=== PATIENT | female | born 1945 | race Caucasian/White ===

== ENCOUNTER → 2019-03-20 11:06 | Outpatient (BNVA) | payer MEDICAID, SELFPAY | PROVIDERS: Family Provider Nurse Practitioner Family; PCP Nurse Practitioner Family; Visit Provider Nurse Practitioner Family | DX: E03.9 Hypothyroidism, unspecified (principal); Z23 Encounter for immunization | CPT/HCPCS: 84443 ==

== ENCOUNTER 2023-09-02 12:26 | Inpatient (IN) | payer MEDICAID, SELFPAY ==
[2023-09-02] VITALS (25 sets, daily range): BP systolic 123–219; BP diastolic 61–117; PULSE 55–106; RESP 13–28; TEMP 36.3–37.2; O2SAT 93–100; BMI 25.0; BMI 24.3
--- NOTE | 2023-09-02 13:08 | CTR_ITS ---
PROCEDURE INFORMATION: Exam: CT Abdomen And Pelvis With Contrast Exam date and time: 09/02/2023 2:58 PM Age: 78 years old Clinical indication: Abdominal pain; Generalized; Additional info: Abd pain TECHNIQUE: Imaging protocol: Computed tomography of the abdomen and pelvis with contrast. Radiation optimization: All CT scans at this facility use at least one of these dose optimization techniques: automated exposure control; mA and/or kV adjustment per patient size (includes targeted exams where dose is matched to clinical indication); or iterative reconstruction. Contrast material: OMNI 350; Contrast volume: 100 ml; Contrast route: INTRAVENOUS (IV); COMPARISON: No relevant prior studies available. RADIATION DOSE METRICS: Total DLP (mGy-cm): 596.47 FINDINGS: Lungs: Lung bases are clear as visualized. Liver: Normal. No mass. Gallbladder and bile ducts: Cholelithiasis was described previously. There is a 1.7 cm noncalcified finding in the gallbladder neck which is probably a gallstone. The gallbladder wall is not obviously thickened. There is mild, diffuse bile duct dilatation to near the level of the ampulla. This was not described previously. The wall of the extrahepatic bile duct appears mildly thickened, so cholangitis is possible. Otherwise, unremarkable. Pancreas: Normal. No ductal dilation. Spleen: Normal. No splenomegaly. Adrenal glands: The left adrenal gland is diffusely prominent. A similar finding was described previously, so this is likely adrenal hyperplasia. Unremarkable right adrenal gland. Kidneys and ureters: Several simple appearing cysts are in each kidney, and need no follow-up. Otherwise, unremarkable. Stomach and bowel: There are several thick walled ileal loops in the right lower quadrant and central and right pelvis. There is a small amount of stranding in the adjacent fat. A similar finding was described in the report for the CT of the abdomen and pelvis from March 10, 2009, but images from that CT are no longer available. This was described as localized enteritis or inflammatory bowel disease which is likely the case today. It is possible this could be ischemic bowel, but this is considered much less likely. Some of these loops are mildly dilated as are other non thick walled small bowel loops, and there is a [id number] amount of gas in the colon. There are air-fluid levels. This is likely adynamic ileus. Otherwise, unremarkable. Appendix: No evidence of appendicitis. Intraperitoneal space: No significant free fluid or free air. Vasculature: Large amount of arterial calcification. Otherwise, unremarkable. Lymph nodes: Unremarkable. No enlarged lymph nodes. Urinary bladder: Unremarkable as visualized. Reproductive: Unremarkable as visualized. Bones/joints: Mild scoliosis. Mild and moderate multilevel spondylosis. Moderate bilateral hip arthritis. Otherwise, unremarkable. Soft tissues: Otherwise, unremarkable visualized body wall. Otherwise, unremarkable soft tissues. CT/CT abdomen pelvis w con* [id number] IMPRESSION: 1. Probable infectious enteritis or inflammatory bowel disease involving several distal ileal loops. Much less likely this is ischemic bowel. 2. Probable adynamic ileus. 3. Mild bile duct dilatation diffusely to near the level of the ampulla with possible cholangitis. Consider MRCP and/or ERCP for this. 4. Additional details as above.
--- NOTE | 2023-09-02 13:12 | ED_ITS ---
Documented by User: Kurt Hernandez DO 09/09/23 06:27 HPI - Abdominal Pain 2 General: Chief Complaint: Abdominal Pain Stated Complaint: abd pain Time Seen by Provider: 09/02/23 12:49 Source: patient Mode of arrival: EMS History of Present Illness: 78-year-old female who presents to the e mergency room with complaint of what she describes allover abdominal pain focus more to suprapubic discomfort. She denies dysuria but has frequency and urgency. No fever. She has had some nausea and vomiting. Is also had some loose stools. She had an episode of urinary incontinence shortly after arriving here. MD elicited complaint: abdominal pain Onset (ago): day(s) Severity: severe Quality: cramping Exacerbating factors: eating Associated Symptoms: Reports bloating, dysuria, nausea and poor appetite; Denies anorexia, belching, change in bowel habits, change in stool character, chills, coffee ground emesis, constipation, GI cramping, diarrhea, dyspepsia, excessive flatus, fever(s), heartburn, hematochezia, hematuria, hematemesis, fecal incontinence, loose stools, melena, syncope and vomiting Review of Systems 2 Const: Denies: fever(s) or chills Card: Denies: syncope Resp: Denies: dyspnea GI: Reports: nausea and bloating; Denies: vomiting, hematemesis, coffee ground emesis, heartburn, diarrhea, constipation, GI cramping, belching, excessive flatus, fecal incontinence, change in bowel habits, change in stool character, hematochezia or melena : Reports: dysuria; Denies: hematuria Musc: Denies: neck pain or back pain Skin/Breast: Denies: rash [facility] ED 2 PFSH: Medical History (Updated 09/09/23 @ 06:27 by Kurt Hernandez DO) Hypertension Gallstone Physical Exam 2 Const: GENERAL APPEARANCE: cooperative and comfortable O RIENTATION/CONSCIOUSNESS: Yes awake, Yes oriented to person, Yes oriented to place and Yes oriented to time HENMT: COMMON NORMALS: normocephalic, atraumatic and hearing grossly normal bilaterally HEAD & SCALP: normocephalic and atraumatic Resp: COMMON NORMALS: normal respiratory effort, No retractions, No use of accessory muscles and clear to auscultation bilaterally AUSCULTATION: clear to auscultation bilaterally Cardio: COMMON NORMALS: regular rate, regular rhythm and No murmurs present (Cardio) RATE: regular rate RHYTHM: regular rhythm GI: COMMON NORMALS: Soft to palpation and No hepatosplenomegaly present A USCULTATION: Yes normoactive bowel sounds PALPATION: Yes Soft to palpation, No Tenderness to palpation present (GI), No Guarding due to palpation present (GI) and Yes No hepatosplenomegaly present Extremity: COMMON NORMALS: normal to inspection, capillary refill normal, no clubbing, cyanosis or edema, no calf tenderness and no pedal edema Neuro: SENSORIUM/ORIENTATION: Yes oriented to person, Yes oriented to place and Yes oriented to time Skin: COMMON NORMALS: no rashes or lesions noted GENERAL SKIN EXAM: no rashes or lesions noted Course 2 Vital Signs: Vital signs: Vital Signs Temperature 97.4 F L 09/06/23 13:10 Pulse Rate 78 09/06/23 13:10 Respiratory Rate 19 H 09/06/23 13:10 Blood Pressure 163/69 09/06/23 13:10 Pulse Oximetry 97 09/06/23 13:10 Oxygen Delivery Me thod Room Air 09/06/23 11:55 MDM - Abdominal Pain Medical Decision Making Patient continues with moderate abdominal discomfort. Her white count is normal liver enzymes T. bili and lipase are all normal. There is enteritis on the CT there is a questionable finding on the gallbladder with possible mild ductal dilatation. Ultrasound was done to reevaluate. Report from mineral surveying technician is there is no ductal dilatation there is some mild gallbladder wall thickening. She may have an early cholecystitis history of this may be part of an enteritis which is seen in the small bowel. Her lactic acid initially was 2.6 and decreases to 1.2 on follow-up. Similar findings on the ileal loops were noted in February 2009 but did radiologist reported that these films were not available for comparison. Consult hospitalist will start prophylactically on Zosyn. It is possible patient is a very early cholecystitis. Labs can be reevaluated and you can consider repeat imaging of the gallbladder in the morning pending on patient's clinical condition and lab results. Care signed out to Dr. Wheeler at change of shift. See final notes for diagnosis and disposition. Patient care was transitioned to md at shift change. Awaiting consultation from the hospitalist service. Initially they recommended either an MRCP prior to admission or transfer for MRCP. I spoke with patient about this and she refused transfer to [facility]. I suggested [facility] which at the time she said okay. I got her accepted to [facility] and when I went back to tell her she said that she would not go there either because she has only [place] Medicaid. At that point Dr. Evansan to talk to Dr. Ireland and Dr. Ireland has agreed to admit patient and the hospitalist will consult. Medical decision making: Differential diagnosis including but not limited to and based on the above HPI, review of systems and physical exam: Orders placed to evaluate differential diagnosis based on the above differential, HPI and physical exam Lab Review: Laboratory results were reviewed and interpreted by myself the emergency room physician. I reviewed the patient's medical record. Reexamination: I examined the patient. Dry oral mucosa. Tachypneic. Very diffuse abdominal tenderness. Assessment and plan: Abdominal pain Ileus Colitis Possible cholecystitis Accelerated hypertension -Patient has received Zosyn here in the emergency room. ? I have ordered a liter saline she appears bit dehydrated on my exam. -I had ordered morphine and Zofran because her blood pressure was elevated and she was complaining of severe pain. ? Pain meds did not affect her blood pressure so I have ordered a dose of labetalol. If this does not help the hospitalist will need to be consulted for management of this. Heart rate was in the 90s and she is been having very frequent PVCs. -Patient was discussed with Dr. Ireland and with Dr. Lancaster. Being admitted to Dr. Ireland - Discussed findings and plan with patient. Answered any questions. - All laboratory values were reviewed and interpreted personally by myself, the ER physician - All imaging was reviewed and interpreted personally by myself, the ER physician. - Evaluation and treatment of this problem were appropriate in the emergency setting Medical Records I reviewed the patient's medical records. Lab Data I reviewed the patient's lab results. 09/06/23 09:49 09/05/23 05:51 Labs/Radiology: Radiology Impressions Abdomen/Pelvis CT 09/02/23 13:08 IMPRESSION: 1. Probable infectious enteritis or inflammatory bowel disease involving several distal ileal loops. Much less likely this is ischemic bowel. 2. Probable adynamic ileus. 3. Mild bile duct dilatation diffusely to near the level of the ampulla with possible cholangitis. Consider MRCP and/or ERCP for this. 4. Additional details as above. Gallbladder Ultrasound 09/02/23 17:22 IMPRESSION: 1. Study significantly limited by overlying bowel gas. On CT of the colon is noted to overlie the upper abdomen. 2. Suggested large gallstone with questionable gallbladder wall thickening. Consider HIDA scan cholecystitis is suspected. 3. Other nonemergent findings above. Cholangiopancreatography MRI 09/03/23 18:56 Impression: Some images limited due to respiratory motion 1. 2.5 x 2.1 cm gallstone in the gallbladder neck. 2. No evidence of gallbladder wall thickening or pericholecystic fluid. No definite evidence of acute cholecystitis. Recommend correlation with biliary function studies. 3. Normal caliber common bile duct. No evidence of choledocholithiasis. 4. Minimal intrahepatic biliary ductal dilatation. No definite MRI evidence of cholangitis. 5. Multiple bilateral renal cysts. 6. 1.5 cm LEFT adrenal adenoma. 7. No other acute findings. Laboratory Results WBC 5.85 10^3/uL (3.29-11.43) 09/02/23 13:07 RBC 4.45 10^6/uL (3.85-5.65) 09/02/23 13:07 Hgb 15.90 g/dL (11.27-16.99) 09/02/23 13:07 Hct 45.3 % (36-47) 09/02/23 13:07 MCV 101.8 fl (85-98) H 09/02/23 13:07 MCH 35.7 pg (27-33) H 09/02/23 13:07 MCHC 35.1 g/dL (30-55) 09/02/23 13:07 RDW 12.8 % (12.1-15.1) 09/02/23 13:07 Plt Count 263 10^3/cmm (157-399) 09/02/23 13:07 MPV 10.5 fL (7.4-10.4) H 09/02/23 13:07 Neut % (Auto) 84.7 % 09/02/23 13:07 Lymph % (Auto) 9.2 % 09/02/23 13:07 [place] % (Auto) 5.3 % 09/02/23 13:07 Eos % (Auto) 0.2 % 09/02/23 13:07 Baso % (Auto) 0.3 % 09/02/23 13:07 Neut # (Auto) 4.95 10^3/uL (1.8-7.7) 09/02/23 13:07 Lymph # (Auto) 0.5 10^3/uL (0.8-4.8) L 09/02/23 13:07 [place] # (Auto) 0.3 10^3/uL (0.2-0.9) 09/02/23 13:07 Eos # (Auto) 0.0 10^3/uL (0.0-0.8) 09/02/23 13:07 Baso # (Auto) 0.0 10^3/uL (0.0-0.1) 09/02/23 13:07 Nucleated RBC % (auto) 0 % 09/02/23 13:07 Nucleated RBCs # 0.0 /100WBC 09/02/23 13:07 Sodium 141 mmol/L (136-145) 09/02/23 13:07 Potassium 4.2 mmol/L (3.5-5.1) 09/02/23 13:07 Chloride 100 mmol/L (98-107) 09/02/23 13:07 Carbon Dioxide 24 mmol/L (22-29) 09/02/23 13:07 Anion Gap 21.2 (5-19) H 09/02/23 13:07 BUN 9 mg/dL (8-23) 09/02/23 13:07 Creatinine 0.9 mg/dL (0.5-0.9) 09/02/23 13:07 GFR Calculation Not Reportable 09/02/23 13:07 Glucose 121 mg/dL (65-115) H 09/02/23 13:07 Calculated Osmolality 292 mOsm/kg (285-295) 09/02/23 13:07 Lactic Acid 2.6 mmol/L (0.5-2.2) H 09/02/23 13:07 Lactic Acid (Sepsis) 1.6 mmol/L (0.5-2.2) 09/02/23 16:07 Calcium 10.4 mg/dL (8.5-10.5) 09/02/23 13:07 Total Bilirubin 0.6 mg/dL (0.15-1.2) 09/02/23 13:07 AST 21 U/L (0-32) 09/02/23 13:07 ALT < 5 U/L (0-33) 09/02/23 13:07 Alkaline Phosphatase 98 U/L (35-105) 09/02/23 13:07 Total Protein 8.4 g/dL (6.6-8.7) 09/02/23 13:07 Albumin 4.6 g/dL (3.5-5.2) 09/02/23 13:07 Globulin 3.8 g/dL (1.3-4.6) 09/02/23 13:07 Lipase 14 U/L (13-60) 09/02/23 13:07 Urine Color Yellow (Yellow) 09/02/23 13:50 Urine Appearance Clear (CLEAR) 09/02/23 13:50 Urine pH 9 (5-7) H 09/02/23 13:50 Ur Specific [place] 1.010 (1.005-1.030) 09/02/23 13:50 Urine Protein Neg (Negative) 09/02/23 13:50 Urine Glucose (UA) Norm (Normal) 09/02/23 13:50 Urine Ketones 1+ (Negative) H 09/02/23 13:50 Urine Blood Neg (Negative) 09/02/23 13:50 Urine Nitrate Negative (Negative) 09/02/23 13:50 Urine Bilirubin Neg (Negative) 09/02/23 13:50 Prot Sulfosalicylic Acd Negative (Negative) 09/02/23 13:50 Urine Urobilinogen Norm mg/dL (Negative) 09/02/23 13:50 Ur Leukocyte Esterase Negative (Negative) 09/02/23 13:50 Discharge Plan Discharge Patient Disposition: Admitted As Inpatient Admit Provider: Amadou Ireland Clinical Impression: Gastroenteritis, Elevated LFTs, Cholelithiasis Condition: Stable Discharge Diet: Advance as tolerated Discharge Activity: Resume usual activity Coding Level of Care Code ED Trimming Department Blocker for Sebastiang Fwd Documented by User: Paty Wheeler MD 09/02/23 20:26 HPI - Abdominal Pain 2 General: Chief Complaint: Abdominal Pain Stated Complaint: abd pain Time Seen by Provider: 09/02/23 12:49 PFS ED 2 PFSH: Medical History (Updated 09/09/23 @ 06:27 by Kurt Hernandez DO) Hypertension Gallstone Course 2 Vital Signs: Vital signs: Vital Signs Temperature 97.4 F L 09/06/23 13:10 Pulse Rate 78 09/06/23 13:10 Respiratory Rate 19 H 09/06/23 13:10 Blood Pressure 163/69 09/06/23 13:10 Pulse Oximetry 97 09/06/23 13:10 Oxygen Delivery Me thod Room Air 09/06/23 11:55 MDM - Abdominal Pain Medical Decision Making Patient continues with moderate abdominal discomfort. Her white count is normal liver enzymes T. bili and lipase are all normal. There is enteritis on the CT there is a questionable finding on the gallbladder with possible mild ductal dilatation. Ultrasound was done to reevaluate. Report from mineral surveying technician is there is no ductal dilatation there is some mild gallbladder wall thickening. She may have an early cholecystitis history of this may be part of an enteritis which is seen in the small bowel. Her lactic acid initially was 2.6 and decreases to 1.2 on follow-up. Similar findings on the ileal loops were noted in February 2009 but did radiologist reported that these films were not available for comparison. Consult hospitalist will start prophylactically on Zosyn. It is possible patient is a very early cholecystitis. Labs can be reevaluated and you can consider repeat imaging of the gallbladder in the morning pending on patient's clinical condition and lab results. Patient care was transitioned to md at shift change. Awaiting consultation from the hospitalist service. Initially they recommended either an MRCP prior to admission or transfer for MRCP. I spoke with patient about this and she refused transfer to [facility]. I suggested [facility] which at the time she said okay. I got her accepted to [facility] and when I went back to tell her she said that she would not go there either because she has only [place] Medicaid. At that point Dr. Hernandez to talk to Dr. Ireland and Dr. Ireland has agreed to admit patient and the hospitalist will consult. Medical decision making: Differential diagnosis including but not limited to and based on the above HPI, review of systems and physical exam: Orders placed to evaluate differential diagnosis based on the above differential, HPI and physical exam Lab Review: Laboratory results were reviewed and interpreted by myself the emergency room physician. I reviewed the patient's medical record. Reexamination: I examined the patient. Dry oral mucosa. Tachypneic. Very diffuse abdominal tenderness. Assessment and plan: Abdominal pain Ileus Colitis Possible cholecystitis Accelerated hypertension -Patient has received Zosyn here in the emergency room. ? I have ordered a liter saline she appears bit dehydrated on my exam. -I had ordered morphine and Zofran because her blood pressure was elevated and she was complaining of severe pain. ? Pain meds did not affect her blood pressure so I have ordered a dose of labetalol. If this does not help the hospitalist will need to be consulted for management of this. Heart rate was in the 90s and she is been having very frequent PVCs. -Patient was discussed with Dr. Ireland and with Dr. Lancaster. Being admitted to Dr. Ireland - Discussed findings and plan with patient. Answered any questions. - All laboratory values were reviewed and interpreted personally by myself, the ER physician - All imaging was reviewed and interpreted personally by myself, the ER physician. - Evaluation and treatment of this problem were appropriate in the emergency setting Lab Data 09/06/23 09:49 09/05/23 05:51 Labs/Radiology: Radiology Impressions Abdomen/Pelvis CT 09/02/23 13:08 IMPRESSION: 1. Probable infectious enteritis or inflammatory bowel disease involving several distal ileal loops. Much less likely this is ischemic bowel. 2. Probable adynamic ileus. 3. Mild bile duct dilatation diffusely to near the level of the ampulla with possible cholangitis. Consider MRCP and/or ERCP for this. 4. Additional details as above. Gallbladder Ultrasound 09/02/23 17:22 IMPRESSION: 1. Study significantly limited by overlying bowel gas. On CT of the colon is noted to overlie the upper abdomen. 2. Suggested large gallstone with questionable gallbladder wall thickening. Consider HIDA scan cholecystitis is suspected. 3. Other nonemergent findings above. Cholangiopancreatography MRI 09/03/23 18:56 Impression: Some images limited due to respiratory motion 1. 2.5 x 2.1 cm gallstone in the gallbladder neck. 2. No evidence of gallbladder wall thickening or pericholecystic fluid. No definite evidence of acute cholecystitis. Recommend correlation with biliary function studies. 3. Normal caliber common bile duct. No evidence of choledocholithiasis. 4. Minimal intrahepatic biliary ductal dilatation. No definite MRI evidence of cholangitis. 5. Multiple bilateral renal cysts. 6. 1.5 cm LEFT adrenal adenoma. 7. No other acute findings. Laboratory Results WBC 5.85 10^3/uL (3.29-11.43) 09/02/23 13:07 RBC 4.45 10^6/uL (3.85-5.65) 09/02/23 13:07 Hgb 15.90 g/dL (11.27-16.99) 09/02/23 13:07 Hct 45.3 % (36-47) 09/02/23 13:07 MCV 101.8 fl (85-98) H 09/02/23 13:07 MCH 35.7 pg (27-33) H 09/02/23 13:07 MCHC 35.1 g/dL (30-55) 09/02/23 13:07 RDW 12.8 % (12.1-15.1) 09/02/23 13:07 Plt Count 263 10^3/cmm (157-399) 09/02/23 13:07 MPV 10.5 fL (7.4-10.4) H 09/02/23 13:07 Neut % (Auto) 84.7 % 09/02/23 13:07 Lymph % (Auto) 9.2 % 09/02/23 13:07 [place] % (Auto) 5.3 % 09/02/23 13:07 Eos % (Auto) 0.2 % 09/02/23 13:07 Baso % (Auto) 0.3 % 09/02/23 13:07 Neut # (Auto) 4.95 10^3/uL (1.8-7.7) 09/02/23 13:07 Lymph # (Auto) 0.5 10^3/uL (0.8-4.8) L 09/02/23 13:07 [place] # (Auto) 0.3 10^3/uL (0.2-0.9) 09/02/23 13:07 Eos # (Auto) 0.0 10^3/uL (0.0-0.8) 09/02/23 13:07 Baso # (Auto) 0.0 10^3/uL (0.0-0.1) 09/02/23 13:07 Nucleated RBC % (auto) 0 % 09/02/23 13:07 Nucleated RBCs # 0.0 /100WBC 09/02/23 13:07 Sodium 141 mmol/L (136-145) 09/02/23 13:07 Potassium 4.2 mmol/L (3.5-5.1) 09/02/23 13:07 Chloride 100 mmol/L (98-107) 09/02/23 13:07 Carbon Dioxide 24 mmol/L (22-29) 09/02/23 13:07 Anion Gap 21.2 (5-19) H 09/02/23 13:07 BUN 9 mg/dL (8-23) 09/02/23 13:07 Creatinine 0.9 mg/dL (0.5-0.9) 09/02/23 13:07 GFR Calculation Not Reportable 09/02/23 13:07 Glucose 121 mg/dL (65-115) H 09/02/23 13:07 Calculated Osmolality 292 mOsm/kg (285-295) 09/02/23 13:07 Lactic Acid 2.6 mmol/L (0.5-2.2) H 09/02/23 13:07 Lactic Acid (Sepsis) 1.6 mmol/L (0.5-2.2) 09/02/23 16:07 Calcium 10.4 mg/dL (8.5-10.5) 09/02/23 13:07 Total Bilirubin 0.6 mg/dL (0.15-1.2) 09/02/23 13:07 AST 21 U/L (0-32) 09/02/23 13:07 ALT < 5 U/L (0-33) 09/02/23 13:07 Alkaline Phosphatase 98 U/L (35-105) 09/02/23 13:07 Total Protein 8.4 g/dL (6.6-8.7) 09/02/23 13:07 Albumin 4.6 g/dL (3.5-5.2) 09/02/23 13:07 Globulin 3.8 g/dL (1.3-4.6) 09/02/23 13:07 Lipase 14 U/L (13-60) 09/02/23 13:07 Urine Color Yellow (Yellow) 09/02/23 13:50 Urine Appearance Clear (CLEAR) 09/02/23 13:50 Urine pH 9 (5-7) H 09/02/23 13:50 Ur Specific [place] 1.010 (1.005-1.030) 09/02/23 13:50 Urine Protein Neg (Negative) 09/02/23 13:50 Urine Glucose (UA) Norm (Normal) 09/02/23 13:50 Urine Ketones 1+ (Negative) H 09/02/23 13:50 Urine Blood Neg (Negative) 09/02/23 13:50 Urine Nitrate Negative (Negative) 09/02/23 13:50 Urine Bilirubin Neg (Negative) 09/02/23 13:50 Prot Sulfosalicylic Acd Negative (Negative) 09/02/23 13:50 Urine Urobilinogen Norm mg/dL (Negative) 09/02/23 13:50 Ur Leukocyte Esterase Negative (Negative) 09/02/23 13:50 All radiology interpretation(s) finalized by discharge Discharge Plan Discharge Patient Disposition: Admitted As Inpatient Admit Provider: Amadou Ireland Clinical Impression: Gastroenteritis, Elevated LFTs, Cholelithiasis Condition: Stable Discharge Diet: Advance as tolerated Discharge Activity: Resume usual activity Coding Level of Care Code ED Trimming Department Blocker for Queenie Turner
[2023-09-02 13:52] LABS: Basophils % 0.3 %; Eosinophils % 0.2 %; Hematocrit 45.3 % (36-47); Lymphocytes # 0.5 10^3/uL (0.8-4.8); Lymphocytes % 9.2 %; Mean Corpuscular HGB Conc 35.1 g/dL (30-55); Mean Corpuscular Hemoglobin 35.7 pg (27-33); Mean Corpuscular Volume 101.8 fl (85-98); Mean Platelet Volume 10.5 fL (7.4-10.4); Monocytes # 0.3 10^3/uL (0.2-0.9); Monocytes % 5.3 %; Neutrophils # 4.95 10^3/uL (1.8-7.7); Neutrophils % 84.7 %; Nucleated Red Blood Cells % 0 %; Platelet Count 263 10^3/cmm (157-399); Red Blood Count 4.45 10^6/uL (3.85-5.65); Red Cell Distribution Width 12.8 % (12.1-15.1); White Blood Count 5.85 10^3/uL (3.29-11.43)
[2023-09-02 14:00] LABS: Add Urine Microscopic? NO; Charge for UA Resulting for Rev
[2023-09-02 14:10] LABS: Alanine Aminotransferase < 5 U/L (0-33); Albumin Level 4.6 g/dL (3.5-5.2); Alkaline Phosphatase 98 U/L (35-105); Aspartate Amino Transferase 21 U/L (0-32); Blood Urea Nitrogen 9 mg/dL (8-23); Calcium 10.4 mg/dL (8.5-10.5); Carbon Dioxide 24 mmol/L (22-29); Chloride 100 mmol/L (98-107); Creatinine Clr Calc Pharmacy 54.5334; Globulin 3.8 g/dL (1.3-4.6); Glucose 121 mg/dL (65-115); Lipase 14 U/L (13-60); Osmolality Calculated 292 mOsm/kg (285-295); Sodium 141 mmol/L (136-145); Total Bilirubin 0.6 mg/dL (0.15-1.2); Total Protein 8.4 g/dL (6.6-8.7)
[2023-09-02 14:11] LABS: Lactic Sepsis W/Reflex 2.6 mmol/L (0.5-2.2)
[2023-09-02 14:13] LABS: Anion Gap 21.2 (5-19); Potassium 4.2 mmol/L (3.5-5.1)
[2023-09-02 14:24] LABS: Bilirubin Urine Neg (Negative); Blood Urine Neg (Negative); Glucose Urine UA Norm (Normal); Ketones Urine 1+ (Negative); Leukocyte Esterase Urine Negative (Negative); Nitrate Urine Negative (Negative); Protein Urine Neg (Negative); Sulfosalicylic Acid Urine Negative (Negative); Urine Appearance Clear (CLEAR); Urine Color Yellow (Yellow); Urobilinogen Urine Norm (Negative); pH Urine 9 (5-7)
--- NOTE | 2023-09-02 15:01 | PC.NURSE ---
Pt was brought over to CT. We flushed pt IV with power injector @ 2.5ml/s and IV was blown. 20ML saline went under the skin. We removed pt blown IV and started a 20g in Left arm that flushed, haroldo blood, and was used for CT with contrast. IV was documented. Pt arm was wrapped in a warm compress after blown IV was removed.@ 1500 BH
[2023-09-02] MEDS: iohexol 350 mg/mL 500 mL Btl (per mL) IV (15:11)
[2023-09-02 15:35] LABS: Reflex Lactate Order REFLEX LACTIC ORDERD
[2023-09-02 16:44] LABS: Lactic Acid level (Lactate) 1.6 mmol/L (0.5-2.2)
--- NOTE | 2023-09-02 17:22 | USR_ITS ---
PROCEDURE INFORMATION: Exam: US Abdomen, Limited; Right Upper Quadrant Exam date and time: 09/02/2023 5:34 PM Age: 78 years old Clinical indication: Abdominal pain; Additional info: Abd pain. Tds due to bowel gas TECHNIQUE: Imaging protocol: Real time ultrasound of the abdomen with image documentation. Limited exam focused on the right upper quadrant. COMPARISON: CT abdomen pelvis w con* [id number] 09/02/2023 2:58 PM FINDINGS: Limitations: Markedly limited study due to overlying bowel gas. On CT, the colon projects over the liver anteriorly. Liver: The visualized portions of the liver within normal limits. Gallbladder: Suggested large gallstone in the neck of the gallbladder. Questionable gallbladder wall thickening measuring up to 4 mm. The patient was unable to roll for more accurate evaluation of the gallbladder. Biliary ducts: There is no evidence of intra or extrahepatic ductal dilatation. The common bile duct measures 4 mm. Pancreas: Pancreas obscured by bowel gas. Right kidney: Two simple appearing cyst visualized in the right kidney, the larger measuring up to 2.7 cm. Aorta: Aorta and inferior vena cava are not visualized due to overlying bowel gas. US/US gall bladder [id number] IMPRESSION: 1. Study significantly limited by overlying bowel gas. On CT of the colon is noted to overlie the upper abdomen. 2. Suggested large gallstone with questionable gallbladder wall thickening. Consider HIDA scan cholecystitis is suspected. 3. Other nonemergent findings above.
--- NOTE | 2023-09-02 17:40 | PC.NURSE ---
US in room
[2023-09-02] MEDS: sodium chloride 0.9% 1,000 ML 999 ML IV (17:44)
[2023-09-02] MEDS: piperacillin-tazobactam 3.375 GM in sodium chloride 0.9% (plus) 50 ML IV (18:49)
[2023-09-02] MEDS: morphine 4 mg/mL SDV 1 mL IVP (19:07)
--- NOTE | 2023-09-02 19:07 | P.CONIM_ITS ---
Providers/Reason For Consult 2 Consulting Physician/Specialty*: Makenna Lancaster MD, Internal Medicine, Reason for Consult*: Abdominal pain Primary Care Provider: Cayla Rivas APN History of Present Illness History of Present Illness Gabriella Thompson is a 78 year old female with no significant past medical history presented to the hospital today with complaint of abdominal pain that is worse around her umbilical region going on for the last 3 to 4 days. Pain is 8 out of 10 in intensity. She says its mainly around the umbilicus but also has mild right upper quadrant pain. She has had 1 episode of vomiting today and an episode of loose stools however has been nauseous for the last few days and has had a lot of retching. She has no known issues with her gallbladder in the past. She does states she has a history of back surgeries and tubal ligation long time ago. She is not on any medications at home except thyroid medication. She is somewhat of a poor historian. She says she takes trazodone for insomnia. Right now she lives alone but says her grandchild will be living with her going forward. She says she does not want to be intubated or placed on a ventilator however is okay with CPR. Does not have any issues with blood pressure as far as she knows. ER course: Blood pressure 124/79, respiratory 18, pulse 89, temperature 97.4 saturating 98% on room air. CT abdomen pelvis was done which shows probable infectious enteritis or inflammatory bowel disease involving several distal ileum loops. Much less likely ischemic bowel. Probable adynamic ileus. Mild bile duct dilatation diffusely to near the level of ampulla with possible cholangitis. Consider MRCP and/or ERCP for this. Gallbladder ultrasound was performed which showed 1. Study significantly limited by overlying bowel gas. On CT of the colon is noted to overlie the upper abdomen. 2. Suggested large gallstone with questionable gallbladder wall thickening. Consider HIDA scan cholecystitis is suspected. 3. Other nonemergent findings above. Medications/Allergies Home Medications Medication Instructions Recorded Confirmed Last Taken Type ergocalciferol (vitamin D2) 1,250 1,250 mcg PO .WEEKLY #4 caps 06/01/19 Unknown Rx mcg (50,000 unit) capsule (Vitamin D2) Allergies Allergy/AdvReac Type Severity Reaction Status Date / Time No Known Allergies Allergy Unverified 03/20/19 11:34 Vitals/I&O/Wt Last Vital Signs Temp 98.1 F 09/02/23 18:00 Pulse 89 09/02/23 19:00 Resp 16 09/02/23 19:00 BP 193/85 09/02/23 19:00 Pulse Ox 94 09/02/23 19:00 O2 Del Method Room Air 09/02/23 19:00 Weight last 48 hrs Weight 72.575 kg Physical Exam 2 Narrative: General: Alert oriented x3, patient seen laying in bed seems to be in mild to moderate distress secondary to abdominal pain. HEENT: Normocephalic, atraumatic, EOMI, breathing room air Cardio: Regular rate rhythm, normal S1-S2, Respiratory: Clear to auscultation bilaterally no wheezes no rhonchi GI: Abdomen soft, moderately tender to palpation around umbilical region, no rebound tenderness however does have mild guarding. Right upper quadrant also tender Extremities: No edema bilateral lower extremities, no apparent skin rashes noted. Data 09/02/23 13:07 09/02/23 13:07 Micro: Microbiology 09/02/23 18:00 Blood Culture - Preliminary Blood SPECIMEN COLLECTED 09/02/23 18:00 Blood Culture - Preliminary Blood SPECIMEN COLLECTED A&P Assessment and plan (1) Abdominal pain: (2) Cholecystitis: (3) Gallstone: (4) Ileus: (5) Hypertension: Plan #Abdominal pain #Probable cholecystitis, early cholangitis? #Cholelithiasis? #Possible adynamic ileus? #Thyroid disease, -unspecified -Patient is presented to the hospital with 3 to 4 days of abdominal pain which is worse around her umbilical region intensity of 10 associated with nausea vomiting and retching. She is hypertensive secondary to pain. Is requiring morphine IV. Does have moderate amount of abdominal pain upon light and deep palpation. Does have mild guarding present. Lactic acid 2.6 on arrival and subsequently 1.6. CT abdomen pelvis does raise a question of possible cholangitis, 1.7 cm noncalcified material around the neck of gallbladder which could possibly be a gallstone. Subsequently performed gallbladder ultrasound does suggest a large gallstone with questionable gallbladder wall thickening. Common bile duct does measure 4 mm. However gallbladder could not be fully visualized. Exam limited secondary to overlying bowel gas. -LFTs are not abnormal, alkaline phosphatase, lipase are normal at this time however that does not completely rule out gallbladder or early biliary disease. -Radiologist has recommended MRCP or ERCP for further evaluation. ? I have been told MRCP will NOT be possible to do this evening due to logistical issues. I have discussed the case at length with general surgery and discussed all imaging findings. Both general surgeon and the senior grant writer recommend patient be transferred to higher level of care tertiary care center where MRCP ERCP capabilities are available and obtain a gastroenterology consult. -In the meantime we can order morphine 4 mg IV every 4 hours as needed for pain ? Hydralazine 5 mg IV every 4 hours for elevated blood pressure greater than 180 as there is a pain component. ? Confirm home medications from patient's pharmacy. ? Keep patient strictly n.p.o. at this time ? Zofran 4 mg every 6 hours as needed for nausea -Placed on normal saline 125 cc/h -Check GGT, subsequent labs in a.m. -Place patient on Zosyn every 8 hours, pharmacy to dose -Recommend transfer patient to higher level of care. Limited resuscitation, does not want intubation however okay with CPR. DVT prophylaxis: Heparin SQ twice daily Consult Attestations 2 Medical Necessity Statement: Consulting for patient in ER with abdominal pain. Diagnoses Abdominal pain R10.9 Cholecystitis K81.9 Gallstone K80.20 Ileus K56.7 Hypertension I10
[2023-09-02] MEDS: ondansetron 2 mg/ML SDV 2 mL 4 MG IVP (19:08)
--- NOTE | 2023-09-02 20:22 | ECG_ITS ---
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 Measurements Intervals [place] Rate: 100 P: 45 WA: 134 QRS: -74 QRSD: 135 T: 23 QT: 370 QTc: 478 Interpretive Statements SINUS TACHYCARDIA WITH FREQUENT VENTRICULAR PREMATURE COMPLEXES IN A BIGEMINAL PATTERN LEFT ATRIAL ENLARGEMENT [-0.15mV P-WAVE IN V1/V2] RIGHT BUNDLE BRANCH BLOCK [120+ ms QRS DURATION, UPRIGHT V1, 40+ ms S IN I/aVL/V4/V5/V6] LEFT ANTERIOR FASCICULAR BLOCK [QRS AXIS <= -45, QR IN I, RS IN II] No previous ECG available for comparison Electronically Signed On 09-03-2023 13:40:16 CDT by Kit Rodriguez M.D. [id number]
[2023-09-02] MEDS: sodium chloride 0.9% 1,000 ML 125 ML IV (21:10)
[2023-09-02 21:15] LABS: Troponin(5th) Baseline 40 ng/L (0-10)
[2023-09-02] MEDS: labetalol 5 mg/mL SDV 20mL 20 MG IVP (21:36)
[2023-09-02] MEDS: heparin 5,000 unit/mL INJ 1 mL 5000 UNIT SUBCUT (21:36)
[2023-09-02 21:48] LABS: Basophils % 0.4 %; Eosinophils % 0.1 %; Hematocrit 41.3 % (36-47); Lymphocytes # 1.3 10^3/uL (0.8-4.8); Lymphocytes % 14.8 %; Mean Corpuscular HGB Conc 34.6 g/dL (30-55); Mean Corpuscular Hemoglobin 35.4 pg (27-33); Mean Corpuscular Volume 102.2 fl (85-98); Mean Platelet Volume 9.2 fL (7.4-10.4); Monocytes # 0.7 10^3/uL (0.2-0.9); Monocytes % 8.6 %; Neutrophils # 6.39 10^3/uL (1.8-7.7); Neutrophils % 75.7 %; Nucleated Red Blood Cells % 0 %; Platelet Count 271 10^3/cmm (157-399); Red Blood Count 4.04 10^6/uL (3.85-5.65); Red Cell Distribution Width 13.1 % (12.1-15.1); White Blood Count 8.44 10^3/uL (3.29-11.43)
[2023-09-02 22:03] LABS: Lactic Sepsis W/Reflex 2.2 mmol/L (0.5-2.2)
[2023-09-02 22:22] LABS: Troponin 5 2HR 43.09 ng/L (0-10); Troponin 5 2HR Delta 3.09 ABS# (0-10)
[2023-09-02 22:32] LABS: Procalcitonin 0.05 ng/mL (0-0.5)
[2023-09-02 22:44] LABS: Alanine Aminotransferase < 5 U/L (0-33); Albumin Level 4.1 g/dL (3.5-5.2); Alkaline Phosphatase 91 U/L (35-105); Aspartate Amino Transferase 18 U/L (0-32); Blood Urea Nitrogen 8 mg/dL (8-23); Calcium 9.5 mg/dL (8.5-10.5); Carbon Dioxide 22 mmol/L (22-29); Chloride 102 mmol/L (98-107); Creatinine Clr Calc Pharmacy 48.4132; Globulin 2.7 g/dL (1.3-4.6); Glucose 121 mg/dL (65-115); Osmolality Calculated 294 mOsm/kg (285-295); Sodium 142 mmol/L (136-145); Total Bilirubin 0.6 mg/dL (0.15-1.2); Total Protein 6.8 g/dL (6.6-8.7)
--- NOTE | 2023-09-02 22:58 | ECG_ITS ---
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 Measurements Intervals [place] Rate: 57 P: 53 MO: 149 QRS: -76 QRSD: 143 T: -24 QT: 476 QTc: 466 Interpretive Statements SINUS BRADYCARDIA LEFT ATRIAL ENLARGEMENT [-0.15mV P-WAVE IN V1/V2] RIGHT BUNDLE BRANCH BLOCK [120+ ms QRS DURATION, UPRIGHT V1, 40+ ms S IN I/aVL/V4/V5/V6] LEFT ANTERIOR FASCICULAR BLOCK [QRS AXIS <= -45, QR IN I, RS IN II] MODERATE T-WAVE ABNORMALITY, CONSIDER LATERAL ISCHEMIA [-0.1+ mV T-WAVE IN I/aVL/V5/V6] Compared to ECG 09/02/2023 20:22:19 T-wave abnormality now present Possible ischemia now present Sinus tachycardia no longer present Ventricular premature complex(es) no longer present Electronically Signed On 09-03-2023 14:00:50 CDT by Kit Rodriguez M.D. [id number]
[2023-09-02 23:01] LABS: Anion Gap 21.8 (5-19); Potassium 3.8 mmol/L (3.5-5.1)
[2023-09-02] MEDS: hyDRALAzine 20 mg/mL INJ 1 mL 10 MG IVP (23:20)
[2023-09-02 23:33] LABS: Reflex Lactate Order REFLEX LACTIC ORDERD
[2023-09-03] VITALS (43 sets, daily range): BP systolic 128–197; BP diastolic 48–88; PULSE 52–110; RESP 12–231; TEMP 36.7; O2SAT 91–98; BMI 24.3
[2023-09-03] MEDS: piperacillin-tazobactam 3.375 GM in sodium chloride 0.9% (plus) 50 ML IV ×3 (01:11→17:17)
[2023-09-03 01:56] LABS: Lactic Acid level (Lactate) 1.2 mmol/L (0.5-2.2)
[2023-09-03 02:37] LABS: Gamma Glutamyl Transferase 11 U/L (5-36)
[2023-09-03] MEDS: hyDRALAzine 20 mg/mL INJ 1 mL 10 MG IVP ×2 (02:50→13:35)
[2023-09-03 02:54] LABS: Basophils % 0.5 %; Eosinophils # 0.1 10^3/uL (0.0-0.8); Eosinophils % 0.8 %; Hematocrit 39.5 % (36-47); Lymphocytes # 1.1 10^3/uL (0.8-4.8); Lymphocytes % 16.5 %; Mean Corpuscular HGB Conc 33.7 g/dL (30-55); Mean Corpuscular Volume 103.9 fl (85-98); Mean Platelet Volume 9.6 fL (7.4-10.4); Monocytes # 0.6 10^3/uL (0.2-0.9); Neutrophils # 4.73 10^3/uL (1.8-7.7); Neutrophils % 72.9 %; Nucleated Red Blood Cells % 0 %; Platelet Count 257 10^3/cmm (157-399); Red Cell Distribution Width 13.3 % (12.1-15.1); White Blood Count 6.48 10^3/uL (3.29-11.43)
--- NOTE | 2023-09-03 02:56 | ECG_ITS ---
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 Measurements Intervals [place] Rate: 67 P: 130 ND: 154 QRS: -40 QRSD: 140 T: -25 QT: 442 QTc: 468 Interpretive Statements ECTOPIC ATRIAL RHYTHM LEFT ATRIAL ENLARGEMENT [-0.15mV P-WAVE IN V1/V2] LEFT AXIS DEVIATION [QRS AXIS < -30] RIGHT BUNDLE BRANCH BLOCK [120+ ms QRS DURATION, UPRIGHT V1, 40+ ms S IN I/aVL/V4/V5/V6] POSSIBLE LEFT VENTRICULAR HYPERTROPHY [VOLTAGE CRITERIA PLUS LAE OR QRS WIDENING] MODERATE T-WAVE ABNORMALITY, CONSIDER LATERAL ISCHEMIA [-0.1+ mV T-WAVE IN I/aVL/V5/V6] Compared to ECG 09/02/2023 22:58:38 Ectopic atrial rhythm now present Left-axis deviation now present Sinus bradycardia no longer present T-wave abnormality still present Possible ischemia still present Electronically Signed On 09-03-2023 14:01:45 CDT by Kit Rodriguez M.D. [id number]
[2023-09-03 03:16] LABS: Alanine Aminotransferase < 5 U/L (0-33); Albumin Level 3.8 g/dL (3.5-5.2); Alkaline Phosphatase 83 U/L (35-105); Anion Gap 17.6 (5-19); Aspartate Amino Transferase 17 U/L (0-32); Blood Urea Nitrogen 8 mg/dL (8-23); Calcium 9.1 mg/dL (8.5-10.5); Carbon Dioxide 24 mmol/L (22-29); Chloride 105 mmol/L (98-107); Creatinine Clr Calc Pharmacy 48.4132; Globulin 2.4 g/dL (1.3-4.6); Glucose 119 mg/dL (65-115); Magnesium 1.5 mg/dL (1.7-2.3); Osmolality Calculated 295 mOsm/kg (285-295); Potassium 3.6 mmol/L (3.5-5.1); Sodium 143 mmol/L (136-145); Total Bilirubin 0.5 mg/dL (0.15-1.2); Total Protein 6.2 g/dL (6.6-8.7)
[2023-09-03 03:17] LABS: Troponin 5 6HR 46.42 ng/L (0-10); Troponin 5 6HR Delta 6.42 ng/L (0-12)
[2023-09-03] MEDS: sodium chloride 0.9% 1,000 ML 125 ML IV ×2 (05:59→16:29)
[2023-09-03] MEDS: morphine 4 mg/mL SDV 1 mL IVP ×2 (06:35→16:34)
--- NOTE | 2023-09-03 08:07 | PC.NURSE ---
off unit 0750 for MRI
[2023-09-03] MEDS: heparin 5,000 unit/mL INJ 1 mL 5000 UNIT SUBCUT ×2 (09:03→21:13)
--- NOTE | 2023-09-03 10:17 | ECG_ITS ---
[facility] Test Date: 2023-09-03 Pat Name: Gabriella Thompson Department: Room: [facility]07 Gender: Female Medicine Aide: : 1945 Requested By: Makenna Lancaster Order Number: [id number] Lamont MD: Kit Rodriguez M.D. Measurements Intervals [place] Rate: 80 P: 31 W[place]: 116 QRS: -83 QRSD: 134 T: 14 QT: 402 QTc: 466 Interpretive Statements SINUS RHYTHM WITH SHORT [place] INTERVAL POSSIBLE LEFT ATRIAL ENLARGEMENT [-0.1mV P-WAVE IN V1/V2] RIGHT BUNDLE BRANCH BLOCK [120+ ms QRS DURATION, UPRIGHT V1, 40+ ms S IN I/aVL/V4/V5/V6] LEFT ANTERIOR FASCICULAR BLOCK [QRS AXIS <= -45, QR IN I, RS IN II] Compared to ECG 09/03/2023 02:56:59 Short [place] interval now present Left anterior fascicular block now present Ectopic atrial rhythm no longer present Left-axis deviation no longer present T-wave abnormality no longer present Possible ischemia no longer present Electronically Signed On 09-03-2023 14:01:58 CDT by Kit Rodriguez M.D. [id number]
[2023-09-03] MEDS: metoprolol tartrate 25 mg Tablet 12.5 MG PO ×2 (11:13→21:13)
--- NOTE | 2023-09-03 12:00 | PM.PN ---
Subjective Subjective: SEEN THIS AM BP BETTER however pt had a heated conversation with someone over thephone and systolic again upto 180 abdominal pain slightly better mrcp done, result is pending Vitals/I&O/Wt Last Vital Signs Temp 98.9 F 09/02/23 21:04 Pulse 102 H 09/03/23 10:00 Resp 12 09/03/23 10:00 BP 182/63 09/03/23 09:30 Pulse Ox 95 09/03/23 10:00 O2 Del Method Nasal Cannula 09/03/23 06:00 09/02/23 09/03/23 09/03/23 22:59 06:59 14:59 Intake Total 1050 / 1050 Output Total 150 / 150 200 / 350 Balance -150 / -150 850 / 700 Weight last 48 hrs Weight 64.41 kg Weight 64.41 kg Weight 64.41 kg Weight 72.575 kg Physical Exam Narrative: General: Alert oriented x3,no acute distress but does appear upset over something, was recently on phone. HEENT: Normocephalic, atraumatic, EOMI, breathing room air Cardio: Regular rate rhythm, normal S1-S2, Respiratory: Clear to auscultation bilaterally no wheezes no rhonchi GI: Abdomen soft, very mildly tender to palpation all 4 quadrants with mostly around umbilicus Extremities: No edema bilateral lower extremities, no apparent skin rashes noted. Data 09/03/23 02:46 09/03/23 02:46 Micro: Microbiology 09/02/23 21:31 Blood Culture - Preliminary Blood SPECIMEN COLLECTED 09/02/23 21:29 Blood Culture - Preliminary Blood SPECIMEN COLLECTED 09/02/23 18:00 Blood Culture - Preliminary Blood SPECIMEN COLLECTED 09/02/23 18:00 Blood Culture - Preliminary Blood SPECIMEN COLLECTED A&P Assessment and plan (1) Abdominal pain: (2) Cholecystitis: (3) Gallstone: (4) Ileus: (5) Hypertension: Plan #Abdominal pain #Probable cholecystitis, early cholangitis? #Cholelithiasis? #Possible adynamic ileus? #Thyroid disease, -unspecified -Patient is presented to the hospital with 3 to 4 days of abdominal pain which is worse around her umbilical region intensity of 10 associated with nausea vomiting and retching. She is hypertensive secondary to pain. Is requiring morphine IV. Does have moderate amount of abdominal pain upon light and deep palpation. Does have mild guarding present. Lactic acid 2.6 on arrival and subsequently 1.6. CT abdomen pelvis does raise a question of possible cholangitis, 1.7 cm noncalcified material around the neck of gallbladder which could possibly be a gallstone. Subsequently performed gallbladder ultrasound does suggest a large gallstone with questionable gallbladder wall thickening. Common bile duct does measure 4 mm. However gallbladder could not be fully visualized. Exam limited secondary to overlying bowel gas. -LFTs are not abnormal, alkaline phosphatase, lipase are normal at this time however that does not completely rule out gallbladder or early biliary disease. -Radiologist has recommended MRCP or ERCP for further evaluation. ? I have been told MRCP will NOT be possible to do this evening due to logistical issues. I have discussed the case at length with general surgery and discussed all imaging findings. Both general surgeon and the justowriter operator recommend patient be transferred to higher level of care tertiary care center where MRCP ERCP capabilities are available and obtain a gastroenterology consult. -In the meantime we can order morphine 4 mg IV every 4 hours as needed for pain ? Hydralazine 5 mg IV every 4 hours for elevated blood pressure greater than 180 as there is a pain component. ? Confirm home medications from patient's pharmacy. ? Keep patient strictly n.p.o. at this time ? Zofran 4 mg every 6 hours as needed for nausea -Placed on normal saline 125 cc/h -Check GGT, subsequent labs in a.m. -Place patient on Zosyn every 8 hours, pharmacy to dose -Recommend transfer patient to higher level of care. Limited resuscitation, does not want intubation however okay with CPR. DVT prophylaxis: Heparin SQ twice daily INITIAL CONSULT NOTE ABOVE. Patient admitted here as she declined transfer to another hospital. Todays plan 09/02 - mrcp done, result pending - less likely cholangitis - less likely ischemic bowel - does have gallstone at neck of GB - further mgmt dictated after mrcp reviewed - bp elevated, continue hydralazine 10 q4h prn sbp > 180 - lopressor 12.5 bid orally - diet order as per primary team - will discuss with dr. machado - continue morphine for pain Attestations Medical Necessity Statement*: Defer to primary team Diagnoses Abdominal pain R10.9 Cholecystitis K81.9 Gallstone K80.20 Ileus K56.7 Hypertension I10
--- NOTE | 2023-09-03 13:06 | P.HP_ITS ---
Providers/Chief Complaint 2 Admitting Physician: Amadou Ireland DO Primary Care Provider: Cayla Rivas APN Chief Complaint: abd pain History of Present Illness Gabriella Thompson is a 78 year old female who presents to the hospital with intermittent periumbilical abdominal pain since May. Nothing seems to make the pain better or worse. She does get occasional nausea and vomiting but denies any hematemesis. Her pain does not radiate. She denies any diarrhea, constipation, hematochezia and/or melena. CT of the abdomen pelvis on admission shows ileitis and possible bile duct dilatation and thickening. She just had an MRCP which showed mild bile duct dilatation and a stone in the neck of the gallbladder without bile duct obstruction, cholecystitis or other findings. Review of Systems 2 General: Reports: 10 or more systems reviewed and unremarkable except in HPI and below Medications/Allergies Home Medications Medication Instructions Recorded Confirmed Last Taken Type alprazolam 0.5 mg tablet 0.5 mg PO DAILY PRN Anxiety 09/03/23 09/03/23 09/01/23 History amlodipine 5 mg tablet 5 mg PO DAILY 09/03/23 09/03/23 09/01/23 History fluticasone propionate 50 2 spray intranasal DAILY 09/03/23 09/03/23 09/01/23 History mcg/actuation nasal spray,suspension gabapentin 300 mg capsule 300 mg PO TID 09/03/23 09/03/23 09/01/23 History levothyroxine 112 mcg tablet 112 mcg PO QAM 09/03/23 09/03/23 09/01/23 History lisinopril 20 mg tablet 20 mg PO DAILY 09/03/23 09/03/23 09/01/23 History mirtazapine 15 mg tablet 15 mg PO BEDTIME 09/03/23 09/03/23 09/01/23 History montelukast 10 mg tablet 10 mg PO DAILY 09/03/23 09/03/23 09/01/23 History pantoprazole 40 mg tablet,delayed 40 mg PO DAILY 09/03/23 09/03/23 09/01/23 History release polyethylene glycol 3350 17 See Rx Instructions .Route .COMPLEX 09/03/23 09/03/23 09/01/23 History gram/dose oral powder rosuvastatin 10 mg tablet 10 mg PO DAILY 09/03/23 09/03/23 09/01/23 History tramadol 50 mg tablet 50 mg PO Q4H PRN Pain 09/03/23 09/03/23 08/31/23 History trazodone 150 mg tablet 300 mg PO BEDTIME 09/03/23 09/03/23 09/01/23 History Allergies Allergy/AdvReac Type Severity Reaction Status Date / Time No Known Allergies Allergy Unverified 03/20/19 11:34 Vitals/I&O/Wt Last Vital Signs Temp 98.9 F 09/02/23 21:04 Pulse 110 H 09/03/23 11:30 Resp 19 H 09/03/23 12:00 BP 197/69 09/03/23 12:00 Pulse Ox 95 09/03/23 12:00 O2 Del Method Nasal Cannula 09/03/23 06:00 09/02/23 09/03/23 09/03/23 22:59 06:59 14:59 Intake Total 1050 / 1050 Output Total 150 / 150 200 / 350 Balance -150 / -150 850 / 700 Weight last 48 hrs Weight 142 lb Weight 142 lb Weight 142 lb Weight 160 lb Physical Exam 2 Narrative: General : Patient is well developed , no acute distress, oriented x3 Head : Normal cephalic, a-traumatic. Ears : Pinnae and external canal are normal. Hearing is normal. Eyes : PERRLA, Sclera and injection are normal. No conjunctival discharge. Nose : Mucous membranes are without erythema. Throat : buccal mucosa is normal, gums are without significant recession or hypertrophy. Lungs : Equal chest rise bilaterally, no use of accessory muscles, trachea is midline. Cor : Rate and rhythm are normal. Abdomen : Soft, ND, NT, no g/r/m Extremities : No edema, no cyanosis or clubbing, dorsalis pedis pulses are present bilaterally, non-tender to palpation of calves. Upper extremities are normal bilaterally. Back : non-tender to palpation, no CVA tenderness. Neuro : CN II - XII intact, Upper and lower extremities have equal and full strength Data 09/03/23 02:46 09/03/23 02:46 Micro: Microbiology 09/02/23 21:31 Blood Culture - Preliminary Blood SPECIMEN COLLECTED 09/02/23 21:29 Blood Culture - Preliminary Blood SPECIMEN COLLECTED 09/02/23 18:00 Blood Culture - Preliminary Blood SPECIMEN COLLECTED 09/02/23 18:00 Blood Culture - Preliminary Blood SPECIMEN COLLECTED A&P Assessment and plan (1) Gastroenteritis: (2) Ileus: (3) Gallstone: Plan Stool studies Regular diet Hospitalist is consulted and following. Appreciate recommendations Likely discharge home tomorrow if improving Attestations 2 Medical Necessity Statement*: Patient requires at least 1 more night in the hospital for collection of stool studies and return of bowel function from ileus Coding Level of Care Code 63572 Diagnoses Gastroenteritis K52.9 Ileus K56.7 Gallstone K80.20
[2023-09-03] MEDS: lisinopril 20 mg Tablet PO (14:17)
[2023-09-03] MEDS: amlodipine 10 mg Tablet PO (14:17)
[2023-09-03 15:53] LABS: SARS Covid-2 Antigen negative (Negative)
--- NOTE | 2023-09-03 18:56 | MR_ITS ---
WS: [id number] MRI/MRCP OF THE ABDOMEN WITHOUT GADOLINIUM ENHANCEMENT TECHNIQUE: Coronal T2 Fase BH, Axial T2 Fase BH, Axial T2 FS BH, Zxial 3D Blancas BH, Axial DWI BH, 2D MRCP Radial BH, 3D MRCP (Resp), and Axial 3D Dyn BH Post sequences. CLINICAL INFORMATION: Possible cholangitis COMPARISON: None. FINDINGS: Low signal gallstone at the gallbladder neck measuring approximately 2.5 x 2.1 cm. No gallbladder wal l thickening or pericholecystic fluid. No definite evidence of acute cholecystitis. Minimal intrahepa tic bile duct dilatation. Common bile duct is normal caliber at the pancreatic head measuring approxi mately 4 mm. No evidence of choledocholithiasis. Normal pancreatic duct. Cystic duct appears patent. Common hepatic duct is patent. Numerous bilateral renal cysts. No hydronephrosis in either kidney. Normal caliber abdominal aorta wi th aortic calcification. Small esophageal hernia. Normal RIGHT adrenal gland. Fatty atrophy of the pa ncreas. LEFT adrenal adenoma with signal dropout on the out of phase imaging measuring 1.5 cm. LEFT adrenal t hickening. Few tiny cyst in the liver. No other acute findings. MR/MR MRCP 19522 Impression: Some images limited due to respiratory motion 1. 2.5 x 2.1 cm gallstone in the gallbladder neck. 2. No evidence of gallbladder wall thickening or pericholecystic fluid. No def inite evidence of acute cholecystitis. Recommend correlation with biliary funct ion studies. 3. Normal caliber common bile duct. No evidence of choledocholithiasis. 4. Minimal intrahepatic biliary ductal dilatation. No definite MRI evidence of cholangitis. 5. Multiple bilateral renal cysts. 6. 1.5 cm LEFT adrenal adenoma. 7. No other acute findings.
[2023-09-03] MEDS: gabapentin 300 mg Capsule PO (20:04)
[2023-09-03] MEDS: LORazepam 0.5 mg Tablet PO (20:05)
[2023-09-03] MEDS: mirtazapine 15 mg Tablet PO (21:13)
[2023-09-03] MEDS: trazodone 150 mg Tablet 300 MG PO (21:13)
[2023-09-04 00:10] VITALS: BP 111/50; PULSE 77; RESP 16; TEMP 36.4; O2SAT 92
[2023-09-04] MEDS: piperacillin-tazobactam 3.375 GM in sodium chloride 0.9% (plus) 50 ML IV ×3 (00:52→19:42)
--- NOTE | 2023-09-04 02:30 | PC.NURSE ---
Grandcherise Gómez contacted us in regards to his grandmother. Spoke with [facility] for approximately 30 minutes and addressed diagnosis and plan of care. Grandson verbalized understanding, but then would repeat questions. Answered all questions and no other concerns were voiced.
[2023-09-04] MEDS: sodium chloride 0.9% 1,000 ML 125 ML IV ×3 (03:23→23:41)
--- NOTE | 2023-09-04 03:41 | PC.NURSE ---
Pt. slava Gómez called back at this time requesting to speak to a physician. This nurse informed slava that Dr. Ireland is not in house at this time and this nurse would be happy to address any concerns or pass along a message to physician to contact family. Rico stated that he did not want to talk to Dr. Ireland, I want to talk to an actual doctor there. Provided Rico with the information that Dr. Lancaster (hospitalist) is consulted on patient's chart but the current hospitalist is Dr. Qureshi. Rico stated I know you have a doctor there, I'm not stupid. This nurse apologized to Rico explaining that it was not the intent of this nurse to cause insult but to provide the information that Dr. Lancaster is not here at this time though Dr. Qureshi is. This nurse offered to take a message and Rico's phone number to give Dr. Qureshi. Rico also notified that Dr. Qureshi had not seen the patient and might refer questioning to Dr. Lancaster in the AM, but that this nurse would inform Dr. Qureshi of Rico's request for contact. Rico refused to provide phone number and message for Dr. Qureshi stating No, nevermind, I'll just call Dr. Ireland in the morning and then hung up the phone. Primary care nurse ROBINA Leung notified of this conversation.
[2023-09-04 04:00] VITALS: BP 126/62; PULSE 66; RESP 16; TEMP 36.4; O2SAT 94
[2023-09-04 04:33] VITALS: BMI 25.2
[2023-09-04] MEDS: levothyroxine 112 mcg Tablet PO (05:46)
[2023-09-04 06:00] VITALS: BMI 25.2
[2023-09-04 06:39] LABS: Basophils % 0.4 %; Eosinophils # 0.2 10^3/uL (0.0-0.8); Eosinophils % 3.2 %; Hematocrit 35.9 % (36-47); Lymphocytes % 21.5 %; Mean Corpuscular HGB Conc 33.1 g/dL (30-55); Mean Corpuscular Hemoglobin 35.4 pg (27-33); Mean Corpuscular Volume 106.8 fl (85-98); Mean Platelet Volume 9.2 fL (7.4-10.4); Monocytes # 0.5 10^3/uL (0.2-0.9); Neutrophils # 3.04 10^3/uL (1.8-7.7); Neutrophils % 64.7 %; Nucleated Red Blood Cells % 0 %; Platelet Count 212 10^3/cmm (157-399); Red Blood Count 3.36 10^6/uL (3.85-5.65); Red Cell Distribution Width 13.6 % (12.1-15.1)
[2023-09-04 06:56] LABS: Alanine Aminotransferase < 5 U/L (0-33); Albumin Level 3.2 g/dL (3.5-5.2); Alkaline Phosphatase 66 U/L (35-105); Anion Gap 14.1 (5-19); Aspartate Amino Transferase 18 U/L (0-32); Blood Urea Nitrogen 13 mg/dL (8-23); Calcium 8.4 mg/dL (8.5-10.5); Carbon Dioxide 24 mmol/L (22-29); Chloride 104 mmol/L (98-107); Creatinine Clr Calc Pharmacy 31.6047; Globulin 2.5 g/dL (1.3-4.6); Glucose 94 mg/dL (65-115); Magnesium 1.4 mg/dL (1.7-2.3); Osmolality Calculated 288 mOsm/kg (285-295); Potassium 3.1 mmol/L (3.5-5.1); Sodium 139 mmol/L (136-145); Total Bilirubin 0.4 mg/dL (0.15-1.2); Total Protein 5.7 g/dL (6.6-8.7)
[2023-09-04 08:00] VITALS: BP 152/67; PULSE 106; RESP 17; TEMP 36.4; O2SAT 98
[2023-09-04] MEDS: pantoprazole DR 40 mg Tablet PO (09:33)
[2023-09-04] MEDS: amlodipine 10 mg Tablet PO (09:33)
[2023-09-04] MEDS: atorvastatin 40 mg Tablet PO (09:33)
[2023-09-04] MEDS: gabapentin 300 mg Capsule PO ×3 (09:33→20:52)
[2023-09-04] MEDS: heparin 5,000 unit/mL INJ 1 mL 5000 UNIT SUBCUT ×2 (09:34→20:53)
[2023-09-04] MEDS: metoprolol tartrate 25 mg Tablet 12.5 MG PO ×2 (09:34→20:53)
[2023-09-04] MEDS: montelukast sodium 10 mg Tablet PO (09:34)
[2023-09-04] MEDS: potassium chloride ER 20 mEq Tablet 40 MEQ PO ×2 (11:14→17:47)
[2023-09-04 12:00] VITALS: BP 148/58; PULSE 103; RESP 18; TEMP 36.6; O2SAT 97
--- NOTE | 2023-09-04 14:40 | PM.PN ---
Subjective Subjective: Seen today. Patient is feeling better. Magnesium 1.4, potassium 3.1 Creatinine 1.4 Vitals/I&O/Wt Last Vital Signs Temp 97.6 F 09/04/23 08:00 Pulse 106 H 09/04/23 08:00 Resp 17 09/04/23 08:00 BP 152/67 09/04/23 08:00 Pulse Ox 98 09/04/23 08:00 O2 Del Method Room Air 09/04/23 04:00 09/03/23 09/04/23 09/04/23 22:59 06:59 14:59 Intake Total 540 / 1590 1170 / 2760 1008.75 / 1008.75 Balance 540 / 1590 1170 / 2760 1008.75 / 1008.75 Weight last 48 hrs Weight 66.678 kg Weight 66.678 kg Weight 64.41 kg Weight 64.41 kg Weight 64.41 kg Physical Exam Narrative: General: Alert oriented x3,no acute distress HEENT: Normocephalic, atraumatic, EOMI, breathing room air Cardio: Regular rate rhythm, normal S1-S2, Respiratory: Clear to auscultation bilaterally no wheezes no rhonchi GI: Abdomen soft, nontender Extremities: No edema bilateral lower extremities, no apparent skin rashes noted. Data 09/04/23 06:15 09/04/23 06:15 Micro: Microbiology 09/02/23 21:29 Blood Culture - Preliminary Blood NEGATIVE TO DATE 09/02/23 21:31 Blood Culture - Preliminary Blood NEGATIVE TO DATE 09/02/23 18:00 Blood Culture - Preliminary Blood NEGATIVE TO DATE 09/02/23 18:00 Blood Culture - Preliminary Blood NEGATIVE TO DATE A&P Assessment and plan (1) Abdominal pain: (2) Cholecystitis: (3) Gallstone: (4) Ileus: (5) Hypertension: Plan #Abdominal pain #Probable cholecystitis, early cholangitis? #Cholelithiasis? #Possible adynamic ileus? #Thyroid disease, -unspecified -Patient is presented to the hospital with 3 to 4 days of abdominal pain which is worse around her umbilical region intensity of 10 associated with nausea vomiting and retching. She is hypertensive secondary to pain. Is requiring morphine IV. Does have moderate amount of abdominal pain upon light and deep palpation. Does have mild guarding present. Lactic acid 2.6 on arrival and subsequently 1.6. CT abdomen pelvis does raise a question of possible cholangitis, 1.7 cm noncalcified material around the neck of gallbladder which could possibly be a gallstone. Subsequently performed gallbladder ultrasound does suggest a large gallstone with questionable gallbladder wall thickening. Common bile duct does measure 4 mm. However gallbladder could not be fully visualized. Exam limited secondary to overlying bowel gas. -LFTs are not abnormal, alkaline phosphatase, lipase are normal at this time however that does not completely rule out gallbladder or early biliary disease. -Radiologist has recommended MRCP or ERCP for further evaluation. ? I have been told MRCP will NOT be possible to do this evening due to logistical issues. I have discussed the case at length with general surgery and discussed all imaging findings. Both general surgeon and the telegraphic typewriter repairer recommend patient be transferred to higher level of care tertiary care center where MRCP ERCP capabilities are available and obtain a gastroenterology consult. -In the meantime we can order morphine 4 mg IV every 4 hours as needed for pain ? Hydralazine 5 mg IV every 4 hours for elevated blood pressure greater than 180 as there is a pain component. ? Confirm home medications from patient's pharmacy. ? Keep patient strictly n.p.o. at this time ? Zofran 4 mg every 6 hours as needed for nausea -Placed on normal saline 125 cc/h -Check GGT, subsequent labs in a.m. -Place patient on Zosyn every 8 hours, pharmacy to dose -Recommend transfer patient to higher level of care. Limited resuscitation, does not want intubation however okay with CPR. DVT prophylaxis: Heparin SQ twice daily INITIAL CONSULT NOTE ABOVE. Patient admitted here as she declined transfer to another hospital. Todays plan 09/03 - mrcp done, result pending - less likely cholangitis - less likely ischemic bowel - does have gallstone at neck of GB -MRCP: 1. 2.5 x 2.1 cm gallstone in the gallbladder neck. 2. No evidence of gallbladder wall thickening or pericholecystic fluid. No definite evidence of acute cholecystitis. Recommend correlation with biliary function studies. 3. Normal caliber common bile duct. No evidence of choledocholithiasis. 4. Minimal intrahepatic biliary ductal dilatation. No definite MRI evidence of cholangitis. 5. Multiple bilateral renal cysts. 6. 1.5 cm LEFT adrenal adenoma. 7. No other acute findings. - lopressor 12.5 bid orally - diet order as per primary team - will discuss with dr. machado - continue morphine for pain -RICARDO: Creatinine 1.4 today. Continue normal saline 125 cc/h. Attestations Medical Necessity Statement*: Defer to primary team Diagnoses Abdominal pain R10.9 Cholecystitis K81.9 Gallstone K80.20 Ileus K56.7 Hypertension I10
[2023-09-04 16:00] VITALS: BP 108/54; PULSE 67; RESP 17; TEMP 36.8; O2SAT 96
--- NOTE | 2023-09-04 17:51 | P.PN_ITS ---
Subjective 2 Subjective: Patient seen and examined. She reports that her abdominal pain is much improved. Still no bowel movement Vitals/I&O/Wt Last Vital Signs Temp 98.3 F 09/04/23 16:00 Pulse 67 09/04/23 16:00 Resp 17 09/04/23 16:00 BP 108/54 09/04/23 16:00 Pulse Ox 96 09/04/23 16:00 O2 Del Method Room Air 09/04/23 04:00 09/04/23 09/04/23 09/04/23 06:59 14:59 22:59 Intake Total 1170 / 2760 1128.75 / 1128.75 Balance 1170 / 2760 1128.75 / 1128.75 Weight last 48 hrs Weight 147 lb Weight 147 lb Weight 142 lb Weight 142 lb Weight 142 lb Physical Exam 2 Narrative: General: No acute distress, awake alert and oriented x 3 Abdomen: Soft, mildly distended, nontender Data 09/04/23 06:15 09/04/23 06:15 Micro: Microbiology 09/02/23 21:29 Blood Culture - Preliminary Blood NEGATIVE TO DATE 09/02/23 21:31 Blood Culture - Preliminary Blood NEGATIVE TO DATE 09/02/23 18:00 Blood Culture - Preliminary Blood NEGATIVE TO DATE 09/02/23 18:00 Blood Culture - Preliminary Blood NEGATIVE TO DATE A&P Assessment and plan (1) Gastroenteritis: (2) Ileus: (3) Gallstone: Plan Stool studies Regular diet She still has not had a bowel movement to obtain stool studies. Laxatives morning and night given Hospitalist is consulted and following. Appreciate recommendations Likely discharge home tomorrow if improving Attestations 2 Medical Necessity Statement*: Patient requires 1 more night in the hospital for resolution of ileus and to have a bowel movement in order to obtain stool studies Coding Level of Care Code 64263 Diagnoses Gastroenteritis K52.9 Ileus K56.7 Gallstone K80.20
[2023-09-04] MEDS: magnesium sulfate premix 2 GM/50 ML PIGGYBACK IV (18:37)
[2023-09-04 20:00] VITALS: BP 120/58; PULSE 70; RESP 19; TEMP 37.2; O2SAT 92
[2023-09-04] MEDS: mirtazapine 15 mg Tablet PO (20:53)
[2023-09-04] MEDS: trazodone 150 mg Tablet 300 MG PO (20:53)
[2023-09-04] MEDS: magnesium hydroxide 30 mL UDC PO (20:53)
[2023-09-05] VITALS: BP 116/61; PULSE 64; RESP 16; TEMP 36.7; O2SAT 99
[2023-09-05 04:00] VITALS: BP 147/67; PULSE 61; RESP 17; TEMP 37; O2SAT 90
[2023-09-05] MEDS: piperacillin-tazobactam 3.375 GM in sodium chloride 0.9% (plus) 50 ML IV ×3 (04:44→20:25)
[2023-09-05 06:23] LABS: Anion Gap 12.9 (5-19); Blood Urea Nitrogen 14 mg/dL (8-23); Calcium 8.1 mg/dL (8.5-10.5); Carbon Dioxide 23 mmol/L (22-29); Chloride 114 mmol/L (98-107); Creatinine Clr Calc Pharmacy 40.2242; Glucose 121 mg/dL (65-115); Magnesium 1.9 mg/dL (1.7-2.3); Osmolality Calculated 304 mOsm/kg (285-295); Potassium 3.9 mmol/L (3.5-5.1); Sodium 146 mmol/L (136-145)
[2023-09-05] MEDS: levothyroxine 112 mcg Tablet PO (06:32)
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
[2023-09-05 08:14] VITALS: BP 155/64; PULSE 55; RESP 17; TEMP 36.2; O2SAT 90
[2023-09-05] MEDS: pantoprazole DR 40 mg Tablet PO (09:30)
[2023-09-05] MEDS: amlodipine 10 mg Tablet PO (09:30)
[2023-09-05] MEDS: montelukast sodium 10 mg Tablet PO (09:30)
[2023-09-05] MEDS: polyethylene glycol 3350 Pkt 17 gm PO (09:30)
[2023-09-05] MEDS: atorvastatin 40 mg Tablet PO (09:30)
[2023-09-05] MEDS: heparin 5,000 unit/mL INJ 1 mL 5000 UNIT SUBCUT ×2 (09:30→20:26)
[2023-09-05] MEDS: gabapentin 300 mg Capsule PO ×3 (09:30→20:26)
[2023-09-05] MEDS: dextrose 5% 1,000 ML 75 ML IV (09:32)
--- NOTE | 2023-09-05 09:50 | P.DS_ITS ---
Discharge Providers Date of Admission: 09/02/23 20:22 Date of Discharge: September 05, 2023 Attending Provider at Admission: Amadou Ireland DO Attending Provider at Discharge: Amadou Ireland DO Consults: Hospitalist Primary Care Provider: Cayla Rivas APN Diagnoses at Discharge Discharge Diagnosis (1) Gastroenteritis: Status: Acute (2) Ileus: Status: Acute (3) Gallstone: Status: Acute Reason for Visit Reason for Visit: abd pain Hospital Course Hospital Course This very pleasant 78-year-old female who came in with abdominal pain. She was diagnosed with gastroenteritis and an ileus. With conservative management her bowel function returned and she was tolerating regular diet upon discharge. Physical Exam Narrative: General : Patient is well developed , no acute distress, oriented x3 Head : Normal cephalic, a-traumatic. Ears : Pinnae and external canal are normal. Hearing is normal. Eyes : PERRLA, Sclera and injection are normal. No conjunctival discharge. Nose : Mucous membranes are without erythema. Throat : buccal mucosa is normal, gums are without significant recession or hypertrophy. Lungs : Equal chest rise bilaterally, no use of accessory muscles, trachea is midline. Cor : Rate and rhythm are normal. Abdomen : Soft, ND, NT, no g/r/m Extremities : No edema, no cyanosis or clubbing, dorsalis pedis pulses are present bilaterally, non-tender to palpation of calves. Upper extremities are normal bilaterally. Back : non-tender to palpation, no CVA tenderness. Neuro : CN II - XII intact, Upper and lower extremities have equal and full strength Discharge Data Studies Completed and Pending Completed Studies During Hospitalization Category Date Time Status CT abdomen pelvis w con* [id number] Stat Cat Scan 09/02/23 13:08 Completed MR MRCP [id number] Stat MRI 09/03/23 18:56 Completed US gall bladder [id number] Stat Ultrasound 09/02/23 17:22 Completed Pending at discharge Category Date Time Status Blood Culture Stat Lab 09/02/23 18:00 Results Blood Culture Stat Lab 09/02/23 21:31 Results Stool Culture - Enteric [Salmonella / Shigella / Campy] Lab 09/02/23 21:05 Ordered Routine Urinalysis Routine Lab 09/02/23 21:05 Ordered Radiology Impressions Abdomen/Pelvis CT 09/02/23 13:08 IMPRESSION: 1. Probable infectious enteritis or inflammatory bowel disease involving several distal ileal loops. Much less likely this is ischemic bowel. 2. Probable adynamic ileus. 3. Mild bile duct dilatation diffusely to near the level of the ampulla with possible cholangitis. Consider MRCP and/or ERCP for this. 4. Additional details as above. Gallbladder Ultrasound 09/02/23 17:22 IMPRESSION: 1. Study significantly limited by overlying bowel gas. On CT of the colon is noted to overlie the upper abdomen. 2. Suggested large gallstone with questionable gallbladder wall thickening. Consider HIDA scan cholecystitis is suspected. 3. Other nonemergent findings above. Cholangiopancreatography MRI 09/03/23 18:56 Impression: Some images limited due to respiratory motion 1. 2.5 x 2.1 cm gallstone in the gallbladder neck. 2. No evidence of gallbladder wall thickening or pericholecystic fluid. No definite evidence of acute cholecystitis. Recommend correlation with biliary function studies. 3. Normal caliber common bile duct. No evidence of choledocholithiasis. 4. Minimal intrahepatic biliary ductal dilatation. No definite MRI evidence of cholangitis. 5. Multiple bilateral renal cysts. 6. 1.5 cm LEFT adrenal adenoma. 7. No other acute findings. Laboratory Results WBC 4.70 10^3/uL (3.29-11.43) 09/04/23 06:15 RBC 3.36 10^6/uL (3.85-5.65) L 09/04/23 06:15 Hgb 11.90 g/dL (11.27-16.99) 09/04/23 06:15 Hct 35.9 % (36-47) L 09/04/23 06:15 MCV 106.8 fl (85-98) H 09/04/23 06:15 MCH 35.4 pg (27-33) H 09/04/23 06:15 MCHC 33.1 g/dL (30-55) 09/04/23 06:15 RDW 13.6 % (12.1-15.1) 09/04/23 06:15 Plt Count 212 10^3/cmm (157-399) 09/04/23 06:15 MPV 9.2 fL (7.4-10.4) 09/04/23 06:15 Neut % (Auto) 64.7 % 09/04/23 06:15 Lymph % (Auto) 21.5 % 09/04/23 06:15 Bracken % (Auto) 10.0 % 09/04/23 06:15 Eos % (Auto) 3.2 % 09/04/23 06:15 Baso % (Auto) 0.4 % 09/04/23 06:15 Neut # (Auto) 3.04 10^3/uL (1.8-7.7) 09/04/23 06:15 Lymph # (Auto) 1.0 10^3/uL (0.8-4.8) 09/04/23 06:15 Bracken # (Auto) 0.5 10^3/uL (0.2-0.9) 09/04/23 06:15 Eos # (Auto) 0.2 10^3/uL (0.0-0.8) 09/04/23 06:15 Baso # (Auto) 0.0 10^3/uL (0.0-0.1) 09/04/23 06:15 Nucleated RBC % (auto) 0 % 09/04/23 06:15 Nucleated RBCs # 0.0 /100WBC 09/04/23 06:15 Sodium 146 mmol/L (136-145) H 09/05/23 05:51 Potassium 3.9 mmol/L (3.5-5.1) 09/05/23 05:51 Chloride 114 mmol/L (98-107) H 09/05/23 05:51 Carbon Dioxide 23 mmol/L (22-29) 09/05/23 05:51 Anion Gap 12.9 (5-19) 09/05/23 05:51 BUN 14 mg/dL (8-23) 09/05/23 05:51 Creatinine 1.1 mg/dL (0.5-0.9) H 09/05/23 05:51 GFR Calculation Not Reportable 09/05/23 05:51 Glucose 121 mg/dL (65-115) H 09/05/23 05:51 Calculated Osmolality 304 mOsm/kg (285-295) H 09/05/23 05:51 Lactic Acid 2.2 mmol/L (0.5-2.2) 09/02/23 21:29 Lactic Acid (Sepsis) 1.2 mmol/L (0.5-2.2) 09/03/23 01:18 Calcium 8.1 mg/dL (8.5-10.5) L 09/05/23 05:51 Magnesium 1.9 mg/dL (1.7-2.3) 09/05/23 05:51 Total Bilirubin 0.4 mg/dL (0.15-1.2) 09/04/23 06:15 GGT 11 U/L (5-36) 09/02/23 21:29 AST 18 U/L (0-32) 09/04/23 06:15 ALT < 5 U/L (0-33) 09/04/23 06:15 Alkaline Phosphatase 66 U/L (35-105) 09/04/23 06:15 Troponin T Baseline 40 ng/L (0-10) H 09/02/23 20:44 Troponin T 120 Minute 43.09 ng/L (0-10) H 09/02/23 21:29 Delta Troponin T 3.09 ABS# (0-10) 09/02/23 21:29 Troponin T Hi Sens 6Hr 46.42 ng/L (0-10) H 09/03/23 02:46 Troponin T Hi Sens 6Hr Delta 6.42 ng/L (0-12) 09/03/23 02:46 Total Protein 5.7 g/dL (6.6-8.7) L 09/04/23 06:15 Albumin 3.2 g/dL (3.5-5.2) L 09/04/23 06:15 Globulin 2.5 g/dL (1.3-4.6) 09/04/23 06:15 Lipase 14 U/L (13-60) 09/02/23 13:07 Procalcitonin 0.05 ng/mL (0-0.5) 09/02/23 21:29 TSH 0.50 uIU/mL (0.27-4.20) 09/02/23 21:29 Urine Color Yellow (Yellow) 09/02/23 13:50 Urine Appearance Clear (CLEAR) 09/02/23 13:50 Urine pH 9 (5-7) H 09/02/23 13:50 Ur Specific [place] 1.010 (1.005-1.030) 09/02/23 13:50 Urine Protein Neg (Negative) 09/02/23 13:50 Urine Glucose (UA) Norm (Normal) 09/02/23 13:50 Urine Ketones 1+ (Negative) H 09/02/23 13:50 Urine Blood Neg (Negative) 09/02/23 13:50 Urine Nitrate Negative (Negative) 09/02/23 13:50 Urine Bilirubin Neg (Negative) 09/02/23 13:50 Prot Sulfosalicylic Acd Negative (Negative) 09/02/23 13:50 Urine Urobilinogen Norm mg/dL (Negative) 09/02/23 13:50 Ur Leukocyte Esterase Negative (Negative) 09/02/23 13:50 SARS-CoV-2 Ag (Rapid) negative (Negative) 09/03/23 13:50 Procedures Performed None Vitals Last Vital Signs Temp 97.2 F L 09/05/23 08:14 Pulse 55 L 09/05/23 08:14 Resp 17 09/05/23 08:14 BP 155/64 09/05/23 08:14 Pulse Ox 90 09/05/23 08:14 O2 Del Method Room Air 09/05/23 08:14 Discharge Plan Discharge Patient Disposition: Home Condition: Stable Prescriptions: Continued lisinopril 20 mg tablet 20 mg PO DAILY amlodipine 5 mg tablet 5 mg PO DAILY tramadol 50 mg tablet 50 mg PO Q4H PRN (Reason: Pain) alprazolam 0.5 mg tablet 0.5 mg PO DAILY PRN (Reason: Anxiety) pantoprazole 40 mg tablet,delayed release (DR/EC) 40 mg PO DAILY trazodone 150 mg tablet 300 mg PO BEDTIME gabapentin 300 mg capsule 300 mg PO TID montelukast 10 mg tablet 10 mg PO DAILY mirtazapine 15 mg tablet 15 mg PO BEDTIME polyethylene glycol 3350 17 gram/dose powder See Rx Instructions .ROUTE .COMPLEX Rx Instructions: FILL CAP TO LINE (17 GRAMS), MIX IN 8 OUNCES OF LIQUID AND DRINK BY MOUTH ONCE DAILY. fluticasone propionate 50 mcg/actuation spray,suspension 2 spray INTRANASAL DAILY levothyroxine 112 mcg tablet 112 mcg PO QAM rosuvastatin 10 mg tablet 10 mg PO DAILY Discharge Orders: Discharge Order (Routine); Ordered 09/05/23 Ordered By: Amadou Ireland Referrals: Cayla Rivas APN [Primary Care Provider] - 4-7 days Amadou Ireland DO [Physician] - 2 weeks Discharge Diet: Advance as tolerated Discharge Activity: Resume usual activity Patient Instructions: Opioid Safety Discharge Attestations Time Spent in Discharge Care*: less than 30 min Quality Metrics Clinical Quality Measures [ No reported AMI, CVA or VTE this stay] Coding Level of Care Code Acute Code for Chg Fwd Diagnoses Gastroenteritis K52.9 Ileus K56.7 Gallstone K80.20
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
--- NOTE | 2023-09-05 12:18 | P.PN_ITS ---
Subjective 2 Subjective: pt had BM this morning feels better looking forward to going home Vitals/I&O/Wt Last Vital Signs Temp 97.2 F L 09/05/23 08:14 Pulse 55 L 09/05/23 08:14 Resp 17 09/05/23 08:14 BP 155/64 09/05/23 08:14 Pulse Ox 90 09/05/23 08:14 O2 Del Method Room Air 09/05/23 08:14 09/04/23 09/05/23 09/05/23 22:59 06:59 14:59 Intake Total 1840 / 2968.75 50 / 3018.75 1050 / 1050 Balance 1840 / 2968.75 50 / 3018.75 1050 / 1050 Weight last 48 hrs Weight 66.678 kg Weight 66.678 kg Weight 66.678 kg Weight 66.678 kg Physical Exam 2 Narrative: General: Alert oriented x3,no acute distress HEENT: Normocephalic, atraumatic, EOMI, breathing room air Cardio: Regular rate rhythm, normal S1-S2, Respiratory: Clear to auscultation bilaterally no wheezes no rhonchi GI: Abdomen soft, nontender Extremities: No edema bilateral lower extremities, no apparent skin rashes noted. Data 09/04/23 06:15 09/05/23 05:51 A&P Assessment and plan (1) Abdominal pain: (2) Cholecystitis: (3) Gallstone: (4) Ileus: (5) Hypertension: Plan #Abdominal pain 2/2 to ileus, gastroeneteritis #CHoletlithiasis Todays plan 09/04 - mrcp done, result pending - less likely cholangitis - less likely ischemic bowel - does have gallstone at neck of GB -MRCP: 1. 2.5 x 2.1 cm gallstone in the gallbladder neck. 2. No evidence of gallbladder wall thickening or pericholecystic fluid. No definite evidence of acute cholecystitis. Recommend correlation with biliary function studies. 3. Normal caliber common bile duct. No evidence of choledocholithiasis. 4. Minimal intrahepatic biliary ductal dilatation. No definite MRI evidence of cholangitis. 5. Multiple bilateral renal cysts. 6. 1.5 cm LEFT adrenal adenoma. 7. No other acute findings. - lopressor 12.5 bid orally - diet order as per primary team -RICARDO: Improved. ok to dc from medical standpoint follow up with gen surgery as outpatient. Attestations 2 Medical Necessity Statement*: defer to primary team Diagnoses Abdominal pain R10.9 Cholecystitis K81.9 Gallstone K80.20 Ileus K56.7 Hypertension I10
[2023-09-05 12:27] VITALS: BP 162/60; PULSE 67; RESP 20; TEMP 36.5; O2SAT 95
[2023-09-05 16:59] VITALS: BP 172/65; PULSE 71; RESP 18; TEMP 36.2; O2SAT 95
[2023-09-05 19:40] VITALS: BP 144/62; PULSE 67; RESP 18; TEMP 37.1; O2SAT 91
[2023-09-05] MEDS: magnesium hydroxide 30 mL UDC PO (20:26)
[2023-09-05] MEDS: trazodone 150 mg Tablet 300 MG PO (20:26)
[2023-09-05] MEDS: mirtazapine 15 mg Tablet PO (20:26)
[2023-09-05] MEDS: metoprolol tartrate 25 mg Tablet 12.5 MG PO (20:27)
[2023-09-05 21:33] LABS: Add Urine Microscopic? NO; Charge for UA Resulting for Rev
[2023-09-05 21:35] LABS: Bilirubin Urine Neg (Negative); Blood Urine Neg (Negative); Glucose Urine UA Norm (Normal); Ketones Urine Negative (Negative); Leukocyte Esterase Urine Negative (Negative); Nitrate Urine Negative (Negative); Protein Urine Neg (Negative); Specific Gravity, Urine 1.005 (1.005-1.030); Urine Appearance Clear (CLEAR); Urine Color Yellow (Yellow); Urobilinogen Urine Neg (Negative); pH Urine 6 (5-7)
[2023-09-06] VITALS: BP 140/60; PULSE 66; RESP 16; TEMP 37.1; O2SAT 92
[2023-09-06] MEDS: piperacillin-tazobactam 3.375 GM in sodium chloride 0.9% (plus) 50 ML IV (04:15)
[2023-09-06 05:11] VITALS: BP 142/62; PULSE 62; RESP 16; TEMP 37; O2SAT 93
[2023-09-06] MEDS: levothyroxine 112 mcg Tablet PO (06:16)
[2023-09-06 08:00] VITALS: BP 189/68; PULSE 73; RESP 20; TEMP 36.1; O2SAT 93
[2023-09-06] MEDS: dextrose 5% 1,000 ML 75 ML IV (09:48)
[2023-09-06] MEDS: amlodipine 10 mg Tablet PO (09:49)
[2023-09-06] MEDS: atorvastatin 40 mg Tablet PO (09:49)
[2023-09-06] MEDS: heparin 5,000 unit/mL INJ 1 mL 5000 UNIT SUBCUT (09:50)
[2023-09-06] MEDS: polyethylene glycol 3350 Pkt 17 gm PO (09:50)
[2023-09-06] MEDS: montelukast sodium 10 mg Tablet PO (09:50)
[2023-09-06] MEDS: gabapentin 300 mg Capsule PO (09:50)
[2023-09-06] MEDS: pantoprazole DR 40 mg Tablet PO (09:50)
[2023-09-06] MEDS: metoprolol tartrate 25 mg Tablet 12.5 MG PO (09:55)
[2023-09-06 10:17] LABS: Basophils % 0.4 %; Eosinophils # 0.2 10^3/uL (0.0-0.8); Eosinophils % 3.3 %; Hematocrit 39.4 % (36-47); Lymphocytes # 0.9 10^3/uL (0.8-4.8); Mean Corpuscular HGB Conc 33.5 g/dL (30-55); Mean Corpuscular Hemoglobin 35.4 pg (27-33); Mean Corpuscular Volume 105.6 fl (85-98); Mean Platelet Volume 9.7 fL (7.4-10.4); Monocytes # 0.5 10^3/uL (0.2-0.9); Monocytes % 6.6 %; Neutrophils # 5.58 10^3/uL (1.8-7.7); Neutrophils % 77.3 %; Nucleated Red Blood Cells % 0 %; Platelet Count 233 10^3/cmm (157-399); Red Blood Count 3.73 10^6/uL (3.85-5.65); Red Cell Distribution Width 13.5 % (12.1-15.1); White Blood Count 7.23 10^3/uL (3.29-11.43)
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
[2023-09-06 11:08] LABS: Iron 52 ug/dL (37-145); Total Iron Binding Capacity 200 mcg/dl; Unsaturated Iron Binding 148 ug/dL (112-347); Vitamin B12 172 pg/mL (232-1245)
[2023-09-06 11:19] LABS: Estmated Average Glucose 94; Hemoglobin A1C 4.9 % (4.0-6.0)
[2023-09-06 11:49] VITALS: BP 178/87
[2023-09-06 11:55] VITALS: BP 163/69; PULSE 78; RESP 19; TEMP 36.3; O2SAT 97
[2023-09-06 13:10] VITALS: BP 163/69; PULSE 78; RESP 19; TEMP 36.3; O2SAT 97
== END 2023-09-06 13:12 | disposition home or self-care (01) | DRG 392 ==
LOC: ER 19:01 → ICU 20:23 → MEDSURG 09-03 18:41
PROVIDERS: Family Medicine; Internal Medicine; Student in an Organized Health Care Education/Training Program; Admitting Provider Surgery; Emergency Provider Emergency Medicine; Family Provider Nurse Practitioner Family; PCP Nurse Practitioner Family; Visit Provider Surgery
DX: K52.9 Noninfective gastroenteritis and colitis, unspecified (principal); K56.7 Ileus, unspecified; N17.9 Acute kidney failure, unspecified; K80.20 Calculus of gallbladder without cholecystitis without obstruction; I10 Essential (primary) hypertension; E03.9 Hypothyroidism, unspecified; G47.00 Insomnia, unspecified
CPT/HCPCS: 36415; 74177; 74181; 76705; 80048; 80053; 81003; 82607; 82977; 83036; 83540; 83550; 83605; 83690; 83735; 84145; 84443; 84484; 85025; 87040; 87205; 87426; 93005; 96365; 96366; 96372; 96375; 99285; J0360; J1644; J2270; J2405; J2543; J3475; J3490; J7030; J7070; Q9967

== ENCOUNTER 2023-09-23 09:27 | Inpatient (IN) | payer MEDICAID, SELFPAY ==
[2023-09-23] VITALS (63 sets, daily range): BP systolic 116–164; BP diastolic 52–86; PULSE 59–85; RESP 12–29; TEMP 36.9–37.2; O2SAT 83–100
[2023-09-23 09:41] LABS: ABG PCO2 46.6 mmHg (35-45); ABG PH Result 7.35 (7.35-7.45); Base Excess ABG -0.5 mmol/L (-2.0-2.0); Blood Gas Allen Test Pos; Blood Gas Operator Identificat CAK; Blood Gas Sample Site Brachial, left; Blood Gas Sample Type Arterial; Carboxyhemoglobin 1.3 %THgb (0.4-20.1); HCO3 ABG 25.5 mmol/L (22-26); HGB O2 Sat 98.1 % (95-100); Ionized Calcium Level - ABG 1.1 mmol/L (1.1-1.4); Methemoglobin 0.3 % (0.4-1.5); Oxygen Device NC; Oxygen Saturation ABG 99.6; Potassium Level - ABG 4.4 mmol/L (3.5-5.0); Total Hemoglobin 11.7 g/dL (12-16)
--- NOTE | 2023-09-23 09:43 | CTR_ITS ---
PROCEDURE INFORMATION: Exam: CT Head Without Contrast Exam date and time: 09/23/2023 10:07 AM Age: 78 years old Clinical indication: Altered mental status/memory loss; Additional info: AMS TECHNIQUE: Imaging protocol: Computed tomography of the head without contrast. Radiation optimization: All CT scans at this facility use at least one of these dose optimization techniques: automated exposure control; mA and/or kV adjustment per patient size (includes targeted exams where dose is matched to clinical indication); or iterative reconstruction. COMPARISON: No relevant prior studies available. RADIATION DOSE METRICS: Total DLP (mGy-cm): 1109.45 FINDINGS: Brain: Normal. No hemorrhage. Unremarkable white matter. No mass effect. Cerebral ventricles: No ventriculomegaly. Ventricular prominence proportionate to the degree of atrophy observed. Paranasal sinuses: Visualized sinuses are unremarkable. No fluid levels. Mastoid air cells: Visualized mastoid air cells are well aerated. Bones: Unremarkable. No acute fracture. Soft tissues: Unremarkable. CT/CT head wo con* [id number] IMPRESSION: No acute intracranial abnormality.
--- NOTE | 2023-09-23 09:43 | ECG_ITS ---
[facility] Test Date: 2023-09-23 Pat Name: Gabriella Thompson Department: Room: Gender: Female Vp Outcomes: : 1945 Requested By: Kurt Lam Order Number: [id number] Lamont MD: Mason Turner M.D. Measurements Intervals [place] Rate: 76 P: 66 MI: 142 QRS: -71 QRSD: 145 T: 26 QT: 399 QTc: 450 Interpretive Statements SINUS RHYTHM RIGHT BUNDLE BRANCH BLOCK [120+ ms QRS DURATION, UPRIGHT V1, 40+ ms S IN I/aVL/V4/V5/V6] LEFT ANTERIOR FASCICULAR BLOCK [QRS AXIS <= -45, QR IN I, RS IN II] MODERATE T-WAVE ABNORMALITY, CONSIDER LATERAL ISCHEMIA [-0.1+ mV T-WAVE IN I/aVL/V5/V6] Compared to ECG 09/03/2023 10:17:37 T-wave abnormality now present Possible ischemia now present Short MI interval no longer present Electronically Signed On 09-23-2023 23:22:29 CDT by Mason Turner M.D. [id number]
--- NOTE | 2023-09-23 09:43 | XRR_ITS ---
PROCEDURE INFORMATION: Exam: XR Chest Exam date and time: 09/23/2023 9:47 AM Age: 78 years old Clinical indication: Cough and dyspnea; Patient HX: AMS; Additional info: Dyspnea/cough TECHNIQUE: Imaging protocol: Radiologic exam of the chest. Views: 1 view. COMPARISON: MR MRCP [id number] 09/03/2023 8:05 AM FINDINGS: Lungs: Mild atelectasis or infiltrate in the left lower lobe. Pleural spaces: Unremarkable. No pleural effusion. No pneumothorax. Heart/Mediastinum: See Vasculature finding. Vasculature: Mild cardiomegaly and uncoiling of the thoracic aorta accentuated by the AP positioning. Bones/joints: Unremarkable. XR/XR chest 1V portable [id number] IMPRESSION: Minimal opacity on the left.
--- NOTE | 2023-09-23 09:43 | W.ED.AMS ---
HPI - Altered Mental Status General: Chief Complaint: Altered Mental Status Stated Complaint: lethargic, unresponsive Time Seen by Provider: 09/23/23 09:37 Source: patient and EMS Mode of arrival: EMS History of Present Illness: 78-year-old female presents to the emergency room via EMS with a report of altered mental status. EMS evidently had been called out earlier and when they arrived she became responsive and she declined transport. They were then called back they found her poorly responsive. Family reports that she been lethargic since yesterday. She was given Narcan and route with slight improvement. She is on alprazolam tramadol and trazodone she cannot really tell me if she took any extra doses of medications she does not think she took a dose of her trazodone last night. She denies any pain or injury anywhere and denies feeling poorly denies shortness of breath chest pain abdominal pain denies dysuria urgency or frequency vomiting or diarrhea. MD complaint: altered mental status and confusion Review of Systems Const: Denies: fever(s) or chills Card: Denies: chest pain Resp: Denies: dyspnea GI: Denies: abdominal pain : Denies: dysuria, urinary frequency or urinary urgency Musc: Denies: neck pain or back pain Skin/Breast: Denies: rash [facility] ED PFSH: Medical History (Updated 09/23/23 @ 16:18 by Kurt Hernandez DO) B12 deficiency Hypothyroidism Hypertension [place] Physical Exam Const: COMMON NORMALS: no acute distress GENERAL APPEARANCE: cooperative and comfortable ORIENTATION/CONSCIOUSNESS: Yes awake HENMT: COMMON NORMALS: normocephalic, atraumatic and hearing grossly normal bilaterally HEAD & SCALP: normocephalic and atraumatic Resp: COMMON NORMALS: normal respiratory effort, No retractions, No use of accessory muscles and clear to auscultation bilaterally AUSCULTATION: clear to auscultation bilaterally Cardio: COMMON NORMALS: regular rate, regular rhythm and No murmurs present (Cardio) RATE: regular rate RHYTHM: regular rhythm GI: COMMON NORMALS: Soft to palpation and No hepatosplenomegaly present AUSCULTATION: Yes normoactive bowel sounds PALPATION: Yes Soft to palpation, No Tenderness to palpation present (GI), No Guarding due to palpation present (GI) and Yes No hepatosplenomegaly present Extremity: COMMON NORMALS: normal to inspection, capillary refill normal, no clubbing, cyanosis or edema, no calf tenderness and no pedal edema Skin: COMMON NORMALS: no rashes or lesions noted GENERAL SKIN EXAM: no rashes or lesions noted Course Vital Signs: Vital signs: Vital Signs Temperature 98.9 F 09/23/23 15:40 Pulse Rate 74 09/23/23 15:40 Respiratory Rate 19 H 09/23/23 15:40 Blood Pressure 155/86 09/23/23 15:40 Pulse Oximetry 99 09/23/23 15:40 Oxygen Delivery Me thod Nasal Cannula 09/23/23 14:45 Oxygen Flow Rate 3 09/23/23 14:45 MDM - Altered Mental Status Medical Decision Making Patient's mentation did improve but she continued to require 3 L by nasal cannula. Her troponin is elevated as well. First troponin is 166. No signs of urine infection. Will admit to hospitalist. Orders written. We did heparinize based on the initial elevated troponin CTA of the chest was negative. Medical Records I reviewed the patient's medical records. Lab Data I reviewed the patient's lab results. 09/23/23 10:01 09/23/23 10:40 Radiology Impressions Chest X-Ray 09/23/23 09:43 IMPRESSION: Minimal opacity on the left. Head CT 09/23/23 09:43 IMPRESSION: No acute intracranial abnormality. Chest CTA 09/23/23 11:59 IMPRESSION: 1. No acute findings. 2. Possible pulmonary arterial hypertension. COMMENTS: 1. Consistent with the [employer]'s Incidental Findings Committee white paper (J Am Jagdish Radiol 2018): Any incidental renal lesion less than 1 cm or classified as too small to characterize, or any incidental cystic renal lesion characterized as simple-appearing, is likely benign. No follow-up imaging is recommended for these lesions per consensus recommendations based on imaging criteria. 2. The presence of pulmonary emphysema on CT is an independent risk factor for lung cancer. In the absence of a history or active diagnosis of lung cancer, it is recommended that this patient with emphysema be evaluated for enrollment in a low dose CT lung cancer screening program. Abdomen/Pelvis CT 09/23/23 13:03 IMPRESSION: 1. Cholelithiasis. 2. Possible early decubitus ulcer near the tip of the coccyx. COMMENTS: Consistent with the [employer]'s Incidental Findings Committee white paper (J Am Jagdish Radiol 2018): Any incidental renal lesion less than 1 cm or classified as too small to characterize, or any incidental cystic renal lesion characterized as simple-appearing, is likely benign. No follow-up imaging is recommended for these lesions per consensus recommendations based on imaging criteria. Laboratory Results WBC 7.67 10^3/uL (3.29-11.43) 09/23/23 10:01 RBC 3.60 10^6/uL (3.85-5.65) L 09/23/23 10:01 Hgb 12.30 g/dL (11.27-16.99) 09/23/23 10:01 Hct 38.3 % (36-47) 09/23/23 10:01 MCV 106.4 fl (85-98) H 09/23/23 10:01 MCH 34.2 pg (27-33) H 09/23/23 10:01 MCHC 32.1 g/dL (30-55) 09/23/23 10:01 RDW 13.0 % (12.1-15.1) 09/23/23 10:01 Plt Count 192 10^3/cmm (157-399) 09/23/23 10:01 MPV 11.1 fL (7.4-10.4) H 09/23/23 10:01 Neut % (Auto) 90.0 % 09/23/23 10:01 Lymph % (Auto) 3.9 % 09/23/23 10:01 [place] % (Auto) 5.6 % 09/23/23 10:01 Eos % (Auto) 0.0 % 09/23/23 10:01 Baso % (Auto) 0.1 % 09/23/23 10:01 Neut # (Auto) 6.90 10^3/uL (1.8-7.7) 09/23/23 10:01 Lymph # (Auto) 0.3 10^3/uL (0.8-4.8) L 09/23/23 10:01 [place] # (Auto) 0.4 10^3/uL (0.2-0.9) 09/23/23 10:01 Eos # (Auto) 0.0 10^3/uL (0.0-0.8) 09/23/23 10:01 Baso # (Auto) 0.0 10^3/uL (0.0-0.1) 09/23/23 10:01 Nucleated RBC % (auto) 0 % 09/23/23 10:01 Nucleated RBCs # 0.0 /100WBC 09/23/23 10:01 Specimen Type Arterial 09/23/23 09:30 Sample Site Brachial, left 09/23/23 09:30 ABG pH 7.35 (7.35-7.45) 09/23/23 09:30 ABG pCO2 46.6 mmHg (35-45) H 09/23/23 09:30 ABG pO2 136.0 mmHg (80.0-100.0) H 09/23/23 09:30 ABG HCO3 25.5 mmol/L (22-26) 09/23/23 09:30 ABG O2 Saturation 99.6 09/23/23 09:30 ABG Base Excess -0.5 mmol/L (-2.0-2.0) 09/23/23 09:30 [place] Test Pos 09/23/23 09:30 A-a O2 Gradient Not Reportable 09/23/23 09:30 Hematocrit 36.0 % (37-47) L 09/23/23 09:30 Hgb O2 Saturation 98.1 % (95-100) 09/23/23 09:30 Carboxyhemoglobin 1.3 %THgb (0.4-20.1) 09/23/23 09:30 Methemoglobin 0.3 % (0.4-1.5) L 09/23/23 09:30 Total Hemoglobin 11.7 g/dL (12-16) L 09/23/23 09:30 Sodium 139.0 mmol/L (131-143) 09/23/23 09:30 Potassium 4.4 mmol/L (3.5-5.0) 09/23/23 09:30 Glucose 139.0 mg/dL (70-115) H 09/23/23 09:30 Ionized Calcium 1.1 mmol/L (1.1-1.4) 09/23/23 09:30 O2 Delivery Device Nc 09/23/23 09:30 O2 Liters/Min 6.0 % 09/23/23 09:30 Electromechanical Equipment Assembler ID Cak 09/23/23 09:30 Sodium 137 mmol/L (136-145) 09/23/23 10:40 Potassium 4.7 mmol/L (3.5-5.1) 09/23/23 10:40 Chloride 101 mmol/L (98-107) 09/23/23 10:40 Carbon Dioxide 22 mmol/L (22-29) 09/23/23 10:40 Anion Gap 18.7 (5-19) 09/23/23 10:40 BUN 24 mg/dL (8-23) H 09/23/23 10:40 Creatinine 1.4 mg/dL (0.5-0.9) H 09/23/23 10:40 GFR Calculation Not Reportable 09/23/23 10:40 Glucose 122 mg/dL (65-115) H 09/23/23 10:40 Calculated Osmolality 289 mOsm/kg (285-295) 09/23/23 10:40 Lactic Acid 1.7 mmol/L (0.5-2.2) 09/23/23 10:40 Calcium 8.2 mg/dL (8.5-10.5) L 09/23/23 10:40 Total Bilirubin 0.3 mg/dL (0.15-1.2) 09/23/23 10:40 AST 50 U/L (0-32) H 09/23/23 10:40 ALT 12 U/L (0-33) 09/23/23 10:40 Alkaline Phosphatase 84 U/L (35-105) 09/23/23 10:40 Troponin T Baseline 166 ng/L (0-10) H* 09/23/23 10:40 Troponin T 120 Minute 150.8 ng/L (0-10) H 09/23/23 12:49 Delta Troponin T -15.2 ABS# (0-10) L 09/23/23 12:49 NT-Pro-B Natriuret Pep 3788 pg/mL (0-450) H 09/23/23 10:40 NT-Pro-B Natriuret Pep Cancelled 09/23/23 10:40 Total Protein 6.7 g/dL (6.6-8.7) 09/23/23 10:40 Albumin 3.3 g/dL (3.5-5.2) L 09/23/23 10:40 Globulin 3.4 g/dL (1.3-4.6) 09/23/23 10:40 Procalcitonin 0.29 ng/mL (0-0.5) 09/23/23 12:49 Urine Color Yellow (Yellow) 09/23/23 10:59 Urine Appearance Clear (CLEAR) 09/23/23 10:59 Urine pH 5 (5-7) 09/23/23 10:59 Ur Specific [place] 1.020 (1.005-1.030) 09/23/23 10:59 Urine Protein Trace (Negative) 09/23/23 10:59 Urine Glucose (UA) Norm (Normal) 09/23/23 10:59 Urine Ketones 1+ (Negative) H 09/23/23 10:59 Urine Blood 3+ (Negative) H 09/23/23 10:59 Urine Nitrate Negative (Negative) 09/23/23 10:59 Urine Bilirubin Neg (Negative) 09/23/23 10:59 Urine Urobilinogen Norm mg/dL (Negative) 09/23/23 10:59 Ur Leukocyte Esterase Negative (Negative) 09/23/23 10:59 Urine RBC 0-4 /hpf (0-2) H 09/23/23 10:59 Urine WBC 0-4 /hpf (0-5) H 09/23/23 10:59 Ur Squamous Epith Cells 0-4 /hpf (0-5) H 09/23/23 10:59 Ur Transition Epith Cell 0-4 /hpf 09/23/23 10:59 Amorphous Sediment Not Reportable 09/23/23 10:59 Urine Bacteria Trace /hpf (NONE) 09/23/23 10:59 Urine Mucus Trace /hpf 09/23/23 10:59 Salicylates < 0.3 mg/dL (3-10) L 09/23/23 10:40 Urine Opiates Screen Negative ng/mL (Negative) 09/23/23 10:59 Acetaminophen < 5.0 ug/mL (10-30) L 09/23/23 10:40 Ur Barbiturates Screen Negative ng/mL (Negative) 09/23/23 10:59 Ur Phencyclidine Scrn Negative ng/mL (Negative) 09/23/23 10:59 Ur Amphetamines Screen Negative ng/mL (Negative) 09/23/23 10:59 U Benzodiazepines Scrn Positive ng/mL (Negative) H 09/23/23 10:59 Urine Cocaine Screen Negative ng/mL (Negative) 09/23/23 10:59 U Marijuana (THC) Screen Negative ng/mL (Negative) 09/23/23 10:59 Ethyl Alcohol < 10 mg/dL (0-10) 09/23/23 10:40 All radiology interpretation(s) finalized by discharge Discharge Plan Discharge Patient Disposition: Admitted As Inpatient Admit Provider: Ben Hale Clinical Impression: Encephalopathy, Elevated troponin, Hypoxia Condition: Stable Coding Level of Care Code ED Noc Analyst for Queenie Turner
[2023-09-23 10:18] LABS: Basophils % 0.1 %; Hematocrit 38.3 % (36-47); Lymphocytes # 0.3 10^3/uL (0.8-4.8); Lymphocytes % 3.9 %; Mean Corpuscular HGB Conc 32.1 g/dL (30-55); Mean Corpuscular Hemoglobin 34.2 pg (27-33); Mean Corpuscular Volume 106.4 fl (85-98); Mean Platelet Volume 11.1 fL (7.4-10.4); Monocytes # 0.4 10^3/uL (0.2-0.9); Monocytes % 5.6 %; Nucleated Red Blood Cells % 0 %; Platelet Count 192 10^3/cmm (157-399); White Blood Count 7.67 10^3/uL (3.29-11.43)
[2023-09-23 10:39] LABS: Slide Review Slide Review Perform
[2023-09-23 11:08] LABS: Lactic Sepsis W/Reflex 1.7 mmol/L (0.5-2.2)
[2023-09-23 11:12] LABS: Amphetamines Screen Urine Negative (Negative); Barbiturates Screen Urine Negative (Negative); Benzodiazepines Screen Urine Positive (Negative); Cocaine Screen Urine Negative (Negative); Opiate Screen Urine Negative (Negative); PCP Screen Urine Negative (Negative); THC Screen Urine Negative (Negative)
[2023-09-23 11:12] LABS: Troponin(5th) Baseline 166 ng/L (0-10)
--- NOTE | 2023-09-23 11:20 | PC.NURSE ---
PATIENT BEDDING CHANGED AND GOWN PROVIDED. PATIENT GIVEN WARM BLANKETS.
[2023-09-23 11:23] LABS: Alanine Aminotransferase 12 U/L (0-33); Albumin Level 3.3 g/dL (3.5-5.2); Alkaline Phosphatase 84 U/L (35-105); Blood Urea Nitrogen 24 mg/dL (8-23); Calcium 8.2 mg/dL (8.5-10.5); Carbon Dioxide 22 mmol/L (22-29); Chloride 101 mmol/L (98-107); Creatinine Clr Calc Pharmacy 31.8939; Globulin 3.4 g/dL (1.3-4.6); Glucose 122 mg/dL (65-115); NT Pro B Type Natriuretic Pept 3788 pg/mL (0-450); Osmolality Calculated 289 mOsm/kg (285-295); Sodium 137 mmol/L (136-145); Total Bilirubin 0.3 mg/dL (0.15-1.2); Total Protein 6.7 g/dL (6.6-8.7)
[2023-09-23 11:31] LABS: Salicylate < 0.3 mg/dL (3-10)
[2023-09-23 11:32] LABS: Acetaminophen < 5.0 ug/mL (10-30); Alcohol Level < 10 mg/dL (0-10)
[2023-09-23 11:33] LABS: Anion Gap 18.7 (5-19); Aspartate Amino Transferase 50 U/L (0-32); Potassium 4.7 mmol/L (3.5-5.1)
[2023-09-23 11:45] LABS: Add Urine Microscopic? YES; Bilirubin Urine Neg (Negative); Blood Urine 3+ (Negative); Glucose Urine UA Norm (Normal); Ketones Urine 1+ (Negative); Leukocyte Esterase Urine Negative (Negative); Nitrate Urine Negative (Negative); Protein Urine Trace (Negative); Urine Appearance Clear (CLEAR); Urine Color Yellow (Yellow); Urobilinogen Urine Norm (Negative); pH Urine 5 (5-7)
--- NOTE | 2023-09-23 11:45 | ECG_ITS ---
[facility] Test Date: 2023-09-23 Pat Name: Gabriella Thompson Department: Room: Gender: Female Student Success Counselor: : 1945 Requested By: Kurt Lam Order Number: [id number] Lamont MD: Mason Turner M.D. Measurements Intervals [place] Rate: 77 P: 72 NH: 150 QRS: -72 QRSD: 142 T: 14 QT: 400 QTc: 454 Interpretive Statements SINUS RHYTHM POSSIBLE LEFT ATRIAL ENLARGEMENT [-0.1mV P-WAVE IN V1/V2] RIGHT BUNDLE BRANCH BLOCK [120+ ms QRS DURATION, UPRIGHT V1, 40+ ms S IN I/aVL/V4/V5/V6] LEFT ANTERIOR FASCICULAR BLOCK [QRS AXIS <= -45, QR IN I, RS IN II] MODERATE T-WAVE ABNORMALITY, CONSIDER LATERAL ISCHEMIA [-0.1+ mV T-WAVE IN I/aVL/V5/V6] Compared to ECG 09/23/2023 09:34:19 No significant changes Electronically Signed On 09-23-2023 23:30:14 CDT by Mason Turner M.D. [id number]
[2023-09-23 11:49] LABS: Add Urine Culture? No; Bacteria Urine TRACE /hpf; Mucus Urine TRACE /hpf; RBC Urine 0-4 /hpf (0-2); Squamous Epithelial Cell Urine 0-4 /hpf (0-5); Transitional Epi Cells Urine 0-4 /hpf; WBC Urine 0-4 /hpf (0-5)
--- NOTE | 2023-09-23 11:59 | CTR_ITS ---
PROCEDURE INFORMATION: Exam: CTA Chest With Contrast Exam date and time: 09/23/2023 12:16 PM Age: 78 years old Clinical indication: Abnormal findings; Abnormal diagnostic tests; Other: Elevated trop; Shortness of breath; Additional info: Dyspnea, elevated trop TECHNIQUE: Imaging protocol: Computed tomographic angiography of the chest with contrast. Exam focused on the arteries. 3D rendering (Not supervised by radiologist): MIP and/or 3D reconstructed images were created by the technologist. Radiation optimization: All CT scans at this facility use at least one of these dose optimization techniques: automated exposure control; mA and/or kV adjustment per patient size (includes targeted exams where dose is matched to clinical indication); or iterative reconstruction. Contrast material: OMNI 350; Contrast volume: 100 ml; Contrast route: INTRAVENOUS (IV); COMPARISON: CR XR chest 1V portable [id number] 09/23/2023 9:47 AM RADIATION DOSE METRICS: Total DLP (mGy-cm): 444.83 FINDINGS: Pulmonary arteries: Dilated pulmonary arterial system, pulmonary arterial hypertension may be present. Aorta: Unremarkable. No aortic aneurysm. No aortic dissection. Lungs: Dependent atelectasis in the lower lobes with a possible infiltrate on the right. Emphysematous COPD. Pleural spaces: Unremarkable. No pneumothorax. No pleural effusion. Heart: Unremarkable. No cardiomegaly. No pericardial effusion. Lymph nodes: Unremarkable. No enlarged lymph nodes. Gallbladder and biliary ducts: Possible small gallstone. Spleen: Calcified granuloma within the spleen. Kidneys and ureters: The bilateral renal cysts. Bones/joints: Unremarkable. No acute fracture. Soft tissues: Unremarkable. CT/CT angio chest PE protcl [id number] IMPRESSION: 1. No acute findings. 2. Possible pulmonary arterial hypertension. COMMENTS: 1. Consistent with the [place] [employer]'s Incidental Findings Committee white paper (J Am Jagdish Radiol 2018): Any incidental renal lesion less than 1 cm or classified as too small to characterize, or any incidental cystic renal lesion characterized as simple-appearing, is likely benign. No follow-up imaging is recommended for these lesions per consensus recommendations based on imaging criteria. 2. The presence of pulmonary emphysema on CT is an independent risk factor for lung cancer. In the absence of a history or active diagnosis of lung cancer, it is recommended that this patient with emphysema be evaluated for enrollment in a low dose CT lung cancer screening program.
--- NOTE | 2023-09-23 11:59 | ECG_ITS ---
[facility] Test Date: 2023-09-23 Pat Name: Gabriella Thompson Department: Room: Gender: Female Principal Consulting Engineer: : 1945 Requested By: Kurt Lam Order Number: [id number] Lamont MD: Mason Turner M.D. Measurements Intervals [place] Rate: 77 P: 71 [place]: 154 QRS: -74 QRSD: 146 T: 34 QT: 394 QTc: 448 Interpretive Statements SINUS RHYTHM POSSIBLE LEFT ATRIAL ENLARGEMENT [-0.1mV P-WAVE IN V1/V2] RIGHT BUNDLE BRANCH BLOCK [120+ ms QRS DURATION, UPRIGHT V1, 40+ ms S IN I/aVL/V4/V5/V6] LEFT ANTERIOR FASCICULAR BLOCK [QRS AXIS <= -45, QR IN I, RS IN II] MODERATE T-WAVE ABNORMALITY, CONSIDER LATERAL ISCHEMIA [-0.1+ mV T-WAVE IN I/aVL/V5/V6] Compared to ECG 09/23/2023 11:45:13 No significant changes Electronically Signed On 09-23-2023 23:30:21 CDT by Mason Turner M.D. [id number]
[2023-09-23] MEDS: iohexol 350 mg/mL 500 mL Btl (per mL) IV (12:22)
[2023-09-23] MEDS: aspirin 81 mg Chew Tablet 324 MG PO (12:35)
--- NOTE | 2023-09-23 12:44 | PC.NURSE ---
PROVIDER TURNED O2 OFF TO SEE PATIENT SATURATION, PATIENT DESATTED TO 85 ON RA. PATIENT PLACED BACK ON 3 L NC.
--- NOTE | 2023-09-23 13:03 | CTR_ITS ---
PROCEDURE INFORMATION: Exam: CT Abdomen And Pelvis Without Contrast Exam date and time: 09/23/2023 1:10 PM Age: 78 years old Clinical indication: Other: Sepsis TECHNIQUE: Imaging protocol: Computed tomography of the abdomen and pelvis without contrast. Radiation optimization: All CT scans at this facility use at least one of these dose optimization techniques: automated exposure control; mA and/or kV adjustment per patient size (includes targeted exams where dose is matched to clinical indication); or iterative reconstruction. COMPARISON: MR MRCP [id number] 09/03/2023 8:05 AM RADIATION DOSE METRICS: Total DLP (mGy-cm): 623 FINDINGS: Lungs: Atelectasis or infiltrate at the right lung base. Liver: Scattered hepatic calcified granuloma. Gallbladder and biliary ducts: Circumferentially calcified gallstone in the gallbladder neck. Pancreas: Normal. No ductal dilation. Spleen: Numerous calcified splenic granuloma. Adrenal glands: Stable enlargement and nodularity of the bilateral adrenal glands, left greater than right. Kidneys and ureters: Bilateral renal cysts. Numerous bilateral renal cysts. Stomach and bowel: Diverticulosis without evidence of diverticulitis. Appendix: No evidence of appendicitis. Intraperitoneal space: Unremarkable. No free air. No significant fluid collection. Vasculature: Unremarkable. No abdominal aortic aneurysm. Lymph nodes: Unremarkable. No enlarged lymph nodes. Urinary bladder: Unremarkable as visualized. Reproductive: Unremarkable as visualized. Bones/joints: Unremarkable. No acute fracture. Soft tissues: There is probably an early decubitus ulcer near the tip of the coccyx. Soft tissue inflammatory stranding and a small bubble of gas are present. CT/CT abdomen pelvis wo con [id number] IMPRESSION: 1. Cholelithiasis. 2. Possible early decubitus ulcer near the tip of the coccyx. COMMENTS: Consistent with the [place] [employer]'s Incidental Findings Committee white paper (J Am Jagdish Radiol 2018): Any incidental renal lesion less than 1 cm or classified as too small to characterize, or any incidental cystic renal lesion characterized as simple-appearing, is likely benign. No follow-up imaging is recommended for these lesions per consensus recommendations based on imaging criteria.
--- NOTE | 2023-09-23 13:06 | USCV_ITS ---
Gabriella Thompson Age: 78 Gender: F : 1945 Exam Date: 09/23/2023 14:19 Ordering Phys: Ben Hale MD Technologist: STEFAN Exam Location: [facility] [place] Indication: NSTEMI, PULM HTN BP: 147 / 66 HR: 71 Rhythm: Sinus Technical Quality: Adequate MEASUREMENTS (Male / Female) Normal Values 2D ECHO LV Diastolic Diameter PLAX 4.9 cm 4.2 - 5.9 / 3.9 - 5.3 cm IVS Diastolic Thickness 1.7 cm 0.6 - 1.0 / 0.6 - 0.9 cm IVS Systolic Thickness 2.4 cm LVPW Diastolic Thickness 2.0 cm 0.6 - 1.0 / 0.6 - 0.9 cm LVPW Systolic Thickness 2.9 cm LVOT Diameter 2.0 cm LV Ejection Fraction 2D Teich 65.7 % LV Ejection Fraction MOD 4C 52.7 % LV Ejection Fraction MOD 2C 61.6 % LV Ejection Fraction 2C AL 63.5 % LA Diameter 2.8 cm RA Systolic Volume 4C AL 30.0 ml RA Systolic Volume 4C MOD 29.2 ml LA Sys Volume AL 30.6 cm cubed LA Sys Volume Index AL 17.3 cm cubed/m squared Aorta at Sinotubular Diameter 2.0 cm IVC Diameter 1.3 cm M-MODE LA Ao Ratio MM 1.3 AV Cusp Separation MM 1.0 cm DOPPLER AV Peak Velocity 263.4 cm/s LVOT Peak Velocity 110.0 cm/s AV Area Cont Eq vti 1.9 cm squared AV Area Cont Eq pk 1.3 cm squared MV Peak Velocity 150.0 cm/s MV Area PHT 2.1 cm squared Mitral E to A Ratio 0.6 TR Peak Velocity 300.0 cm/s TR Peak Gradient 36.0 mmHg TR Mean Velocity 223.0 cm/s TR Mean Gradient 21.8 mmHg TR Velocity Time Integral 107.1 cm TV Peak E Velocity 55.0 cm/s Right Atrial Pressure 3.0 mmHg Pulmonary Artery Systolic Pressu 39.0 mmHg PV Peak Velocity 86.0 cm/s RV Ejection Time 0.3 s FINDINGS Left Ventricle Normal left ventricular size and systolic function, EF 62%.mild left ventricular hypertrophy. No regional wall motion abnormalities. Grade I/IV diastolic dysfunction (abnormal relaxation filling pattern), normal to mildly elevated filling pressures. Right Ventricle The right ventricle is normal in size and function. Right Atrium The right atrium is normal in size. Left Atrium The left atrium is normal in size. Mitral Valve Mild mitral annular calcification. Aortic Valve Mild aortic valve stenosis, mean gradient 6.3 mmHg, ZAHIRA 1.9 cm squared. Peak velocity of 2.63 m/s. Dfon-yv-jysszoed aortic valve regurgitation. Tricuspid Valve Moderate tricuspid valve regurgitation. Estimated pulmonary artery peak systolic pressure of 40 mmHg Pulmonic Valve Pulmonic valve not well visualized. Pericardium No pericardial effusion. Aorta Normal aortic annulus size. IVC Normal inferior vena cava. CONCLUSIONS Normal left ventricular size and systolic function, EF 62%.mild left ventricular hypertrophy. No regional wall motion abnormalities. Grade I/IV diastolic dysfunction (abnormal relaxation filling pattern), normal to mildly elevated filling pressures. Mild aortic valve stenosis, mean gradient 6.3 mmHg, ZAHIRA 1.9 cm squared. Peak velocity of 2.63 m/s. [id number] aortic valve regurgitation. Segmental wall motion analysis difficult because of blood ultrasonic window Mild mitral annular calcification. There are no intracardiac masses. Moderate tricuspid valve regurgitation. Estimated pulmonary artery peak systolic pressure of [address] study [address] Mason Turner MD FACC (Electronically Signed) Final Date: 23 September 2023 15:54 S
[2023-09-23 13:28] LABS: Troponin 5 2HR 150.8 ng/L (0-10); Troponin 5 2HR Delta -15.2 ABS# (0-10)
[2023-09-23] MEDS: heparin 5,000 unit/mL INJ 1 mL IV (13:30)
[2023-09-23] MEDS: heparin drip 25,000 UNIT/500 ML PREMIX 19.05 UNIT IV (13:30)
--- NOTE | 2023-09-23 14:30 | PC.NURSE ---
PATIENT BEDDING CHECKED. PATIENT STILL DRY. NO URINE OUTPUT AT THIS TIME.
[2023-09-23 14:49] LABS: Procalcitonin 0.29 ng/mL (0-0.5)
--- NOTE | 2023-09-23 15:09 | PC.NURSE ---
Arrived from ED, AO x4
--- NOTE | 2023-09-23 15:19 | P.HP_ITS ---
Providers/Chief Complaint 2 Admitting Physician: Ben Hale MD Primary Care Provider: Cayla Rivas APN Chief Complaint: lethargic, unresponsive History of Present Illness History taken through chart review and discussion with ER physician. Gabriella Thompson is a 78 year old female past medical history of hypertension, hypothyroidism who was recently in hospital for gastroenteritis and she was found to have gallbladder neck cholelithiasis, MRCP negative for cholecystitis he was sent into the ER via EMS today. As per the EMS they were called for altered mental status and episode of unresponsiveness. When they first responded she was found to be responsive and declined to be brought to the ER. Later EMS was called back and they found patient to be poorly responsive and more lethargic as per family members for last 2 days. Patient received high- dose of Narcan by the EMS without any improvement in mentation. On examination patient sleeping, wakes up to physical stimulus not responding to verbal stimulus. On waking up able to answers questions appropriately. Awake and alert to self, being in hospital, being the reason for hospital. Denies any difficulty in breathing or pain. Does not remember any changes in the medications recently. States she sets up her medications by herself. Other than this patient is not able to contribute in history taking for now. Family not available at bedside or over the phone to give any further history. Review of Systems 2 General: Reports: ROS unobtainable due to mental status Medications/Allergies Home Medications Medication Instructions Recorded Confirmed Last Taken Type alprazolam 0.5 mg tablet 0.5 mg PO DAILY PRN Anxiety 09/03/23 09/23/23 09/01/23 History amlodipine 5 mg tablet 5 mg PO DAILY 09/03/23 09/23/23 09/23/23 History fluticasone propionate 50 2 spray intranasal DAILY 09/03/23 09/23/23 09/22/23 History mcg/actuation nasal spray,suspension gabapentin 300 mg capsule 300 mg PO TID 09/03/23 09/23/23 09/23/23 History levothyroxine 112 mcg tablet 112 mcg PO QAM 09/03/23 09/23/23 09/23/23 History lisinopril 20 mg tablet 20 mg PO DAILY 09/03/23 09/23/23 09/23/23 History mirtazapine 15 mg tablet 15 mg PO BEDTIME 09/03/23 09/23/23 09/22/23 History montelukast 10 mg tablet 10 mg PO DAILY 09/03/23 09/23/23 09/23/23 History pantoprazole 40 mg tablet,delayed 40 mg PO DAILY 09/03/23 09/23/23 09/23/23 History release polyethylene glycol 3350 17 See Rx Instructions .Route .COMPLEX 09/03/23 09/23/23 09/01/23 History gram/dose oral powder rosuvastatin 10 mg tablet 10 mg PO DAILY 09/03/23 09/23/23 09/22/23 History tramadol 50 mg tablet 50 mg PO Q4H PRN Pain 09/03/23 09/23/23 08/31/23 History trazodone 150 mg tablet 300 mg PO BEDTIME 09/03/23 09/23/23 09/22/23 History cyanocobalamin (vitamin B-12) 5,000 mcg PO DAILY #30 caps 09/06/23 09/23/23 09/23/23 Rx 5,000 mcg capsule Allergies Allergy/AdvReac Type Severity Reaction Status Date / Time No Known Allergies Allergy Unverified 03/20/19 11:34 PFSH Acute 2 PFSH: Medical History (Updated 09/23/23 @ 16:18 by Kurt Hernandez DO) B12 deficiency Hypothyroidism Hypertension Gallstone Vitals/I&O/Wt Last Vital Signs Temp 98.5 F 09/23/23 09:30 Pulse 72 09/23/23 14:53 Resp 18 09/23/23 14:53 BP 121/63 09/23/23 14:53 Pulse Ox 100 09/23/23 14:53 O2 Del Method Nasal Cannula 09/23/23 14:45 O2 Flow Rate 3 09/23/23 14:45 Weight last 48 hrs Weight 68.039 kg Physical Exam 2 Narrative: General: No acute distress,Somnolent, wakes up to physical stimulus. On waking up AOx3. Dehydrated HEENT: PERRLA, pupils bilaterally equal and reactive Chest: Normal vesicular breath sounds, no added sounds, equal good air entry bilaterally CVS: S1-S2 regular, no murmurs, no tachycardia, no gallops, no rubs Abdomen: Soft, nontender, no organomegaly, bowel sounds present Neuro: No focal deficits, no facial deformity, Data 09/23/23 10:01 09/23/23 10:40 A&P Assessment and plan (1) Encephalopathy acute: Unknown cause. CT head on admission negative for acute abnormality. Urine drug screen, alcohol level negative. Could be in setting of polypharmacy versus unintentional overdose of home medications. As per MAR patient is supposed to be on Xanax as needed daily, gabapentin 303 times a day, mirtazapine p.o. 15 nightly, trazodone 300 mg at bedtime along with tramadol 50 every 4 as needed. No past history of seizure disorder. Infectious cause less likely. No leukocytosis. UA negative for acute abnormality. Check procalcitonin. Check ammonia levels. Vitamin B12 and TSH levels recently checked within the last 1 month. ABG showing mild hypercapnia with pCO2 of 46 with a normal pH, no hypoxia. CTA chest negative for pulmonary embolism. Patient does have mild troponin leak. Continue to monitor troponins. Patient on waking up denies any chest pain. Check echocardiogram. Continue with heparin drip started in the ER. Will discontinue heparin drip depending on the echocardiogram and troponin levels. NPO. Normal saline at 75 cc/h. Medical reconciliation done. Hold off on gabapentin, tramadol and trazodone for now. Continue with nightly mirtazapine. Fall precaution, aspiration precaution. Monitor for seizures. Neurochecks every 4 hours. (2) RICARDO (acute kidney injury): (3) Elevated troponin: (4) Hypothyroidism: TSH recently checked normal. Continue with home levothyroxine dose. If unable to take orally for next 3 days to transition over to IV. Plan Cholelithiasis: Appreciate CT abdomen pelvis. Phosphatase not elevated. Bilirubin normal. Stable liver functions. Patient is abdominal exam benign for now. Will continue to monitor. MRCP back in August negative for cholecystitis. CODE STATUS: As per recent hospitalization with the last 1 month. Limited resuscitation. Okay with chest compression, admission to ICU. N.p.o. Protonix for PUD prophylaxis Heparin 5000 every 12 hourly for DVT prophylaxis Attestations 2 Medical Necessity Statement*: Admission to ICU for further management of acute metabolic encephalopathy while further etiologies were ruled out Diagnoses Encephalopathy acute G93.40 RICARDO (acute kidney injury) N17.9 Elevated troponin R79.89 Hypothyroidism E03.9
[2023-09-23] MEDS: sodium chloride 0.9% 1,000 ML 75 ML IV (15:51)
[2023-09-23 17:42] LABS: Troponin 5 6HR Delta -14.3 ng/L (0-12)
[2023-09-23 17:44] LABS: Troponin 5 6HR 151.7 ng/L (0-10)
[2023-09-23 18:32] LABS: Ammonia 37 umol/L (11-51)
[2023-09-23] MEDS: mirtazapine 15 mg Tablet PO (20:48)
[2023-09-23 21:53] LABS: Partial Thromboplastin Time 137.6 SECONDS (23.9-36.7)
[2023-09-24] VITALS (46 sets, daily range): BP systolic 109–184; BP diastolic 41–78; PULSE 51–111; RESP 7–27; TEMP 36.5–37.2; O2SAT 79–100; BMI 26.4; BMI 26.6
[2023-09-24] MEDS: sodium chloride 0.9% 1,000 ML 75 ML IV ×2 (04:32→17:58)
[2023-09-24 04:39] LABS: Basophils % 0.3 %; Eosinophils % 0.4 %; Hematocrit 34.5 % (36-47); Lymphocytes % 13.6 %; Mean Corpuscular HGB Conc 32.5 g/dL (30-55); Mean Corpuscular Hemoglobin 34.1 pg (27-33); Mean Corpuscular Volume 105.2 fl (85-98); Monocytes # 0.6 10^3/uL (0.2-0.9); Monocytes % 7.6 %; Neutrophils # 5.66 10^3/uL (1.8-7.7); Neutrophils % 77.8 %; Nucleated Red Blood Cells % 0 %; Platelet Count 209 10^3/cmm (157-399); Red Blood Count 3.28 10^6/uL (3.85-5.65); Red Cell Distribution Width 13.1 % (12.1-15.1); White Blood Count 7.27 10^3/uL (3.29-11.43)
[2023-09-24 05:02] LABS: Partial Thromboplastin Time 146.7 SECONDS (23.9-36.7)
[2023-09-24 05:10] LABS: Troponin T (5th) Once 207 ng/L (0-10)
[2023-09-24 05:21] LABS: Alanine Aminotransferase 12 U/L (0-33); Alkaline Phosphatase 79 U/L (35-105); Aspartate Amino Transferase 46 U/L (0-32); Chloride 105 mmol/L (98-107); Potassium 4.5 mmol/L (3.5-5.1); Sodium 141 mmol/L (136-145)
[2023-09-24] MEDS: levothyroxine 112 mcg Tablet PO (05:21)
[2023-09-24 05:33] LABS: Anion Gap 17.5 (5-19); Blood Urea Nitrogen 17 mg/dL (8-23); Carbon Dioxide 23 mmol/L (22-29); Globulin 2.3 g/dL (1.3-4.6); Glucose 79 mg/dL (65-115); Magnesium 1.3 mg/dL (1.7-2.3); Osmolality Calculated 292 mOsm/kg (285-295); Phosphorus 2.8 mg/dL (2.5-4.5); Total Bilirubin 0.3 mg/dL (0.15-1.2); Total Protein 5.3 g/dL (6.6-8.7)
[2023-09-24] MEDS: pantoprazole DR 40 mg Tablet PO (08:54)
[2023-09-24] MEDS: atorvastatin 40 mg Tablet PO (08:54)
[2023-09-24 11:05] LABS: Partial Thromboplastin Time 58.5 SECONDS (23.9-36.7)
--- NOTE | 2023-09-24 13:33 | PM.PN ---
Subjective Subjective: No acute events overnight. Today morning examination patient is awake and alert. She is able to have complete conversation. She states last thing she remembers is sitting in a chair and having her meal but that was in the evening. Patient denies of having any nausea vomiting, headache. Denies any changes in her medications. She states she has been taking care of her medications by herself. She lives by herself. She was expecting her grandson to come and live by her but for now that has not happened. Vitals/I&O/Wt Last Vital Signs Temp 97.9 F 09/24/23 04:00 Pulse 73 09/24/23 09:45 Resp 13 09/24/23 09:45 BP 127/65 09/24/23 09:45 Pulse Ox 93 09/24/23 09:45 O2 Del Method Room Air 09/24/23 08:44 O2 Flow Rate 2 09/24/23 04:00 09/23/23 09/24/23 09/24/23 22:59 06:59 14:59 Intake Total 360.338 / 493.997 0326.5 / 1468.838 240 / 240 Output Total 400 / 400 Balance 360.338 / 360.338 708.5 / 1068.838 240 / 240 Weight last 48 hrs Weight 70.449 kg Weight 70 kg Weight 68.039 kg Weight 68.039 kg Physical Exam Narrative: General: AOx3, no acute distress HEENT: PERRLA, pupils bilaterally equal and reactive Chest: Normal vesicular breath sounds, no added sounds, equal good air entry bilaterally CVS: S1-S2 regular, no murmurs, no tachycardia, no gallops, no rubs Abdomen: Soft, nontender, no organomegaly, bowel sounds present Neuro: No focal deficits, no facial deformity, Data 09/24/23 04:28 09/24/23 04:28 A&P Assessment and plan (1) Encephalopathy acute: Unknown cause. CT head on admission negative for acute abnormality. Urine drug screen, alcohol level negative. Most likely in setting of polypharmacy versus unintentional overdose of pain medication. As per MAR patient is supposed to be on Xanax as needed daily, gabapentin 303 times a day, mirtazapine p.o. 15 nightly, trazodone 300 mg at bedtime along with tramadol 50 every 4 as needed. No past history of seizure disorder. Continue with home dose of mirtazapine, start gabapentin at 100 mg 3 times daily, tramadol 50 mg every 8 hourly as needed. Hold off on trazodone. Infectious cause less likely. No leukocytosis. UA negative for acute abnormality. Check procalcitonin. Ammonia levels normal, ls. Vitamin B12 and TSH levels recently checked within the last 1 month. ABG showing mild hypercapnia with pCO2 of 46 with a normal pH, no hypoxia. CTA chest negative for pulmonary embolism. Troponin cycled appreciated. Repeat troponin today morning elevated again. Echocardiogram done shows normal EF without regional wall motion abnormality, grade 1 diastolic dysfunction, mild aortic valve stenosis with estimated PASP of 40 mmHg, moderate TR. Continue with heparin drip. Will plan for Lexiscan stress test. Mentation improving. Start on cardiac diet today. PT evaluation. Occupational Therapy evaluation for cognitive study. Fall precaution, aspiration precaution. Patient lives by herself. Grandson for now is not living with the patient. Given advanced age, multiple recent admissions, social discord discussed safe discharge planning with the patient. Also discussed with home health versus SNF. Patient declines placement to SNF for now. Will discuss further after various evaluations. (2) RICARDO (acute kidney injury): Most likely in setting of dehydration. With IV fluids have resolved. Continue with IV fluids for now. Monitor BMP daily. (3) Elevated troponin: (4) Hypothyroidism: TSH recently checked normal. Continue with home levothyroxine dose. If unable to take orally for next 3 days to transition over to IV. Plan Cholelithiasis: Appreciate CT abdomen pelvis. Phosphatase not elevated. Bilirubin normal. Stable liver functions. Patient is abdominal exam benign for now. Will continue to monitor. MRCP back in August negative for cholecystitis. CODE STATUS: Discussed CODE STATUS in detail with the patient. She does not want any heroic measures. Does not want any chest compressions or life support. CODE STATUS changed to DNR/DNI. Cardiac diet Protonix for PUD prophylaxis Heparin 5000 every 12 hourly for DVT prophylaxis [facility]. Attestations Medical Necessity Statement*: Requires further hospitalization for management of acute encephalopathy most likely in setting of polypharmacy, resolving RICARDO while safe discharge planning is sought Diagnoses Encephalopathy acute G93.40 RICARDO (acute kidney injury) N17.9 Elevated troponin R79.89 Hypothyroidism E03.9
--- NOTE | 2023-09-24 15:26 | PC.NURSE ---
transferred to room 276-2 via bed.report given to [facility].home meds transferred with pt.
[2023-09-24] MEDS: gabapentin 100 mg Capsule PO ×2 (16:13→20:54)
[2023-09-24 16:56] LABS: Partial Thromboplastin Time 23.6 SECONDS (23.9-36.7)
[2023-09-24] MEDS: heparin 5,000 unit/mL INJ 1 mL IV (17:22)
[2023-09-24] MEDS: mirtazapine 15 mg Tablet PO (20:55)
[2023-09-24] MEDS: amlodipine 5 mg Tablet PO (20:55)
[2023-09-24 22:33] LABS: Partial Thromboplastin Time 64.2 SECONDS (23.9-36.7)
[2023-09-24] MEDS: heparin drip 25,000 UNIT/500 ML PREMIX 15 UNIT IV (23:40)
[2023-09-25] VITALS (9 sets, daily range): BP systolic 133–176; BP diastolic 50–87; PULSE 70–108; RESP 15–18; TEMP 36.7–37.3; O2SAT 90–95
[2023-09-25 04:42] LABS: Basophils # 0.1 10^3/uL (0.0-0.1); Basophils % 0.8 %; Eosinophils # 0.1 10^3/uL (0.0-0.8); Eosinophils % 1.5 %; Hematocrit 44.3 % (36-47); Lymphocytes % 14.5 %; Mean Corpuscular HGB Conc 30.5 g/dL (30-55); Mean Corpuscular Hemoglobin 34.7 pg (27-33); Mean Corpuscular Volume 113.9 fl (85-98); Mean Platelet Volume 9.3 fL (7.4-10.4); Monocytes # 0.5 10^3/uL (0.2-0.9); Monocytes % 7.1 %; Neutrophils % 75.6 %; Nucleated Red Blood Cells % 0 %; Platelet Count 264 10^3/cmm (157-399); Red Blood Count 3.89 10^6/uL (3.85-5.65); Red Cell Distribution Width 13.3 % (12.1-15.1); White Blood Count 6.61 10^3/uL (3.29-11.43)
[2023-09-25 04:53] LABS: Partial Thromboplastin Time 54.2 SECONDS (23.9-36.7)
[2023-09-25 04:55] LABS: Alanine Aminotransferase 15 U/L (0-33); Albumin Level 3.3 g/dL (3.5-5.2); Alkaline Phosphatase 86 U/L (35-105); Blood Urea Nitrogen 8 mg/dL (8-23); Carbon Dioxide 25 mmol/L (22-29); Chloride 103 mmol/L (98-107); Creatinine Clr Calc Pharmacy 56.3372; Globulin 2.5 g/dL (1.3-4.6); Glucose 101 mg/dL (65-115); Osmolality Calculated 292 mOsm/kg (285-295); Sodium 142 mmol/L (136-145); Total Bilirubin 0.5 mg/dL (0.15-1.2); Total Protein 5.8 g/dL (6.6-8.7)
[2023-09-25 04:56] LABS: Anion Gap 17.7 (5-19); Aspartate Amino Transferase 42 U/L (0-32); Potassium 3.7 mmol/L (3.5-5.1)
[2023-09-25] MEDS: heparin drip 25,000 UNIT/500 ML PREMIX 16 UNIT IV (05:10)
[2023-09-25] MEDS: levothyroxine 112 mcg Tablet PO (05:22)
[2023-09-25] MEDS: atorvastatin 40 mg Tablet PO (09:36)
[2023-09-25] MEDS: pantoprazole DR 40 mg Tablet PO (09:36)
[2023-09-25] MEDS: amlodipine 5 mg Tablet PO ×2 (09:36→15:34)
[2023-09-25] MEDS: gabapentin 100 mg Capsule PO ×3 (09:36→20:21)
[2023-09-25 10:59] LABS: Partial Thromboplastin Time 46.4 SECONDS (23.9-36.7)
[2023-09-25] MEDS: heparin 5,000 unit/mL INJ 1 mL IV ×2 (12:15→19:14)
[2023-09-25] MEDS: sodium chloride 0.9% 1,000 ML 50 ML IV (15:04)
--- NOTE | 2023-09-25 15:20 | P.PN_ITS ---
Subjective 2 Subjective: No acute vents overnight. Today morning examination [facility] Awake and alert. Denies any nausea vomiting, headache. Patient is on room air. States at baseline she usually does not walk much and uses bedside commode at home. Has in-home services who comes 5 days a week for few hours every day. Vitals/I&O/Wt Last Vital Signs Temp 98.2 F 09/25/23 12:00 Pulse 108 H 09/25/23 12:00 Resp 17 09/25/23 12:00 BP 176/72 09/25/23 12:00 Pulse Ox 95 09/25/23 12:00 O2 Del Method Room Air 09/25/23 04:00 O2 Flow Rate 2 09/24/23 04:00 09/25/23 09/25/23 09/25/23 06:59 14:59 22:59 Intake Total 177.0 / 2418.883 1437.033 / 1437.033 Balance 177.0 / 2418.883 1437.033 / 1437.033 Weight last 48 hrs Weight 69.4 kg Weight 69.445 kg Weight 70.449 kg Weight 70 kg Physical Exam 2 Narrative: General: AOx3, no acute distress HEENT: PERRLA, pupils bilaterally equal and reactive Chest: Normal vesicular breath sounds, no added sounds, equal good air entry bilaterally CVS: S1-S2 regular, no murmurs, no tachycardia, no gallops, no rubs Abdomen: Soft, nontender, no organomegaly, bowel sounds present Neuro: No focal deficits, no facial deformity, Data 09/25/23 04:23 09/25/23 04:23 A&P Assessment and plan (1) Encephalopathy acute: Unknown cause. CT head on admission negative for acute abnormality. Urine drug screen, alcohol level negative. Most likely in setting of polypharmacy versus unintentional overdose of pain medication. As per MAR patient is supposed to be on Xanax as needed daily, gabapentin 303 times a day, mirtazapine p.o. 15 nightly, trazodone 300 mg at bedtime along with tramadol 50 every 4 as needed. No past history of seizure disorder. Continue with home dose of mirtazapine, start gabapentin at 100 mg 3 times daily, tramadol 50 mg every 8 hourly as needed. Hold off on trazodone. Infectious cause less likely. No leukocytosis. UA negative for acute abnormality. Check procalcitonin. Ammonia levels normal, ls. Vitamin B12 and TSH levels recently checked within the last 1 month. ABG showing mild hypercapnia with pCO2 of 46 with a normal pH, no hypoxia. CTA chest negative for pulmonary embolism. Troponin cycled appreciated. Repeat troponin today morning elevated again. Echocardiogram done shows normal EF without regional wall motion abnormality, grade 1 diastolic dysfunction, mild aortic valve stenosis with estimated PASP of 40 mmHg, moderate TR. Continue with heparin drip. Will plan for Lexiscan stress test. Mentation improving. Start on cardiac diet today. PT evaluation. Occupational Therapy evaluation for cognitive study. Fall precaution, aspiration precaution. Patient lives by herself. Grandson for now is not living with the patient. Given advanced age, multiple recent admissions, social discord discussed safe discharge planning with the patient. Also discussed with home health versus SNF. Patient declines placement to SNF for now. Will discuss further after various evaluations. (2) RICARDO (acute kidney injury): Most likely in setting of dehydration. With IV fluids have resolved. Continue with IV fluids for now. Monitor BMP daily. (3) Elevated troponin: (4) Hypothyroidism: TSH recently checked normal. Continue with home levothyroxine dose. If unable to take orally for next 3 days to transition over to IV. Plan Cholelithiasis: Appreciate CT abdomen pelvis. Phosphatase not elevated. Bilirubin normal. Stable liver functions. Patient is abdominal exam benign for now. Will continue to monitor. MRCP back in August negative for cholecystitis. CODE STATUS: Discussed CODE STATUS in detail with the patient. She does not want any heroic measures. Does not want any chest compressions or life support. CODE STATUS changed to DNR/DNI. Cardiac diet Plan for the day: Blood pressure is elevated. Goal blood pressure less than 140/90 mmHg. Restart home dose of lisinopril. Increase amlodipine to 10 mg oral daily. No further chest pain. Continue with heparin drip for overall 72 hours. Last dose on 09/25. Plan for Lexiscan stress test on Wednesday. Start on oral Plavix 75 mg daily, baby aspirin. Discharge plan: Patient lives by herself, has poor social support. She was admitted with encephalopathy most likely in setting of polypharmacy versus unintentional overdose of home medications. Patient would need more closer caregiving on discharge. Discussed with her about home with 24-hour caregiver versus jail versus assisted living. Patient is interested in assisted living if possible. Case management consulted for the same. Protonix for PUD prophylaxis Heparin 5000 every 12 hourly for DVT prophylaxis Attestations 2 Medical Necessity Statement*: Requires further hospitalization for management of non-ST elevation NC as patient requires further ACS workup, resolving encephalopathy while safe discharge planning is sought Diagnoses Encephalopathy acute G93.40 RICARDO (acute kidney injury) N17.9 Elevated troponin R79.89 Hypothyroidism E03.9
[2023-09-25] MEDS: hyDRALAzine 20 mg/mL INJ 1 mL 10 MG IVP (17:29)
[2023-09-25] MEDS: mirtazapine 15 mg Tablet PO (20:21)
[2023-09-26] VITALS (8 sets, daily range): BP systolic 148–172; BP diastolic 63–76; PULSE 74–97; RESP 12–20; TEMP 36.6–37.3; O2SAT 91–95
[2023-09-26 01:53] LABS: Partial Thromboplastin Time 147.3 SECONDS (23.9-36.7)
[2023-09-26] MEDS: levothyroxine 112 mcg Tablet PO (06:06)
[2023-09-26] MEDS: amlodipine 5 mg Tablet PO ×2 (09:27→18:48)
[2023-09-26] MEDS: pantoprazole DR 40 mg Tablet PO (09:27)
[2023-09-26] MEDS: atorvastatin 40 mg Tablet PO (09:27)
[2023-09-26] MEDS: lisinopril 20 mg Tablet PO (09:27)
[2023-09-26] MEDS: gabapentin 100 mg Capsule PO ×2 (09:27→21:16)
[2023-09-26] MEDS: heparin drip 25,000 UNIT/500 ML PREMIX 15 UNIT IV (10:29)
[2023-09-26] MEDS: sodium chloride 0.9% 1,000 ML 50 ML IV (10:30)
[2023-09-26 16:11] LABS: Partial Thromboplastin Time 33.3 SECONDS (23.9-36.7)
--- NOTE | 2023-09-26 17:23 | ECG_ITS ---
[facility] Test Date: 2023-09-27 Pat Name: Gabriella Thompson Department: Room: 276 Gender: Female Manager Video: : 1945 Requested By: Ben Hale Order Number: [id number] Lamont MD: Mason Turner M.D. Interpretive Statements NAME OF STUDY: LEXISCAN SESTAMIBI STRESS TEST INDICATION: NONSTEMI PROCEDURE: At the baseline, the EKG revealed normal sinus rhythm with right bundle branch block. Poor R wave progression send history of anterolateral wall CO. Left axis deviation. The baseline heart was 86 bpm with a blood pressue of 127/65 mm of Hg Lexiscan was infused over a period of 20 seconds. A total of 0.4 milligrams of Lexiscan was infused. The stress phase was continued for a total of 5 minutes. Heart rate at the end of the stress phase was 102 bpm with a blood pressure 123/58 mm of Hg. The EKG at the peak infusion revealed no significant changes. Sestamibi was injected 20 seconds after the Lexiscan infusion. Heart rate at the end of the recovery phase was 101 bpm with a blood pressure of 133/56 mm of Hg. CONCLUSION: 1. No significant EKG changes with the LexiScan infusion 2. No LexiScan induced chest pain or cardiac arrhythmia 3. Normal blood pressure and heart rate response 4. Sestamibi/sestamibi perfusion scan pending; see separate report. Electronically Signed On 09-30-2023 22:59:33 CDT by Mason Turner M.D. [email or web address]
--- NOTE | 2023-09-26 17:24 | P.PN_ITS ---
Subjective 2 Subjective: No acute events overnight. Patient remains awake and alert. Denies any nausea, ting, headache, chest pain. Has remained hemodynamically stable and afebrile on room air. Currently on heparin drip. Vitals/I&O/Wt Last Vital Signs Temp 98.3 F 09/26/23 15:29 Pulse 97 09/26/23 15:29 Resp 16 09/26/23 15:29 BP 172/72 09/26/23 15:29 Pulse Ox 92 09/26/23 15:29 O2 Del Method Room Air 09/26/23 15:29 O2 Flow Rate 2 09/24/23 04:00 09/26/23 09/26/23 09/26/23 06:59 14:59 22:59 Intake Total 139.333 / 5115.846 7521.468 / 1395.468 Balance 139.333 / 3164.174 7096.468 / 1395.468 Weight last 48 hrs Weight 68.039 kg Weight 69.4 kg Weight 69.445 kg Physical Exam 2 Narrative: General: AOx3, no acute distress HEENT: PERRLA, pupils bilaterally equal and reactive Chest: Normal vesicular breath sounds, no added sounds, equal good air entry bilaterally CVS: S1-S2 regular, no murmurs, no tachycardia, no gallops, no rubs Abdomen: Soft, nontender, no organomegaly, bowel sounds present Neuro: No focal deficits, no facial deformity, Data 09/25/23 04:23 09/25/23 04:23 A&P Assessment and plan (1) Encephalopathy acute: Unknown cause. CT head on admission negative for acute abnormality. Urine drug screen, alcohol level negative. Most likely in setting of polypharmacy versus unintentional overdose of pain medication. As per MAR patient is supposed to be on Xanax as needed daily, gabapentin 303 times a day, mirtazapine p.o. 15 nightly, trazodone 300 mg at bedtime along with tramadol 50 every 4 as needed. No past history of seizure disorder. Continue with home dose of mirtazapine, start gabapentin at 100 mg 3 times daily, tramadol 50 mg every 8 hourly as needed. Hold off on trazodone. Infectious cause less likely. No leukocytosis. UA negative for acute abnormality. Check procalcitonin. Ammonia levels normal, ls. Vitamin B12 and TSH levels recently checked within the last 1 month. ABG showing mild hypercapnia with pCO2 of 46 with a normal pH, no hypoxia. CTA chest negative for pulmonary embolism. Troponin cycled appreciated. Repeat troponin today morning elevated again. Echocardiogram done shows normal EF without regional wall motion abnormality, grade 1 diastolic dysfunction, mild aortic valve stenosis with estimated PASP of 40 mmHg, moderate TR. Continue with heparin drip. Will plan for Lexiscan stress test. Mentation improving. Start on cardiac diet today. PT evaluation. Occupational Therapy evaluation for cognitive study. Fall precaution, aspiration precaution. Patient lives by herself. Grandson for now is not living with the patient. Given advanced age, multiple recent admissions, social discord discussed safe discharge planning with the patient. Also discussed with home health versus SNF. Patient declines placement to SNF for now. Will discuss further after various evaluations. (2) RICARDO (acute kidney injury): Most likely in setting of dehydration. With IV fluids have resolved. Continue with IV fluids for now. Monitor BMP daily. (3) Elevated troponin: (4) Hypothyroidism: TSH recently checked normal. Continue with home levothyroxine dose. If unable to take orally for next 3 days to transition over to IV. (5) Goals of care, counseling/discussion: Plan Cholelithiasis: Appreciate CT abdomen pelvis. Phosphatase not elevated. Bilirubin normal. Stable liver functions. Patient is abdominal exam benign for now. Will continue to monitor. MRCP back in August negative for cholecystitis. CODE STATUS: Discussed CODE STATUS in detail with the patient. She does not want any heroic measures. Does not want any chest compressions or life support. CODE STATUS changed to DNR/DNI. Cardiac diet Plan for the day: Blood pressure is elevated. Goal blood pressure less than 140/90 mmHg. Increase home dose of lisinopril to 40 mg daily. Continue with amlodipine 10 mg orally daily. Stop heparin drip. Lexiscan stress test in AM. N.p.o. after midnight. Continue with aspirin, Plavix, statin. Discussed safe discharge planning again with the patient in detail today. Today she is declining assisted living. Wants to go home. Discussed that unfortunately in her current situation it would be unsafe to live by herself. Patient states she will discuss further with her caregiver before making a decision. Had a detailed discussion with patient's niece Ms. Bowden today, neighbor who called herself patient's daughter Ms. Clark in person today. We discussed that patient is significantly deconditioned and in current situation it would be unsafe for patient to live by herself as she cannot take care of herself. We did discuss that going forward it would be best for patient to have 24-hour career manager versus placement to SNF or assisted living at least for a short while when she gets stronger. They both verbalized understanding and will discuss further with patient and will try to convince her regarding the same. Have counseled the caregivers to get in touch with case management tomorrow once available. Discharge plan: Patient lives by herself, has poor social support. She was admitted with encephalopathy most likely in setting of polypharmacy versus unintentional overdose of home medications. Patient would need more closer caregiving on discharge. Discussed with her about home with 24-hour caregiver versus half-way versus assisted living. Patient is interested in assisted living if possible. Case management consulted for the same. Protonix for PUD prophylaxis Heparin 5000 every 12 hourly for DVT prophylaxis Attestations 2 Medical Necessity Statement*: Requires further hospitalization while safe discharge planning is sought in a patient who was admitted with altered mental status found to have non-ST elevation MA while she awaits further ACS workup Diagnoses Encephalopathy acute G93.40 RICARDO (acute kidney injury) N17.9 Elevated troponin R79.89 Hypothyroidism E03.9 Goals of care, counseling/discussion Z71.89
[2023-09-26] MEDS: aspirin 81 mg EC Tablet PO (18:48)
[2023-09-26] MEDS: clopidogrel 75 mg Tablet PO (18:48)
[2023-09-26] MEDS: mirtazapine 15 mg Tablet PO (21:16)
[2023-09-27 03:44] VITALS: BP 108/46; PULSE 62; RESP 18; TEMP 36.9; O2SAT 91
[2023-09-27] MEDS: levothyroxine 112 mcg Tablet PO (06:01)
[2023-09-27] MEDS: sodium chloride 0.9% 1,000 ML 50 ML IV (06:02)
[2023-09-27 07:36] LABS: Basophils % 0.4 %; Eosinophils # 0.2 10^3/uL (0.0-0.8); Eosinophils % 2.6 %; Lymphocytes # 1.1 10^3/uL (0.8-4.8); Lymphocytes % 13.5 %; Mean Corpuscular HGB Conc 31.8 g/dL (30-55); Mean Corpuscular Hemoglobin 33.9 pg (27-33); Mean Corpuscular Volume 106.6 fl (85-98); Mean Platelet Volume 9.8 fL (7.4-10.4); Monocytes # 0.7 10^3/uL (0.2-0.9); Monocytes % 7.7 %; Neutrophils % 75.4 %; Nucleated Red Blood Cells % 0 %; Platelet Count 264 10^3/cmm (157-399); Red Blood Count 3.66 10^6/uL (3.85-5.65); Red Cell Distribution Width 13.5 % (12.1-15.1); White Blood Count 8.47 10^3/uL (3.29-11.43)
[2023-09-27 08:15] LABS: Alanine Aminotransferase 12 U/L (0-33); Albumin Level 3.1 g/dL (3.5-5.2); Alkaline Phosphatase 69 U/L (35-105); Aspartate Amino Transferase 24 U/L (0-32); Blood Urea Nitrogen 17 mg/dL (8-23); Calcium 7.4 mg/dL (8.5-10.5); Carbon Dioxide 19 mmol/L (22-29); Chloride 106 mmol/L (98-107); Creatinine Clr Calc Pharmacy 49.9126; Globulin 2.2 g/dL (1.3-4.6); Glucose 96 mg/dL (65-115); Osmolality Calculated 297 mOsm/kg (285-295); Sodium 143 mmol/L (136-145); Total Bilirubin 0.5 mg/dL (0.15-1.2); Total Protein 5.3 g/dL (6.6-8.7)
[2023-09-27] MEDS: regadenoson 0.4 Mg/5 ml Syringe IVP (08:43)
[2023-09-27 09:02] VITALS: BP 111/62; PULSE 72
--- NOTE | 2023-09-27 09:40 | PC.CHAP ---
Pastoral Care Encounter/Spiritual Assessment Type of Contact [] Declined junior web designer visit [] Patient/Family/Request visit [] Outpatient visit [] Follow-up visit [] Physician referral [] Code/Alert [x] Routine visit [] Staff referral [] Actively dying [] Patient sleeping [] Family support [] [x] Out of room [] Palliative care [] [] Receiving care in room [] Pre-surgical visit [] Trauma [] Long length of stay [] ICU visit [] Other: Relational/Emotional Strength [] Patient feels connected with others/family/visitors/staff [] Distress [] Loneliness/isolation [] Abandonment Spirituality of Patient [] Person of Ailin [] Attends Orthodox of their Ailin [] Believes in Prayer [] Reads Bible or Samaritan materials [] There are Spiritual issues to be addressed Final Inspection Supervisor Interventions [] Prayer [] Active listening [] Non-anxious presence [] Spiritual/emotional support [] Crisis/trauma care [] Spiritual counseling [] Bereavement support [] Provided bereavement packet [] Provided Bible/devotional materials [] Provided toy/stuffed animal, coloring book to patient or family member [] Provided Communion [] Anointing/[place] [] Salvation [] Completed spiritual assessment [] Other: Impact on Illness or Injury [] Angry [] Fearful [] Anxious [] Often cries [] Exhaustion [] Unable to work [] Unable to attend lutheran [] Unable to walk/stand [] Unable to read [] Unable to drive [] Unable to eat/drink [] Unable to sleep [] Unable to be with family [] Patient intubated [] Other: Summary Time spent with patient
[2023-09-27] MEDS: gabapentin 100 mg Capsule PO ×3 (10:40→21:20)
[2023-09-27] MEDS: atorvastatin 40 mg Tablet PO (10:41)
[2023-09-27] MEDS: amlodipine 5 mg Tablet 10 MG PO (10:41)
[2023-09-27] MEDS: pantoprazole DR 40 mg Tablet PO (10:41)
[2023-09-27] MEDS: lisinopril 20 mg Tablet 40 MG PO (10:41)
[2023-09-27] MEDS: aspirin 81 mg EC Tablet PO (10:41)
[2023-09-27] MEDS: clopidogrel 75 mg Tablet PO (10:42)
--- NOTE | 2023-09-27 11:00 | PC.NURSE ---
Medication and assessment delay d/t stress test this AM.
[2023-09-27 11:20] VITALS: BP 157/77; PULSE 78; RESP 16; TEMP 36.8; O2SAT 99
--- NOTE | 2023-09-27 13:53 | PC.NURSE ---
Pt request to make Karen borrego POA. Case management aware.
[2023-09-27 16:01] VITALS: BP 147/64; PULSE 79; RESP 16; TEMP 36.8; O2SAT 98
--- NOTE | 2023-09-27 17:23 | NMCV_ITS ---
NM anabel perf SPECT r/s* [id number] Gabriella Thompson Age: 78 Gender: F : 1945 Exam Date: 09/27/2023 17:23 Ordering Phys: Ben Hale MD Technologist: RIAN Greene Exam Location: [facility] Indications: CP STRESS TEST [facility] IMAGE PROTOCOL Rest/Stress 1 Lexiscan Day Radiopharmaceutical Dose (mCi) Administration Site Administered by Rest: Tc-99m 10.6 IV RIAN Greene Sestamibi Stress:Tc-99m 32.8 IV RIAN Greene Sestamibi Rest: 27-Sep-2023 60 Discovery 630 Stress: 27-Sep-2023 30 Discovery 630 0.4mg Lexiscan. Supine position only as patient was unable to lay prone. SPECT RESULTS Technical Quality: Good Raw Data Analysis: Subdiaphragmatic activity Image Corrections: No attenuation or motion correction applied Summed Stress Score: 1 Summed Rest Score: 1 Summed Difference Score: 1 PERFUSION FINDINGS A small area of slightly decreased aseptic was noted in the mid inferolateral region with some reversibility in the supine position. However with the prone imaging, as no significant reversible defects were noted. FUNCTIONAL RESULTS (calculated via Gated SPECT) Stress Image LV EF (%): 75 Stress EDV (mL):72 TID: 0.95 Stress ESV (mL):18 FUNCTIONAL FINDINGS: Segmental wall motion analysis revealing no gross wall motion normalities. IMPRESSIONS 1. Myocardial perfusion imaging revealing a small area of inconsistent reversible defect in the mid inferolateral region, most likely represent attenuation artifact 2. Normal LV ejection fraction 75%. 3. LV wall motion analysis revealing no gross wall motion abnormalities. 4. Normal LV volume, end-systolic volume of 18 ml. No significant ischemia, based on the above findings Dr Mason Turner MD [facility] (Electronically Signed) Final Date: 27 September 2023 12:19 S
[2023-09-27 19:50] VITALS: BP 173/73; PULSE 89; RESP 18; TEMP 37; O2SAT 94
--- NOTE | 2023-09-27 20:00 | PC.NURSE ---
During initial nursing rounding and assessment Pt displays inability to recall events that lead to her hospitalization when she is talking to her family member at bedside. Pt and her family member are asking questions about results of stress test, her official admission diagnosis, whether or not she was accepted as a patient to [facility] (this is Pt's preferred SNF). This RN did her best to answer what questions were actually appropriate for myself to answer and that I could even answer. Pt was able to sit herself up on the side of the bed independently and reportedly needed to use the bathroom but when this RN attempted to gauge her baseline mobility in order to best help her but Pt was resistant to any progressive mobility independence movements. This RN offered Pt a bedside commode to be brought into her room and I offered to help her with a walker at her bedside for backup. Pt refused to try and said I can only use a bedpan. Pt completely independently raised her lower self off the bed so the bedpan could easily be placed under her and Pt was able to completely and independently turn for hygiene assistance. Pt was incontinent of urine and she also was able to void in bedpan also. Pt asking why she can no longer have her trazodone. Pt educated on reasoning and is offered a PRN alprazolam to help qualm her anxiety and help her to achieve rest. Pt is assisted to a position of comfort, placed BACK on cardiac telemetry monitoring, and Pt's call light is within reach. Will continue to monitor
--- NOTE | 2023-09-27 20:54 | P.PN_ITS ---
Subjective 2 Subjective: Today she is doing all right. She understands her situation with regards to need for rehabilitation, risk of returning home, has decided to pursue discharge to assisted after discussion with family/friends. Vitals/I&O/Wt Last Vital Signs Temp 98.6 F 09/27/23 19:50 Pulse 89 09/27/23 19:50 Resp 18 09/27/23 19:50 BP 173/73 09/27/23 19:50 Pulse Ox 94 09/27/23 19:50 O2 Del Method Room Air 09/27/23 16:01 O2 Flow Rate 3 09/27/23 03:44 09/27/23 09/27/23 09/27/23 06:59 14:59 22:59 Intake Total 976.667 / 2492.135 480 / 480 Balance 976.667 / 2492.135 480 / 480 Weight last 48 hrs Weight 68.946 kg Weight 68.946 kg Weight 69.428 kg Weight 68.039 kg Physical Exam 2 Narrative: Accompanied by 2 female visitors. Const: COMMON NORMALS: patient oriented x3 and alert GENERAL APPEARANCE: c ooperative ORIENTATION/CONSCIOUSNESS: Yes awake HENMT: COMMON NORMALS: oropharynx normal Neck/C-Spine: COMMON NORMALS: no JVD Resp: COMMON NORMALS: normal respiratory effort and clear to auscultation bilaterally AUSCULTATION: clear to auscultation bilaterally Cardio: COMMON NORMALS: no JVD, regular rhythm, S1 normal heart sound present, S2 normal heart sound present and No murmurs present (Cardio) RHYTHM: regular rhythm HEART SOUNDS: S1 normal heart sound present and S2 normal heart sound present GI: COMMON NORMALS: Normal to inspection, nondistended, normoactive bowel sounds present, Soft to palpation and non-tender PALPATION: Yes Soft to palpation Extremity: COMMON NORMALS: no joint enlargement and no pedal edema Neuro: COMMON NORMALS: patient oriented x3 and moves all extremities S ENSORIUM/ORIENTATION: Yes alert Skin: COMMON NORMALS: no rashes or lesions noted GENERAL SKIN EXAM: no rashes or lesions noted Data 09/27/23 06:26 09/27/23 06:26 A&P Assessment and plan (1) Encephalopathy acute: Resolved. She is awake and alert. She has been deconditioned, as well as concern about inadequate support with return home. Discussed with correctional counselor/case manager, PT, discussed with patient, family, she has had a discussion with family and friends, and has decided to pursue assisted. Discussed with correctional counselor/case manager. Reviewed vitals, CBC, CMP, remains afebrile, without tachycardia or tachypnea, saturating well on room air. No leukocytosis. Stop IV fluid. Unknown cause. CT head on admission negative for acute abnormality. Urine drug screen, alcohol level negative. Most likely in setting of polypharmacy versus unintentional overdose of pain medication. As per MAR patient is supposed to be on Xanax as needed daily, gabapentin 303 times a day, mirtazapine p.o. 15 nightly, trazodone 300 mg at bedtime along with tramadol 50 every 4 as needed. No past history of seizure disorder. Continue with home dose of mirtazapine, start gabapentin at 100 mg 3 times daily, tramadol 50 mg every 8 hourly as needed. Hold off on trazodone. Infectious cause less likely. No leukocytosis. UA negative for acute abnormality. Check procalcitonin. Ammonia levels normal, ls. Vitamin B12 and TSH levels recently checked within the last 1 month. ABG showing mild hypercapnia with pCO2 of 46 with a normal pH, no hypoxia. CTA chest negative for pulmonary embolism. Troponin cycled appreciated. Repeat troponin today morning elevated again. Echocardiogram done shows normal EF without regional wall motion abnormality, grade 1 diastolic dysfunction, mild aortic valve stenosis with estimated PASP of 40 mmHg, moderate TR. Continue with heparin drip. Will plan for Lexiscan stress test. Mentation improving. Start on cardiac diet today. PT evaluation. Occupational Therapy evaluation for cognitive study. Fall precaution, aspiration precaution. Patient lives by herself. Grandson for now is not living with the patient. Given advanced age, multiple recent admissions, social discord discussed safe discharge planning with the patient. Also discussed with home health versus SNF. Patient declines placement to SNF for now. Will discuss further after various evaluations. (2) RICARDO (acute kidney injury): Most likely in setting of dehydration. Stop IV fluid. Monitor BMP daily. (3) Elevated troponin: Underwent stress test today. Reviewed stress test, perfusion imaging revealing small area of inconsistent reversible defect in mid inferior lateral region, most likely representing attenuation artifact. Normal EF. No gross WMA. (4) Hypothyroidism: TSH recently checked normal. Continue with home levothyroxine dose. If unable to take orally for next 3 days to transition over to IV. (5) Goals of care, counseling/discussion: Plan Hypokalemia: Replace. Check magnesium, recheck potassium. Cholelithiasis: Appreciate CT abdomen pelvis. Phosphatase not elevated. Bilirubin normal. Stable liver functions. Patient is abdominal exam benign for now. Will continue to monitor. MRCP back in August negative for cholecystitis. CODE STATUS: Discussed CODE STATUS in detail with the patient. She does not want any heroic measures. Does not want any chest compressions or life support. CODE STATUS changed to DNR/DNI. Cardiac diet Discharge plan: Patient lives by herself, has poor social support. She was admitted with encephalopathy most likely in setting of polypharmacy versus unintentional overdose of home medications. Patient would need more closer caregiving on discharge. Discussed with her about home with 24-hour caregiver versus assisted versus assisted living. Patient is interested in assisted living if possible. Case management consulted for the same. Protonix for PUD prophylaxis Heparin 5000 every 12 hourly for DVT prophylaxis Attestations 2 Medical Necessity Statement*: Continue hospitalization for assessment of management after acute encephalopathy, RICARDO, de-escalation of treatment, cardiac assessment with troponin elevation, post discharge planning and arrangements with difficult social situation. and High MDM includes amount and/or complexity of data reviewed/ordered [ resulted lab(s)/test(s), ordered lab(s)/test(s), independent historian and other healthcare professional discussion] as documented Diagnoses Encephalopathy acute G93.40 RICARDO (acute kidney injury) N17.9 Elevated troponin R79.89 Hypothyroidism E03.9 Goals of care, counseling/discussion Z71.89
[2023-09-27] MEDS: mirtazapine 15 mg Tablet PO (21:00)
[2023-09-27 22:00] VITALS: PULSE 69
[2023-09-28] VITALS (8 sets, daily range): BP systolic 112–142; BP diastolic 61–66; PULSE 55–91; RESP 15–17; TEMP 36.7–37; O2SAT 93–96
--- NOTE | 2023-09-28 04:32 | PC.NURSE ---
pt has had wet briefs this shift
[2023-09-28] MEDS: levothyroxine 112 mcg Tablet PO (05:31)
[2023-09-28] MEDS: potassium chloride ER 20 mEq Tablet PO (05:32)
[2023-09-28] MEDS: ondansetron 2 mg/ML SDV 2 mL 4 MG IVP (05:33)
[2023-09-28 05:58] LABS: Basophils % 0.3 %; Eosinophils # 0.1 10^3/uL (0.0-0.8); Eosinophils % 1.2 %; Hematocrit 36.8 % (36-47); Lymphocytes # 1.3 10^3/uL (0.8-4.8); Lymphocytes % 11.8 %; Mean Corpuscular HGB Conc 34.2 g/dL (30-55); Mean Corpuscular Volume 99.2 fl (85-98); Mean Platelet Volume 9.3 fL (7.4-10.4); Monocytes # 0.7 10^3/uL (0.2-0.9); Monocytes % 6.1 %; Neutrophils # 8.86 10^3/uL (1.8-7.7); Neutrophils % 80.1 %; Nucleated Red Blood Cells % 0 %; Platelet Count 276 10^3/cmm (157-399); Red Blood Count 3.71 10^6/uL (3.85-5.65); Red Cell Distribution Width 13.5 % (12.1-15.1); White Blood Count 11.04 10^3/uL (3.29-11.43)
[2023-09-28 06:17] LABS: Anion Gap 18.8 (5-19); Blood Urea Nitrogen 20 mg/dL (8-23); Calcium 7.5 mg/dL (8.5-10.5); Carbon Dioxide 21 mmol/L (22-29); Chloride 107 mmol/L (98-107); Creatinine Clr Calc Pharmacy 44.9213; Glucose 100 mg/dL (65-115); Osmolality Calculated 301 mOsm/kg (285-295); Sodium 144 mmol/L (136-145)
[2023-09-28 06:27] LABS: Magnesium 0.8 mg/dL (1.7-2.3); Potassium 2.8 mmol/L (3.5-5.1)
--- NOTE | 2023-09-28 07:30 | PC.NURSE ---
this RN gave nursing handoff report to ROBINA Pena
--- NOTE | 2023-09-28 09:18 | PC.CHAP ---
Pastoral Care Encounter/Spiritual Assessment Type of Contact [] Declined picker tender helper visit [] Patient/Family/Request visit [] Outpatient visit [] Follow-up visit [] Physician referral [] Code/Alert [X] Routine visit [] Staff referral [] Actively dying [] Patient sleeping [X] Family support [] [] Out of room [] Palliative care [] [] Receiving care in room [] Pre-surgical visit [] Trauma [] Long length of stay [] ICU visit [] Other: Relational/Emotional Strength [X] Patient feels connected with others/family/visitors/staff [] Distress [] Loneliness/isolation [] Abandonment Spirituality of Patient [X] Person of Ailin [] Attends Congregational of their Ailin [X] Believes in Prayer [] Reads Bible or Church materials [] There are Spiritual issues to be addressed Installment Account Checker Interventions [X] Prayer [X] Active listening [] Non-anxious presence [X] Spiritual/emotional support [] Crisis/trauma care [] Spiritual counseling [] Bereavement support [] Provided bereavement packet [] Provided Bible/devotional materials [] Provided toy/stuffed animal, coloring book to patient or family member [] Provided Communion [] Anointing/[place] [] Salvation [X] Completed spiritual assessment [] Other: Impact on Illness or Injury [] Angry [] Fearful [] Anxious [] Often cries [] Exhaustion [] Unable to work [] Unable to attend episcopal [] Unable to walk/stand [] Unable to read [] Unable to drive [] Unable to eat/drink [] Unable to sleep [] Unable to be with family [] Patient intubated [] Other: Summary Time spent with patient 5 MIN
[2023-09-28] MEDS: lisinopril 20 mg Tablet 40 MG PO (09:55)
[2023-09-28] MEDS: clopidogrel 75 mg Tablet PO (09:56)
[2023-09-28] MEDS: atorvastatin 40 mg Tablet PO (09:56)
[2023-09-28] MEDS: pantoprazole DR 40 mg Tablet PO (09:56)
[2023-09-28] MEDS: aspirin 81 mg EC Tablet PO (09:56)
[2023-09-28] MEDS: amlodipine 5 mg Tablet 10 MG PO (09:56)
[2023-09-28] MEDS: gabapentin 100 mg Capsule PO ×3 (10:20→20:21)
[2023-09-28] MEDS: lidocaine 1% 5 ML in potassium chloride premix 100 ML 52.5 ML IV (10:21)
[2023-09-28] MEDS: magnesium sulfate premix 4 GM/100 ML PREMIX IV (10:23)
[2023-09-28] MEDS: potassium chloride ER 20 mEq Tablet 40 MEQ PO (11:16)
[2023-09-28] MEDS: mirtazapine 15 mg Tablet PO (20:21)
--- NOTE | 2023-09-28 20:52 | P.PN_ITS ---
Subjective 2 Subjective: Today she is doing okay. Without additional changes in symptoms, worked with therapy. Vitals/I&O/Wt Last Vital Signs Temp 98.4 F 09/28/23 15:20 Pulse 73 09/28/23 18:45 Resp 16 09/28/23 15:20 BP 142/61 09/28/23 15:20 Pulse Ox 96 09/28/23 15:20 O2 Del Method Room Air 09/28/23 15:20 O2 Flow Rate 3 09/27/23 03:44 09/28/23 09/28/23 09/28/23 06:59 14:59 22:59 Intake Total 565 / 565 240 / 805 Balance 565 / 565 240 / 805 Weight last 48 hrs Weight 68.946 kg Weight 68.946 kg Weight 68.946 kg Weight 68.946 kg Physical Exam 2 Narrative: Accompanied by 2 female visitors. Const: COMMON NORMALS: patient oriented x3 and alert GENERAL APPEARANCE: c ooperative ORIENTATION/CONSCIOUSNESS: Yes awake HENMT: COMMON NORMALS: oropharynx normal Neck/C-Spine: COMMON NORMALS: no JVD Resp: COMMON NORMALS: normal respiratory effort and clear to auscultation bilaterally AUSCULTATION: clear to auscultation bilaterally Cardio: COMMON NORMALS: no JVD, regular rhythm, S1 normal heart sound present, S2 normal heart sound present and No murmurs present (Cardio) RHYTHM: regular rhythm HEART SOUNDS: S1 normal heart sound present and S2 normal heart sound present GI: COMMON NORMALS: Normal to inspection, nondistended, normoactive bowel sounds present, Soft to palpation and non-tender PALPATION: Yes Soft to palpation Extremity: COMMON NORMALS: no joint enlargement and no pedal edema Neuro: COMMON NORMALS: patient oriented x3 and moves all extremities S ENSORIUM/ORIENTATION: Yes alert Skin: COMMON NORMALS: no rashes or lesions noted GENERAL SKIN EXAM: no rashes or lesions noted Data 09/28/23 05:50 09/28/23 05:50 A&P Assessment and plan (1) Electrolyte imbalance: Severe hypomagnesemia, hypokalemia. Potassium 2.8, magnesium 0.8, requested potassium, magnesium supplementation. Recheck potassium, magnesium levels. Discussed continuation of supplements after discharge. At risk of arrhythmia with severe electrolyte deficiency. Cardiac telemetry. (2) Encephalopathy acute: With deconditioning, lack of social support, arrangements underway for alf rehabilitation. Discussed with rehabilitation caseworker. Pending approval. Reviewed vitals, CBC, BMP, magnesium. Resolved. She is awake and alert. She has been deconditioned, as well as concern about inadequate support with return home. Discussed with rehabilitation caseworker, PT, discussed with patient, family, she has had a discussion with family and friends, and has decided to pursue alf. Discussed with rehabilitation caseworker. Reviewed vitals, CBC, CMP, remains afebrile, without tachycardia or tachypnea, saturating well on room air. No leukocytosis. Stop IV fluid. Unknown cause. CT head on admission negative for acute abnormality. Urine drug screen, alcohol level negative. Most likely in setting of polypharmacy versus unintentional overdose of pain medication. As per MAR patient is supposed to be on Xanax as needed daily, gabapentin 303 times a day, mirtazapine p.o. 15 nightly, trazodone 300 mg at bedtime along with tramadol 50 every 4 as needed. No past history of seizure disorder. Continue with home dose of mirtazapine, start gabapentin at 100 mg 3 times daily, tramadol 50 mg every 8 hourly as needed. Hold off on trazodone. Infectious cause less likely. No leukocytosis. UA negative for acute abnormality. Check procalcitonin. Ammonia levels normal, ls. Vitamin B12 and TSH levels recently checked within the last 1 month. ABG showing mild hypercapnia with pCO2 of 46 with a normal pH, no hypoxia. CTA chest negative for pulmonary embolism. Troponin cycled appreciated. Repeat troponin today morning elevated again. Echocardiogram done shows normal EF without regional wall motion abnormality, grade 1 diastolic dysfunction, mild aortic valve stenosis with estimated PASP of 40 mmHg, moderate TR. Continue with heparin drip. Will plan for Lexiscan stress test. Mentation improving. Start on cardiac diet today. PT evaluation. Occupational Therapy evaluation for cognitive study. Fall precaution, aspiration precaution. Patient lives by herself. Grandson for now is not living with the patient. Given advanced age, multiple recent admissions, social discord discussed safe discharge planning with the patient. Also discussed with home health versus SNF. Patient declines placement to SNF for now. Will discuss further after various evaluations. (3) RICARDO (acute kidney injury): Potassium, therapy, BUN, creatinine. With slight worsening up to 1. Most likely in setting of dehydration. Stop IV fluid. Monitor BMP daily. (4) Elevated troponin: Underwent stress test today. Reviewed stress test, perfusion imaging revealing small area of inconsistent reversible defect in mid inferior lateral region, most likely representing attenuation artifact. Normal EF. No gross WMA. (5) Hypothyroidism: TSH recently checked normal. Continue with home levothyroxine dose. If unable to take orally for next 3 days to transition over to IV. (6) Goals of care, counseling/discussion: Plan Hypokalemia: Replace. Check magnesium, recheck potassium. Cholelithiasis: Appreciate CT abdomen pelvis. Phosphatase not elevated. Bilirubin normal. Stable liver functions. Patient is abdominal exam benign for now. Will continue to monitor. MRCP back in August negative for cholecystitis. CODE STATUS: Discussed CODE STATUS in detail with the patient. She does not want any heroic measures. Does not want any chest compressions or life support. CODE STATUS changed to DNR/DNI. Cardiac diet Discharge plan: Patient lives by herself, has poor social support. She was admitted with encephalopathy most likely in setting of polypharmacy versus unintentional overdose of home medications. Patient would need more closer caregiving on discharge. Discussed with her about home with 24-hour caregiver versus alf versus assisted living. Patient is interested in assisted living if possible. Case management consulted for the same. Protonix for PUD prophylaxis Heparin 5000 every 12 hourly for DVT prophylaxis Attestations 2 Medical Necessity Statement*: Continue hospitalization for assessment of management after acute encephalopathy, RICARDO, de-escalation of treatment, cardiac assessment with troponin elevation, post discharge planning and arrangements with difficult social situation. and High MDM includes number and complexity of problems actively addressed during encounter and amount and/or complexity of data reviewed/ordered [ resulted lab(s)/test(s), ordered lab(s)/test(s) and other healthcare professional discussion] as documented Diagnoses Electrolyte imbalance E87.8 Encephalopathy acute G93.40 RICARDO (acute kidney injury) N17.9 Elevated troponin R79.89 Hypothyroidism E03.9 Goals of care, counseling/discussion Z71.89
[2023-09-29] VITALS (9 sets, daily range): BP systolic 130–167; BP diastolic 62–69; PULSE 56–84; RESP 17–19; TEMP 36.6–36.9; O2SAT 93–98
[2023-09-29 05:14] LABS: Basophils # 0.1 10^3/uL (0.0-0.1); Basophils % 0.6 %; Eosinophils # 0.5 10^3/uL (0.0-0.8); Eosinophils % 5.3 %; Hematocrit 35.3 % (36-47); Lymphocytes # 0.9 10^3/uL (0.8-4.8); Lymphocytes % 10.2 %; Mean Corpuscular HGB Conc 31.2 g/dL (30-55); Mean Corpuscular Hemoglobin 32.8 pg (27-33); Mean Corpuscular Volume 105.4 fl (85-98); Mean Platelet Volume 9.3 fL (7.4-10.4); Monocytes # 0.6 10^3/uL (0.2-0.9); Monocytes % 6.3 %; Neutrophils # 6.76 10^3/uL (1.8-7.7); Neutrophils % 77.3 %; Nucleated Red Blood Cells % 0 %; Platelet Count 255 10^3/cmm (157-399); Red Blood Count 3.35 10^6/uL (3.85-5.65); Red Cell Distribution Width 13.8 % (12.1-15.1); White Blood Count 8.74 10^3/uL (3.29-11.43)
[2023-09-29 05:43] LABS: Magnesium 1.8 mg/dL (1.7-2.3)
[2023-09-29 05:44] LABS: Anion Gap 16.4 (5-19); Blood Urea Nitrogen 21 mg/dL (8-23); Carbon Dioxide 22 mmol/L (22-29); Chloride 110 mmol/L (98-107); Glucose 89 mg/dL (65-115); Osmolality Calculated 302 mOsm/kg (285-295); Potassium 3.4 mmol/L (3.5-5.1); Sodium 145 mmol/L (136-145)
[2023-09-29] MEDS: levothyroxine 112 mcg Tablet PO (06:12)
[2023-09-29] MEDS: amlodipine 5 mg Tablet 10 MG PO (08:05)
[2023-09-29] MEDS: atorvastatin 40 mg Tablet PO (08:05)
[2023-09-29] MEDS: gabapentin 100 mg Capsule PO ×3 (08:05→20:30)
[2023-09-29] MEDS: clopidogrel 75 mg Tablet PO (08:05)
[2023-09-29] MEDS: aspirin 81 mg EC Tablet PO (08:05)
[2023-09-29] MEDS: pantoprazole DR 40 mg Tablet PO (08:05)
[2023-09-29] MEDS: lisinopril 20 mg Tablet 40 MG PO (08:05)
--- NOTE | 2023-09-29 09:49 | PC.CHAP ---
Pastoral Care Encounter/Spiritual Assessment Type of Contact [] Declined catalyst plant supervisor visit [] Patient/Family/Request visit [] Outpatient visit [] Follow-up visit [] Physician referral [] Code/Alert [x] Routine visit [] Staff referral [] Actively dying [] Patient sleeping [] Family support [] [] Out of room [] Palliative care [] [] Receiving care in room [] Pre-surgical visit [] Trauma [] Long length of stay [] ICU visit [] Other: Relational/Emotional Strength [x] Patient feels connected with others/family/visitors/staff [x] Distress [] Loneliness/isolation [] Abandonment Spirituality of Patient [x] Person of Ailin [] Attends Zoroastrianism of their Ailin [x] Believes in Prayer [] Reads Bible or Moravian materials [] There are Spiritual issues to be addressed Ic Designer [employer] Interventions [x] Prayer [] Active listening [x] Non-anxious presence [] Spiritual/emotional support [] Crisis/trauma care [] Spiritual counseling [] Bereavement support [] Provided bereavement packet [] Provided Bible/devotional materials [] Provided toy/stuffed animal, coloring book to patient or family member [] Provided Communion [] Anointing/[place] [] Salvation [x] Completed spiritual assessment [] Other: Impact on Illness or Injury [] Angry [] Fearful [] Anxious [] Often cries [] Exhaustion [] Unable to work [] Unable to attend quaker [] Unable to walk/stand [] Unable to read [] Unable to drive [] Unable to eat/drink [] Unable to sleep [] Unable to be with family [] Patient intubated [] Other: Summary Time spent with patient 5 min
[2023-09-29] MEDS: potassium chloride ER 20 mEq Tablet 40 MEQ PO (11:00)
[2023-09-29] MEDS: magnesium sulfate premix 2 GM/50 ML PIGGYBACK IV (11:01)
--- NOTE | 2023-09-29 14:04 | P.PN_ITS ---
Subjective 2 Subjective: She is doing a bit better. Up in the chair. Working with therapy. Vitals/I&O/Wt Last Vital Signs Temp 98.5 F 09/29/23 12:00 Pulse 74 09/29/23 12:00 Resp 18 09/29/23 12:00 BP 152/67 09/29/23 12:00 Pulse Ox 98 09/29/23 12:00 O2 Del Method Room Air 09/29/23 12:00 O2 Flow Rate 3 09/27/23 03:44 09/28/23 09/29/23 09/29/23 22:59 06:59 14:59 Intake Total 240 / 805 600.833 / 600.833 Balance 240 / 805 600.833 / 600.833 Weight last 48 hrs Weight 68.663 kg Weight 68.946 kg Weight 68.946 kg Physical Exam 2 Narrative: Accompanied by female visitor Const: COMMON NORMALS: patient oriented x3 and alert GENERAL APPEARANCE: c ooperative ORIENTATION/CONSCIOUSNESS: Yes awake HENMT: COMMON NORMALS: oropharynx normal Neck/C-Spine: COMMON NORMALS: no JVD Resp: COMMON NORMALS: normal respiratory effort and clear to auscultation bilaterally AUSCULTATION: clear to auscultation bilaterally Cardio: COMMON NORMALS: no JVD, regular rhythm, S1 normal heart sound present, S2 normal heart sound present and No murmurs present (Cardio) RHYTHM: regular rhythm HEART SOUNDS: S1 normal heart sound present and S2 normal heart sound present GI: COMMON NORMALS: Normal to inspection, nondistended, normoactive bowel sounds present, Soft to palpation and non-tender PALPATION: Yes Soft to palpation Extremity: COMMON NORMALS: no joint enlargement and no pedal edema Neuro: COMMON NORMALS: patient oriented x3 and moves all extremities S ENSORIUM/ORIENTATION: Yes alert Skin: COMMON NORMALS: no rashes or lesions noted GENERAL SKIN EXAM: no rashes or lesions noted Data 09/29/23 04:25 09/29/23 04:25 A&P Assessment and plan (1) Electrolyte imbalance: Reviewed potassium, magnesium, better after replacement but still low, give additional potassium, magnesium. Recheck levels. Severe hypomagnesemia, hypokalemia. Potassium 2.8, magnesium 0.8, requested potassium, magnesium supplementation. Recheck potassium, magnesium levels. Discussed continuation of supplements after discharge. At risk of arrhythmia with severe electrolyte deficiency. Cardiac telemetry. (2) Encephalopathy acute: She is awake and alert, lucid. Reviewed vitals, CBC. Afebrile, no leukocytosis. Chemistry okay, slightly low magnesium and potassium, give additional replacement. Discussed with caseworker intake, arrangements underway regarding her senior care, hopefully may be able to go tomorrow. Resolved. She is awake and alert. She has been deconditioned, as well as concern about inadequate support with return home. Discussed with caseworker intake, PT, discussed with patient, family, she has had a discussion with family and friends, and has decided to pursue senior care. Discussed with caseworker intake. Reviewed vitals, CBC, CMP, remains afebrile, without tachycardia or tachypnea, saturating well on room air. No leukocytosis. Stop IV fluid. Unknown cause. CT head on admission negative for acute abnormality. Urine drug screen, alcohol level negative. Most likely in setting of polypharmacy versus unintentional overdose of pain medication. As per MAR patient is supposed to be on Xanax as needed daily, gabapentin 303 times a day, mirtazapine p.o. 15 nightly, trazodone 300 mg at bedtime along with tramadol 50 every 4 as needed. No past history of seizure disorder. Continue with home dose of mirtazapine, start gabapentin at 100 mg 3 times daily, tramadol 50 mg every 8 hourly as needed. Hold off on trazodone. Infectious cause less likely. No leukocytosis. UA negative for acute abnormality. Check procalcitonin. Ammonia levels normal, ls. Vitamin B12 and TSH levels recently checked within the last 1 month. ABG showing mild hypercapnia with pCO2 of 46 with a normal pH, no hypoxia. CTA chest negative for pulmonary embolism. Troponin cycled appreciated. Repeat troponin today morning elevated again. Echocardiogram done shows normal EF without regional wall motion abnormality, grade 1 diastolic dysfunction, mild aortic valve stenosis with estimated PASP of 40 mmHg, moderate TR. Continue with heparin drip. Will plan for Lexiscan stress test. Mentation improving. Start on cardiac diet today. PT evaluation. Occupational Therapy evaluation for cognitive study. Fall precaution, aspiration precaution. Patient lives by herself. Grandson for now is not living with the patient. Given advanced age, multiple recent admissions, social discord discussed safe discharge planning with the patient. Also discussed with home health versus SNF. Patient declines placement to SNF for now. Will discuss further after various evaluations. (3) RICARDO (acute kidney injury): Reviewed BUN, creatinine. Them back to normal. Most likely in setting of dehydration. Stop IV fluid. Monitor BMP daily. (4) Elevated troponin: Discussed results of stress test. Reviewed stress test, perfusion imaging revealing small area of inconsistent reversible defect in mid inferior lateral region, most likely representing attenuation artifact. Normal EF. No gross WMA. (5) Hypothyroidism: TSH recently checked normal. Continue with home levothyroxine dose. If unable to take orally for next 3 days to transition over to IV. (6) Goals of care, counseling/discussion: Plan Hypokalemia: Replace additional magnesium and potassium. Check magnesium, recheck potassium. Cholelithiasis: Appreciate CT abdomen pelvis. Phosphatase not elevated. Bilirubin normal. Stable liver functions. Patient is abdominal exam benign for now. Will continue to monitor. MRCP back in August negative for cholecystitis. CODE STATUS: Discussed CODE STATUS in detail with the patient. She does not want any heroic measures. Does not want any chest compressions or life support. CODE STATUS changed to DNR/DNI. Cardiac diet Discharge plan: Patient lives by herself, has poor social support. She was admitted with encephalopathy most likely in setting of polypharmacy versus unintentional overdose of home medications. Patient would need more closer caregiving on discharge. Discussed with her about home with 24-hour caregiver versus senior care versus assisted living. Patient is interested in assisted living if possible. Case management consulted for the same. Protonix for PUD prophylaxis Heparin 5000 every 12 hourly for DVT prophylaxis Attestations 2 Medical Necessity Statement*: Continue hospitalization for assessment of management after acute encephalopathy, electrolyte replacement, arrangements for discharge to senior care. and High MDM includes amount and/or complexity of data reviewed/ordered [ resulted lab(s)/test(s), ordered lab(s)/test(s) and other healthcare professional discussion] as documented Diagnoses Electrolyte imbalance E87.8 Encephalopathy acute G93.40 RICARDO (acute kidney injury) N17.9 Elevated troponin R79.89 Hypothyroidism E03.9 Goals of care, counseling/discussion Z71.89
[2023-09-29] MEDS: magnesium oxide 400 mg tablet 200 MG PO ×2 (14:16→17:24)
[2023-09-29] MEDS: mirtazapine 15 mg Tablet PO (20:30)
[2023-09-30] VITALS: BP 148/65; PULSE 55; PULSE 68; RESP 17; TEMP 37.1; O2SAT 92
[2023-09-30 04:00] VITALS: BP 156/66; PULSE 66; RESP 17; TEMP 36.8; O2SAT 90
[2023-09-30 04:52] LABS: Basophils # 0.1 10^3/uL (0.0-0.1); Basophils % 0.7 %; Eosinophils # 0.4 10^3/uL (0.0-0.8); Eosinophils % 3.9 %; Lymphocytes # 0.9 10^3/uL (0.8-4.8); Lymphocytes % 9.4 %; Mean Corpuscular HGB Conc 32.2 g/dL (30-55); Mean Corpuscular Hemoglobin 32.9 pg (27-33); Mean Platelet Volume 9.4 fL (7.4-10.4); Monocytes # 0.7 10^3/uL (0.2-0.9); Monocytes % 7.4 %; Neutrophils # 7.71 10^3/uL (1.8-7.7); Neutrophils % 77.8 %; Nucleated Red Blood Cells % 0 %; Platelet Count 279 10^3/cmm (157-399); Red Blood Count 3.53 10^6/uL (3.85-5.65); White Blood Count 9.91 10^3/uL (3.29-11.43)
[2023-09-30 05:15] LABS: Anion Gap 16.6 (5-19); Blood Urea Nitrogen 18 mg/dL (8-23); Calcium 8.2 mg/dL (8.5-10.5); Carbon Dioxide 21 mmol/L (22-29); Chloride 110 mmol/L (98-107); Creatinine Clr Calc Pharmacy 56.0464; Glucose 106 mg/dL (65-115); Osmolality Calculated 300 mOsm/kg (285-295); Potassium 3.6 mmol/L (3.5-5.1); Sodium 144 mmol/L (136-145)
[2023-09-30] MEDS: levothyroxine 112 mcg Tablet PO (05:36)
[2023-09-30 06:00] VITALS: PULSE 75
[2023-09-30 07:35] VITALS: BP 146/64; PULSE 71; RESP 15; TEMP 36.8; O2SAT 92
[2023-09-30] MEDS: gabapentin 100 mg Capsule PO (09:15)
[2023-09-30] MEDS: magnesium oxide 400 mg tablet 200 MG PO (09:15)
[2023-09-30] MEDS: pantoprazole DR 40 mg Tablet PO (09:15)
[2023-09-30] MEDS: amlodipine 5 mg Tablet 10 MG PO (09:15)
[2023-09-30] MEDS: lisinopril 20 mg Tablet 40 MG PO (09:16)
[2023-09-30] MEDS: clopidogrel 75 mg Tablet PO (09:16)
[2023-09-30] MEDS: aspirin 81 mg EC Tablet PO (09:17)
[2023-09-30] MEDS: atorvastatin 40 mg Tablet PO (09:17)
[2023-09-30] MEDS: potassium chloride ER 20 mEq Tablet 40 MEQ PO (09:24)
--- NOTE | 2023-09-30 09:24 | P.DS_ITS ---
Discharge Providers Date of Admission: 09/23/23 13:44 Date of Discharge: September 30, 2023 Attending Provider at Admission: Bne Hale MD Attending Provider at Discharge: Natanael Zendejas Primary Care Provider: Cayla Rivas APN Diagnoses at Discharge Discharge Diagnosis (1) Electrolyte imbalance: Status: Acute (2) Encephalopathy acute: Status: Acute (3) RICARDO (acute kidney injury): Status: Acute (4) Elevated troponin: Status: Acute (5) Hypothyroidism: Status: Acute (6) Goals of care, counseling/discussion: Status: Acute Reason for Visit Reason for Visit: lethargic, unresponsive Hospital Course Hospital Course Pleasant 78-year-old lady recently discharged after surgical assessment acute gastroenteritis with concerns for cholecystitis, return to the hospital with altered mental status, somnolence, with noted polypharmacy, including trazodone 300 mg, with possible contribution of medication. Altered mental status resolved, somnolence resolved, she was found to be deconditioned with inadequate social support from her grandson, found to be requiring significant assistance, and would benefit from rehabilitation. On presentation also found to have troponin elevation, was additionally assessed by echocardiogram which was unremarkable, as well as with stress test which showed normal ejection fraction, small area of inconsistent reversible defect in mid inferior lateral region most likely presenting attenuation artifact. No gross regional abnormality on wall motion analysis. She remained free of chest pain. She is started on aspirin. Continue to follow-up and optimize cardiovascular risk factors. She did require supplementation of potassium magnesium, at 1 point even with severe hypokalemia and hypomagnesemia this has gradually improved with repletion. She continues on oral potassium and magnesium supplements. Please follow-up levels. Physical Exam Narrative: Accompanied by female visitor Const: COMMON NORMALS: patient oriented x3 and alert GENERAL APPEARANCE: cooperative ORIENTATION/CONSCIOUSNESS: Yes awake HENMT: COMMON NORMALS: oropharynx normal Neck/C-Spine: COMMON NORMALS: no JVD Resp: COMMON NORMALS: normal respiratory effort and clear to auscultation bilaterally AUSCULTATION: clear to auscultation bilaterally Cardio: COMMON NORMALS: no JVD, regular rhythm, S1 normal heart sound present, S2 normal heart sound present and No murmurs present (Cardio) RHYTHM: regular rhythm HEART SOUNDS: S1 normal heart sound present and S2 normal heart sound present GI: COMMON NORMALS: Normal to inspection, nondistended, normoactive bowel sounds present, Soft to palpation and non-tender PALPATION: Yes Soft to palpation Extremity: COMMON NORMALS: no joint enlargement and no pedal edema Neuro: COMMON NORMALS: patient oriented x3 and moves all extremities SENSORIUM/ORIENTATION: Yes alert Skin: COMMON NORMALS: no rashes or lesions noted GENERAL SKIN EXAM: no rashes or lesions noted Discharge Data Studies Completed and Pending Completed Studies During Hospitalization Category Date Time Status CT abdomen pelvis wo con [id number] Stat Cat Scan 09/23/23 13:[address] angio chest PE protcl [id number] Stat Cat Scan 09/23/23 11:[address] head wo con* [id number] Stat Cat Scan 09/23/23 09:43 Completed Sestamibi Stress Test Request Routine Exams 09/26/23 17:23 Draft XR chest 1V portable [id number] Stat Exams 09/23/23 09:43 Completed NM anabel perf SPECT r/s* [id number] Routine Nuc Med 09/27/23 17:23 Completed CV. echo complete* [id number] Stat Ultrasound 09/23/23 13:06 Completed Pending at discharge Category Date Time Status COVID [SARS Covid-2 Antigen] Routine Lab 09/30/23 08:46 Uncollected Radiology Impressions Chest X-Ray 09/23/23 09:43 IMPRESSION: Minimal opacity on the left. Head CT 09/23/23 09:43 IMPRESSION: No acute intracranial abnormality. Chest CTA 09/23/23 11:59 IMPRESSION: 1. No acute findings. 2. Possible pulmonary arterial hypertension. COMMENTS: 1. Consistent with the [employer]'s Incidental Findings Committee white paper (J Am Jagdish Radiol 2018): Any incidental renal lesion less than 1 cm or classified as too small to characterize, or any incidental cystic renal lesion characterized as simple-appearing, is likely benign. No follow-up imaging is recommended for these lesions per consensus recommendations based on imaging criteria. 2. The presence of pulmonary emphysema on CT is an independent risk factor for lung cancer. In the absence of a history or active diagnosis of lung cancer, it is recommended that this patient with emphysema be evaluated for enrollment in a low dose CT lung cancer screening program. Abdomen/Pelvis CT 09/23/23 13:03 IMPRESSION: 1. Cholelithiasis. 2. Possible early decubitus ulcer near the tip of the coccyx. COMMENTS: Consistent with the [employer]'s Incidental Findings Committee white paper (J Am Jagdihs Radiol 2018): Any incidental renal lesion less than 1 cm or classified as too small to characterize, or any incidental cystic renal lesion characterized as simple-appearing, is likely benign. No follow-up imaging is recommended for these lesions per consensus recommendations based on imaging criteria. Laboratory Results WBC 9.91 10^3/uL (3.29-11.43) 09/30/23 04:30 RBC 3.53 10^6/uL (3.85-5.65) L 09/30/23 04:30 Hgb 11.60 g/dL (11.27-16.99) 09/30/23 04:30 Hct 36.0 % (36-47) 09/30/23 04:30 MCV 102.0 fl (85-98) H 09/30/23 04:30 MCH 32.9 pg (27-33) 09/30/23 04:30 MCHC 32.2 g/dL (30-55) 09/30/23 04:30 RDW 14.0 % (12.1-15.1) 09/30/23 04:30 Plt Count 279 10^3/cmm (157-399) 09/30/23 04:30 MPV 9.4 fL (7.4-10.4) 09/30/23 04:30 Neut % (Auto) 77.8 % 09/30/23 04:30 Lymph % (Auto) 9.4 % 09/30/23 04:30 [place] % (Auto) 7.4 % 09/30/23 04:30 Eos % (Auto) 3.9 % 09/30/23 04:30 Baso % (Auto) 0.7 % 09/30/23 04:30 Neut # (Auto) 7.71 10^3/uL (1.8-7.7) H 09/30/23 04:30 Lymph # (Auto) 0.9 10^3/uL (0.8-4.8) 09/30/23 04:30 Hubbard # (Auto) 0.7 10^3/uL (0.2-0.9) 09/30/23 04:30 Eos # (Auto) 0.4 10^3/uL (0.0-0.8) 09/30/23 04:30 Baso # (Auto) 0.1 10^3/uL (0.0-0.1) 09/30/23 04:30 Nucleated RBC % (auto) 0 % 09/30/23 04:30 Nucleated RBCs # 0.0 /100WBC 09/30/23 04:30 APTT 33.3 SECONDS (23.9-36.7) D 09/26/23 15:24 Specimen Type Arterial 09/23/23 09:30 Sample Site Brachial, left 09/23/23 09:30 ABG pH 7.35 (7.35-7.45) 09/23/23 09:30 ABG pCO2 46.6 mmHg (35-45) H 09/23/23 09:30 ABG pO2 136.0 mmHg (80.0-100.0) H 09/23/23 09:30 ABG HCO3 25.5 mmol/L (22-26) 09/23/23 09:30 ABG O2 Saturation 99.6 09/23/23 09:30 ABG Base Excess -0.5 mmol/L (-2.0-2.0) 09/23/23 09:30 Juan [place] Test Pos 09/23/23 09:30 A-a O2 Gradient Not Reportable 09/23/23 09:30 Hematocrit 36.0 % (37-47) L 09/23/23 09:30 Hgb O2 Saturation 98.1 % (95-100) 09/23/23 09:30 Carboxyhemoglobin 1.3 %THgb (0.4-20.1) 09/23/23 09:30 Methemoglobin 0.3 % (0.4-1.5) L 09/23/23 09:30 Total Hemoglobin 11.7 g/dL (12-16) L 09/23/23 09:30 Sodium 139.0 mmol/L (131-143) 09/23/23 09:30 Potassium 4.4 mmol/L (3.5-5.0) 09/23/23 09:30 Glucose 139.0 mg/dL (70-115) H 09/23/23 09:30 Ionized Calcium 1.1 mmol/L (1.1-1.4) 09/23/23 09:30 O2 Delivery Device Nc 09/23/23 09:30 O2 Liters/Min 6.0 % 09/23/23 09:30 Leasing Sales Consultant ID Cak 09/23/23 09:30 Sodium 144 mmol/L (136-145) 09/30/23 04:30 Potassium 3.6 mmol/L (3.5-5.1) 09/30/23 04:30 Chloride 110 mmol/L (98-107) H 09/30/23 04:30 Carbon Dioxide 21 mmol/L (22-29) L 09/30/23 04:30 Anion Gap 16.6 (5-19) 09/30/23 04:30 BUN 18 mg/dL (8-23) 09/30/23 04:30 Creatinine 0.8 mg/dL (0.5-0.9) 09/30/23 04:30 GFR Calculation Not Reportable 09/30/23 04:30 Glucose 106 mg/dL (65-115) 09/30/23 04:30 Calculated Osmolality 300 mOsm/kg (285-295) H 09/30/23 04:30 Lactic Acid 1.7 mmol/L (0.5-2.2) 09/23/23 10:40 Calcium 8.2 mg/dL (8.5-10.5) L 09/30/23 04:30 Phosphorus 2.8 mg/dL (2.5-4.5) 09/24/23 04:28 Magnesium 1.8 mg/dL (1.7-2.3) 09/29/23 04:25 Total Bilirubin 0.5 mg/dL (0.15-1.2) 09/27/23 06:26 AST 24 U/L (0-32) 09/27/23 06:26 ALT 12 U/L (0-33) 09/27/23 06:26 Alkaline Phosphatase 69 U/L (35-105) 09/27/23 06:26 Ammonia 37 umol/L (11-51) 09/23/23 16:50 Troponin T 5th Gen ng/L 207 ng/L (0-10) H* 09/24/23 04:28 Troponin T Baseline 166 ng/L (0-10) H* 09/23/23 10:40 Troponin T 120 Minute 150.8 ng/L (0-10) H 09/23/23 12:49 Delta Troponin T -15.2 ABS# (0-10) L 09/23/23 12:49 Troponin T Hi Sens 6Hr 151.7 ng/L (0-10) H 09/23/23 16:50 Troponin T Hi Sens 6Hr Delta -14.3 ng/L (0-12) L 09/23/23 16:50 NT-Pro-B Natriuret Pep 3788 pg/mL (0-450) H 09/23/23 10:40 NT-Pro-B Natriuret Pep Cancelled 09/23/23 10:40 Total Protein 5.3 g/dL (6.6-8.7) L 09/27/23 06:26 Albumin 3.1 g/dL (3.5-5.2) L 09/27/23 06:26 Globulin 2.2 g/dL (1.3-4.6) 09/27/23 06:26 Procalcitonin 0.29 ng/mL (0-0.5) 09/23/23 12:49 Urine Color Yellow (Yellow) 09/23/23 10:59 Urine Appearance Clear (CLEAR) 09/23/23 10:59 Urine pH 5 (5-7) 09/23/23 10:59 Ur Specific [place] 1.020 (1.005-1.030) 09/23/23 10:59 Urine Protein Trace (Negative) 09/23/23 10:59 Urine Glucose (UA) Norm (Normal) 09/23/23 10:59 Urine Ketones 1+ (Negative) H 09/23/23 10:59 Urine Blood 3+ (Negative) H 09/23/23 10:59 Urine Nitrate Negative (Negative) 09/23/23 10:59 Urine Bilirubin Neg (Negative) 09/23/23 10:59 Urine Urobilinogen Norm mg/dL (Negative) 09/23/23 10:59 Ur Leukocyte Esterase Negative (Negative) 09/23/23 10:59 Urine RBC 0-4 /hpf (0-2) H 09/23/23 10:59 Urine WBC 0-4 /hpf (0-5) H 09/23/23 10:59 Ur Squamous Epith Cells 0-4 /hpf (0-5) H 09/23/23 10:59 Ur Transition Epith Cell 0-4 /hpf 09/23/23 10:59 Amorphous Sediment Not Reportable 09/23/23 10:59 Urine Bacteria Trace /hpf (NONE) 09/23/23 10:59 Urine Mucus Trace /hpf 09/23/23 10:59 Salicylates < 0.3 mg/dL (3-10) L 09/23/23 10:40 Urine Opiates Screen Negative ng/mL (Negative) 09/23/23 10:59 Acetaminophen < 5.0 ug/mL (10-30) L 09/23/23 10:40 Ur Barbiturates Screen Negative ng/mL (Negative) 09/23/23 10:59 Ur Phencyclidine Scrn Negative ng/mL (Negative) 09/23/23 10:59 Ur Amphetamines Screen Negative ng/mL (Negative) 09/23/23 10:59 U Benzodiazepines Scrn Positive ng/mL (Negative) H 09/23/23 10:59 Urine Cocaine Screen Negative ng/mL (Negative) 09/23/23 10:59 U Marijuana (THC) Screen Negative ng/mL (Negative) 09/23/23 10:59 Ethyl Alcohol < 10 mg/dL (0-10) 09/23/23 10:40 Vitals Last Vital Signs Temp 98.2 F 09/30/23 07:35 Pulse 71 09/30/23 07:35 Resp 15 09/30/23 07:35 BP 146/64 09/30/23 07:35 Pulse Ox 92 09/30/23 07:35 O2 Del Method Room Air 09/30/23 07:35 O2 Flow Rate 3 09/27/23 03:44 Discharge Plan Discharge Patient Disposition: Xfer SNF Condition: Stable Prescriptions: New aspirin 81 mg Tablet,Delayed Release (Dr/Ec) 81 mg PO DAILY Qty: 90 0RF potassium chloride 10 mEq tablet,ER particles/crystals 10 meq PO DAILY Qty: 30 0RF magnesium L-threonate 48 mg magnesium (667 mg) capsule 48 mg PO DAILY Qty: 90 0RF Continued lisinopril 20 mg tablet 20 mg PO DAILY amlodipine 5 mg tablet 5 mg PO DAILY alprazolam 0.5 mg tablet 0.5 mg PO DAILY PRN (Reason: Anxiety) pantoprazole 40 mg tablet,delayed release (DR/EC) 40 mg PO DAILY gabapentin 300 mg capsule 300 mg PO TID montelukast 10 mg tablet 10 mg PO DAILY mirtazapine 15 mg tablet 15 mg PO BEDTIME polyethylene glycol 3350 17 gram/dose powder See Rx Instructions .ROUTE .COMPLEX Rx Instructions: FILL CAP TO LINE (17 GRAMS), MIX IN 8 OUNCES OF LIQUID AND DRINK BY MOUTH ONCE DAILY. fluticasone propionate 50 mcg/actuation spray,suspension 2 spray INTRANASAL DAILY levothyroxine 112 mcg tablet 112 mcg PO QAM rosuvastatin 10 mg tablet 10 mg PO DAILY cyanocobalamin (vitamin B-12) 5,000 mcg capsule 5,000 mcg PO DAILY Qty: 30 0RF Discontinued tramadol 50 mg tablet 50 mg PO Q4H PRN (Reason: Pain) trazodone 150 mg tablet 300 mg PO BEDTIME Discharge Orders: Discharge Order (Routine); Ordered 09/30/23 Ordered By: Natanael Zendejas Referrals: Cayla Rivas APN [Primary Care Provider] - 4-7 days Discharge Diet: As Directed Patient Instructions: Potassium Chloride (By mouth), Aspirin (By mouth), Magnesium (By mouth), Altered Mental Status (ED), Opioid Safety Activity Restrictions/Additional Instructions: Follow-up with your primary doctor for reassessment. Discuss regarding finding of elevated troponin, small abnormality on stress test though suspected to be artifactual. Report elevation possibly secondary to demand with microvascular disease. Continue aspirin. Rosuvastatin. Continue to optimize cardiovascular risk factors. Have your prime provider also follow-up your electrolytes including potassium and magnesium which required replacement. Continue supplementation after discharge. Have a primary doctor follow-up your kidney function to confirm resolution of kidney injury. Follow-up with your primary doctor regarding incidentally seen gallstones. Continue soft and bite-sized foods. Discharge Attestations Time Spent in Discharge Care*: greater than 30 min Quality Metrics Clinical Quality Measures [ No reported AMI, CVA or VTE this stay] Coding Level of Care Code 63741 Total time (in minutes) for Discharge: 50 Diagnoses Electrolyte imbalance E87.8 Encephalopathy acute G93.40 RICARDO (acute kidney injury) N17.9 Elevated troponin R79.89 Hypothyroidism E03.9 Goals of care, counseling/discussion Z71.89
[2023-09-30 11:39] VITALS: BP 144/66; PULSE 82; RESP 16; TEMP 36.8; O2SAT 95
[2023-09-30 12:00] LABS: SARS Covid-2 Antigen negative (Negative)
[2023-09-30 12:39] VITALS: BP 144/66; PULSE 82; RESP 16; TEMP 36.8; O2SAT 95
== END 2023-09-30 12:00 | disposition skilled nursing facility (03) | DRG 71 ==
LOC: ER 10:36 → ICU 13:44 → MEDSURG 09-24 15:55
PROVIDERS: Internal Medicine; Admitting Provider Student in an Organized Health Care Education/Training Program; Emergency Provider Family Medicine; Family Provider Nurse Practitioner Family; PCP Nurse Practitioner Family; Visit Provider Internal Medicine
DX: G93.40 Encephalopathy, unspecified (principal); N17.9 Acute kidney failure, unspecified; E03.9 Hypothyroidism, unspecified; E86.0 Dehydration; E87.6 Hypokalemia; E83.42 Hypomagnesemia; Z66 Do not resuscitate; R53.81 Other malaise; I10 Essential (primary) hypertension; R09.02 Hypoxemia; Z71.89 Other specified counseling; R79.89 Other specified abnormal findings of blood chemistry; E53.8 Deficiency of other specified B group vitamins; K80.20 Calculus of gallbladder without cholecystitis without obstruction
CPT/HCPCS: 36415; 36600; 70450; 71045; 71275; 74176; 78452; 80048; 80051; 80053; 80306; 80307; 81001; 82140; 82330; 82805; 83605; 83735; 83880; 84100; 84145; 84484; 85025; 85730; 87426; 93005; 93017; 93306; 94664; 96365; 96366; 96375; 97110; 97116; 97161; 97167; 97530; 97535; 99285; A9500; J0360; J1644; J2405; J2785; J3475; J3480; J7030; Q9967

== ENCOUNTER 2024-09-14 08:58 | Inpatient (IN) | payer MEDICAID, SELFPAY ==
--- OUTSIDE RECORDS SUMMARY | 2024-08-18 09:20 | XMS_ITS ---
Author Organization [facility] Address [address] [place] [address] Care Team Providers Care Button And Buckle Maker Name Role Phone Suresh Conde Unavailable AGNES WASHBURN Unavailable Unavailable Allergies No Known Allergies REASON FOR VISIT Mcfp Rounds, intermediate visit at [place], [place] Medications Medication SIG (Take, Route, Frequency, Duration) Notes Start Date End Date Status Aspirin 81 81 MG 1 tablet Orally Once a day for 30 days Unknown Vitamin B 12 500 MCG 1 tablet Orally Onc e a day Unknown Polyethylene Glycol 3350 17 GM/SCOOP FILL CAP TO LINE (17 GRAMS), MIX IN 8 OUNCES OF LIQUID AND DRINK BY MOUTH ONCE DAILY for 30 days Unknown Fluticasone Propionate 50 MCG/ACT 2 spray in each nostril Nasally Once a day for 30 days Unknown Montelukast Sodium 10 MG 1 tablet Orally Once a day for 30 days Unknown traZODone HCl 150 mg TAKE TWO TABLETS BY MOUTH At Bedtime for 30 days Unknown Cyclobenzaprine HCl 10 MG 1 tablet Orall y Once a day as needed for 30 days Unknown Ergocalciferol 1.25 MG (69690 UT) 1 capsule Orally weekly for 30 days Unknown Montelukast Sodium 10 mg TAKE ONE TABLET BY MOUTH EVERY DAY for 30 Active Fluticasone Propionate 50 MCG/ACT USE TWO SPRAYS in each nostril DAILY for 30 Active amLODIPine Besylate 5 mg TAKE ONE TABLET BY MOUTH DAILY for 30 days Active Gabapentin 300 mg TAKE ONE CAPSULE BY MOUTH THREE TIMES DAILY FOR 30 DAYS for 30 days Active Mirtazapine 15 mg TAKE ONE TABLET BY MOUTH At Bedtime with evening meal for 30 days Active ALPRAZolam 0.5 MG 1 tablet Orally once day as needed for 30 days 09/09/2023 Active Aspirin 81 mg chew AND swallow ONE tablet BY MOUTH ONCE a DAY for 30 Active Rosuvastatin Calcium 10 mg TAKE ONE TABL ET BY MOUTH DAILY for 30 days Active Lisinopril 20 mg TAKE ONE TABLET BY MOUTH DAILY for 30 days Active Levothyroxine Sodium 112 mcg TAKE ONE TA BLET BY MOUTH EVERY MORNING ON a EMPTY stomach for 30 days Active Potassium Chloride 10 MEQ 1 tablet with food Orally Twice a day Active Cyanocobalamin 5000 MCG as directed Orally Active Pantoprazole Sodium 40 mg TAKE ONE TABLE T BY MOUTH EVERY MORNING for 30 Active MiraLax 17 GM/SCOOP 1 scoop mixed with 8 ounces of fluid Orally Once a day Active Encounters Encounter Location Date Provider Diagnosis [facility] [address] [place] [address] 08/18/2024 Suresh Conde Assessments Encounter Date Diagnosis (ICD Code) Assessment Notes Treatment Notes Treatment Clinical Notes Section Notes 08/18/2024 Other Medications wer e reviewed. I will continue without changes. Nursing staff is to contact me with any symptoms arising. Orders signed and documented with nursing staff. Vitals taken and recorded at [facility]. Plan Of Treatment Treatment Notes Assessment Notes Other Medications were rev iewed. I will continue without changes. Nursing staff is to contact me with any symptoms arising. Orders signed and documented with nursing staff. Vitals taken and recorded at [facility]. Next Appt Details Follow Up: 4 Weeks, Reason: Progress Notes * Gabriella HANNONDOB: 7 (79 yo F)Acc No.[id number]:08/18/2024 Patient: Daphne WHITLEYAnjel Gabriella Provider: Beka Conde MD :1945 A ge:79 Y S ex:Female Date:08/18/2024 Address:[address] [place] [id number] Subjective: * Chief Complaints: * 1 . Mcfp Rounds. 2. intermediate visit at [place], [place]. * HPI: * :: [facility] for follow-up. Staff reports no new complaints. The review of systems and exam are unchanged from previous. Patient denies pain and is comfortable. * Medical History: H ypertension, Hypothyroidism, GERD, Insomnia, Chronic back pain. * Medications: T aking Pantoprazole Sodium 40 mg Tablet Delayed Release TAKE ONE TABLET BY MOUTH EVERY MORNING , Taking MiraLax 17 GM/SCOOP Powder 1 scoop mixed with 8 ounces of fluid Orally Once a day , Taking Cyanocobalamin 5000 MCG Capsule as directed Orally , Taking Potassium Chloride 10 MEQ Tablet Extended Release 1 tablet with food Orally Twice a day , Taking Levothyroxine Sodium 112 mcg Tablet TAKE ONE TABLET BY MOUTH EVERY MORNING ON a EMPTY stomach , Taking Lisinopril 20 mg Tablet TAKE ONE TABLET BY MOUTH DAILY , Taking Rosuvastatin Calcium 10 mg Tablet TAKE ONE TABLET BY MOUTH DAILY , Taking Gabapentin 300 mg Capsule TAKE ONE CAPSULE BY MOUTH THREE TIMES DAILY FOR 30 DAYS , Taking amLODIPine Besylate 5 mg Tablet TAKE ONE TABLET BY MOUTH DAILY , Taking ALPRAZolam 0.5 MG Tablet 1 tablet Orally once day as needed , Taking Mirtazapine 15 mg Tablet TAKE ONE TABLET BY MOUTH At Bedtime with evening meal , Taking Aspirin 81 mg Tablet Chewable chew AND swallow ONE tablet BY MOUTH ONCE a DAY , Taking Fluticasone Propionate 50 MCG/ACT Suspension USE TWO SPRAYS in each nostril DAILY , Taking Montelukast Sodium 10 mg Tablet TAKE ONE TABLET BY MOUTH EVERY DAY , Unknown Ergocalciferol 1.25 MG (85312 UT) Capsule 1 capsule Orally weekly , Unknown Cyclobenzaprine HCl 10 MG Tablet 1 tablet Orally Once a day as needed , Unknown traZODone HCl 150 mg Tablet TAKE TWO TABLETS BY MOUTH At Bedtime , Unknown Polyethylene Glycol 3350 17 GM/SCOOP Powder FILL CAP TO LINE (17 GRAMS), MIX IN 8 OUNCES OF LIQUID AND DRINK BY MOUTH ONCE DAILY , Unknown Vitamin B 12 500 MCG Tablet 1 tablet Orally Once a day , Unknown Aspirin 81 81 MG Tablet Chewable 1 tablet Orally Once a day , Unknown Fluticasone Propionate 50 MCG/ACT Suspension 2 spray in each nostril Nasally Once a day , Unknown Montelukast Sodium 10 MG Tablet 1 tablet Orally Once a day , Medication List reviewed and reconciled with the patient * Allergies: N .K.D.A. Objective: * Vitals: * Examination: G eneral Examination: GENERAL APPEARANCE: i n no acute distress. Vital signs as documented.. NECK/THYROID: n o JVD. SKIN: w arm and dry, without overt rashes.. HEART: n otable for regular rhythym, normal sounds and absence of murmurs, rubs or gallops.. LUNGS: L ungs clear. ABDOMEN: u nremarkable, no organomegaly , no masses, or abdominal aortic enlargement.. Assessment: Plan: * Treatment: * Procedure Codes: 9 9309 SNF CARE SUBSEQ * Follow Up: 4 Weeks * Billing Information: * Visit Code: * Procedure Codes: 84020 SNF CARE SUBSEQ. * Electronic signature of Jarod Conde MD on 09/14/2024 at 09:05 AM CDT Sign off status: Pending * Provider: Beka Conde MD Date: 08/18/2024 Generated for Margaret villarreal/Freddy/Joaquinsmitting on: 09/14/2024 09:05 AM CDT History and Physical Notes * HPI (History of Present Illness) Category Sub-Category Detail Notes Category Not es : The [facility] is [facility] today for follow-up. Staff reports no new complaints. The review of systems and exam are unchanged from previous. Patient denies pain and is comfortable. Examination Category Sub-Category Detail Notes Category Not es General Examination GENERAL APPEARANCE: in no ac kenny distress. Vital signs as documented. NECK/THYROID: no JVD HEART: notable for regular rhythym, normal sounds and absence of murmurs, rubs or gallops. LUNGS: Lungs clear ABDOMEN: unremarkable, no org anomegaly , no masses, or abdominal aortic enlargement. SKIN: warm and dry, withou t overt rashes.
[2024-09-14] VITALS (9 sets, daily range): BP systolic 123–181; BP diastolic 57–68; PULSE 68–86; RESP 16–19; TEMP 36.4–37.4; O2SAT 92–96; BMI 31.9; BMI 33.0
--- NOTE | 2024-09-14 09:04 | ECG_ITS ---
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
--- NOTE | 2024-09-14 09:04 | XR_ITS ---
WS: [id number] XR chest 1V portable [id number] REASON FOR EXAM: dyspnea/cough FINDINGS: Except for accentuation of the minor fissure on the right the chest is unchanged compared to 09/23/2023. Calcification of the aortic arch with mild tortuosity of the thoracic aorta. Cardiomegaly. Mild prominence of the central pulmonary veins. Calcified granulomatous disease bilaterally. No acute pulmonary parenchymal or pleural abnormality. Mild levoscoliosis and moderate degenerative spondylosis in the mid and lower thoracic spine. XR/XR chest 1V portable [id number] IMPRESSION: Accentuation of the minor fissure indicates the presence of a small amount of f luid, chronicity unknown, but could indicate early congestive failure. Soft fin ding. Chest is otherwise unchanged.
--- OUTSIDE RECORDS SUMMARY | 2024-09-14 09:05 | XMS_ITS | Patient Health Record ---
Author Organization [facility] Address [address] [place] [address] Care Team Providers Care Speech And Language Specialist Name Role Phone CondeSuresh Unavailable AGNES WASHBURN Unavailable Unavailable Allergies No Known Allergies Reason For Referral No Information Medications Medication SIG (Take, Route, Frequency, Duration) Notes Start Date End Date Status amLODIPine Besylate 5 mg TAKE ONE TABLET BY MOUTH DAILY for 30 days Active Aspirin 81 81 MG 1 tablet Orally Once a day for 30 days Unknown Gabapentin 300 mg TAKE ONE CAPSULE BY MOUTH THREE TIMES DAILY FOR 30 DAYS for 30 days Active Vitamin B 12 500 MCG 1 tablet Orally Onc e a day Unknown Rosuvastatin Calcium 10 mg TAKE ONE TABL ET BY MOUTH DAILY for 30 days Active Polyethylene Glycol 3350 17 GM/SCOOP FILL CAP TO LINE (17 GRAMS), MIX IN 8 OUNCES OF LIQUID AND DRINK BY MOUTH ONCE DAILY for 30 days Unknown Lisinopril 20 mg TAKE ONE TABLET BY MOUTH DAILY for 30 days Active traZODone HCl 150 mg TAKE TWO TABLETS BY MOUTH At Bedtime for 30 days Unknown Mirtazapine 15 mg TAKE ONE TABLET BY MOUTH At Bedtime with evening meal for 30 days Active ALPRAZolam 0.5 MG 1 tablet Orally once day as needed for 30 days 09/09/2023 Active Fluticasone Propionate 50 MCG/ACT 2 spray in each nostril Nasally Once a day for 30 days Unknown Pantoprazole Sodium 40 mg TAKE ONE TABLE T BY MOUTH EVERY MORNING for 30 Active Aspirin 81 mg chew AND swallow ONE tablet BY MOUTH ONCE a DAY for 30 Active Montelukast Sodium 10 MG 1 tablet Orally Once a day for 30 days Unknown Levothyroxine Sodium 112 mcg TAKE ONE TA BLET BY MOUTH EVERY MORNING ON a EMPTY stomach for 30 days Active Cyclobenzaprine HCl 10 MG 1 tablet Orall y Once a day as needed for 30 days Unknown Potassium Chloride 10 MEQ 1 tablet with food Orally Twice a day Active Ergocalciferol 1.25 MG (16954 UT) 1 capsule Orally weekly for 30 days Unknown Cyanocobalamin 5000 MCG as directed Orally Active Montelukast Sodium 10 mg TAKE ONE TABLET BY MOUTH EVERY DAY for 30 Active MiraLax 17 GM/SCOOP 1 scoop mixed with 8 ounces of fluid Orally Once a day Active Fluticasone Propionate 50 MCG/ACT USE TWO SPRAYS in each nostril DAILY for 30 Active Social History Tobacco Use: Social History Observation Description Date Details (start date - stop date) Never Smoker NA - NA xTobacco Use/Smoking Question Answer Notes Are you a nonsmoker Alcohol Screen (Audit-C) Question Answer Notes Did you have a drink containing alcohol in the p ast year? No Points 0 Interpretation Negative PHQ-9 Question Answer Notes Little interest or pleasure in doing things Not at all Feeling down, depressed, or hopeless Not at all Trouble falling or staying asleep, or sleeping t oo much Not at all Feeling tired or having little energy Not at all Poor appetite or overeating Not at all Feeling bad about yourself, or that you are a failure, or have let yourself or your family down Not at all Trouble concentrating on thi ngs, such as reading the newspaper or watching television Not at all Moving or speaking so slowly that other people could have noticed. Or the opposite ? being so fidgety or restless that you have been moving around a lot more than usual Not at all Thoughts that you would be b esther off , or of hurting yourself in some way Not at all Total Score 0 Section Notes: 08/15/20 08/15/20 08/15/20 09/04/21 08/15/20 09/04/21 08/15/20 09/04/21 01/27/23 PHQ9 08/15/20 09/04/21 01/27/23 PHQ9 Problems Problem Type SNOMED Code ICD Code Onset Dates Problem Status W/U Status Risk Notes Problem 601768919 Mixed hyperlipidemia (E78.2) Active confirmed Problem 418752653 Chronic pain syndrome (G89.4) Active confirmed Problem 054591626 Fibromyalgia (M79.7) Active confirmed Problem 88207407 Anxiety (F41.9) Active confirmed Problem Constipation (27303335) Constipation, unspecified constipation type (K59.00) Active confirmed Problem Gastroesophageal reflux disease (110091124) GERD without esophagitis (K21.9) Active confirmed Problem Essential hypertension (58263947) Hypertension, unspecified type (I10) Active confirmed Problem Vitamin D deficiency (83302519) Vitamin D deficiency (E55.9) Active confirmed Problem Hypothyroidism (62114953) Hypothyroidism, unspecified type (E03.9) Active confirmed Problem 31125373 Dysthymia (F34.1) Active confirmed Problem 799962998 Obesity (BMI 30-39.9) (E66.9) Active confirmed Problem Depression (62781185) Depression (F32.9) Active confirmed Problem 937067539 Insomnia, unspecified type (G47.00) Active confirmed Problem 074357195 Seasonal allergies (J30.2) Active confirmed Encounters Encounter Location Date Provider Diagnosis [address] [address] 08/18/[address] [address] 09/30/2023 [facility] Mixed hyperlipidemia E78.2 ; Chronic pain syndrome G89.4 ; Insomnia, unspecified type G47.00 ; Fibromyalgia M79.7 ; Seasonal allergies J30.2 ; Dysthymia F34.1 ; Hypertension, unspecified type I10 ; Hypothyroidism, unspecified type E03.9 ; GERD without esophagitis K21.9 ; Vitamin D deficiency E55.9 ; Constipation, unspecified constipation type K59.00 ; Anxiety F41.9 ; Obesity (BMI 30-39.9) E66.9 and Depression F32.[address] [address] 10/15/2023 Christopher Conde Mixed hyperlipidemia E78.2 ; GERD without esophagitis K21.9 and Chronic pain syndrome G89.[address] [address] 11/19/2023 Christopher Conde Mixed hyperlipidemia E78.2 ; Chronic pain syndrome G89.4 and Depression F32.[address] [address] 12/17/2023 Christopher Conde Mixed hyperlipidemia E78.2 ; Chronic pain syndrome G89.4 and Insomnia, unspecified type G47.00 [address] [place] [address] 01/14/2024 Christopher Conde Mixed hyperlipidemia E78.2 ; GERD without esophagitis K21.9 and Seasonal allergies J30.2 [facility] [address] [place] [address] 02/18/2024 Christopher Conde Mixed hyperlipidemia E78.2 ; Chronic pain syndrome G89.4 ; Insomnia, unspecified type G47.00 and Fibromyalgia M79.7 [address] [place] [address] 03/31/2024 Christopher Conde Mixed hyperlipidemia E78.2 and Chronic pain syndrome G89.4 [address] [place] [address] 04/21/2024 Christopher Conde Mixed hyperlipidemia E78.2 ; Chronic pain syndrome G89.4 and GERD without esophagitis K21.9 [address] [place] [address] 05/19/2024 Christopher Conde Mixed hyperlipidemia E78.2 ; Chronic pain syndrome G89.4 and Insomnia, unspecified type G47.00 [address] [place] [address] 06/16/2024 Christopher Conde Mixed hyperlipidemia E78.2 ; Chronic pain syndrome G89.4 and Insomnia, unspecified type G47.00 [address] [place] [address] 07/14/2024 Christopher Conde Mixed hyperlipidemia E78.2 and Chronic pain syndrome G89.4 [facility] [address] [place] [phone] 10/01/2023 Suresh Conde Assessments Encounter Date Diagnosis (ICD Code) Assessment Notes Treatment Notes Treatment Clinical Notes Section Notes 09/30/2023 Mixed hyperlipidemia (ICD-10 - E78.2) 10/15/2023 Mixed hyperlipidemia (ICD-10 - E78.2) 11/19/2023 Mixed hyperlipidemia (ICD-10 - E78.2) 12/17/2023 Mixed hyperlipidemia (ICD-10 - E78.2) 01/14/2024 Mixed hyperlipidemia (ICD-10 - E78.2) 02/18/2024 Mixed hyperlipidemia (ICD-10 - E78.2) 03/31/2024 Mixed hyperlipidemia (ICD-10 - E78.2) 04/21/2024 Mixed hyperlipidemia (ICD-10 - E78.2) 05/19/2024 Mixed hyperlipidemia (ICD-10 - E78.2) Medications were reviewed. I will continue without changes. Nursing staff is to contact me with any symptoms arising. Orders signed and documented with nursing staff. Vitals taken and recorded at [facility]. 06/16/2024 Mixed hyperlipidemia (ICD-10 - E78.2) Medications were reviewed. I will continue without changes. Nursing staff is to contact me with any symptoms arising. Orders signed and documented with nursing staff. Vitals taken and recorded at [facility]. 07/14/2024 Mixed hyperlipidemia (ICD-10 - E78.2) Medications were reviewed. I will continue without changes. Nursing staff is to contact me with any symptoms arising. Orders signed and documented with nursing staff. Vitals taken and recorded at [facility]. 07/14/2024 Chronic pain syndrome (ICD-10 - G89.4) 06/16/2024 Chronic pain syndrome (ICD-10 - G89.4) 05/19/2024 Chronic pain syndrome (ICD-10 - G89.4) 04/21/2024 Chronic pain syndrome (ICD-10 - G89.4) 03/31/2024 Chronic pain syndrome (ICD-10 - G89.4) 02/18/2024 Chronic pain syndrome (ICD-10 - G89.4) 01/14/2024 GERD without esophagitis (ICD-10 - K21.9) 12/17/2023 Chronic pain syndrome (ICD-10 - G89.4) 11/19/2023 Chronic pain syndrome (ICD-10 - G89.4) 10/15/2023 GERD without esophagitis (ICD-10 - K21.9) 09/30/2023 Chronic pain syndrome (ICD-10 - G89.4) 10/15/2023 Chronic pain syndrome (ICD-10 - G89.4) 09/30/2023 Insomnia, unspecified type (ICD-10 - G47.00) 11/19/2023 Depression (ICD-10 - F32.9) 12/17/2023 Insomnia, unspecified type (ICD-10 - G47.00) 01/14/2024 Seasonal allergies (ICD-10 - J30.2) 04/21/2024 GERD without esophagitis (ICD-10 - K21.9) 05/19/2024 Insomnia, unspecified type (ICD-10 - G47.00) 06/16/2024 Insomnia, unspecified type (ICD-10 - G47.00) 02/18/2024 Insomnia, unspecified type (ICD-10 - G47.00) 02/18/2024 Fibromyalgia (ICD-10 - M79.7) 09/30/2023 Fibromyalgia (ICD-10 - M79.7) 09/30/2023 Seasonal allergies (ICD-10 - J30.2) 09/30/2023 Dysthymia (ICD-10 - F34.1) 09/30/2023 Hypertension, unspecified type (ICD-10 - I10) 09/30/2023 Hypothyroidism, unspecified type (ICD-10 - E03.9) 09/30/2023 GERD without esophagitis (ICD-10 - K21.9) 09/30/2023 Vitamin D deficiency (ICD-10 - E55.9) 09/30/2023 Constipation, unspecified constipation type (ICD-10 - K59.00) 09/30/2023 Anxiety (ICD-10 - F41.9) 09/30/2023 Obesity (BMI 30-39.9) (ICD-10 - E66.9) 09/30/2023 Depression (ICD-10 - F32.9) 08/18/2024 Other Medications were reviewed. I will continue without changes. Nursing staff is to contact me with any symptoms arising. Orders signed and documented with nursing staff. Vitals taken and recorded at [facility]. 09/30/2023 Other Medications reviewed, orders signed and documented with nursing staff. Vitals taken and recorded at [facility]. 10/15/2023 Other Medications reviewed, orders signed and documented with nursing staff. Vitals taken and recorded at [facility]. 11/19/2023 Other Medications reviewed, orders signed and documented with nursing staff. Vitals taken and recorded at [facility]. 12/17/2023 Other Medications reviewed, orders signed and documented with nursing staff. Vitals taken and recorded at [facility]. 01/14/2024 Other Medications reviewed, orders signed and documented with nursing staff. Vitals taken and recorded at [facility]. 02/18/2024 Other Medications reviewed, orders signed and documented with nursing staff. Vitals taken and recorded at [facility]. 03/31/2024 Other Medications reviewed, orders signed and documented with nursing staff. Vitals taken and recorded at [facility]. 04/21/2024 Other Medications reviewed, orders signed and documented with nursing staff. Vitals taken and recorded at [facility]. 05/19/2024 Other 06/16/2024 Other 07/14/2024 Other Plan Of Treatment No Information Insurance Providers Payer Name Payer Address Payer Phone Subscriber Number Group Number Insured Name Patient Relationship to Insured Coverage Start Date Coverage End Date [place] [address] [place] [address] [id number] Gabriella Zavaleta Self - patient is the insured Medical (General) History Medical History History ICD Code hypertension hypothyroidism GERD insomnia chronic back pain Surgical History Surgery Date(Month/Year) back surgery Hospitalization History Reason Date(Month/Year) [facility] 08/2023
--- NOTE | 2024-09-14 09:08 | W.ED.FEVER ---
HPI - Fever General: Chief Complaint: Recheck/Abnormal Lab/Rx Stated Complaint: fever - abn labs Time Seen by Provider: 09/14/24 09:04 History of Present Illness: 79-year-old female resident of [facility] presents emergency room with complaints of fever lethargy going on for last 3 days she has had a UTI that was noted at the [place] [facility] was started on oral antibiotics her BUN is markedly up today. The patient is not usually on oxygen and is now requiring 2-1/2 to 3 L. She denies chest pain denies orthopnea. She has a history of chronic kidney disease with episodes of acute kidney injury in the past. Echocardiogram and stress test done in September 2023 did not show significant abnormalities there was a little bit of inconsistent reversibility thought to be attenuation artifact on the Lexiscan sestamibi stress test and some mild diastolic dysfunction with an EF of 62% on her echo. Associated symptoms: Deny abdominal pain, chills, chest pain or dysuria Related Data Home Medications ?Medication ?Instructions ?Recorded ?Confirmed alprazolam 0.5 mg tablet 0.5 mg PO DAILY PRN Anxiety 09/03/23 11/09/23 amlodipine 5 mg tablet 5 mg PO DAILY 09/03/23 11/09/23 fluticasone propionate 50 2 spray intranasal DAILY 09/03/23 11/09/23 mcg/actuation nasal spray,suspension gabapentin 300 mg capsule 300 mg PO TID 09/03/23 11/09/23 levothyroxine 112 mcg tablet 112 mcg PO QAM 09/03/23 11/09/23 lisinopril 20 mg tablet 20 mg PO DAILY 09/03/23 11/09/23 mirtazapine 15 mg tablet 15 mg PO BEDTIME 09/03/23 11/09/23 montelukast 10 mg tablet 10 mg PO DAILY 09/03/23 11/09/23 pantoprazole 40 mg tablet,delayed 40 mg PO DAILY 09/03/23 11/09/23 release polyethylene glycol 3350 17 See Rx Instructions .Route .COMPLEX 09/03/23 11/09/23 gram/dose oral powder rosuvastatin 10 mg tablet 10 mg PO DAILY 09/03/23 11/09/23 escitalopram oxalate 10 mg tablet 10 mg PO DAILY 10/18/23 11/09/23 Previous Rx's ?Medication ?Instructions ?Recorded cyanocobalamin (vitamin B-12) 5,000 mcg PO DAILY #30 caps 09/06/23 5,000 mcg capsule aspirin 81 mg tablet,delayed 81 mg PO DAILY #90 tabs 09/30/23 release potassium chloride 10 mEq 10 meq PO DAILY #30 tabs 09/30/23 tablet,extended release(part/cryst) Allergies Allergy/AdvReac Type Severity Reaction Status Date / Time laundry detergent Allergy Intermediate ALGY-Bliste Uncoded 11/09/23 11:41 r Review of Systems Const: Denies: fever(s) or chills Card: Denies: chest pain Resp: Denies: dyspnea GI: Denies: abdominal pain : Denies: dysuria, urinary frequency or urinary urgency Musc: Denies: neck pain or back pain Skin/Breast: Denies: rash PFSH ED PFSH: Medical History Acute kidney failure, unspecified Other specified abnormal findings of blood chemistry Mixed hyperlipidemia Gastro-esophageal reflux disease without esophagitis Anxiety disorder, unspecified Vitamin D deficiency, unspecified Major depressive disorder, single episode, unspecified Fibromyalgia Insomnia, unspecified Constipation, unspecified B12 deficiency Hypothyroidism Hypertension Gallstone Social History Housing: Custodial Physical Exam Const: COMMON NORMALS: no acute distress GENERAL APPEARANCE: cooperative and comfortable ORIENTATION/CONSCIOUSNESS: Yes awake, Yes oriented to person, Yes oriented to place and Yes oriented to time HENMT: COMMON NORMALS: normocephalic, atraumatic and hearing grossly normal bilaterally HEAD & SCALP: normocephalic and atraumatic Resp: COMMON NORMALS: normal respiratory effort, No retractions and No use of accessory muscles AUSCULTATION: crackles Cardio: COMMON NORMALS: regular rate, regular rhythm and No murmurs present (Cardio) RATE: regular rate RHYTHM: regular rhythm GI: COMMON NORMALS: Soft to palpation and No hepatosplenomegaly present AUSCULTATION: Yes normoactive bowel sounds PALPATION: Yes Soft to palpation, No Tenderness to palpation present (GI), No Guarding due to palpation present (GI) and Yes No hepatosplenomegaly present Extremity: COMMON NORMALS: normal to inspection, capillary refill normal, no clubbing, cyanosis or edema, no calf tenderness and no pedal edema Neuro: SENSORIUM/ORIENTATION: Yes oriented to person, Yes oriented to place and Yes oriented to time Skin: COMMON NORMALS: no rashes or lesions noted GENERAL SKIN EXAM: no rashes or lesions noted Course Vital Signs: Vital signs: Vital Signs Temperature 97.5 F L 09/14/24 09:04 Pulse Rate 83 09/14/24 13:53 Respiratory Rate 18 09/14/24 09:04 Blood Pressure 123/57 09/14/24 12:29 Pulse Oximetry 92 09/14/24 12:29 Oxygen Delivery Me thod Nasal Cannula 09/14/24 12:29 Oxygen Flow Rate 2 09/14/24 12:29 MDM - Fever Medical Decision Making Acute kidney injury with anemia. She has some mild congestive heart failure as well noted on chest x-ray. She not having any chest pain at this time. Additionally patient has a cystitis we called to check evidently they did not do a culture at the [place] [facility]. Will start on Zosyn. Discussed with hospitalist orders written flu COVID RSV swab was negative. Medical Records I reviewed the patient's medical records. Lab Data I reviewed the patient's lab results. 09/14/24 09:45 09/14/24 09:45 Radiology Impressions Chest X-Ray 09/14/24 09:04 IMPRESSION: Accentuation of the minor fissure indicates the presence of a small amount of fluid, chronicity unknown, but could indicate early congestive failure. Soft finding. Chest is otherwise unchanged. Laboratory Results WBC 7.92 10^3/uL (3.29-11.43) 09/14/24 09:45 RBC 3.64 10^6/uL (3.85-5.65) L 09/14/24 09:45 Hgb 10.80 g/dL (11.27-16.99) L 09/14/24 09:45 Hct 35.3 % (36-47) L 09/14/24 09:45 MCV 97.0 fl (85-98) 09/14/24 09:45 MCH 29.7 pg (27-33) 09/14/24 09:45 MCHC 30.6 g/dL (30-55) 09/14/24 09:45 RDW 15.9 % (12.1-15.1) H 09/14/24 09:45 Plt Count 192 10^3/cmm (157-399) 09/14/24 09:45 MPV 10.4 fL (7.4-10.4) 09/14/24 09:45 Neut % (Auto) 82.7 % 09/14/24 09:45 Lymph % (Auto) 6.2 % 09/14/24 09:45 Irion % (Auto) 7.7 % 09/14/24 09:45 Eos % (Auto) 2.5 % 09/14/24 09:45 Baso % (Auto) 0.3 % 09/14/24 09:45 Neut # (Auto) 6.55 10^3/uL (1.8-7.7) 09/14/24 09:45 Lymph # (Auto) 0.5 10^3/uL (0.8-4.8) L 09/14/24 09:45 Irion # (Auto) 0.6 10^3/uL (0.2-0.9) 09/14/24 09:45 Eos # (Auto) 0.2 10^3/uL (0.0-0.8) 09/14/24 09:45 Baso # (Auto) 0.0 10^3/uL (0.0-0.1) 09/14/24 09:45 Nucleated RBC % (auto) 0 % 09/14/24 09:45 Nucleated RBCs # 0.0 /100WBC 09/14/24 09:45 Sodium 139 mmol/L (136-145) 09/14/24 09:45 Potassium 4.0 mmol/L (3.5-5.1) 09/14/24 09:45 Chloride 99 mmol/L (98-107) 09/14/24 09:45 Carbon Dioxide 19 mmol/L (22-29) L 09/14/24 09:45 Anion Gap 25.0 (5-19) H 09/14/24 09:45 BUN 77 mg/dL (8-23) H 09/14/24 09:45 Creatinine 4.8 mg/dL (0.5-0.9) H 09/14/24 09:45 GFR Calculation Not Reportable 09/14/24 09:45 Glucose 133 mg/dL (65-115) H 09/14/24 09:45 Calculated Osmolality 313 mOsm/kg (285-295) H 09/14/24 09:45 Lactic Acid 0.9 mmol/L (0.5-2.2) 09/14/24 09:45 Calcium 7.0 mg/dL (8.5-10.5) L 09/14/24 09:45 Total Bilirubin 0.2 mg/dL (0.15-1.2) 09/14/24 09:45 AST 40 U/L (0-32) H 09/14/24 09:45 ALT 12 U/L (0-33) 09/14/24 09:45 Alkaline Phosphatase 94 U/L (35-105) 09/14/24 09:45 NT-Pro-B Natriuret Pep 90774 pg/mL (0-450) H 09/14/24 09:45 Total Protein 7.3 g/dL (6.6-8.7) 09/14/24 09:45 Albumin 3.0 g/dL (3.5-5.2) L 09/14/24 09:45 Globulin 4.3 g/dL (1.3-4.6) 09/14/24 09:45 Lipase 25 U/L (13-60) 09/14/24 09:45 Urine Color Yellow (Yellow) 09/14/24 10:13 Urine Appearance Turbid (CLEAR) A 09/14/24 10:13 Urine pH 5.5 (5-7) 09/14/24 10:13 Ur Specific Heidrick 1.017 (1.005-1.030) 09/14/24 10:13 Urine Protein 2+ (Negative) A 09/14/24 10:13 Urine Glucose (UA) Negative (Normal) 09/14/24 10:13 Urine Ketones Negative (Negative) 09/14/24 10:13 Urine Blood 3+ (Negative) A 09/14/24 10:13 Urine Nitrate Negative (Negative) 09/14/24 10:13 Urine Bilirubin Negative (Negative) 09/14/24 10:13 Urine Urobilinogen 1.0 mg/dL (Negative) 09/14/24 10:13 Ur Leukocyte Esterase 3+ (Negative) A 09/14/24 10:13 Urine RBC 11-20 /hpf (0-2) H 09/14/24 10:13 Urine WBC >100 /hpf (0-5) H 09/14/24 10:13 Ur Squamous Epith Cells 11-20 /hpf (0-5) H 09/14/24 10:13 Amorphous Sediment Not Reportable 09/14/24 10:13 Urine Bacteria 4+ /hpf (NONE) H 09/14/24 10:13 Hyaline Casts 51.35 /lpf 09/14/24 10:13 Influenza A (PCR) Negative (Negative) 09/14/24 09:19 Influenza Type B (PCR) Negative (Negative) 09/14/24 09:19 RSV (PCR) Negative (Negative) 09/14/24 09:19 SARS-CoV-2 (PCR) Negative (Negative) 09/14/24 09:19 All radiology interpretation(s) finalized by discharge Discharge Plan Discharge Patient Disposition: Admitted As Inpatient Admit Provider: Natanael Zendejas Clinical Impression: Acute kidney injury, Anemia, CHF (congestive heart failure) Condition: Stable Coding Level of Care Code ED Linux Unix Engineer for Queenie Turner
[2024-09-14 10:11] LABS: Hematocrit 35.3 % (36-47); Hemoglobin 10.80 g/dL (11.27-16.99); Mean Corpuscular HGB Conc 30.6 g/dL (30-55); Mean Corpuscular Hemoglobin 29.7 pg (27-33); Mean Corpuscular Volume 97.0 fl (85-98); Nucleated Red Blood Cells % 0 %; Platelet Count 192 10^3/cmm (157-399); Red Blood Count 3.64 10^6/uL (3.85-5.65); White Blood Count 7.92 10^3/uL (3.29-11.43)
[2024-09-14 10:22] LABS: Respiratory Syncytial Virus Ce NEGATIVE (Negative); SARS-CoV-2 PCR NEGATIVE (Negative)
[2024-09-14 10:25] LABS: Lactic Sepsis W/Reflex 0.9 mmol/L (0.5-2.2)
[2024-09-14 10:27] LABS: Glucose Urine UA Negative (Normal); Nitrate Urine Negative (Negative); Specific Gravity, Urine 1.017 (1.005-1.030)
[2024-09-14 10:32] LABS: Add Urine Microscopic? YES
[2024-09-14 10:36] LABS: Alanine Aminotransferase 12 U/L (0-33); Albumin Level 3.0 g/dL (3.5-5.2); Alkaline Phosphatase 94 U/L (35-105); Anion Gap 25.0 (5-19); Aspartate Amino Transferase 40 U/L (0-32); Blood Urea Nitrogen 77 mg/dL (8-23); Calcium 7.0 mg/dL (8.5-10.5); Carbon Dioxide 19 mmol/L (22-29); Chloride 99 mmol/L (98-107); Creatinine Clr Calc Pharmacy 10.1507; Globulin 4.3 g/dL (1.3-4.6); Glucose 133 mg/dL (65-115); Lipase 25 U/L (13-60); NT Pro B Type Natriuretic Pept 14719 pg/mL (0-450); Osmolality Calculated 313 mOsm/kg (285-295); Potassium 4.0 mmol/L (3.5-5.1); Sodium 139 mmol/L (136-145); Total Protein 7.3 g/dL (6.6-8.7)
[2024-09-14 10:53] LABS: UA Slide Review UA Slide Review Perf
[2024-09-14] MEDS: piperacillin-tazobactam 2.25 GM in sodium chloride 0.9% (plus) 50 ML IV (12:28)
--- NOTE | 2024-09-14 13:01 | CTR_ITS ---
PROCEDURE INFORMATION: Exam: CT Abdomen And Pelvis Without Contrast Exam date and time: 09/14/2024 10:19 PM Age: 79 years old Clinical indication: Abdominal pain; Flank; Left; Additional info: Flank pain TECHNIQUE: Imaging protocol: Computed tomography of the abdomen and pelvis without contrast. Radiation optimization: All CT scans at this facility use at least one of these dose optimization techniques: automated exposure control; mA and/or kV adjustment per patient size (includes targeted exams where dose is matched to clinical indication); or iterative reconstruction. COMPARISON: CT abdomen pelvis wo con [id number] 09/23/2023 1:10 PM RADIATION DOSE METRICS: Total DLP (mGy-cm): 910.7 FINDINGS: Lungs: Bibasilar atelectasis. Heart: Small pericardial effusion. Coronary arteries: Coronary artery calcifications. Liver: Calcified hepatic granulomas. Gallbladder and biliary ducts: Cholelithiasis without CT evidence of acute cholecystitis. Pancreas: Fatty atrophy of the pancreas. No ductal dilatation. Spleen: Calcified splenic granulomas. Adrenal glands: Stable nodular enlargement of the adrenal glands with a left adrenal adenoma. Kidneys and ureters: 3 mm nonobstructing calculus in a left lower pole calyx. No hydronephrosis bilaterally. Redemonstrated bilateral renal cysts. Mild right perinephric fat stranding appears new from prior. Stomach and bowel: Moderate stool in the distal sigmoid colon and rectum. Colonic diverticulosis without evidence of acute diverticulitis. No bowel obstruction. Appendix: No evidence of appendicitis. Intraperitoneal space: Unremarkable. No free air. No significant fluid collection. Vasculature: Moderate diffuse atherosclerotic aortoiliac calcifications. No abdominal aortic aneurysm. Lymph nodes: Unremarkable. No enlarged lymph nodes. Urinary bladder: The urinary bladder is decompressed with a Damon catheter in place. Reproductive: Unremarkable as visualized. Bones/joints: Diffuse osseous demineralization. Compression deformities at T12, L1, in the superior endplate of L3 are new from 09/23/2023. Multilevel lumbar spondylosis. Soft tissues: Likely post-injection changes in the right lower quadrant abdominal wall. CT/CT kidney stone [id number] IMPRESSION: 1. 3 mm nonobstructing left renal calculus. No evidence of obstructive uropathy. 2. Mild right perinephric fat stranding is nonspecific. Underlying infectious/inflammatory process is not excluded. 3. Moderate rectosigmoid stool. Correlate for constipation. 4. Colonic diverticulosis without diverticulitis. 5. Cholelithiasis.
--- NOTE | 2024-09-14 13:28 | PM.HP ---
Providers/Chief Complaint Admitting Physician: Natanael Zendejas Primary Care Provider: Cayla Rivas APN Chief Complaint: fever - abn labs History of Present Illness Gabriella Thompson is a 79 year old female, nursing-home resident with a history of hypertension, GERD, anxiety, fibromyalgia, hypothyroidism, and hyperlipidemia presenting after three days of progressive lethargy noted by nursing-home staff. Emergency-department evaluation revealed a urinary tract infection (UA: >100 WBC, 3+ leukocyte esterase, 4+ bacteria) and acute kidney injury (BUN 77 mg/dL, creatinine 4.8 mg/dL; prior creatinine normal). The patient currently requires 2.5?3 L/min nasal-cannula oxygen to maintain saturation. Chest-x-ray shows mild fissural fluid concerning for early congestive heart failure; NT-proBNP 14,719 pg/mL (interpretation limited by RICARDO). She reports minimal urine output, chronic loose stools, occasional cough with scant sputum, and no fever, chills, dysuria, hematuria, chest pain, orthopnea, leg swelling, nausea, or vomiting. She acknowledges recent ibuprofen use. Appetite and oral intake are adequate. No current medication or environmental allergies reported except to laundry detergent. Former smoker (quit years ago) and denies alcohol use. Code-status discussion confirms preference for no chest compressions (DNR) but possible intubation if necessary; son Rico Chacon named as surrogate decision-maker. Review of Systems Const: Reports: malaise; Denies: fever(s), chills or body aches ENMT: Denies: throat pain Card: Denies: chest pain, edema, pre-syncope or dyspnea on exertion Resp: Reports: other (some phlegm production); Denies: dyspnea, productive cough, change in phlegm color or hemoptysis GI: Denies: abdominal pain, nausea, vomiting, diarrhea, constipation, hematochezia or melena : Reports: oliguria; Denies: flank pain, urinary frequency or hematuria Musc: Denies: back pain, joint swelling or joint redness Skin/Breast: Denies: rash or new lesions Neuro: Denies: headache(s) or confusion Medications/Allergies Home Medications ?Medication ?Instructions ?Recorded ?Confirmed ?Last Taken ?Type amlodipine 5 mg tablet 5 mg PO DAILY 09/03/23 09/14/24 09/13/24 History fluticasone propionate 50 2 spray intranasal DAILY 09/03/23 09/14/24 09/13/24 08:00 History mcg/actuation nasal spray,suspension gabapentin 300 mg capsule 300 mg PO TID 09/03/23 09/14/24 09/13/24 20:00 History levothyroxine 112 mcg tablet 112 mcg PO QAM 09/03/23 09/14/24 09/14/24 06:00 History lisinopril 20 mg tablet 20 mg PO DAILY 09/03/23 09/14/24 09/13/24 08:00 History montelukast 10 mg tablet 10 mg PO DAILY 09/03/23 09/14/24 09/13/24 08:00 History pantoprazole 40 mg tablet,delayed 40 mg PO DAILY 09/03/23 09/14/24 09/14/24 06:00 History release polyethylene glycol 3350 17 See Rx Instructions .Route .COMPLEX 09/03/23 09/14/24 09/01/23 History gram/dose oral powder rosuvastatin 10 mg tablet 10 mg PO DAILY 09/03/23 09/14/24 09/13/24 20:00 History cyanocobalamin (vitamin B-12) 5,000 mcg PO DAILY #30 caps 09/06/23 09/14/24 09/13/24 Rx 5,000 mcg capsule aspirin 81 mg tablet,delayed 81 mg PO DAILY #90 tabs 09/30/23 09/14/24 09/13/24 Rx release potassium chloride 10 mEq 10 meq PO DAILY #30 tabs 09/30/23 09/14/24 09/13/24 08:00 Rx tablet,extended release(part/cryst) escitalopram oxalate 10 mg tablet 10 mg PO DAILY 10/18/23 09/14/24 09/13/24 08:00 History acetaminophen 500 mg tablet 1,000 mg PO Q6H PRN Pain 09/14/24 09/14/24 09/13/24 19:45 History (Tylenol Extra Strength) loperamide 2 mg capsule 2 mg PO Q4H PRN Loose Stool 09/14/24 09/14/24 Unknown History ondansetron HCl 4 mg tablet 4 mg PO Q6H PRN Nausea And Vomiting 09/14/24 09/14/24 Unknown History tizanidine 2 mg tablet 2 mg PO BEDTIME 09/14/24 09/14/24 09/13/24 09:00 History Allergies Allergy/AdvReac Type Severity Reaction Status Date / Time laundry detergent Allergy Intermediate Tung Uncoded 11/09/23 11:41 r PFSH Acute PFSH: Medical History Acute kidney failure, unspecified Other specified abnormal findings of blood chemistry Mixed hyperlipidemia Gastro-esophageal reflux disease without esophagitis Anxiety disorder, unspecified Vitamin D deficiency, unspecified Major depressive disorder, single episode, unspecified Fibromyalgia Insomnia, unspecified Constipation, unspecified B12 deficiency Hypothyroidism Hypertension Gallstone Social History Smoking and tobacco/nicotine status: former use of tobacco/nicotine Alcohol intake: never Housing: Care Home Vitals/I&O/Wt Last Vital Signs Temp 97.5 F L 09/14/24 09:04 Pulse 68 09/14/24 12:29 Resp 18 09/14/24 09:04 BP 123/57 09/14/24 12:29 Pulse Ox 92 09/14/24 12:29 O2 Del Method Nasal Cannula 09/14/24 12:29 O2 Flow Rate 2 09/14/24 12:29 Weight last 48 hrs Weight 87.175 kg Weight 84.368 kg Physical Exam Narrative: NC O2 Const: COMMON NORMALS: patient oriented x3 and alert GENERAL APPEARANCE: cooperative ORIENTATION/CONSCIOUSNESS: Yes awake HENMT: COMMON NORMALS: oropharynx normal Neck/C-Spine: COMMON NORMALS: no JVD Resp: COMMON NORMALS: normal respiratory effort and clear to auscultation bilaterally AUSCULTATION: clear to auscultation bilaterally Cardio: COMMON NORMALS: no JVD, regular rhythm, S1 normal heart sound present, S2 normal heart sound present and No murmurs present (Cardio) RHYTHM: regular rhythm HEART SOUNDS: S1 normal heart sound present and S2 normal heart sound present GI: COMMON NORMALS: Normal to inspection, nondistended, normoactive bowel sounds present, Soft to palpation and non-tender PALPATION: Yes Soft to palpation Extremity: COMMON NORMALS: no joint enlargement and no pedal edema Neuro: COMMON NORMALS: patient oriented x3 and moves all extremities SENSORIUM/ORIENTATION: Yes alert Skin: COMMON NORMALS: no rashes or lesions noted GENERAL SKIN EXAM: no rashes or lesions noted Urinary Catheter Management: Damon: Cath Placed During This Visit: yes Urinary Catheter Date of Insertion: 09/14/24 Urinary Catheter Time of Insertion: 12:41 Data 09/14/24 09:45 09/14/24 09:45 Micro: Microbiology 09/14/24 09:49 Blood Culture - Preliminary Blood SPECIMEN COLLECTED 09/14/24 09:45 Blood Culture - Preliminary Blood SPECIMEN COLLECTED A&P Assessment and plan (1) Acute kidney injury: With oliguria. Possible ATN. BUN 77 mg/dL and creatinine 4.8 mg/dL (baseline normal); likely multifactorial (she reports possible NSAID use, infection, possible volume issues). However, per discussion with [place] [facility] staff they deny any NSAIDs, and no NSAID is listed on her medication list. Reviewed vitals, chemistry, EKG, ER provider note, discussed with ER provider. - Hold lisinopril. -Follow-up CT abdomen pelvis renal stone protocol to assess for any obstructive uropathy. -Discussed with nephrology, appreciate consultation regarding RICARDO - Monitor serum creatinine/BUN and electrolytes serially - Track urine output closely; place Damon catheter if needed -Reduce gabapentin dose (2) UTI (urinary tract infection): Per discussion with [place] [facility] staff UA suggestive of UTI but has not been started on antibiotic yet. Culture had not been sent out yet. UA and clinical presentation consistent with UTI; already started on IV piperacillin-tazobactam (Zosyn). Awaiting cultures. Reviewed CBC. - Continue IV antibiotic with ceftriaxone at this time. Reviewed prior blood cultures, urine culture. Follow-up urine culture. -CT abdomen pelvis renal stone protocol, assess for any obstructive uropathy. - Monitor urine and blood culture results and tailor antibiotics when sensitivities available - Hold statin for now. Check CK. (3) Hypoxia: She has noted to have some bronchitis with mild wheeze, some phlegm production, although not much cough. Requested breathing treatment with DuoNebs. Will add flutter valve. Mucinex as needed. Chest x-ray reviewed, without evidence of pneumonia, with soft finding of some accentuation of the minor fissure question of possibly early congestive change. EKG reviewed, on monitor patient right bundle branch block, LAF, nonspecific T wave changes, T wave inversion in 3, flattening in aVF inversion V2, V3, V4, V5, pending official read. She denies any chest pain pressure or discomfort. Otherwise without findings to suggest volume overload on exam, without JVD, peripheral edema, crackles. Reassess linear status. Will stop IV fluids. Continue oxygen support. Monitor requirements. Reviewed echocardiogram and stress test from September a year ago, no evidence of ischemia. Normal ejection fraction on echocardiogram, grade 1 diastolic dysfunction, minor valvular abnormality. Will obtain limited repeat study. (4) Anemia: Noted slightly worse anemia compared to prior, hemoglobin 10.8. MCV normal. Will request Hemoccult. Plan HTN: Continue amlodipine. Hold lisinopril. Depression: Continue escitalopram Hypothyroidism: Continue levothyroxine PDMP PDMP Reviewed: Not Reviewed Attestations Medical Necessity Statement*: Admission over 2 midnights anticipated for assessment management of acute kidney injury with possible ATN, with concomitant urinary tract infection, with new hypoxia, risk of fluid overload and LAD with additional comorbidities as above. and High MDM includes amount and/or complexity of data reviewed/ordered [ previous or external records, resulted lab(s)/test(s), ordered lab(s)/test(s), independent historian and other healthcare professional discussion] as documented Diagnoses Acute kidney injury N17.9 UTI (urinary tract infection) N39.0 Hypoxia R09.02 Anemia D64.9
--- NOTE | 2024-09-14 14:47 | USCV_ITS ---
MauricecolemanGabriella Age: 79 Gender: F : 1945 Exam Date: 09/14/2024 18:28 Ordering Phys: Natanael Zendejas MD Technologist: PEGGY Exam Location: [facility] [place] Indication: reassess ventricular function, valves History HTN, HL, lethargy, cough, SOB, febrile 99.3F BP: 181 / 66 HR: 81 Rhythm: Sinus Technical Quality: Adequate MEASUREMENTS (Male / Female) Normal Values 2D ECHO LV Diastolic Diameter PLAX 5.2 cm 4.2 - 5.9 / 3.9 - 5.3 cm IVS Diastolic Thickness 1.6 cm 0.6 - 1.0 / 0.6 - 0.9 cm IVS Systolic Thickness 2.0 cm LVPW Diastolic Thickness 1.4 cm 0.6 - 1.0 / 0.6 - 0.9 cm LVPW Systolic Thickness 1.7 cm LVOT Diameter 1.8 cm LV Ejection Fraction 2D Teich 65.6 % LV Ejection Fraction MOD 4C 69.5 % LV Ejection Fraction MOD 2C 76.7 % LV Ejection Fraction 2C AL 78.7 % LA Diameter 3.2 cm Aorta at Sinotubular Diameter 2.6 cm M-MODE LA Ao Ratio MM 1.3 AV Cusp Separation MM 1.6 cm DOPPLER AV Peak Velocity 234.7 cm/s LVOT Peak Velocity 133.0 cm/s AV Area Cont Eq vti 1.3 cm squared AV Area Cont Eq pk 1.4 cm squared MV Peak Velocity 187.0 cm/s MV Area PHT 2.3 cm squared Mitral E to A Ratio 0.7 TV Peak Velocity 307.0 cm/s TR Peak Velocity 322.0 cm/s TR Peak Gradient 41.5 mmHg TV Peak E Velocity 76.0 cm/s PV Peak Velocity 102.0 cm/s FINDINGS Left Ventricle Normal left ventricular size, systolic function and wall thickness, with no regional wall motion abnormalities. Left ventricular ejection fraction is estimated at 60 %. Grade I/IV diastolic dysfunction (abnormal relaxation filling pattern), normal to mildly elevated filling pressures. Right Ventricle The right ventricle is normal in size and function. Right Atrium The right atrium is normal in size. Left Atrium The left atrium is normal in size. Mitral Valve Moderately thickened mitral valve. No mitral valve stenosis. Mild mitral valve regurgitation. Aortic Valve Moderate aortic valve calcification. No aortic valve stenosis. Mild aortic valve regurgitation. Tricuspid Valve Structurally normal tricuspid valve without significant stenosis or regurgitation. Pulmonary artery systolic pressure is normal. Pulmonic Valve Structurally normal pulmonic valve without significant stenosis. There is no pulmonic regurgitation. Pericardium Normal pericardium without effusion. Aorta Normal ascending aorta dimension. IVC The inferior vena cava appears normal. CONCLUSIONS Normal left ventricular size, systolic function and wall thickness, with no regional wall motion abnormalities. Left ventricular ejection fraction is estimated at 60 %. Grade I/IV diastolic dysfunction (abnormal relaxation filling pattern), normal to mildly elevated filling pressures. Moderately thickened mitral valve. No mitral valve stenosis. Mild mitral valve regurgitation. Moderate aortic valve calcification. No aortic valve stenosis. Mild aortic valve regurgitation. There is no pericardial effusion. Right atrial pressure is around 5 mm of mercury. Chelsea Da Silva MD (Electronically Signed) Final Date: 15 September 2024 17:56 S
--- NOTE | 2024-09-14 15:53 | P.CONIM_ITS ---
Providers/Reason For Consult 2 Consulting Physician/Specialty*: Donta Serna MD/ telenephrology Reason for Consult*: Acute kidney injury Requesting Physician: Dr. Brunson Attending Physician: Natanael Zendejas Primary Care Provider: Cayla Rivas APN History of Present Illness History of Present Illness Gabriella Thompson is a 79 year old female long-term resident who was presented to the emergency room with altered mental status and weakness. Patient has underlying history of hypertension GERD anxiety hypothyroidism hyperlipidemia. In the emergency room patient was diagnosed with a UTI and acute kidney injury. Patient's creatinine was 4.8 mg/dL. Patient was started on oxygen lisinopril was held Damon was placed antibiotics was started with Zosyn and renal was called to see the patient. Review of Systems 2 Narrative: Weakness, headaches, not eating well lethargic confusion poor vision, nausea no neck pain no chest pain positive short of breath positive cough positive abdominal pain positive pain urinating no significant edema. Medications/Allergies Home Medications ?Medication ?Instructions ?Recorded ?Confirmed ?Last Taken ?Type amlodipine 5 mg tablet 5 mg PO DAILY 09/03/2309/1409/13/24 History fluticasone propionate 50 2 spray intranasal DAILY 09/14/24 09/13/24 08:00 History mcg/actuation nasal spray,suspension gabapentin 300 mg capsule 300 mg PO TID 09/03/2309/1409/13/24 20:00 History levothyroxine 112 mcg tablet 112 mcg PO QAM 09/03/23 0 09/14/24 09/14/24 06:00 History lisinopril 20 mg tablet 20 mg PO DAILY 09/03/230 06/0609/13/24 08:00 History montelukast 10 mg tablet 10 mg PO DAILY 09/03/230 06/0609/13/24 08:00 History pantoprazole 40 mg tablet,delayed 40 mg PO DAILY 09/0209/14/24 09/14/24 06:00 History release polyethylene glycol 3350 17 See Rx Instructions .Route .COMPLEX 09/03/23 09/14/24 09/01/23 History gram/dose oral powder rosuvastatin 10 mg tablet 10 mg PO DAILY 09/03/230 06/0609/13/24 20:00 History cyanocobalamin (vitamin B-12) 5,000 mcg PO DAILY #30 c aps 09/06/23 09/14/24 09/13/24 Rx 5,000 mcg capsule aspirin 81 mg tablet,delayed 81 mg PO DAILY #90 tabs 0 09/30/23 09/14/24 09/13/24 Rx release potassium chloride 10 mEq 10 meq PO DAILY #30 tabs 09/14/24 09/13/24 08:00 Rx tablet,extended release(part/cryst) escitalopram oxalate 10 mg tablet 10 mg PO DAILY 10/1709/14/24 09/13/24 08:00 History acetaminophen 500 mg tablet 1,000 mg PO Q6H PRN Pain 0 09/14/24 09/14/24 09/13/24 19:45 History (Tylenol Extra Strength) loperamide 2 mg capsule 2 mg PO Q4H PRN Loose Stool 09/14/24 09/14/24 Unknown History ondansetron HCl 4 mg tablet 4 mg PO Q6H PRN Nausea And Vomiting 09/14/24 09/14/24 Unknown History tizanidine 2 mg tablet 2 mg PO BEDTIME 09/14/2406/0609/13/24 09:00 History Allergies Allergy/AdvReac Type Severity Reaction Status Date / Time laundry detergent Allergy Intermediate SHIVANI-Shannen Uncoded 11/09/23 11:41 r Current Medications Generic Name Dose Route Start Last Admin Trade Name Freq PRN Reason Stop Dose Admin Enoxaparin Sodium 30 mg 09/14/24 14:15 09/14/24 14:28 Enoxaparin 30 Mg/0.3 Ml Syringe SUBCUT 30 mg Q24H ELISEO Administration PFSH Acute 2 PFSH: Medical History Acute kidney failure, unspecified Other specified abnormal findings of blood chemistry Mixed hyperlipidemia Gastro-esophageal reflux disease without esophagitis Anxiety disorder, unspecified Vitamin D deficiency, unspecified Major depressive disorder, single episode, unspecified Fibromyalgia Insomnia, unspecified Constipation, unspecified B12 deficiency Hypothyroidism Hypertension Gallstone Social History Smoking and tobacco/nicotine status: former use of tobacco/nicotine Alcohol intake: never Housing: Detention Vitals/I&O/Wt Last Vital Signs Temp 98.1 F 09/14/24 15:53 Pulse 70 09/14/24 15:53 Resp 18 09/14/24 15:53 BP 181/66 09/14/24 15:53 Pulse Ox 92 09/14/24 15:53 O2 Del Method Nasal Cannula 09/14/24 15:53 O2 Flow Rate 2 09/14/24 15:53 09/14/24 09/14/24 09/14/24 06:59 14:59 22:59 Intake Total 50 / 50 Balance 50 / 50 Weight last 48 hrs Weight 87.175 kg Weight 84.368 kg Physical Exam 2 Narrative: Elderly appearing lady lying in bed no apparent distress using nasal cannula oxygen. Vital signs noted. Blood pressure elevated. HEENT normocephalic atraumatic neck is supple. Lungs dull bases bilaterally. Heart regular rate and rhythm. Abdomen soft nontender nondistended positive bowel sounds. Extremities no edema. Patient has a bruise on 1 hip. Positive Damon catheter. Neuro awake alert oriented x 2+. Moves all extremities. Urinary Catheter Management: Damon: Cath Placed During This Visit: yes Urinary Catheter Date of Insertion: 09/14/24 Urinary Catheter Time of Insertion: 12:41 Data 09/14/24 09:45 09/14/24 09:45 Micro: Microbiology 09/14/24 09:49 Blood Culture - Preliminary Blood SPECIMEN COLLECTED 09/14/24 09:45 Blood Culture - Preliminary Blood SPECIMEN COLLECTED A&P Assessment and plan (1) Acute kidney injury: 79-year-old lady history of GERD anxiety hypertension fibromyalgia hypothyroidism gallstones. At the long-term she is on levothyroxine lisinopril Protonix potassium. Patient presents now with not eating well lethargy and acute kidney injury. 1. Acute kidney injury: Will check a renal ultrasound. - Urinalysis reviewed turbid specific gravity 1017 protein 2+3+ blood 3+ leuk esterase., 4+ bacteria hyaline cast positive. Urine can be consistent with prerenal azotemia versus ATN. Patient has an elevated BNP. -Check urine electrolytes. If okay with medicine may want to start IV fluids. Hold nephrotoxic agents including SARAH inhibitors or ARB. Will consider changing her Nexium to a H2 edwardo. Monitor I's and O's. Check CPK as there is a bruise. Ensure patient is not using NSAIDs. 2. Anemia evaluation. 3. Check TSH. 4. Blood pressure elevated will monitor can use amlodipine as needed. 5. If patient develops shortness of breath and signs of clinical volume overload then please give a loop diuretic. The patient was seen and examined using A/V equipment with the aid of a nurse. The patient consented to telehealth. Plan See above. PDMP PDMP Reviewed: Not Reviewed Consult Attestations 2 Medical Necessity Statement: UTI and acute kidney injury. Time Spent in Patient Care: Greater than 35 minutes (>than 50% of time spent in counselling and/or direct pt care on unit) . Coding Level of Care Code Acute Code for [facility] Diagnoses Acute kidney injury N17.9
--- NOTE | 2024-09-14 16:03 | USR_ITS ---
PROCEDURE INFORMATION: Exam: US Retroperitoneal, Complete, Kidneys and Bladder Exam date and time: 09/14/2024 4:38 PM Age: 79 years old Clinical indication: Screening exam; Other: Leonidas TECHNIQUE: Imaging protocol: Real-time ultrasound of the retroperitoneum with image documentation. Complete exam focused on the bilateral kidneys and urinary bladder. COMPARISON: 1. US gall bladder [id number] 09/02/2023 5:[address] abdomen pelvis wo con [id number] 09/23/2023 1:10 PM FINDINGS: Limitations: Suboptimal image quality due to patient body habitus and bowel gas shadowing. Right kidney: Increased echogenicity. No stones. No hydronephrosis. Right kidney measures 10.0 cm in length. Simple appearing cyst measuring up to 3.2 cm. Left kidney: Not well visualized due to shadowing from bowel gas. Increased echogenicity. No definite hydronephrosis. Left kidney measures 9.6 cm in length. Urinary bladder: Urinary bladder not well visualized due to shadowing from bowel gas. Aorta: Distal aorta measures 1.8 cm in caliber. US/US renal BI* [id number] IMPRESSION: 1. Study limitations as above. 2. Imaging features suggestive of medical renal disease. 3. Simple appearing right renal cyst. 4. No definite hydronephrosis.
[2024-09-14] MEDS: cefTRIAXone 1,000 mg SDV 1000 MG IVP (16:29)
[2024-09-14 16:47] LABS: Potassium, Radom Urine 36 mmol/L; Urine Random Chloride 31 mmol/L; Urine Random Sodium 43 mmol/L
[2024-09-14 16:54] LABS: Uric Acid 8.8 mg/dL (2.4-5.7)
[2024-09-15] VITALS (11 sets, daily range): BP systolic 132–163; BP diastolic 54–77; PULSE 64–84; RESP 14–20; TEMP 36.8–37.5; O2SAT 88–95
[2024-09-15 03:27] LABS: Bacteroides fragilis Not Detected (NOT DETECT); CTX-M Not Detected (NOT DETECT); Citrobacter Not Detected (NOT DETECT); Cronobacter sakazakii Not Detected (NOT DETECT); Enterobacter non cloacae Not Detected (NOT DETECT); Fusobacterium necrophorum Not Detected (NOT DETECT); Fusobacterium nucleatum Not Detected (NOT DETECT); IMP Resistance Gene Not Detected (NOT DETECT); KPC Resistance Gene Not Detected (NOT DETECT); Klebsiella pneumoniae group Not Detected (NOT DETECT); Morganella morganii Not Detected (NOT DETECT); NDM Resistance Gene Not Detected (NOT DETECT); OXA Resistance Gene Not Detected (NOT DETECT); Pan Candida Not Detected (NOT DETECT); Pan Gram-Positive Not Detected (NOT DETECT); Proteus mirabilis Not Detected (NOT DETECT); Serratia Not Detected (NOT DETECT); Serratia marcescens Not Detected (NOT DETECT); Stenotrophomonas maltophilia Not Detected (NOT DETECT); VIM Resistance Gene Not Detected (NOT DETECT)
[2024-09-15 05:12] LABS: Hematocrit 30.1 % (36-47); Hemoglobin 9.50 g/dL (11.27-16.99); Mean Corpuscular HGB Conc 31.6 g/dL (30-55); Mean Corpuscular Hemoglobin 30.0 pg (27-33); Mean Corpuscular Volume 95.0 fl (85-98); Nucleated Red Blood Cells % 0 %; Platelet Count 180 10^3/cmm (157-399); Red Blood Count 3.17 10^6/uL (3.85-5.65); White Blood Count 6.42 10^3/uL (3.29-11.43)
[2024-09-15 05:32] LABS: Alanine Aminotransferase 11 U/L (0-33); Albumin Level 2.8 g/dL (3.5-5.2); Alkaline Phosphatase 76 U/L (35-105); Anion Gap 19.7 (5-19); Aspartate Amino Transferase 30 U/L (0-32); Blood Urea Nitrogen 78 mg/dL (8-23); Calcium 6.9 mg/dL (8.5-10.5); Carbon Dioxide 20 mmol/L (22-29); Chloride 102 mmol/L (98-107); Creatinine Clr Calc Pharmacy 12.0862; Globulin 3.7 g/dL (1.3-4.6); Glucose 105 mg/dL (65-115); Osmolality Calculated 310 mOsm/kg (285-295); Potassium 3.7 mmol/L (3.5-5.1); Sodium 138 mmol/L (136-145); Total Protein 6.5 g/dL (6.6-8.7)
[2024-09-15 05:34] LABS: Calcium 6.7 mg/dL (8.5-10.5); Ferritin 222 ng/mL (15-150); Iron 15 ug/dL (37-145); Total Iron Binding Capacity 155 mcg/dl; Unsaturated Iron Binding 140 ug/dL (112-347)
[2024-09-15 05:49] LABS: Magnesium 0.9 mg/dL (1.7-2.3)
[2024-09-15] MEDS: cefTRIAXone 1,000 mg SDV 1000 MG IVP ×2 (06:11→17:19)
--- NOTE | 2024-09-15 06:51 | P.PN_ITS ---
Subjective 2 Subjective: The patient states she is feeling better. However she is short of breath. She has edema wheezing has a cough. She is on antibiotics and does have a good appetite. Medications: Reviewed: Yes Medication Review Details: Current Medications Acetaminophen (Acetaminophen 325 Mg Tablet) 650 mg PO Q6H PRN PRN Reason: Mild/Mod Pain Or Temp >/= 101 Albuterol/Ipratropium (Ipratropium-Albuterol 3 Ml Neb) 3 ml INHALATION Q6H.RESP [facility] Last Admin: 09/15/24 01:33 Dose: 3 ml Albuterol/Ipratropium (Ipratropium-Albuterol 3 Ml Neb) 3 ml INHALATION Q6H PRN PRN Reason: SHORTNESS OF BREATH Amlodipine Besylate (Amlodipine 5 Mg Tablet) 5 mg PO DAILY [facility] Ceftriaxone Sodium (Ceftriaxone 1,000 Mg Sdv) 1,000 mg IVP Q12H [facility]; Protocol Last Admin: 09/15/24 06:11 Dose: 1,000 mg Enoxaparin Sodium (Enoxaparin 30 Mg/0.3 Ml Syringe) 30 mg SUBCUT Q24H [facility] Last Admin: 09/14/24 14:28 Dose: 30 mg Escitalopram Oxalate (Escitalopram 10 Mg Tablet) 10 mg PO DAILY [facility] Fluticasone Propionate (Fluticasone Nasal [place] 16gm Btl) 2 spray INTRANASAL DAILY [facility] Gabapentin (Gabapentin 300 Mg Capsule) 300 mg PO BID [facility] Last Admin: 09/14/24 16:29 Dose: 300 mg Guaifenesin (Guaifenesin 600 Mg Tablet) 600 mg PO BID PRN PRN Reason: CONGESTION Levothyroxine Sodium (Levothyroxine 112 Mcg Tablet) 112 mcg PO QAM [facility] Last Admin: 09/15/24 06:12 Dose: 112 mcg Montelukast Sodium (Montelukast Sodium 10 Mg Tablet) 10 mg PO DAILY [facility] Ondansetron HCl (Ondansetron 2 Mg/Ml Sdv 2 Ml) 4 mg IVP Q6H PRN PRN Reason: NAUSEA AND VOMITING Pantoprazole Sodium (Pantoprazole Dr 40 Mg Tablet) 40 mg PO DAILY [facility] Polyethylene Glycol (Polyethylene Glycol 3350 Pkt 17 Gm) 17 gm PO DAILY PRN PRN Reason: CONSTIPATION Tizanidine HCl (Tizanidine 4 Mg Tablet) 2 mg PO BEDTIME [facility] Last Admin: 09/14/24 21:53 Dose: 2 mg Vitals/I&O/Wt Last Vital Signs Temp 98.9 F 09/15/24 03:49 Pulse 84 09/15/24 03:49 Resp 17 09/15/24 03:49 BP 132/70 09/15/24 03:49 Pulse Ox 93 09/15/24 03:49 O2 Del Method Nasal Cannula 09/15/24 01:36 O2 Flow Rate 2 09/15/24 01:36 09/14/24 09/14/24 09/15/24 14:59 22:59 06:59 Intake Total 50 / 50 60 / 110 1812 / 1922 Output Total 600 / 600 800 / 1400 Balance 50 / 50 -540 / -490 1012 / 522 Weight last 48 hrs Weight 87.203 kg Weight 87.175 kg Weight 84.368 kg Physical Exam 2 Narrative: Elderly appearing lady lying in bed, she is using nasal cannula oxygen. She appears to be short of breath. Vital signs noted. HEENT normocephalic atraumatic neck is supple. Lungs dull bases bilaterally, wheezing and crackles bilaterally. Heart regular rate and rhythm. Abdomen soft nontender nondistended positive bowel sounds. Extremities-bilateral lower extremity edema. Patient has a bruise on 1 hip. Positive Damon catheter. Neuro awake alert oriented x 2+. Moves all extremities. Urinary Catheter Management: Damon: Cath Placed During This Visit: yes Reason for Continuing Indwelling Catheter: Acute Urinary Retention or Obstruction Urinary Catheter Date of Insertion: 09/14/24 Urinary Catheter Time of Insertion: 12:41 Data 09/15/24 04:51 09/15/24 04:51 Micro: Microbiology 09/14/24 09:49 Blood Culture - Preliminary Blood Escherichia coli 09/14/24 20:00 Occult Blood (FIT) - Final Stool Routine Collection 09/14/24 09:45 Blood Culture - Preliminary Blood SPECIMEN COLLECTED A&P Assessment and plan (1) Acute kidney injury: 79-year-old lady history of GERD anxiety hypertension fibromyalgia hypothyroidism gallstones. At the residential she is on levothyroxine lisinopril Protonix potassium. Patient presents now with not eating well lethargy and acute kidney injury. -The patient has an E. coli UTI. Follow-up cultures to adjust antibiotics appropriately. 1. Acute kidney injury: Her creatinine improved from 4.8-4.1 overnight. Renal ultrasound reviewed, right kidney 10 cm simple appearing cyst left kidney 9.6 cm with increased echogenicity. The patient does not have hydronephrosis. CT scan showed a 3 mm nonobstructing calculus in the left lower pole mild right perinephric fat stranding - Urinalysis reviewed turbid specific gravity 1017 protein 2+3+ blood 3+ leuk esterase., 4+ bacteria hyaline cast positive. Urine can be consistent with prerenal azotemia versus ATN. Patient has an elevated BNP. - Urine electrolytes reviewed urine sodium was 43 potassium 36 chloride 31 -She is short of breath will stop IV fluids and give a dose of Lasix. Hold nephrotoxic agents including SARAH inhibitors or ARB. Will consider changing her Nexium to a H2 edwardo. Monitor I's and O's. Check CPK as there is a bruise. Ensure patient is not using NSAIDs. Replace magnesium and potassium. - Serologies are pending 2. Anemia evaluation. Iron saturation 9.6% ferritin 222. Hemoglobin 9.5 will give IV iron Await SPEP. 3. Check TSH. 4. Blood pressure improved on amlodipine. 5. Replace vitamin D and can check PTH in the future 6. Pneumonia renal dose antibiotics. The patient was seen and examined using A/V equipment with the aid of a nurse. The patient consented to telehealth. Plan See above. PDMP PDMP Reviewed: Not Reviewed Attestations 2 Medical Necessity Statement*: UTI, RICARDO, question pneumonia, short of breath, electrolyte abnormalities. Time Spent in Patient Care: Greater than 35 minutes (>than 50% of time spent in counselling and/or direct pt care on unit) . Coding Level of Care Code Acute Code for [facility] Diagnoses Acute kidney injury N17.9
[2024-09-15] MEDS: magnesium sulfate premix 2 GM/50 ML PIGGYBACK IV (07:13)
[2024-09-15] MEDS: bumetanide 0.25 mg/mL SDV 4 mL 1 MG IVP (07:15)
[2024-09-15] MEDS: ferric gluconate 125 MG in sodium chloride 0.9% (100 ml) 100 ML 110 MG IV (07:17)
[2024-09-15 07:45] LABS: Uric Acid 8.7 mg/dL (2.4-5.7)
[2024-09-15] MEDS: fluticasone nasal spray 16gm Btl 2 SPRAY INTRANASAL (09:27)
--- NOTE | 2024-09-15 15:49 | P.PN_ITS ---
Subjective 2 Subjective: She reports she is doing all right. Feels that she is improving. Denies pain or discomfort. Vitals/I&O/Wt Last Vital Signs Temp 98.2 F 09/15/24 11:13 Pulse 73 09/15/24 13:29 Resp 16 09/15/24 13:29 BP 163/77 09/15/24 11:13 Pulse Ox 91 09/15/24 13:29 O2 Del Method Nasal Cannula 09/15/24 13:29 O2 Flow Rate 2 09/15/24 13:29 09/15/24 09/15/24 09/15/24 06:59 14:59 22:59 Intake Total 1812 / 1922 160 / 160 Output Total 800 / 1400 1600 / 1600 Balance 1012 / 522 -1440 / -1440 Weight last 48 hrs Weight 87.203 kg Weight 87.175 kg Weight 84.368 kg Physical Exam 2 Narrative: NC O2 Const: COMMON NORMALS: patient oriented x3 and alert GENERAL APPEARANCE: c ooperative ORIENTATION/CONSCIOUSNESS: Yes awake HENMT: COMMON NORMALS: oropharynx normal Neck/C-Spine: COMMON NORMALS: no JVD Resp: COMMON NORMALS: normal respiratory effort and clear to auscultation bilaterally AUSCULTATION: clear to auscultation bilaterally Cardio: COMMON NORMALS: no JVD, regular rhythm, S1 normal heart sound present, S2 normal heart sound present and No murmurs present (Cardio) RHYTHM: regular rhythm HEART SOUNDS: S1 normal heart sound present and S2 normal heart sound present GI: COMMON NORMALS: Normal to inspection, nondistended, normoactive bowel sounds present, Soft to palpation and non-tender PALPATION: Yes Soft to palpation Extremity: COMMON NORMALS: no joint enlargement and no pedal edema Neuro: COMMON NORMALS: patient oriented x3 and moves all extremities S ENSORIUM/ORIENTATION: Yes alert Skin: COMMON NORMALS: no rashes or lesions noted GENERAL SKIN EXAM: no rashes or lesions noted Urinary Catheter Management: Damon: Cath Placed During This Visit: yes Reason for Continuing Indwelling Catheter: Acute Urinary Retention or Obstruction Urinary Catheter Date of Insertion: 09/14/24 Urinary Catheter Time of Insertion: 12:41 Data 09/15/24 04:51 09/15/24 04:51 Micro: Microbiology 09/14/24 09:45 Blood Culture - Preliminary Blood NEGATIVE TO DATE 09/14/24 10:13 Urine Culture - Preliminary Urine,Clean Catch Gram Negative Rods 09/15/24 06:58 Blood Culture - Preliminary Blood SPECIMEN COLLECTED 09/15/24 07:02 Blood Culture - Preliminary Blood SPECIMEN COLLECTED 09/14/24 09:49 Blood Culture - Preliminary Blood Escherichia coli 09/14/24 20:00 Occult Blood (FIT) - Final Stool Routine Collection A&P Assessment and plan (1) Acute kidney injury: Reviewed vitals, intake and output, chemistry, noted mild improvement in creatinine down to 4.1. Noted mild rhabdomyolysis on review of CK, with downtrend. With oliguria. Possible ATN. Reviewed CT abdomen pelvis, with 3 mm nonobstructing left renal calculus noted, without obstructive uropathy. Mild perinephric fat stranding is noted. Reviewed nephrology note. Received gentle IV fluid challenge. Reassess renal function. - Hold lisinopril. - Monitor serum creatinine/BUN and electrolytes serially - Hold statin for now. Recheck CK. - Track urine output closely; place Damon catheter if needed - Reduced gabapentin dose (2) UTI (urinary tract infection): Complicated UTI with bacteremia with possible pyelonephritis with perinephric fat stranding. Reviewed urine culture, noted gram-negative rods more than 100,000 CFU. Reviewed blood culture, noted bacteremia with E. coli. Continue treatment with ceftriaxone. Follow-up urine culture ID and sensitivity. Per discussion with detention staff UA suggestive of UTI but has not been started on antibiotic yet. Culture had not been sent out yet. (3) Hypoxia: Some possible early fluid overload, although she is producing urine. Comfortable on 2 L nasal cannula. Wean off as tolerating. She has noted to have bronchitis with mild wheeze, some phlegm production, although not much cough. Requested breathing treatment with DuoNebs. Will add flutter valve. Mucinex as needed. Reviewed echocardiogram and stress test from September a year ago, no evidence of ischemia. Normal ejection fraction on echocardiogram, grade 1 diastolic dysfunction, minor valvular abnormality. Pending limited repeat study. (4) Anemia: Noted slightly worse anemia compared to prior, hemoglobin 9.5. MCV normal. Requested Hemoccult, pending. Plan HTN: Noted blood pressure is elevated. Increase amlodipine. Hold lisinopril. Depression: Continue escitalopram Hypothyroidism: Continue levothyroxine PDMP PDMP Reviewed: Not Reviewed Attestations 2 Medical Necessity Statement*: Continue admission for assessment and management of RICARDO, complicated UTI with pyelonephritis and gram-negative marga bacteremia, hypoxia, additional comorbidities as above. Diagnoses Acute kidney injury N17.9 UTI (urinary tract infection) N39.0 Hypoxia R09.02 Anemia D64.9
[2024-09-15 15:59] LABS: Alanine Aminotransferase 12 U/L (0-33); Albumin Level 3.0 g/dL (3.5-5.2); Alkaline Phosphatase 84 U/L (35-105); Anion Gap 21.1 (5-19); Aspartate Amino Transferase 31 U/L (0-32); Blood Urea Nitrogen 71 mg/dL (8-23); Calcium 7.5 mg/dL (8.5-10.5); Carbon Dioxide 21 mmol/L (22-29); Chloride 102 mmol/L (98-107); Creatinine Clr Calc Pharmacy 13.0404; Globulin 3.9 g/dL (1.3-4.6); Glucose 102 mg/dL (65-115); Magnesium 1.3 mg/dL (1.7-2.3); Osmolality Calculated 311 mOsm/kg (285-295); Potassium 4.1 mmol/L (3.5-5.1); Sodium 140 mmol/L (136-145); Total Protein 6.9 g/dL (6.6-8.7)
[2024-09-16] VITALS (12 sets, daily range): BP systolic 133–171; BP diastolic 58–76; PULSE 63–77; RESP 15–20; TEMP 36.4–37.2; O2SAT 90–96
[2024-09-16] MEDS: cefTRIAXone 1,000 mg SDV 1000 MG IVP ×2 (05:19→17:31)
[2024-09-16 05:58] LABS: Hematocrit 30.9 % (36-47); Hemoglobin 9.80 g/dL (11.27-16.99); Mean Corpuscular HGB Conc 31.7 g/dL (30-55); Mean Corpuscular Hemoglobin 29.5 pg (27-33); Mean Corpuscular Volume 93.1 fl (85-98); Nucleated Red Blood Cells % 0 %; Platelet Count 208 10^3/cmm (157-399); Red Blood Count 3.32 10^6/uL (3.85-5.65); White Blood Count 6.90 10^3/uL (3.29-11.43)
[2024-09-16] MEDS: ferric gluconate 125 MG in sodium chloride 0.9% (100 ml) 100 ML 110 MG IV (07:58)
[2024-09-16] MEDS: fluticasone nasal spray 16gm Btl 2 SPRAY INTRANASAL (07:59)
[2024-09-16 09:04] LABS: Alanine Aminotransferase 13 U/L (0-33); Albumin Level 2.8 g/dL (3.5-5.2); Alkaline Phosphatase 82 U/L (35-105); Anion Gap 22.8 (5-19); Aspartate Amino Transferase 30 U/L (0-32); Blood Urea Nitrogen 64 mg/dL (8-23); Calcium 7.8 mg/dL (8.5-10.5); Carbon Dioxide 20 mmol/L (22-29); Chloride 101 mmol/L (98-107); Globulin 4.0 g/dL (1.3-4.6); Glucose 109 mg/dL (65-115); Magnesium 1.2 mg/dL (1.7-2.3); Osmolality Calculated 309 mOsm/kg (285-295); Potassium 3.8 mmol/L (3.5-5.1); Sodium 140 mmol/L (136-145); Total Protein 6.8 g/dL (6.6-8.7)
[2024-09-16 09:06] LABS: Creatinine Clr Calc Pharmacy 15.9815
--- NOTE | 2024-09-16 12:27 | P.PN_ITS ---
Subjective 2 Subjective: No acute overnight events. She denies any symptoms at this time. Medications: Reviewed: Yes Vitals/I&O/Wt Last Vital Signs Temp 97.6 F 09/16/24 11:26 Pulse 67 09/16/24 11:26 Resp 16 09/16/24 11:26 BP 147/72 09/16/24 11:26 Pulse Ox 91 09/16/24 11:26 O2 Del Method Nasal Cannula 09/16/24 11:26 O2 Flow Rate 2 09/16/24 08:00 09/15/24 09/16/24 09/16/24 22:59 06:59 14:59 Intake Total 120 / 280 590 / 590 Output Total 1100 / 2700 Balance 120 / -1320 -1100 / -2420 590 / 590 Weight last 48 hrs Weight 92.624 kg Weight 87.203 kg Physical Exam 2 Narrative: GEN: No acute distress, alert HEENT: Normocephalic and atraumatic, PERRLA Neck: Supple Cardio: Normal effort, clear to auscultation bilaterally Cardio: Regular rate and rhythm, S1, S2, no murmur Abdomen: Soft, nontender, normal active bowel sounds : No CVA tenderness Extremities: Warm, no edema Urinary Catheter Management: Daomn: Cath Placed During This Visit: yes Reason for Continuing Indwelling Catheter: Accurate Measurement of Urinary Output in Critically Ill Patients Urinary Catheter Date of Insertion: 09/14/24 Urinary Catheter Time of Insertion: 12:41 Data 09/16/24 05:35 09/16/24 05:25 Micro: Microbiology 09/14/24 10:13 Urine Culture - Final Urine,Clean Catch Escherichia coli 09/14/24 09:45 Blood Culture - Preliminary Blood Escherichia coli 09/14/24 09:49 Blood Culture - Preliminary Blood Escherichia coli 09/15/24 07:02 Blood Culture - Preliminary Blood NEGATIVE TO DATE 09/15/24 06:58 Blood Culture - Preliminary Blood NEGATIVE TO DATE A&P Assessment and plan (1) Acute kidney injury: Serum creatinine 4.8 on admission, 0.8 to 1.0 mg at baseline Creatinine improving, 3.2 today Excellent urine output at this time Mild rhabdomyolysis on admission which is improving, monitor CK Holding lisinopril and statin Off of IV fluids given elevated BNP Monitor serum creatinine avoid nephrotoxic meds Nephrology following and input is appreciated (2) Rhabdomyolysis: Present on admission and improving Monitor CK Holding statin (3) UTI (urinary tract infection): Complicated UTI with right pyelonephritis Urine culture grew E. coli, she was also bacteremic with E. coli likely from urine Continue ceftriaxone (4) Hypoxia: Currently on 2 L/min O2, no home oxygen Chest x-ray showed attenuation of minor fissure which could indicate early CHF Holding off IV diuretics for now given her RICARDO Echo showed preserved LVEF and grade 1 diastolic dysfunction Continue DuoNebs Flutter valve at bedside Mucinex as needed Monitor O2 sats minimum oxygen as tolerated (5) Anemia: Iron deficiency anemia, transferrin saturation 9.6% Denies any bleeding Hemoglobin stable, 9.8 today She will need an outpatient colonoscopy (6) Hypertension: Blood pressure was elevated yesterday Amlodipine was increased to 10 mg daily, continue Holding lisinopril Plan Depression: Continue escitalopram Hypothyroidism: Continue levothyroxine PDMP PDMP Reviewed: Not Reviewed Attestations 2 Medical Necessity Statement*: She requires continued hospitalization for IV antibiotics, monitoring of renal function. Anticipate discharge in the next 1 to 2 days. Coding Level of Care Code 02005 Diagnoses Acute kidney injury N17.9 Rhabdomyolysis M62.82 UTI (urinary tract infection) N39.0 Hypoxia R09.02 Anemia D64.9 Hypertension I10
--- NOTE | 2024-09-16 16:37 | PM.PN ---
Subjective Subjective: no new complaints Medications: Reviewed: Yes Vitals/I&O/Wt Last Vital Signs Temp 98.6 F 09/16/24 16:00 Pulse 68 09/16/24 16:00 Resp 15 09/16/24 16:00 BP 163/75 09/16/24 16:00 Pulse Ox 96 09/16/24 16:00 O2 Del Method Nasal Cannula 09/16/24 16:00 O2 Flow Rate 3 09/16/24 14:00 09/16/24 09/16/24 09/16/24 06:59 14:59 22:59 Intake Total 710 / 710 Output Total 1100 / 2700 Balance -1100 / -2420 710 / 710 Weight last 48 hrs Weight 92.624 kg Weight 87.203 kg Physical Exam Narrative: Elderly appearing lady lying in bed, she is using nasal cannula oxygen. She appears to be short of breath. Vital signs noted. HEENT normocephalic atraumatic neck is supple. Lungs dull bases bilaterally, wheezing and crackles bilaterally. Heart regular rate and rhythm. Abdomen soft nontender nondistended positive bowel sounds. Extremities-bilateral lower extremity edema. Patient has a bruise on 1 hip. Positive Damon catheter. Neuro awake alert oriented x 2+. Moves all extremities. Urinary Catheter Management: Damon: Cath Placed During This Visit: yes Reason for Continuing Indwelling Catheter: Accurate Measurement of Urinary Output in Critically Ill Patients Urinary Catheter Date of Insertion: 09/14/24 Urinary Catheter Time of Insertion: 12:41 Data 09/16/24 05:35 09/16/24 05:25 Micro: Microbiology 09/14/24 10:13 Urine Culture - Final Urine,Clean Catch Escherichia coli 09/14/24 09:45 Blood Culture - Preliminary Blood Escherichia coli 09/14/24 09:49 Blood Culture - Preliminary Blood Escherichia coli 09/15/24 07:02 Blood Culture - Preliminary Blood NEGATIVE TO DATE 09/15/24 06:58 Blood Culture - Preliminary Blood NEGATIVE TO DATE A&P Assessment and plan (1) Acute kidney injury: 79-year-old lady history of GERD anxiety hypertension fibromyalgia hypothyroidism gallstones. At the skilled nursing she is on levothyroxine lisinopril Protonix potassium. Patient presents now with not eating well lethargy and acute kidney injury. -The patient has an E. coli UTI. Follow-up cultures to adjust antibiotics appropriately. 1. Acute kidney injury: Renal ultrasound reviewed, right kidney 10 cm simple appearing cyst left kidney 9.6 cm with increased echogenicity. The patient does not have hydronephrosis. CT scan showed a 3 mm nonobstructing calculus in the left lower pole mild right perinephric fat stranding - Urinalysis reviewed turbid specific gravity 1017 protein 2+3+ blood 3+ leuk esterase., 4+ bacteria hyaline cast positive. Urine can be consistent with prerenal azotemia versus ATN. - Urine electrolytes reviewed urine sodium was 43 potassium 36 chloride 31 -Hold nephrotoxic agents including SARAH inhibitors or ARB. Will consider changing her Nexium to a H2 edwardo. - Renal fxn improving ,Monitor I's and O's. - Serologies are pending 2. Anemia evaluation. Iron saturation 9.6% ferritin 222. Hemoglobin 9.5 will give IV iron Await SPEP. 3. Hypothyroidism , on levothyroxine . 4. HTN : Blood pressure improved on amlodipine. 5. Replace vitamin D and can check PTH in the future 6. Pneumonia, renal dose antibiotics. The patient was seen and examined using A/V equipment with the aid of a nurse. The patient consented to telehealth. Plan See above. PDMP PDMP Reviewed: Not Reviewed Attestations Medical Necessity Statement*: PER [facility] Coding Level of Care Code Acute Code for Chg Fwd Diagnoses Acute kidney injury N17.9
[2024-09-16 16:53] LABS: Alanine Aminotransferase 13 U/L (0-33); Albumin Level 2.8 g/dL (3.5-5.2); Alkaline Phosphatase 85 U/L (35-105); Anion Gap 19.7 (5-19); Aspartate Amino Transferase 28 U/L (0-32); Blood Urea Nitrogen 59 mg/dL (8-23); Calcium 7.4 mg/dL (8.5-10.5); Carbon Dioxide 21 mmol/L (22-29); Chloride 104 mmol/L (98-107); Globulin 3.8 g/dL (1.3-4.6); Glucose 148 mg/dL (65-115); Osmolality Calculated 311 mOsm/kg (285-295); Potassium 3.7 mmol/L (3.5-5.1); Sodium 141 mmol/L (136-145); Total Protein 6.6 g/dL (6.6-8.7)
[2024-09-16 16:54] LABS: Creatinine Clr Calc Pharmacy 18.9410
[2024-09-17] VITALS (12 sets, daily range): BP systolic 137–170; BP diastolic 51–94; PULSE 65–85; RESP 17–20; TEMP 36.5–37.5; O2SAT 84–93
[2024-09-17 04:50] LABS: Hematocrit 31.3 % (36-47); Hemoglobin 9.90 g/dL (11.27-16.99); Mean Corpuscular HGB Conc 31.6 g/dL (30-55); Mean Corpuscular Hemoglobin 29.3 pg (27-33); Mean Corpuscular Volume 92.6 fl (85-98); Nucleated Red Blood Cells % 0 %; Platelet Count 227 10^3/cmm (157-399); Red Blood Count 3.38 10^6/uL (3.85-5.65); White Blood Count 9.12 10^3/uL (3.29-11.43)
[2024-09-17 05:15] LABS: Alanine Aminotransferase 12 U/L (0-33); Albumin Level 3.0 g/dL (3.5-5.2); Alkaline Phosphatase 85 U/L (35-105); Anion Gap 22.9 (5-19); Aspartate Amino Transferase 24 U/L (0-32); Blood Urea Nitrogen 55 mg/dL (8-23); Calcium 7.6 mg/dL (8.5-10.5); Carbon Dioxide 20 mmol/L (22-29); Chloride 104 mmol/L (98-107); Creatinine Clr Calc Pharmacy 21.3086; Globulin 4.0 g/dL (1.3-4.6); Glucose 135 mg/dL (65-115); Magnesium 1.0 mg/dL (1.7-2.3); Osmolality Calculated 313 mOsm/kg (285-295); Potassium 3.9 mmol/L (3.5-5.1); Sodium 143 mmol/L (136-145); Total Protein 7.0 g/dL (6.6-8.7)
[2024-09-17] MEDS: cefTRIAXone 1,000 mg SDV 1000 MG IVP ×2 (06:10→18:16)
[2024-09-17] MEDS: ferric gluconate 125 MG in sodium chloride 0.9% (100 ml) 100 ML 110 MG IV (09:06)
[2024-09-17] MEDS: fluticasone nasal spray 16gm Btl 2 SPRAY INTRANASAL (09:06)
[2024-09-17] MEDS: magnesium sulfate premix 4 GM/100 ML PREMIX IV (10:55)
--- NOTE | 2024-09-17 11:27 | P.PN_ITS ---
Subjective 2 Subjective: no new complaints Medications: Reviewed: Yes Vitals/I&O/Wt Last Vital Signs Temp 98.3 F 09/17/24 08:24 Pulse 80 09/17/24 08:24 Resp 18 09/17/24 08:24 BP 167/51 09/17/24 08:24 Pulse Ox 92 09/17/24 08:24 O2 Del Method Nasal Cannula 09/17/24 08:24 O2 Flow Rate 3 09/17/24 08:00 09/16/24 09/17/24 09/17/24 22:59 06:59 14:59 Intake Total 240 / 950 350 / 350 Output Total 1500 / 1500 450 / 1950 600 / 600 Balance -1260 / -550 -450 / -1000 -250 / -250 Weight last 48 hrs Weight 89.312 kg Weight 92.624 kg Physical Exam 2 Narrative: Elderly appearing lady lying in bed, she is using nasal cannula oxygen. She appears to be short of breath. Vital signs noted. HEENT normocephalic atraumatic neck is supple. Lungs dull bases bilaterally, wheezing and crackles bilaterally. Heart regular rate and rhythm. Abdomen soft nontender nondistended positive bowel sounds. Extremities-bilateral lower extremity edema. Patient has a bruise on 1 hip. Positive Damon catheter. Neuro awake alert oriented x 2+. Moves all extremities. Urinary Catheter Management: Damon: Cath Placed During This Visit: yes Reason for Continuing Indwelling Catheter: Accurate Measurement of Urinary Output in Critically Ill Patients Urinary Catheter Date of Insertion: 09/14/24 Urinary Catheter Time of Insertion: 12:41 Data 09/17/24 04:26 09/17/24 04:26 Micro: Microbiology 09/14/24 10:13 Urine Culture - Final Urine,Clean Catch Escherichia coli 09/14/24 09:45 Blood Culture - Preliminary Blood Escherichia coli 09/14/24 09:49 Blood Culture - Preliminary Blood Escherichia coli 09/15/24 07:02 Blood Culture - Preliminary Blood NEGATIVE TO DATE 09/15/24 06:58 Blood Culture - Preliminary Blood NEGATIVE TO DATE A&P Assessment and plan (1) Acute kidney injury: 79-year-old lady history of GERD anxiety hypertension fibromyalgia hypothyroidism gallstones. At the longterm she is on levothyroxine lisinopril Protonix potassium. Patient presents now with not eating well lethargy and acute kidney injury. -The patient has an E. coli UTI. Follow-up cultures to adjust antibiotics appropriately. 1. Acute kidney injury: Renal ultrasound reviewed, right kidney 10 cm simple appearing cyst left kidney 9.6 cm with increased echogenicity. The patient does not have hydronephrosis. CT scan showed a 3 mm nonobstructing calculus in the left lower pole mild right perinephric fat stranding - Urinalysis reviewed turbid specific gravity 1017 protein 2+3+ blood 3+ leuk esterase., 4+ bacteria hyaline cast positive. Urine can be consistent with prerenal azotemia versus ATN. - Urine electrolytes reviewed urine sodium was 43 potassium 36 chloride 31 -Hold nephrotoxic agents including SARAH inhibitors or ARB. - Renal fxn improving ,Monitor I's and O's., can give Lasix - Serologies are pending 2. Anemia evaluation. Iron saturation 9.6% ferritin 222. Hemoglobin 9.5 will give IV iron Await SPEP. 3. Hypothyroidism , on levothyroxine . 4. HTN : Blood pressure improved on amlodipine. 5. Replace vitamin D and can check PTH in the future 6. Pneumonia, renal dose antibiotics. The patient was seen and examined using A/V equipment with the aid of a nurse. The patient consented to telehealth. Plan See above. PDMP PDMP Reviewed: Not Reviewed Attestations 2 Medical Necessity Statement*: per medicine Coding Level of Care Code Acute Code for Chg Fwd Diagnoses Acute kidney injury N17.9
--- NOTE | 2024-09-17 13:33 | PM.PN ---
Subjective Subjective: No acute overnight events. She remains on oxygen. She denies any symptoms at this time. Medications: Reviewed: Yes Vitals/I&O/Wt Last Vital Signs Temp 97.7 F 09/17/24 12:14 Pulse 76 09/17/24 12:14 Resp 18 09/17/24 12:14 BP 170/69 09/17/24 12:14 Pulse Ox 92 09/17/24 12:14 O2 Del Method Nasal Cannula 09/17/24 12:14 O2 Flow Rate 3 09/17/24 08:00 09/16/24 09/17/24 09/17/24 22:59 06:59 14:59 Intake Total 240 / 950 710 / 710 Output Total 1500 / 1500 450 / 1950 600 / 600 Balance -1260 / -550 -450 / -1000 110 / 110 Weight last 48 hrs Weight 89.312 kg Weight 92.624 kg Physical Exam Narrative: GEN: No acute distress, alert HEENT: Normocephalic and atraumatic, PERRLA Neck: Supple Cardio: Normal effort, clear to auscultation bilaterally Cardio: Regular rate and rhythm, S1, S2, no murmur Abdomen: Soft, nontender, normal active bowel sounds : No CVA tenderness Extremities: Warm, no edema Urinary Catheter Management: Damon: Cath Placed During This Visit: yes Reason for Continuing Indwelling Catheter: Accurate Measurement of Urinary Output in Critically Ill Patients Urinary Catheter Date of Insertion: 09/14/24 Urinary Catheter Time of Insertion: 12:41 Data 09/17/24 04:26 09/17/24 04:26 Micro: Microbiology 09/14/24 09:45 Blood Culture - Preliminary Blood Escherichia coli 09/14/24 09:49 Blood Culture - Preliminary Blood Escherichia coli 09/14/24 10:13 Urine Culture - Final Urine,Clean Catch Escherichia coli A&P Assessment and plan (1) Acute kidney injury: Baseline serum creatinine 0.8 to 1.0, 4.8 on admission Renal ultrasound: No hydronephrosis CT abdomen pelvis: 3 mm nonobstructing calculus in the left lower pole and mild right perinephric stranding UA, urine consistent with previous renal azotemia versus ATN Creatinine improving, 2.4 today Mild rhabdomyolysis on admission which has resolved Excellent urine output at this time Holding lisinopril and statin Off of IV fluids given elevated BNP Monitor serum creatinine avoid nephrotoxic meds Nephrology following and input is appreciated (2) Rhabdomyolysis: Present on admission and has resolved Holding statin (3) UTI (urinary tract infection): Complicated UTI with right pyelonephritis Urine culture grew E. coli, she was also bacteremic with E. coli likely from urine Continue ceftriaxone (4) Hypoxia: Currently on 2 L/min O2, no home oxygen Chest x-ray showed attenuation of minor fissure which could indicate early CHF Echo showed preserved LVEF and grade 1 diastolic dysfunction Will give her 20 mg IV Lasix today (okay with nephrology) Monitor O2 sats and wean oxygen as tolerated (5) Anemia: Iron deficiency anemia, transferrin saturation 9.6% Denies any bleeding, hemoglobin stable Getting IV iron (ferric gluconate) She will need an outpatient colonoscopy (6) Hypertension: Blood pressure has been elevated Amlodipine 10 mg daily Holding lisinopril Will give dose of IV Lasix today Plan Depression: Continue escitalopram Hypothyroidism: Continue levothyroxine Disposition: [facility] a [facility], ambulates with a walker. PDMP PDMP Reviewed: Not Reviewed Attestations Medical Necessity Statement*: She requires continued hospitalization for IV antibiotics and monitoring renal function. Giving IV Lasix today. Monitoring O2 as well. Coding Level of Care Code 91386 Diagnoses Acute kidney injury N17.9 Rhabdomyolysis M62.82 UTI (urinary tract infection) N39.0 Hypoxia R09.02 Anemia D64.9 Hypertension I10
[2024-09-17] MEDS: FUROsemide 10 mg/mL SDV 2mL 20 MG IVP (15:28)
[2024-09-17 16:39] LABS: Alanine Aminotransferase 12 U/L (0-33); Albumin Level 3.2 g/dL (3.5-5.2); Alkaline Phosphatase 89 U/L (35-105); Anion Gap 21.7 (5-19); Aspartate Amino Transferase 23 U/L (0-32); Blood Urea Nitrogen 45 mg/dL (8-23); Calcium 8.0 mg/dL (8.5-10.5); Carbon Dioxide 21 mmol/L (22-29); Chloride 100 mmol/L (98-107); Creatinine Clr Calc Pharmacy 26.4058; Globulin 4.1 g/dL (1.3-4.6); Glucose 167 mg/dL (65-115); Osmolality Calculated 303 mOsm/kg (285-295); Potassium 3.7 mmol/L (3.5-5.1); Sodium 139 mmol/L (136-145); Total Protein 7.3 g/dL (6.6-8.7)
[2024-09-18] VITALS (12 sets, daily range): BP systolic 143–170; BP diastolic 64–81; PULSE 64–79; RESP 16–18; TEMP 36.6–36.9; O2SAT 90–95
[2024-09-18] MEDS: cefTRIAXone 1,000 mg SDV 1000 MG IVP ×2 (05:20→18:04)
[2024-09-18 06:14] LABS: Hematocrit 33.7 % (36-47); Hemoglobin 10.70 g/dL (11.27-16.99); Mean Corpuscular HGB Conc 31.8 g/dL (30-55); Mean Corpuscular Hemoglobin 30.0 pg (27-33); Mean Corpuscular Volume 94.4 fl (85-98); Nucleated Red Blood Cells % 0 %; Platelet Count 262 10^3/cmm (157-399); Red Blood Count 3.57 10^6/uL (3.85-5.65); White Blood Count 11.82 10^3/uL (3.29-11.43)
[2024-09-18 06:38] LABS: Alanine Aminotransferase 11 U/L (0-33); Albumin Level 3.1 g/dL (3.5-5.2); Alkaline Phosphatase 89 U/L (35-105); Anion Gap 20.7 (5-19); Aspartate Amino Transferase 20 U/L (0-32); Blood Urea Nitrogen 46 mg/dL (8-23); Calcium 8.3 mg/dL (8.5-10.5); Carbon Dioxide 22 mmol/L (22-29); Chloride 101 mmol/L (98-107); Creatinine Clr Calc Pharmacy 26.4041; Globulin 4.2 g/dL (1.3-4.6); Glucose 150 mg/dL (65-115); Magnesium 1.8 mg/dL (1.7-2.3); Osmolality Calculated 305 mOsm/kg (285-295); Potassium 3.7 mmol/L (3.5-5.1); Sodium 140 mmol/L (136-145); Total Protein 7.3 g/dL (6.6-8.7)
[2024-09-18] MEDS: fluticasone nasal spray 16gm Btl 2 SPRAY INTRANASAL (09:23)
[2024-09-18] MEDS: ferric gluconate 125 MG in sodium chloride 0.9% (100 ml) 100 ML 110 MG IV (11:42)
--- NOTE | 2024-09-18 12:11 | P.PN_ITS ---
Subjective 2 Subjective: no new c/o Medications: Reviewed: Yes Vitals/I&O/Wt Last Vital Signs Temp 98.1 F 09/18/24 08:21 Pulse 78 09/18/24 08:21 Resp 18 09/18/24 08:21 BP 170/81 09/18/24 08:21 Pulse Ox 91 09/18/24 08:21 O2 Del Method Nasal Cannula 09/18/24 07:52 O2 Flow Rate 3 09/18/24 07:52 09/17/24 09/18/24 09/18/24 22:59 06:59 14:59 Intake Total 720 / 1530 240 / 1770 240 / 240 Output Total 1500 / 2100 800 / 2900 600 / 600 Balance -780 / -570 -560 / -1130 -360 / -360 Weight last 48 hrs Weight 89.301 kg Weight 89.312 kg Physical Exam 2 Narrative: Elderly appearing lady lying in bed, she is using nasal cannula oxygen. She appears to be short of breath. Vital signs noted. HEENT normocephalic atraumatic neck is supple. Lungs dull bases bilaterally, wheezing and crackles bilaterally. Heart regular rate and rhythm. Abdomen soft nontender nondistended positive bowel sounds. Extremities-bilateral lower extremity edema. Patient has a bruise on 1 hip. Positive Damon catheter. Neuro awake alert oriented x 2+. Moves all extremities. Urinary Catheter Management: Damon: Cath Placed During This Visit: yes Reason for Continuing Indwelling Catheter: Other Urinary Catheter Date of Insertion: 09/14/24 Urinary Catheter Time of Insertion: 12:41 Data 09/18/24 05:48 09/18/24 05:48 Micro: Microbiology 09/14/24 09:45 Blood Culture - Preliminary Blood Escherichia coli 09/14/24 09:49 Blood Culture - Preliminary Blood Escherichia coli A&P Assessment and plan (1) Acute kidney injury: 79-year-old lady history of GERD anxiety hypertension fibromyalgia hypothyroidism gallstones. [facility] she is on levothyroxine lisinopril Protonix potassium. Patient presents now with not eating well lethargy and acute kidney injury. -The patient has an E. coli UTI. Follow-up cultures to adjust antibiotics appropriately. 1. Acute kidney injury: Renal ultrasound reviewed, right kidney 10 cm simple appearing cyst left kidney 9.6 cm with increased echogenicity. The patient does not have hydronephrosis. CT scan showed a 3 mm nonobstructing calculus in the left lower pole mild right perinephric fat stranding - Urinalysis reviewed turbid specific gravity 1017 protein 2+3+ blood 3+ leuk esterase., 4+ bacteria hyaline cast positive. Urine can be consistent with prerenal azotemia versus ATN. - Urine electrolytes reviewed urine sodium was 43 potassium 36 chloride 31 -Hold nephrotoxic agents including SARAH inhibitors or ARB. - Renal fxn stable ,Monitor I's and O's., can give Lasix - Serologies are pending 2. Anemia evaluation. Iron saturation 9.6% ferritin 222. Hemoglobin 9.5 will give IV iron Await SPEP. 3. Hypothyroidism , on levothyroxine . 4. HTN : Blood pressure improved on amlodipine. 5. Replace vitamin D and can check PTH in the future 6. Pneumonia, renal dose antibiotics. The patient was seen and examined using A/V equipment with the aid of a nurse. The patient consented to telehealth. Plan See above. PDMP PDMP Reviewed: Not Reviewed Attestations 2 Medical Necessity Statement*: per medicine Coding Level of Care Code Acute Code for Chg Fwd Diagnoses Acute kidney injury N17.9
[2024-09-18 12:44] LABS: PROTEIN, TOTAL 6.1 g/dL (6.1-8.1)
[2024-09-18 14:40] LABS: KAPPA LIGHT CHAIN, FREE, SERUM 87.6 mg/L (3.3-19.4); KAPPA/LAMBDA LIGHT CHAINS FREE 1.39 (0.26-1.65); LAMBDA LIGHT CHAIN, FREE, SERU 63.2 mg/L (5.7-26.3)
--- NOTE | 2024-09-18 14:50 | PC.OT ---
OT Shahid attempted x2 today; patient asleep both times and unable to wake her with verbal stimuli
--- NOTE | 2024-09-18 14:55 | P.PN_ITS ---
Subjective 2 Subjective: 79-year-old female with melinda ia lives at intermediate. She could not tell me the name of the intermediate or the date. She did know she was 79 years old and that she is in [place]. Patient could not tell me what sort of place this is. She denies complaints since reports that it is fine that she goes back to the intermediate tomorrow Medications: Reviewed: Yes Medication Review Details: Current Medications Acetaminophen (Acetaminophen 325 Mg Tablet) 650 mg PO Q6H PRN PRN Reason: Mild/Mod Pain Or Temp >/= 101 Albuterol/Ipratropium (Ipratropium-Albuterol 3 Ml Neb) 3 ml INHALATION Q6H.RESP ELISEO Last Admin: 09/15/24 01:33 Dose: 3 ml Albuterol/Ipratropium (Ipratropium-Albuterol 3 Ml Neb) 3 ml INHALATION Q6H PRN PRN Reason: SHORTNESS OF BREATH Amlodipine Besylate (Amlodipine 5 Mg Tablet) 5 mg PO DAILY [facility] Ceftriaxone Sodium (Ceftriaxone 1,000 Mg Sdv) 1,000 mg IVP Q12H ELISEO; Protocol Last Admin: 09/15/24 06:11 Dose: 1,000 mg Enoxaparin Sodium (Enoxaparin 30 Mg/0.3 Ml Syringe) 30 mg SUBCUT Q24H [facility] Last Admin: 09/14/24 14:28 Dose: 30 mg Escitalopram Oxalate (Escitalopram 10 Mg Tablet) 10 mg PO DAILY [facility] Fluticasone Propionate (Fluticasone Nasal [place] 16gm Btl) 2 spray INTRANASAL DAILY [facility] Gabapentin (Gabapentin 300 Mg Capsule) 300 mg PO BID [facility] Last Admin: 09/14/24 16:29 Dose: 300 mg Guaifenesin (Guaifenesin 600 Mg Tablet) 600 mg PO BID PRN PRN Reason: CONGESTION Levothyroxine Sodium (Levothyroxine 112 Mcg Tablet) 112 mcg PO QAM [facility] Last Admin: 09/15/24 06:12 Dose: 112 mcg Montelukast Sodium (Montelukast Sodium 10 Mg Tablet) 10 mg PO DAILY [facility] Ondansetron HCl (Ondansetron 2 Mg/Ml Sdv 2 Ml) 4 mg IVP Q6H PRN PRN Reason: NAUSEA AND VOMITING Pantoprazole Sodium (Pantoprazole Dr 40 Mg Tablet) 40 mg PO DAILY ELISE[facility] Polyethylene Glycol (Polyethylene Glycol 3350 Pkt 17 Gm) 17 gm PO DAILY PRN PRN Reason: CONSTIPATION Tizanidine HCl (Tizanidine 4 Mg Tablet) 2 mg PO BEDTIME ELISEO Last Admin: 09/14/24 21:53 Dose: 2 mg Vitals/I&O/Wt Last Vital Signs Temp 98.5 F 09/18/24 12:16 Pulse 74 09/18/24 14:03 Resp 16 09/18/24 13:57 BP 168/69 09/18/24 12:16 Pulse Ox 90 09/18/24 13:57 O2 Del Method Nasal Cannula 09/18/24 13:57 O2 Flow Rate 3 09/18/24 13:57 09/17/24 09/18/24 09/18/24 22:59 06:59 14:59 Intake Total 720 / 1530 240 / 1770 350 / 350 Output Total 1500 / 2100 800 / 2900 1200 / 1200 Balance -780 / -570 -560 / -1130 -850 / -850 Weight last 48 hrs Weight 89.301 kg Weight 89.312 kg Physical Exam 2 Narrative: General well-developed well-nourished obese female in no acute cardiopulmonary distress CV regular rate and rhythm Lungs clear to auscultation bilaterally Abdomen positive bowel sounds soft nontender Suprapubic region not tender Calves no tenderness or asymmetry Urinary Catheter Management: Damon: Cath Placed During This Visit: yes Reason for Continuing Indwelling Catheter: Other Urinary Catheter Date of Insertion: 09/14/24 Urinary Catheter Time of Insertion: 12:41 Data 09/18/24 05:48 09/18/24 05:48 Micro: Microbiology 09/14/24 09:45 Blood Culture - Preliminary Blood Escherichia coli 09/14/24 09:49 Blood Culture - Preliminary Blood Escherichia coli A&P Assessment and plan (1) Acute kidney injury: Baseline serum creatinine 0.8 to 1.0, 4.8 on admission now down to 1.9 Renal ultrasound: No hydronephrosis CT abdomen pelvis: 3 mm nonobstructing calculus in the left lower pole and mild right perinephric stranding UA, urine consistent with previous renal azotemia versus ATN Creatinine improving, 1.9 today Mild rhabdomyolysis on admission which has resolved Excellent urine output at this time Holding lisinopril and statin Off of IV fluids given elevated BNP Monitor serum creatinine avoid nephrotoxic meds Nephrology following and input is appreciated (2) Rhabdomyolysis: Present on admission and has resolved Holding statin (3) UTI (urinary tract infection): Complicated UTI with right pyelonephritis Urine culture grew E. coli, she was also bacteremic with E. coli likely from urine Continue ceftriaxone. Repeat CBC in the morning and if continued improvement will discharge home on oral medications (4) Hypoxia: Currently on 2 L/min O2, no home oxygen Chest x-ray showed attenuation of minor fissure which could indicate early CHF Echo showed preserved LVEF and grade 1 diastolic dysfunction Monitor O2 sats and wean oxygen as tolerated (5) Anemia: Iron deficiency anemia, transferrin saturation 9.6% Denies any bleeding, hemoglobin stable Received IV iron (ferric gluconate) She will need an outpatient colonoscopy (6) Hypertension: Blood pressure has been elevated Amlodipine 10 mg daily Holding lisinopril Plan Depression: Continue escitalopram Hypothyroidism: Continue levothyroxine Disposition: Lives in a intermediate, ambulates with a walker. PDMP PDMP Reviewed: Not Reviewed Attestations 2 Medical Necessity Statement*: Anticipate discharge to [facility] facility tomorrow Coding Level of Care Code 18984 Diagnoses Acute kidney injury N17.9 Rhabdomyolysis M62.82 UTI (urinary tract infection) N39.0 Hypoxia R09.02 Anemia D64.9 Hypertension I10 Time Spent (min) 35
[2024-09-18 15:53] LABS: Anti-Double Strand DNA AB <1 IU/mL
[2024-09-18 17:20] LABS: Glomerular Bsmt Membrane IGG <1.0 AI
[2024-09-19] VITALS (9 sets, daily range): BP systolic 134–158; BP diastolic 65–76; PULSE 60–73; RESP 16–18; TEMP 36.4–36.9; O2SAT 90–94
[2024-09-19 05:33] LABS: Hematocrit 31.0 % (36-47); Hemoglobin 9.70 g/dL (11.27-16.99); Mean Corpuscular HGB Conc 31.3 g/dL (30-55); Mean Corpuscular Hemoglobin 29.9 pg (27-33); Mean Corpuscular Volume 95.7 fl (85-98); Nucleated Red Blood Cells % 0 %; Platelet Count 279 10^3/cmm (157-399); Red Blood Count 3.24 10^6/uL (3.85-5.65); White Blood Count 11.20 10^3/uL (3.29-11.43)
[2024-09-19 05:52] LABS: Alanine Aminotransferase 13 U/L (0-33); Albumin Level 2.7 g/dL (3.5-5.2); Alkaline Phosphatase 83 U/L (35-105); Anion Gap 19.1 (5-19); Aspartate Amino Transferase 27 U/L (0-32); Blood Urea Nitrogen 50 mg/dL (8-23); Calcium 8.5 mg/dL (8.5-10.5); Carbon Dioxide 23 mmol/L (22-29); Chloride 103 mmol/L (98-107); Creatinine Clr Calc Pharmacy 23.6443; Globulin 4.2 g/dL (1.3-4.6); Glucose 124 mg/dL (65-115); Magnesium 1.6 mg/dL (1.7-2.3); Osmolality Calculated 307 mOsm/kg (285-295); Potassium 4.1 mmol/L (3.5-5.1); Sodium 141 mmol/L (136-145); Total Protein 6.9 g/dL (6.6-8.7)
[2024-09-19] MEDS: cefTRIAXone 1,000 mg SDV 1000 MG IVP (06:06)
[2024-09-19] MEDS: fluticasone nasal spray 16gm Btl 2 SPRAY INTRANASAL (09:17)
[2024-09-19] MEDS: ferric gluconate 125 MG in sodium chloride 0.9% (100 ml) 100 ML 110 MG IV (09:32)
--- NOTE | 2024-09-19 12:57 | P.DS_ITS ---
Discharge Providers Date of Admission: 09/14/24 11:30 Date of Discharge: September 19, 2024 Attending Provider at Admission: Natanael Zendejas Attending Provider at Discharge: Quentin Phelps MD Consults: Nephrology Dr. Donta Serna and Lou Humphries Primary Care Provider: Cayla Rivas APN Diagnoses at Discharge Discharge Diagnosis 1. Acute kidney injury: Details from hospital stay: History of creatinine September 2023 0.8 came in with creatinine of 4.8 and rhabdomyolysis. Improved with IV fluids and holding lisinopril. 2. Rhabdomyolysis: Details from hospital stay: Resolved with IV fluids and treatment of UTI with sepsis 3. UTI (urinary tract infection): Details from hospital stay: This was E. coli but not ESBL. She was treated with Rocephin. Ultrasound showed medical renal disease. CT scan showed no cysts or pyelonephritis. Blood culture x 2 on 09/14/2024 also grew E. coli similar to the urine. Blood culture on 09/15/2024 was negative Patient will have another 10 days of Keflex 500 mg 3 times daily. Also add VSL 3 probiotic for 30 days 4. Anemia: Details from hospital stay: Patient with iron deficiency anemia and hematocrit 31 but stable. Iron levels 15 down from 52-year ago. Patient received ferric gluconate 125 mg elemental iron x 5 doses out of intended 8 5. Hypertension: Details from hospital stay: Blood pressure modestly elevated to 155/65 heart rate 69. Her amlodipine was doubled to 10 mg and lisinopril held due to renal failure. I added on discharge hydralazine 10 mg twice daily. Please adjust if needed 6. Iron deficiency anemia: Details from hospital stay: Follow-up with PCP regarding potential workup of colon with colonoscopy versus just treatment for gastritis empirically. That said she was was already on pantoprazole outpatient Reason for Visit Reason for Visit: fever - abn labs Brief History: Gabriella Thompson is a 79 year old female, nursing-home resident with a history of hypertension, GERD, anxiety, fibromyalgia, hypothyroidism, and hyperlipidemia presenting after three days of progressive lethargy noted by nursing-home staff. Emergency-department evaluation revealed a urinary tract infection (UA: >100 WBC, 3+ leukocyte esterase, 4+ bacteria) and acute kidney injury (BUN 77 mg/dL, creatinine 4.8 mg/dL; prior creatinine normal). The patient currently requires 2.5?3 L/min nasal-cannula oxygen to maintain saturation. Chest-x-ray shows mild fissural fluid concerning for early congestive heart failure; NT-proBNP 14,719 pg/mL (interpretation limited by RICARDO). She reports minimal urine output, chronic loose stools, occasional cough with scant sputum, and no fever, chills, dysuria, hematuria, chest pain, orthopnea, leg swelling, nausea, or vomiting. She acknowledges recent ibuprofen use. Appetite and oral intake are adequate. No current medication or environmental allergies reported except to laundry detergent. Former smoker (quit years ago) and denies alcohol use. Code-status discussion confirms preference for no chest compressions (DNR) but possible intubation if necessary; slava Chacon named as surrogate decision- maker. Hospital Course Hospital Course Patient was admitted and found to have UTI with E. coli positive urine and blood cultures on 09/14/2024. She was treated with Rocephin 1 g IV daily and noted to have rhabdomyolysis with acute kidney injury. She was seen by a sheet metal lay out worker and lisinopril held. Patient was hydrated and kidney function did improve to creatinine of 2 from 4.8. Her baseline was 0.8 a year ago. Patient was noted to be iron deficiency anemic with iron level of 12 and given ferric gluconate. Patient has improved with generalized oriented and no longer lethargic. She will discharge back to the [facility] with cuff flex 500 3 times daily for additional 10 days Physical Exam Narrative: General well-developed well-nourished obese white female in no acute cardiopulmonary stress CV regular rate and rhythm Lungs clear to auscultation bilaterally Abdomen positive bowel tones soft nontender Back no CVA tenderness Suprapubic region not tender Calves no tenderness or asymmetry Urinary Catheter Management: Damon: Cath Placed During This Visit: yes Reason for Continuing Indwelling Catheter: Acute Urinary Retention or Obstruct ion Urinary Catheter Date of Insertion: 09/14/24 Urinary Catheter Time of Insertion: 12:41 Discharge Data Studies Completed and Pending Completed Studies During Hospitalization Category Date Time Status CT kidney stone [id number] Stat Cat Scan 09/14/24 13:01 Completed XR chest 1V portable [id number] Stat Exams 09/14/24 09:04 Completed CV. echo complete* [id number] Routine Ultrasound 09/14/24 14:47 Completed US renal BI* [id number] Routine Ultrasound 09/14/24 16:03 Completed Pending at discharge Category Date Time Status Anti-Neutrophil Cytoplasmic AB Routine Lab 09/14/24 16:27 Received Blood Culture Stat Lab 09/14/24 09:49 Results Blood Culture Stat Lab 09/15/24 06:58 Results Serum Protien Electrophoresis [Total Protein Lab 09/14/24 16:27 Results Electrophoresis] Routine Radiology Impressions Chest X-Ray 09/14/24 09:04 IMPRESSION: Accentuation of the minor fissure indicates the presence of a small amount of fluid, chronicity unknown, but could indicate early congestive failure. Soft finding. Chest is otherwise unchanged. Abdomen/Pelvis CT 09/14/24 13:01 IMPRESSION: 1. 3 mm nonobstructing left renal calculus. No evidence of obstructive uropathy. 2. Mild right perinephric fat stranding is nonspecific. Underlying infectious/inflammatory process is not excluded. 3. Moderate rectosigmoid stool. Correlate for constipation. 4. Colonic diverticulosis without diverticulitis. 5. Cholelithiasis. Renal Ultrasound 09/14/24 16:03 IMPRESSION: 1. Study limitations as above. 2. Imaging features suggestive of medical renal disease. 3. Simple appearing right renal cyst. 4. No definite hydronephrosis. Laboratory Results WBC 11.20 10^3/uL (3.29-11.43) 09/19/24 04:54 RBC 3.24 10^6/uL (3.85-5.65) L 09/19/24 04:54 Hgb 9.70 g/dL (11.27-16.99) L 09/19/24 04:54 Hct 31.0 % (36-47) L 09/19/24 04:54 MCV 95.7 fl (85-98) 09/19/24 04:54 MCH 29.9 pg (27-33) 09/19/24 04:54 MCHC 31.3 g/dL (30-55) 09/19/24 04:54 RDW 16.2 % (12.1-15.1) H 09/19/24 04:54 Plt Count 279 10^3/cmm (157-399) 09/19/24 04:54 MPV 10.1 fL (7.4-10.4) 09/19/24 04:54 Neut % (Auto) 77.0 % 09/19/24 04:54 Lymph % (Auto) 8.9 % 09/19/24 04:54 Spink % (Auto) 8.1 % 09/19/24 04:54 Eos % (Auto) 2.3 % 09/19/24 04:54 Baso % (Auto) 0.4 % 09/19/24 04:54 Neut # (Auto) 8.62 10^3/uL (1.8-7.7) H 09/19/24 04:54 Lymph # (Auto) 1.0 10^3/uL (0.8-4.8) 09/19/24 04:54 Spink # (Auto) 0.9 10^3/uL (0.2-0.9) 09/19/24 04:54 Eos # (Auto) 0.3 10^3/uL (0.0-0.8) 09/19/24 04:54 Baso # (Auto) 0.0 10^3/uL (0.0-0.1) 09/19/24 04:54 Nucleated RBC % (auto) 0 % 09/19/24 04:54 Nucleated RBCs # 0.0 /100WBC 09/19/24 04:54 Sodium 141 mmol/L (136-145) 09/19/24 04:54 Potassium 4.1 mmol/L (3.5-5.1) 09/19/24 04:54 Chloride 103 mmol/L (98-107) 09/19/24 04:54 Carbon Dioxide 23 mmol/L (22-29) 09/19/24 04:54 Anion Gap 19.1 (5-19) H 09/19/24 04:54 BUN 50 mg/dL (8-23) H 09/19/24 04:54 Creatinine 2.1 mg/dL (0.5-0.9) H 09/19/24 04:54 GFR Calculation Not Reportable 09/19/24 04:54 Glucose 124 mg/dL (65-115) H 09/19/24 04:54 Calculated Osmolality 307 mOsm/kg (285-295) H 09/19/24 04:54 Lactic Acid 0.9 mmol/L (0.5-2.2) 09/14/24 09:45 Uric Acid 8.7 mg/dL (2.4-5.7) H 09/15/24 06:58 Calcium 8.5 mg/dL (8.5-10.5) 09/19/24 04:54 Phosphorus 4.1 mg/dL (2.5-4.5) 09/19/24 04:54 Magnesium 1.6 mg/dL (1.7-2.3) L 09/19/24 04:54 Iron 15 ug/dL (37-145) L 09/15/24 04:51 TIBC 155 mcg/dl 09/15/24 04:51 % Saturation 9.6 % (20-50) L 09/15/24 04:51 Unsat Iron Binding 140 ug/dL (112-347) 09/15/24 04:51 Ferritin 222 ng/mL (15-150) H 09/15/24 04:51 Total Bilirubin 0.3 mg/dL (0.15-1.2) 09/19/24 04:54 AST 27 U/L (0-32) 09/19/24 04:54 ALT 13 U/L (0-33) 09/19/24 04:54 Alkaline Phosphatase 83 U/L (35-105) 09/19/24 04:54 Creatine Kinase 171 U/L (26-192) 09/16/24 16:16 NT-Pro-B Natriuret Pep 75596 pg/mL (0-450) H 09/14/24 09:45 Total Protein 6.9 g/dL (6.6-8.7) 09/19/24 04:54 Albumin 2.7 g/dL (3.5-5.2) L 09/19/24 04:54 Globulin 4.2 g/dL (1.3-4.6) 09/19/24 04:54 Lipase 25 U/L (13-60) 09/14/24 09:45 25-OH Vitamin D Total 16 ng/mL (30-100) L 09/15/24 04:51 PTH Intact 209.2 pg/mL (15-65) H 09/15/24 04:51 Calcium (PTH Intact) 6.7 mg/dL (8.5-10.5) L 09/15/24 04:51 Urine Color Yellow (Yellow) 09/14/24 10:13 Urine Appearance Turbid (CLEAR) A 09/14/24 10:13 Urine pH 5.5 (5-7) 09/14/24 10:13 Ur Specific [place] 1.017 (1.005-1.030) 09/14/24 10:13 Urine Protein 2+ (Negative) A 09/14/24 10:13 Urine Glucose (UA) Negative (Normal) 09/14/24 10:13 Urine Ketones Negative (Negative) 09/14/24 10:13 Urine Blood 3+ (Negative) A 09/14/24 10:13 Urine Nitrate Negative (Negative) 09/14/24 10:13 Urine Bilirubin Negative (Negative) 09/14/24 10:13 Urine Urobilinogen 1.0 mg/dL (Negative) 09/14/24 10:13 Ur Leukocyte Esterase 3+ (Negative) A 09/14/24 10:13 Urine RBC 11-20 /hpf (0-2) H 09/14/24 10:13 Urine WBC >100 /hpf (0-5) H 09/14/24 10:13 Ur Squamous Epith Cells 11-20 /hpf (0-5) H 09/14/24 10:13 Amorphous Sediment Not Reportable 09/14/24 10:13 Urine Bacteria 4+ /hpf (NONE) H 09/14/24 10:13 Hyaline Casts 51.35 /lpf 09/14/24 10:13 Ur Random Sodium 43 mmol/L 09/14/24 10:13 Ur Random Potassium 36 mmol/L 09/14/24 10:13 Ur Random Chloride 31 mmol/L 09/14/24 10:13 Serum Immunofixation Normal pattern. 09/14/24 16:27 [place] Screen Negative (NEGATIVE) 09/14/24 16:27 Anti-ds DNA IgG Ab <1 IU/mL 09/14/24 16:27 Glomerular Base Mem IgG <1.0 AI 09/14/24 16:27 Free [place] Light Chains 87.6 mg/L (3.3-19.4) H 09/14/24 16:27 Free Lambda Light Chain 63.2 mg/L (5.7-26.3) H 09/14/24 16:27 Free [place]/Lambda Ratio 1.39 (0.26-1.65) 09/14/24 16:27 Hepatitis C Antibody Non-reactive (Nonreactive) 09/15/24 06:58 Influenza A (PCR) Negative (Negative) 09/14/24 09:19 Influenza Type B (PCR) Negative (Negative) 09/14/24 09:19 RSV (PCR) Negative (Negative) 09/14/24 09:19 SARS-CoV-2 (PCR) Negative (Negative) 09/14/24 09:19 Vitals Last Vital Signs Temp 98.3 F 09/19/24 11:31 Pulse 69 09/19/24 11:31 Resp 18 09/19/24 11:31 BP 155/65 09/19/24 11:31 Pulse Ox 94 09/19/24 11:31 O2 Del Method Room Air 09/19/24 11:31 O2 Flow Rate 3 09/19/24 08:00 Discharge Plan Discharge Patient Disposition: Home Condition: Stable Prescriptions: New cephalexin 500 mg capsule 500 mg PO TID 10 Days Qty: 30 0RF amlodipine 5 mg Tablet 10 mg PO DAILY Qty: 60 0RF VSL#3 112.5 billion cell capsule 1 cap PO DAILY Qty: 30 0RF hydralazine 10 mg tablet 10 mg PO BID Qty: 60 0RF Continued lidocaine HCl [Lidocaine Viscous] 2 % solution 1 applic topical ONCE Qty: 1 0RF escitalopram oxalate 10 mg tablet 10 mg PO DAILY pantoprazole 40 mg tablet,delayed release (DR/EC) 40 mg PO DAILY gabapentin 300 mg capsule 300 mg PO TID montelukast 10 mg tablet 10 mg PO DAILY polyethylene glycol 3350 17 gram/dose powder See Rx Instructions .ROUTE .COMPLEX Rx Instructions: FILL CAP TO LINE (17 GRAMS), MIX IN 8 OUNCES OF LIQUID AND DRINK BY MOUTH ONCE DAILY. fluticasone propionate 50 mcg/actuation spray,suspension 2 spray INTRANASAL DAILY levothyroxine 112 mcg tablet 112 mcg PO QAM rosuvastatin 10 mg tablet 10 mg PO DAILY cyanocobalamin (vitamin B-12) 5,000 mcg capsule 5,000 mcg PO DAILY Qty: 30 0RF aspirin 81 mg Tablet,Delayed Release (Dr/Ec) 81 mg PO DAILY Qty: 90 0RF potassium chloride 10 mEq tablet,ER particles/crystals 10 meq PO DAILY Qty: 30 0RF ondansetron HCl [Zofran] 4 mg Tablet 4 mg PO Q6H PRN (Reason: Nausea And Vomiting) acetaminophen [Tylenol Extra Strength] 500 mg Tablet 1,000 mg PO Q6H PRN (Reason: Pain) tizanidine 2 mg tablet 2 mg PO BEDTIME Discontinued lisinopril 20 mg tablet 20 mg PO DAILY amlodipine 5 mg tablet 5 mg PO DAILY loperamide 2 mg Capsule 2 mg PO Q4H PRN (Reason: Loose Stool) Rx Instructions: administer after each loose stool until symptoms controlled; do not exceed 8 mg per 24 hrs Waste/Materials Exchange Specialist OK for DC: Nephrology Discharge Order = DC NOW: Discharge Order (Routine); Ordered 09/19/24 Ordered By: Quentin Phelps Referrals: Cayla Rivas APN [Primary Care Provider, [facility]] Discharge Diet: Cardiac and Diabetic Discharge Activity: Increase activity as tolerated and As per PT/OT instructions Patient Instructions: Opioid Safety, Patient Portal & Nilsa Instructions Activity Restrictions/Additional Instructions: Take antibiotics till complete Take probiotics for 1 month PT and OT for strengthening 1600-calorie diet for weight loss Discharge Attestations Time Spent in Discharge Care*: greater than 30 min Quality Metrics Clinical Quality Measures [ No reported AMI, CVA or VTE this stay] Coding Level of Care Code 98399 Diagnoses Acute kidney injury N17.9 Rhabdomyolysis M62.82 UTI (urinary tract infection) N39.0 Anemia D64.9 Hypertension I10 Iron deficiency anemia D50.9 Time Spent (min) 45
--- NOTE | 2024-09-19 13:42 | PC.OT ---
OT eval held today due to patient d/c status
--- NOTE | 2024-09-19 18:18 | P.PN_ITS ---
Subjective 2 Subjective: no new c/o Medications: Reviewed: Yes Vitals/I&O/Wt Last Vital Signs Temp 98.3 F 09/19/24 16:11 Pulse 60 09/19/24 16:11 Resp 18 09/19/24 16:11 BP 155/65 09/19/24 16:11 Pulse Ox 94 09/19/24 16:11 O2 Del Method Nasal Cannula 09/19/24 15:32 O2 Flow Rate 3 09/19/24 08:00 09/19/24 09/19/24 09/19/24 06:59 14:59 22:59 Intake Total 590 / 590 Output Total 400 / 2250 500 / 500 Balance -400 / -1540 590 / 590 -500 / 90 Weight last 48 hrs Weight 87.543 kg Weight 89.301 kg Physical Exam 2 Narrative: Elderly appearing lady lying in bed, she is using nasal cannula oxygen. She appears to be short of breath. Vital signs noted. HEENT normocephalic atraumatic neck is supple. Lungs dull bases bilaterally, wheezing and crackles bilaterally. Heart regular rate and rhythm. Abdomen soft nontender nondistended positive bowel sounds. Extremities-bilateral lower extremity edema. Patient has a bruise on 1 hip. Positive Damon catheter. Neuro awake alert oriented x 2+. Moves all extremities. Urinary Catheter Management: Damon: Cath Placed During This Visit: yes, but has since been removed by the nurse Reason for Continuing Indwelling Catheter: Acute Urinary Retention or Obstruction Urinary Catheter Date of Insertion: 09/14/24 Urinary Catheter Time of Insertion: 12:41 Date Urinary Catheter Removed: 09/19/24 Time Urinary Catheter Discontinued: 15:16 Data 09/19/24 04:54 09/19/24 04:54 A&P Assessment and plan 1. Acute kidney injury: 79-year-old lady history of GERD anxiety hypertension fibromyalgia hypothyroidism gallstones. At the long term she is on levothyroxine lisinopril Protonix potassium. Patient presents now with not eating well lethargy and acute kidney injury. -The patient has an E. coli UTI. Follow-up cultures to adjust antibiotics appropriately. 1. Acute kidney injury: Renal ultrasound reviewed, right kidney 10 cm simple appearing cyst left kidney 9.6 cm with increased echogenicity. The patient does not have hydronephrosis. CT scan showed a 3 mm nonobstructing calculus in the left lower pole mild right perinephric fat stranding - Urinalysis reviewed turbid specific gravity 1017 protein 2+3+ blood 3+ leuk esterase., 4+ bacteria hyaline cast positive. Urine can be consistent with prerenal azotemia versus ATN. - Urine electrolytes reviewed urine sodium was 43 potassium 36 chloride 31 -Hold nephrotoxic agents including SARAH inhibitors or ARB. - Renal fxn stable ,Monitor I's and O's., can give Lasix - Serologies are pending 2. Anemia evaluation. Iron saturation 9.6% ferritin 222. Hemoglobin 9.5 will give IV iron Await SPEP. 3. Hypothyroidism , on levothyroxine . 4. HTN : Blood pressure improved on amlodipine. 5. Replace vitamin D and can check PTH in the future 6. Pneumonia, renal dose antibiotics. The patient was seen and examined using A/V equipment with the aid of a nurse. The patient consented to telehealth. Plan: See above. PDMP PDMP Reviewed: Not Reviewed Attestations 2 Medical Necessity Statement*: per fredi Coding Level of Care Code Acute Code for Chg Fwd Diagnoses Acute kidney injury N17.9
[2024-09-20 16:15] LABS: ALPHA 1 GLOBULIN 0.6 g/dL (0.2-0.3); ALPHA 2 GLOBULIN 1.2 g/dL (0.5-0.9); BETA 1 GLOBULIN 0.4 g/dL (0.4-0.6); BETA 2 GLOBULIN 0.5 g/dL (0.2-0.5)
[2024-09-20 16:46] LABS: ANCA Screen C-ANCA POS (NEGATIVE)
== END 2024-09-19 16:13 | disposition home or self-care (01) | DRG 683 ==
LOC: ER 09:41 → MEDSURG 11:31
PROVIDERS: Internal Medicine Nephrology; Student in an Organized Health Care Education/Training Program; Admitting Provider Internal Medicine; Emergency Provider Family Medicine; PCP Nurse Practitioner Family; Visit Provider Internal Medicine
DX: N17.0 Acute kidney failure with tubular necrosis (principal); I13.0 Hypertensive heart and chronic kidney disease with heart failure and stage 1 through stage 4 chronic kidney disease, or unspecified chronic kidney disease; M62.82 Rhabdomyolysis; I50.32 Chronic diastolic (congestive) heart failure; N12 Tubulo-interstitial nephritis, not specified as acute or chronic; B96.20 Unspecified Escherichia coli [E. coli] as the cause of diseases classified elsewhere; D63.1 Anemia in chronic kidney disease; N18.9 Chronic kidney disease, unspecified; K21.9 Gastro-esophageal reflux disease without esophagitis; F41.9 Anxiety disorder, unspecified; M79.7 Fibromyalgia; E03.9 Hypothyroidism, unspecified; E78.2 Mixed hyperlipidemia; Z66 Do not resuscitate; F32.9 Major depressive disorder, single episode, unspecified; E55.9 Vitamin D deficiency, unspecified; E53.8 Deficiency of other specified B group vitamins; K59.00 Constipation, unspecified; G47.00 Insomnia, unspecified; R09.02 Hypoxemia; Z99.81 Dependence on supplemental oxygen; Z79.82 Long term (current) use of aspirin; Z87.891 Personal history of nicotine dependence
CPT/HCPCS: 36415; 51702; 71045; 74176; 76770; 80048; 80053; 81001; 82274; 82306; 82310; 82436; 82550; 82728; 83520; 83540; 83550; 83605; 83690; 83735; 83880; 83883; 83970; 84100; 84133; 84155; 84165; 84300; 84550; 85025; 86036; 86038; 86225; 86334; 86803; 87040; 87077; 87086; 87150; 87186; 87205; 87637; 93005; 93010; 93306; 94640; 96365; 96372; 97161; 97530; 99285; J0696; J1650; J1938; J2543; J2916; J3475; J3490; J7120; J9999; Q3014

== ENCOUNTER 2024-11-15 13:37 | Inpatient (IN) | payer MEDICAID, SELFPAY ==
--- OUTSIDE RECORDS SUMMARY | 2024-09-29 09:20 | XMS_ITS ---
Author Organization [facility] Address [address] [place] [address] Care Team Providers Care Personnel Worker Name Role Phone Suresh Conde Unavailable [phone] AGNES WASHBURN Unavailable Unavailable REASON FOR VISIT half-way visit at [place], [place] Encounters Encounter Location Date Provider Diagnosis [facility] [address] [place] [address] 09/29/2024 Suresh Conde Assessments Encounter Date Diagnosis (ICD Code) Assessment Notes Treatment Notes Treatment Clinical Notes Section Notes 09/29/2024 Other Medications wer e reviewed. I will continue without changes. Nursing staff is to contact me with any symptoms arising. Orders signed and documented with nursing staff. Vitals taken and recorded at [facility]. Plan Of Treatment Treatment Notes Assessment Notes Other Medications were rev iewed. I will continue without changes. Nursing staff is to contact me with any symptoms arising. Orders signed and documented with nursing staff. Vitals taken and recorded at [facility]. Next Appt Details Follow Up: 4 Weeks, Reason: History and Physical Notes * HPI (History of Present Illness) Category Sub-Category Detail Notes Category Not es : The patient is seen in the shelter today for follow-up. Staff reports no new complaints. The review of systems and exam are unchanged from previous. Patient denies pain and is comfortable. Examination Category Sub-Category Detail Notes Category Not es General Examination GENERAL APPEARANCE: in no ac eagle distress. Vital signs as documented. NECK/THYROID: no JVD HEART: notable for regular rhythym, normal sounds and absence of murmurs, rubs or gallops. LUNGS: Lungs clear ABDOMEN: unremarkable, no org anomegaly , no masses, or abdominal aortic enlargement. SKIN: warm and dry, withou t overt rashes. Progress Notes * Gabriella HANNONDOB: 7 (79 yo F)Acc No.[id number]:09/29/2024 Patient: Gabriella Almaguer Provider: Beka Conde MD :1945 A ge:79 Y S ex:Female Date:09/29/2024 Address:[address] [place], [place] [id number] Subjective: * Chief Complaints: * N ursing home visit at [place], [place] * HPI: * :: The patient is seen in the shelter today for follow-up. Staff reports no new complaints. The review of systems and exam are unchanged from previous. Patient denies pain and is comfortable. Objective: * Examination: G eneral Examination: GENERAL APPEARANCE: i n no acute distress. Vital signs as documented.. NECK/THYROID: n o JVD. SKIN: w arm and dry, without overt rashes.. HEART: n otable for regular rhythym, normal sounds and absence of murmurs, rubs or gallops. LUNGS: L ungs clear. ABDOMEN: u nremarkable, no organomegaly , no masses, or abdominal aortic enlargement.. Plan: * Treatment: * Procedure Codes: 9 9309 [facility] CARE SUBSEQ * Follow Up: 4 Weeks Billing Information: * Procedure Codes: 08757 SNF CARE SUBSEQ. * Electronic signature of Jarod Conde MD on 11/15/2024 at 01:54 PM CDT Sign off status: Pending * Provider: Beka Conde MD Date: 09/29/2024 Generated for Margaret villarreal/Freddy/Jocelinitting on: 11/15/2024 01:54 PM CDT
--- OUTSIDE RECORDS SUMMARY | 2024-10-13 09:20 | XMS_ITS ---
Author Organization [facility] Address [address] [place] [address] Care Team Providers Care Stereoptician Name Role Phone Suresh Conde Unavailable [phone] AGNES WASHBURN Unavailable Unavailable REASON FOR VISIT [facility] visit at [place], [place] Encounters Encounter Location Date Provider Diagnosis [facility] [address] [place] [address] 10/13/2024 Suresh Conde Assessments Encounter Date Diagnosis (ICD Code) Assessment Notes Treatment Notes Treatment Clinical Notes Section Notes 10/13/2024 Other Medications wer e reviewed. I will continue without changes. Nursing staff is to contact me with any symptoms arising. Orders signed and documented with nursing staff. Vitals taken and recorded at [facility]. Plan Of Treatment Treatment Notes Assessment Notes Other Medications were rev iewed. I will continue without changes. Nursing staff is to contact me with any symptoms arising. Orders signed and documented with nursing staff. Vitals taken and recorded at [facility]. Next Appt Details Follow Up: 4 Weeks, Reason: History and Physical Notes * HPI (History of Present Illness) Category Sub-Category Detail Notes Category Not es : The [facility] in the prison today for follow-up. Staff reports no new complaints. The review of systems and exam are unchanged from previous. Patient denies pain and is comfortable. Examination Category Sub-Category Detail Notes Category Not es General Examination GENERAL APPEARANCE: in no ac white earth distress. Vital signs as documented. NECK/THYROID: no JVD HEART: notable for regular rhythym, normal sounds and absence of murmurs, rubs or gallops. LUNGS: Lungs clear ABDOMEN: unremarkable, no org anomegaly , no masses, or abdominal aortic enlargement. SKIN: warm and dry, withou t overt rashes. Progress Notes * Gabriella HANNONDOB: 7 (79 yo F)Acc No.[id number]:10/13/2024 Patient: Gabriella Almaguer Provider: Beka Conde MD :1945 A ge:79 Y S ex:Female Date:10/13/2024 Address:[address] [place], [place] [id number] Subjective: * Chief Complaints: * N ursing home visit at [place], [place] * HPI: * :: The patient is seen in the prison today for follow-up. Staff reports no new [...] * Treatment: * Procedure Codes: [address] [facility] CARE SUBSEQ * Follow Up: 4 Weeks Billing Information: * Procedure Codes: 30255 SNF CARE SUBSEQ. * Electronic signature of Jarod Conde MD on 11/15/2024 at 01:55 PM CDT Sign off status: Pending * Provider: Beka Conde MD Date: 10/13/2024 Generated for Margaret villarreal/Freddy/Jocelinitting on: 11/15/2024 01:55 PM CDT
[2024-11-15] VITALS (12 sets, daily range): BP systolic 104–155; BP diastolic 43–58; PULSE 61–70; RESP 16–20; TEMP 36.8; O2SAT 91–96
--- OUTSIDE RECORDS SUMMARY | 2024-11-15 13:55 | XMS_ITS | Patient Health Record ---
Author Organization [facility] Address [address] [place] [address] Care Team Providers Care It Security Engineer Name Role Phone Suresh Conde Unavailable AGNES WASHBURN Unavailable Unavailable Allergies No Known Allergies Reason For Referral No Information Medications Medication SIG (Take, Route, Frequency, Duration) Notes Start Date End Date Status amLODIPine Besylate 5 mg Tablet TAKE ONE TABLET BY MOUTH DAILY; Duration: 30 days Active Aspirin 81 81 MG Tablet Chewable 1 tablet Orally Once a day; Duration: 30 days Unknown Gabapentin 300 mg Capsule TAKE ONE CAPSU LE BY MOUTH THREE TIMES DAILY FOR 30 DAYS; Duration: 30 days Active Vitamin B 12 500 MCG Tablet 1 tablet Ora lly Once a day Unknown Rosuvastatin Calcium 10 mg Tablet TAKE ONE TABLET BY MOUTH DAILY; Duration: 30 days Active Polyethylene Glycol 3350 17 GM/SCOOP Powder FILL CAP TO LINE (17 GRAMS), MIX IN 8 OUNCES OF LIQUID AND DRINK BY MOUTH ONCE DAILY; Duration: 30 days Unknown Lisinopril 20 mg Tablet TAKE ONE TABLET BY MOUTH DAILY; Duration: 30 days Active traZODone HCl 150 mg Tablet TAKE TWO TAB LETS BY MOUTH At Bedtime; Duration: 30 days Unknown Pantoprazole Sodium 40 mg Tablet Delayed Release TAKE ONE TABLET BY MOUTH EVERY MORNING; Duration: 30 Active Mirtazapine 15 mg Tablet TAKE ONE TABLET BY MOUTH At Bedtime with evening meal; Duration: 30 days Active ALPRAZolam 0.5 MG Tablet 1 tablet Orally once day as needed; Duration: 30 days 09/09/2023 Active Fluticasone Propionate 50 MCG/ACT Suspension 2 spray in each nostril Nasally Once a day; Duration: 30 days Unknown amLODIPine Besylate 10 mg Tablet TAKE 1 TABLET BY MOUTH DAILY; Duration: 30 Active Aspirin 81 mg Tablet Chewable chew AND swallow ONE tablet BY MOUTH ONCE a DAY; Duration: 30 Active Montelukast Sodium 10 MG Tablet 1 tablet Orally Once a day; Duration: 30 days Unknown Levothyroxine Sodium 112 mcg Tablet TAKE ONE TABLET BY MOUTH EVERY MORNING ON a EMPTY stomach; Duration: 30 days Active Cyclobenzaprine HCl 10 MG Tablet 1 tablet Orally Once a day as needed; Duration: 30 days Unknown Potassium Chloride 10 MEQ Tablet Extended Release 1 tablet with food Orally Twice a day Active Ergocalciferol 1.25 MG (78555 UT) Capsule 1 capsule Orally weekly; Duration: 30 days Unknown Cyanocobalamin 5000 MCG Capsule as directed Orally Active Montelukast Sodium 10 mg Tablet TAKE ONE TABLET BY MOUTH EVERY DAY; Duration: 30 Active MiraLax 17 GM/SCOOP Powder 1 scoop mixed with 8 ounces of fluid Orally Once a day Active Fluticasone Propionate 50 MCG/ACT Suspension USE TWO SPRAYS in each nostril DAILY; Duration: 30 Active Social History Tobacco Use: Social History Observation Description Date Details (start date - stop date) Never Smoker NA - NA Social History Depression Screening Social Info Question Answer Notes PHQ-9 Little interest or pleasure in doing thin gs Not at all Feeling down, depressed, or [...] way Not at all Total Score 0 Drugs/Alcohol: Social Info Question Answer Notes Alcohol Screen (Audit-C) Did you have a drink containing alcohol in the past year? No Points 0 Interpretation Negative Tobacco Use: Social Info Question Answer Notes xTobacco Use/Smoking Are you a nonsmoker Section Notes: 08/15/20 08/15/20 09/04/21 08/15/20 09/04/2121 6/23/22 11/15/23 PHQ9 08/15/20 09/04/21 01/27/23 PHQ9 08/15/20 Problems Problem Type SNOMED Code ICD Code Onset Dates Problem Status W/U Status Risk Notes Problem Mixed hyperlipidemia (022125723) Mixed hyperlipidemia (E78.2) Active confirmed Problem Chronic pain syndrome (592572474) Chronic pain syndrome (G89.4) Active confirmed Problem Fibromyalgia (756971019) Fibromyalgia (M79.7) Active confirmed Problem Anxiety (06394301) Anxiety (F41.9) Active confi rmed Problem Constipation (59200617) Constipation, unspecified constipation type (K59.00) Active confirmed Problem Gastroesophageal reflux disease (634153454) GERD without esophagitis (K21.9) Active confirmed Problem Essential hypertension (50563864) Hypertension, unspecified type (I10) Active confirmed Problem Vitamin D deficiency (44335838) Vitamin D deficiency (E55.9) Active confirmed Problem Hypothyroidism (55291670) Hypothyroidism, unspecified type (E03.9) Active confirmed Problem Dysthymia (70419979) Dysthymia (F34.1) Active confirmed Problem Obesity (167212695) Obesity (BMI 30-39.9) (E66.9) Active confirmed Problem Depression (337169918) Depression (F32.9) Active confirmed Problem Insomnia (210701788) Insomnia, unspecified type (G47.00) Active confirmed Problem Seasonal allergy (048668717) Seasonal allergies (J30.2) Active confirmed Encounters Encounter Location Date Provider Diagnosis Formerly [facility] [address] [place] [address] 09/29/2024 [facility] [address] [place] [address] 10/13/2024 [facility] [address] [place] [address] 11/19/2023 Suresh Conde Mixed hyperlipidemia E78.2 ; Chronic pain syndrome G89.4 and Depression F32.9 Formerly [facility] [address] [place] [address] 12/17/2023 Suresh Conde Mixed hyperlipidemia E78.2 ; Chronic pain syndrome G89.4 and Insomnia, unspecified type G47.00 [id number] [place] [address] 01/14/2024 Christopher Conde Mixed hyperlipidemia E78.2 ; GERD without esophagitis K21.9 and Seasonal allergies J30.2 Formerly [facility] [address] [place] [address] 02/18/2024 Christopher Conde Mixed hyperlipidemia E78.2 ; Chronic pain syndrome G89.4 ; Insomnia, unspecified type G47.00 and Fibromyalgia M79.7 [address] [place] [address] 03/31/2024 Christopher Conde Mixed hyperlipidemia E78.2 and Chronic pain syndrome G89.4 [address] [place] [address] 04/21/2024 Christopher Conde Mixed hyperlipidemia E78.2 ; Chronic pain syndrome G89.4 and GERD without esophagitis K21.9 [id number] [facility] [place] [address] 05/19/2024 Christopher Conde Mixed hyperlipidemia E78.2 ; Chronic pain syndrome G89.4 and Insomnia, unspecified type G47.00 [address] [place] [address] 06/16/2024 Christopher Conde Mixed hyperlipidemia E78.2 ; Chronic pain syndrome G89.4 and Insomnia, unspecified type G47.00 [address] [place] [address] 07/14/2024 Christopher Conde Mixed hyperlipidemia E78.2 and Chronic pain syndrome G89.4 [address] [place] [address] 08/18/2024 Christopher Conde Mixed hyperlipidemia E78.2 ; Dysthymia F34.1 and Anxiety F41.9 Assessments Encounter Date Diagnosis (ICD Code) Assessment Notes Treatment Notes Treatment Clinical Notes Section Notes 11/19/2023 Mixed hyperlipidemia (ICD-10 - E78.2) 12/17/2023 [...] nursing staff. Vitals taken and recorded at [facility]. 06/16/2024 Mixed hyperlipidemia (ICD-10 - E78.2) Medications were reviewed. I will continue without changes. Nursing staff is to contact me with any symptoms arising. Orders signed and documented with nursing staff. Vitals taken and recorded at [facility]. 07/14/2024 Mixed hyperlipidemia (ICD-10 - E78.2) Medications were reviewed. I will continue without changes. Nursing staff is to contact me with any symptoms arising. Orders signed and documented with nursing staff. Vitals taken and recorded at [facility]. 08/18/2024 Mixed hyperlipidemia (ICD-10 - E78.2) Medications were reviewed. I will continue without changes. Nursing staff is to contact me with any symptoms arising. Orders signed and documented with nursing staff. Vitals taken and recorded at [facility]. 08/18/2024 Dysthymia (ICD-10 - F34.1) 07/14/2024 Chronic pain syndrome (ICD-10 - G89.4) 06/16/2024 Chronic pain syndrome (ICD-10 - G89.4) 05/19/2024 Chronic pain syndrome (ICD-10 - G89.4) 04/21/2024 Chronic pain syndrome (ICD-10 - G89.4) 03/31/2024 Chronic pain syndrome (ICD-10 - G89.4) 02/18/2024 Chronic pain syndrome (ICD-10 - G89.4) 01/14/2024 GERD without esophagitis (ICD-10 - K21.9) 12/17/2023 Chronic pain syndrome (ICD-10 - G89.4) 11/19/2023 Chronic pain syndrome (ICD-10 - G89.4) 11/19/2023 Depression (ICD-10 - F32.9) 12/17/2023 Insomnia, unspecified type (ICD-10 - G47.00) 01/14/2024 Seasonal allergies (ICD-10 - J30.2) 02/18/2024 Insomnia, unspecified type (ICD-10 - G47.00) 04/21/2024 GERD without esophagitis (ICD-10 - K21.9) 05/19/2024 Insomnia, unspecified type (ICD-10 - G47.00) 06/16/2024 Insomnia, unspecified type (ICD-10 - G47.00) 08/18/2024 Anxiety (ICD-10 - F41.9) 02/18/2024 Fibromyalgia (ICD-10 - M79.7) 09/29/2024 Other Medications were reviewed. I will continue without changes. Nursing staff is to contact me with any symptoms arising. Orders signed and documented with nursing staff. Vitals taken and recorded at [facility]. 10/13/2024 Other Medications were reviewed. I will continue without changes. Nursing staff is to contact me with any symptoms arising. Orders signed and documented with nursing staff. Vitals taken and recorded at [facility]. 11/19/2023 Other Medications reviewed, orders signed and documented with nursing staff. Vitals taken and recorded at [facility]. 12/17/2023 Other Medications reviewed, orders signed and documented with nursing staff. Vitals taken and recorded at [facility]. 01/14/2024 Other Medications reviewed, orders signed and documented with nursing staff. Vitals taken and recorded at [facility]. 02/18/2024 Other Medications reviewed, orders signed and documented with nursing staff. Vitals taken and recorded at [facility]. 03/31/2024 Other Medications reviewed, orders signed and documented with nursing staff. Vitals taken and recorded at [facility]. 04/21/2024 Other Medications reviewed, orders signed and documented with nursing staff. Vitals taken and recorded at [facility]. Plan Of Treatment No Information Insurance Providers Payer Name Payer Address Payer Phone Subscriber Number Group Number Insured Name Patient Relationship to Insured Coverage Start Date Coverage End Date [place] [address] [place] [address] [id number] Gabriella Zavaleta Self - patient is the insured Medical (General) History Medical History History ICD Code hypertension hypothyroidism GERD insomnia chronic back pain Surgical History Surgery Date(Month/Year) back surgery Hospitalization History Reason Date(Month/Year) [facility] 08/2023
--- NOTE | 2024-11-15 14:14 | PC.PHAR ---
Pt is from [facility]
--- NOTE | 2024-11-15 14:19 | ECG_ITS ---
[facility]: 2024-11-15 Pat Name: Gabriella Thompson Department: Room: Gender: Female Biological Technician: : 1945 Requested By: Anne Naranjo Order Number: [id number] Lamont MD: Mason Turner M.D. Measurements Intervals [place] Rate: 67 P: 62 DE: 141 QRS: -68 QRSD: 132 T: 56 QT: 435 QTc: 459 Interpretive Statements SINUS RHYTHM RIGHT BUNDLE BRANCH BLOCK [120+ ms QRS DURATION, UPRIGHT V1, 40+ ms S IN I/aVL/V4/V5/V6] LEFT ANTERIOR FASCICULAR BLOCK [QRS AXIS <= -45, QR IN I, RS IN II] MODERATE T-WAVE ABNORMALITY, CONSIDER LATERAL ISCHEMIA [-0.1+ mV T-WAVE IN I/aVL/V5/V6] MODERATE T-WAVE ABNORMALITY, CONSIDER INFERIOR ISCHEMIA [-0.1+ mV T-WAVE IN II/aVF] Compared to ECG 09/14/2024 10:23:41 No significant changes Electronically Signed On 11-15-2024 17:30:50 CDT by Mason Turner M.D. [email or web address]
--- NOTE | 2024-11-15 14:23 | XR_ITS ---
WS: [id number] Portable AP upright chest, 11/15/2024 Clinical Data: shortness of breath Comparison: Portable chest, 09/14/2024 Findings: No nodules, masses or effusions are seen. The heart is slightly enlarged. The pulmonary vascularity is not increased. No pneumonia or pneumothorax is seen. The aortic arch shows calcification and there is tortuosity of the descending thoracic aorta. Monitor leads are on the chest wall. XR/XR chest 1V portable [id number] Impression: Cardiomegaly and atherosclerosis.
--- NOTE | 2024-11-15 14:25 | W.ED.GENADLT ---
HPI - General Adult General: Chief complaint: Shortness of Breath/Dyspnea Stated complaint: N/V/D Low O2 History of Present Illness: Patient is a 79-year-old female presenting with a chief complaint of nausea, vomiting for couple of days and now shortness of breath and a new oxygen requirement. Per report, patient was hypoxic and is now on supplemental oxygen. Patient is alert and oriented on my exam and able to provide some history. She states she has not had a fever. Patient is short of breath but denies chest pain. She denies abdominal pain but does have tenderness in the left lower quadrant on my exam. She states that she has been nauseated, vomiting and has had diarrhea for a few days now. Patient denies any pain with urination. She denies any falls or trauma. Patient has left lower extremity swelling but states that this is baseline for her. Patient denies any history of lung disease such as asthma or COPD. She appears to have a have a history of high blood pressure, thyroid disease. Patient denies treatment for congestive heart failure. Related Data Home Medications ?Medication ?Instructions ?Recorded ?Confirmed fluticasone propionate 50 2 spray intranasal DAILY 09/03/23 11/15/24 mcg/actuation nasal spray,suspension gabapentin 300 mg capsule 300 mg PO TID 09/03/23 11/15/24 levothyroxine 112 mcg tablet 112 mcg PO QAM 09/03/23 11/15/24 montelukast 10 mg tablet 10 mg PO DAILY 09/03/23 11/15/24 pantoprazole 40 mg tablet,delayed 40 mg PO QAM 09/03/23 11/15/24 release polyethylene glycol 3350 17 See Rx Instructions .Route .COMPLEX 09/03/23 11/15/24 gram/dose oral powder rosuvastatin 10 mg tablet 10 mg PO QPM 09/03/23 11/15/24 escitalopram oxalate 10 mg tablet 10 mg PO QAM 10/18/23 11/15/24 acetaminophen 500 mg tablet 1,000 mg PO Q6H PRN Pain 09/14/24 11/15/24 (Tylenol Extra Strength) ondansetron HCl 4 mg tablet 4 mg PO Q6H PRN Nausea And Vomiting 09/14/24 11/15/24 tizanidine 2 mg tablet 2 mg PO BEDTIME 09/14/24 11/15/24 amlodipine 5 mg tablet 10 mg PO QAM 11/15/24 11/15/24 Previous Rx's ?Medication ?Instructions ?Recorded cyanocobalamin (vitamin B-12) 5,000 mcg PO DAILY #30 caps 09/06/23 5,000 mcg capsule aspirin 81 mg tablet,delayed 81 mg PO DAILY #90 tabs 09/30/23 release potassium chloride 10 mEq 10 meq PO DAILY #30 tabs 09/30/23 tablet,extended release(part/cryst) Lactobac no.2-Bifidobac no.1-S. 1 cap PO DAILY #30 caps 09/19/24 thermo 112.5 billion cell capsule (VSL#3) hydralazine 10 mg tablet 10 mg PO BID #60 tabs 09/19/24 Allergies Allergy/AdvReac Type Severity Reaction Status Date / Time soap Allergy SHIVANI-Alexe Verified 10/30/24 18:57 r [facility] PFSH: Medical History (Updated 09/20/24 @ 00:00 by RUBINA Schultz) Hypertension Acute kidney failure, unspecified Other specified abnormal findings of blood chemistry Mixed hyperlipidemia Gastro-esophageal reflux disease without esophagitis Anxiety disorder, unspecified Vitamin D deficiency, unspecified Major depressive disorder, single episode, unspecified Fibromyalgia Insomnia, unspecified Constipation, unspecified B12 deficiency Hypothyroidism Gallstone Social History Smoking and tobacco/nicotine status: former use of tobacco/nicotine Alcohol intake: never Housing: [facility] Physical Exam Narrative: EXAM NARRATIVE: Vitals were reviewed. Patient is alert and able to answer questions appropriately. Patient has crackles in the anterior lung funez, exam is limited as she is not able to sit up. Bedside ultrasound does show some B-lines. Patient is requiring supplemental oxygen. Patient is not hypotensive or tachycardic. Patient has a nondistended abdomen, does have tenderness to palpation in the left lower quadrant. She does have some left lower extremity swelling in comparison to right but she states this is baseline, does have some edema. Course Vital Signs: Vital signs: Vital Signs Temperature 98.2 F 11/15/24 13:44 Pulse Rate 70 11/15/24 17:02 Respiratory Rate 16 11/15/24 17:02 Blood Pressure 153/48 11/15/24 17:02 Pulse Oximetry 96 11/15/24 17:02 Oxygen Delivery Me thod Nasal Cannula 11/15/24 15:16 Oxygen Flow Rate 6 11/15/24 15:16 MDM - General Adult Medical Decision Making 71-year-old female presents from [facility] for chief complaint of abdominal pain, nausea, vomiting, diarrhea and shortness of breath with new oxygen requirement. Differential diagnosis includes, but is not limited to, ACS, myocarditis, pericarditis, pneumonia, viral upper respiratory infection, PE, congestive heart failure, diverticulitis, urinary tract infection, sepsis, other. On initial exam, patient is normotensive and is not tachycardic but does require supplemental oxygen. EKG was personally reviewed and interpreted and shows normal sinus rhythm with a heart rate of 67, left axis deviation, right bundle branch block, no evidence of ST segment elevation. Patient was evaluated with lab work including CBC, CMP, procalcitonin, lactic acid, troponin, BNP, COVID and flu screen, EKG, chest x-ray. Patient has a normal white blood cell count normal lactic acid and a normal procalcitonin. At this time, I favor infectious etiology less although given that CT scan does comment on pneumonia, she was treated with IV ceftriaxone and p.o. azithromycin. Patient is anemic but this is baseline. Patient has an of elevated creatinine which could be an RICARDO versus new baseline status post recent RICARDO. She also has an elevated BNP, B-lines on ultrasound and pleural effusions and I feel that there is a component of congestive heart failure present. Patient was started on BiPAP. UA is also consistent with urinary tract infection. Patient is medically complex and has a new oxygen requirement and will require inpatient admission. Lab Data 11/15/24 14:35 11/15/24 14:35 Radiology Impressions Chest X-Ray 11/15/24 14:23 Impression: Cardiomegaly and atherosclerosis. Chest/Abdomen/Pelvis CT 11/15/24 15:44 IMPRESSION: 1. Bilateral upper lobe and right middle lobe pneumonia. COPD 2. Right pleural effusion with right basal atelectasis. 3. Trace pericardial effusion. 4. Evidence of reflux esophagitis. 5. Pulmonary arterial hypertension. 6. Moderate coronary arterial calcification, indicating the presence of coronary artery disease. If the patient has associated symptoms recommend management as per chest pain guidelines. If the patient is asymptomatic consider reviewing modifiable cardiovascular risk factors and managing as per guidelines for primary prevention IMPRESSION: 1. Interval development of inflammatory change in the distal small bowel which may be due to an enteritis, the presence of the calcification in this region could be causing inflammation however, an underlying mass can not be excluded, recommend follow-up in a few weeks and tissue sampling as indicated. 2. Possible cystitis, recommend correlation with urinalysis. 3. Moderate intrahepatic biliary ductal dilatation. COMMENTS: Consistent with the [employer]'s Incidental Findings Committee white paper (J Am Jagdish Radiol 2018): Any incidental renal lesion less than 1 cm or classified as too small to characterize, or any incidental cystic renal lesion characterized as simple-appearing, is likely benign. No follow-up imaging is recommended for these lesions per consensus recommendations based on imaging criteria. Laboratory Results WBC 7.00 10^3/uL (3.29-11.43) 11/15/24 14:35 RBC 3.58 10^6/uL (3.85-5.65) L 11/15/24 14:35 Hgb 10.30 g/dL (11.27-16.99) L 11/15/24 14:35 Hct 34.3 % (36-47) L 11/15/24 14:35 MCV 95.8 fl (85-98) 11/15/24 14:35 MCH 28.8 pg (27-33) 11/15/24 14:35 MCHC 30.0 g/dL (30-55) 11/15/24 14:35 RDW 15.9 % (12.1-15.1) H 11/15/24 14:35 Plt Count 255 10^3/cmm (157-399) 11/15/24 14:35 MPV 9.0 fL (7.4-10.4) 11/15/24 14:35 Neut % (Auto) 82.5 % 11/15/24 14:35 Lymph % (Auto) 11.9 % 11/15/24 14:35 [place] % (Auto) 4.6 % 11/15/24 14:35 Eos % (Auto) 0.1 % 11/15/24 14:35 Baso % (Auto) 0.6 % 11/15/24 14:35 Neut # (Auto) 5.78 10^3/uL (1.8-7.7) 11/15/24 14:35 Lymph # (Auto) 0.8 10^3/uL (0.8-4.8) 11/15/24 14:35 [place] # (Auto) 0.3 10^3/uL (0.2-0.9) 11/15/24 14:35 Eos # (Auto) 0.0 10^3/uL (0.0-0.8) 11/15/24 14:35 Baso # (Auto) 0.0 10^3/uL (0.0-0.1) 11/15/24 14:35 Nucleated RBC % (auto) 0 % 11/15/24 14:35 Nucleated RBCs # 0.0 /100WBC 11/15/24 14:35 Sodium 143 mmol/L (136-145) 11/15/24 14:35 Potassium 4.7 mmol/L (3.5-5.1) 11/15/24 14:35 Chloride 104 mmol/L (98-107) 11/15/24 14:35 Carbon Dioxide 23 mmol/L (22-29) 11/15/24 14:35 Anion Gap 20.7 (5-19) H 11/15/24 14:35 BUN 20 mg/dL (8-23) 11/15/24 14:35 Creatinine 1.4 mg/dL (0.5-0.9) H 11/15/24 14:35 GFR Calculation Not Reportable 11/15/24 14:35 Glucose 106 mg/dL (65-115) 11/15/24 14:35 Calculated Osmolality 299 mOsm/kg (285-295) H 11/15/24 14:35 Lactic Acid 0.9 mmol/L (0.5-2.2) 11/15/24 14:35 Calcium 6.8 mg/dL (8.5-10.5) L 11/15/24 14:35 Total Bilirubin 0.3 mg/dL (0.15-1.2) 11/15/24 14:35 AST 14 U/L (0-32) 11/15/24 14:35 ALT < 5 U/L (0-33) 11/15/24 14:35 Alkaline Phosphatase 90 U/L (35-105) 11/15/24 14:35 Troponin T Baseline 64 ng/L (0-10) H 11/15/24 14:35 NT-Pro-B Natriuret Pep 6599 pg/mL (0-450) H 11/15/24 14:35 Total Protein 6.4 g/dL (6.6-8.7) L 11/15/24 14:35 Albumin 3.4 g/dL (3.5-5.2) L 11/15/24 14:35 Globulin 3.0 g/dL (1.3-4.6) 11/15/24 14:35 Procalcitonin 0.10 ng/mL (0-0.5) 11/15/24 14:35 Urine Color Yellow (Yellow) 11/15/24 16:20 Urine Appearance Turbid (CLEAR) A 11/15/24 16:20 Urine pH 7.5 (5-7) 11/15/24 16:20 Ur Specific [place] 1.029 (1.005-1.030) 11/15/24 16:20 Urine Protein 2+ (Negative) A 11/15/24 16:20 Urine Glucose (UA) Negative (Normal) 11/15/24 16:20 Urine Ketones Trace (Negative) 11/15/24 16:20 Urine Blood Negative (Negative) 11/15/24 16:20 Urine Nitrate Negative (Negative) 11/15/24 16:20 Urine Bilirubin Negative (Negative) 11/15/24 16:20 Urine Urobilinogen 1.0 mg/dL (Negative) 11/15/24 16:20 Ur Leukocyte Esterase 2+ (Negative) A 11/15/24 16:20 Urine RBC 11-20 /hpf (0-2) H 11/15/24 16:20 Urine WBC >100 /hpf (0-5) H 11/15/24 16:20 Ur Squamous Epith Cells 0-5 /hpf (0-5) 11/15/24 16:20 Amorphous Sediment Not Reportable 11/15/24 16:20 Urine Bacteria 4+ /hpf (NONE) H 11/15/24 16:20 Hyaline Casts 33.08 /lpf 11/15/24 16:20 Influenza A (PCR) Negative (Negative) 11/15/24 14:57 Influenza Type B (PCR) Negative (Negative) 11/15/24 14:57 RSV (PCR) Negative (Negative) 11/15/24 14:57 SARS-CoV-2 (PCR) Negative (Negative) 11/15/24 14:57 All radiology interpretation(s) finalized by discharge Discharge Plan Discharge Condition: Stable Prescriptions: No Action escitalopram oxalate 10 mg tablet 10 mg PO QAM pantoprazole 40 mg tablet,delayed release (DR/EC) 40 mg PO QAM gabapentin 300 mg capsule 300 mg PO TID montelukast 10 mg tablet 10 mg PO DAILY polyethylene glycol 3350 17 gram/dose powder See Rx Instructions .ROUTE .COMPLEX Rx Instructions: FILL CAP TO LINE (17 GRAMS), MIX IN 8 OUNCES OF LIQUID AND DRINK BY MOUTH ONCE DAILY. fluticasone propionate 50 mcg/actuation spray,suspension 2 spray INTRANASAL DAILY levothyroxine 112 mcg tablet 112 mcg PO QAM rosuvastatin 10 mg tablet 10 mg PO QPM cyanocobalamin (vitamin B-12) 5,000 mcg capsule 5,000 mcg PO DAILY Qty: 30 0RF aspirin 81 mg Tablet,Delayed Release (Dr/Ec) 81 mg PO DAILY Qty: 90 0RF potassium chloride 10 mEq tablet,ER particles/crystals 10 meq PO DAILY Qty: 30 0RF ondansetron HCl 4 mg Tablet 4 mg PO Q6H PRN (Reason: Nausea And Vomiting) acetaminophen [Tylenol Extra Strength] 500 mg Tablet 1,000 mg PO Q6H PRN (Reason: Pain) tizanidine 2 mg tablet 2 mg PO BEDTIME VSL#3 112.5 billion cell capsule 1 cap PO DAILY Qty: 30 0RF hydralazine 10 mg tablet 10 mg PO BID Qty: 60 0RF amlodipine 5 mg tablet 10 mg PO QAM Referrals: Cayla Rivas APN [Primary Care Provider, Family Practice] Print Language: Armenian Coding Level of Care Code ED [employer] for Queenie Turner
[2024-11-15 14:56] LABS: Hematocrit 34.3 % (36-47); Hemoglobin 10.30 g/dL (11.27-16.99); Mean Corpuscular HGB Conc 30.0 g/dL (30-55); Mean Corpuscular Hemoglobin 28.8 pg (27-33); Mean Corpuscular Volume 95.8 fl (85-98); Nucleated Red Blood Cells % 0 %; Platelet Count 255 10^3/cmm (157-399); Red Blood Count 3.58 10^6/uL (3.85-5.65); White Blood Count 7.00 10^3/uL (3.29-11.43)
[2024-11-15 15:18] LABS: Troponin(5th) Baseline 64 ng/L (0-10)
[2024-11-15 15:19] LABS: Lactic Sepsis W/Reflex 0.9 mmol/L (0.5-2.2)
[2024-11-15 15:41] LABS: Alanine Aminotransferase < 5 U/L (0-33); Albumin Level 3.4 g/dL (3.5-5.2); Alkaline Phosphatase 90 U/L (35-105); Anion Gap 20.7 (5-19); Aspartate Amino Transferase 14 U/L (0-32); Blood Urea Nitrogen 20 mg/dL (8-23); Calcium 6.8 mg/dL (8.5-10.5); Carbon Dioxide 23 mmol/L (22-29); Chloride 104 mmol/L (98-107); Globulin 3.0 g/dL (1.3-4.6); Glucose 106 mg/dL (65-115); Osmolality Calculated 299 mOsm/kg (285-295); Potassium 4.7 mmol/L (3.5-5.1); Sodium 143 mmol/L (136-145); Total Protein 6.4 g/dL (6.6-8.7)
--- NOTE | 2024-11-15 15:44 | CTR_ITS ---
PROCEDURE INFORMATION: Exam: CTA Chest With Contrast Exam date and time: 11/15/2024 3:58 PM Age: 79 years old Clinical indication: Nausea and vomiting; Chief complaint of nausea, vomiting for couple of days and now shortness of breath and a new oxygen requirement. Per report, patient was hypoxic and is now on supplemental oxygen. ; Additional info: Hypoxia TECHNIQUE: Imaging protocol: Computed tomographic angiography of the chest with contrast. Exam focused on the arteries. 3D rendering (Not supervised by radiologist): MIP and/or 3D reconstructed images were created by the technologist. Radiation optimization: All CT scans at this facility use at least one of these dose optimization techniques: automated exposure control; mA and/or kV adjustment per patient size (includes targeted exams where dose is matched to clinical indication); or iterative reconstruction. Contrast material: OMNI 350; Contrast volume: 100 ml; Contrast route: INTRAVENOUS (IV); COMPARISON: CT angio chest PE protcl [id number] 09/23/2023 12:16 PM RADIATION DOSE METRICS: Total DLP (mGy-cm): 1342.12 FINDINGS: Pulmonary arteries: Main pulmonary artery is enlarged measuring 36.9 mm indicating pulmonary arterial hypertension. No pulmonary emboli. Aorta: There is no aortic aneurysm. Celiac trunk and mesenteric arteries: Limited evaluation of the upper abdomen demonstrates diseased but patent origin of the celiac artery. Other arteries: There is atherosclerotic disease. Lungs: Ground-glass opacification of the upper lobes with associated underlying emphysematous change suggestive of pulmonary edema and possible early infectious process. Pleural spaces: Right pleural effusion with right basal atelectasis. There is no pneumothorax. Heart: There is cardiomegaly. There is trace pericardial effusion. Coronary arteries: Moderate coronary arterial calcification, indicating the presence of coronary artery disease. Esophagus: Marked thickening of the wall of the esophagus indicating esophagitis. Lymph nodes: Prominent mediastinal nodes which are likely reactive. Bones/joints: No acute osseous abnormality. There is degenerative disease of the spine. Chronic compression fracture at the T12 vertebral body. Soft tissues: Unremarkable. PROCEDURE INFORMATION: Exam: CT Abdomen And Pelvis With Contrast Exam date and time: 11/15/2024 3:58 PM Age: 79 years old Clinical indication: Nausea and vomiting; Chief complaint of nausea, vomiting for couple of days and now shortness of breath and a new oxygen requirement. Per report, patient was hypoxic and is now on supplemental oxygen. ; Additional info: Hypoxia TECHNIQUE: Imaging protocol: Computed tomography of the abdomen and pelvis with contrast. Radiation optimization: All CT scans at this facility use at least one of these dose optimization techniques: automated exposure control; mA and/or kV adjustment per patient size (includes targeted exams where dose is matched to clinical indication); or iterative reconstruction. Contrast material: OMNI 350; Contrast volume: 100 ml; Contrast route: INTRAVENOUS (IV); COMPARISON: CT kidney stone [id number] 09/14/2024 10:19 PM RADIATION DOSE METRICS: Total DLP (mGy-cm): 1342.12 FINDINGS: Liver: The liver is unremarkable. Moderate intrahepatic biliary ductal dilatation. Gallbladder and biliary ducts: Multiple gallstones are present. No pericholecystic inflammatory changes to suggest cholecystitis. Pancreas: The pancreas is atrophic. Spleen: The spleen contains calcified granulomas. Adrenal glands: Stable nodularity to the adrenal glands with the left greater than the right. Kidneys and ureters: No hydronephrosis, hydroureter or nephrolithiasis. Bilateral simple renal cysts are present, as well as other subcentimeter hypodensities which are too small to characterize. Stable heterogeneous hypodense 2.1 cm cystic lesion in the posterior aspect of the right kidney. Stomach and bowel: There is diffuse wall thickening of the distal small bowel with associated inflammatory change indicating an enteritis, there is presence of fat content and calcification within this region , this may be due to inflammation secondary to the calcification as this is new when compared with the recent study from 09/14/2024. An intraluminal mass can not be excluded, recommend short interval follow-up in a few weeks and tissue sampling as indicated. Appendix: No evidence of appendicitis. Intraperitoneal space: No free intraperitoneal air. No significant fluid collection. Vasculature: There is no aortic aneurysm. There is atherosclerotic disease. Lymph nodes: No pathologically enlarged lymph nodes (by short axis size criteria). Urinary bladder: The bladder is not fully distended, [place] are thickened with mild pericystic stranding, underlying cystitis can not be excluded, recommend correlation with urinalysis. Reproductive: Uterus is unremarkable for patient's age. No suspicious adnexal lesion seen. Bones/joints: No acute osseous abnormality. There is degenerative disease of the spine. Stable multilevel compression fractures of the thoracolumbar spine involving predominantly the T12, L1, L3 vertebral body levels. Soft tissues: There is a small fat containing umbilical hernia. CT/CT angio chest w abd pel w con IMPRESSION: 1. Bilateral upper lobe and right middle lobe pneumonia. COPD 2. Right pleural effusion with right basal atelectasis. 3. Trace pericardial effusion. 4. Evidence of reflux esophagitis. 5. Pulmonary arterial hypertension. 6. Moderate coronary arterial calcification, indicating the presence of coronary artery disease. If the patient has associated symptoms recommend management as per chest pain guidelines. If the patient is asymptomatic consider reviewing modifiable cardiovascular risk factors and managing as per guidelines for primary prevention IMPRESSION: 1. Interval development of inflammatory change in the distal small bowel which may be due to an enteritis, the presence of the calcification in this region could be causing inflammation however, an underlying mass can not be excluded, recommend follow-up in a few weeks and tissue sampling as indicated. 2. Possible cystitis, recommend correlation with urinalysis. 3. Moderate intrahepatic biliary ductal dilatation. COMMENTS: Consistent with the [employer]'s Incidental Findings Committee white paper (J Am Jagdish Radiol 2018): Any incidental renal lesion less than 1 cm or classified as too small to characterize, or any incidental cystic renal lesion characterized as simple-appearing, is likely benign. No follow-up imaging is recommended for these lesions per consensus recommendations based on imaging criteria.
[2024-11-15 15:48] LABS: Respiratory Syncytial Virus Ce NEGATIVE (Negative); SARS-CoV-2 PCR NEGATIVE (Negative)
[2024-11-15] MEDS: iohexol 350 mg/mL 500 mL Btl (per mL) IV (15:59)
[2024-11-15 16:03] LABS: NT Pro B Type Natriuretic Pept 6599 pg/mL (0-450)
[2024-11-15 16:39] LABS: Procalcitonin 0.10 ng/mL (0-0.5)
[2024-11-15 16:39] LABS: Glucose Urine UA Negative (Normal); Nitrate Urine Negative (Negative); Specific Gravity, Urine 1.029 (1.005-1.030)
[2024-11-15] MEDS: FUROsemide 10 mg/mL SDV 4mL 40 MG IVP ×2 (16:41→19:36)
--- NOTE | 2024-11-15 16:41 | ECG_ITS ---
Fresh ! 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 Measurements Intervals [place] Rate: 68 P: 53 OR: 150 QRS: -69 QRSD: 132 T: 66 QT: 427 QTc: 457 Interpretive Statements SINUS RHYTHM RIGHT BUNDLE BRANCH BLOCK [120+ ms QRS DURATION, UPRIGHT V1, 40+ ms S IN I/aVL/V4/V5/V6] LEFT ANTERIOR FASCICULAR BLOCK [QRS AXIS <= -45, QR IN I, RS IN II] MODERATE T-WAVE ABNORMALITY, CONSIDER LATERAL ISCHEMIA [-0.1+ mV T-WAVE IN I/aVL/V5/V6] Compared to ECG 11/15/2024 14:19:17 No significant changes Electronically Signed On 11-15-2024 23:53:32 CDT by Mason Turner M.D. [email or web address]
[2024-11-15 16:43] LABS: Add Urine Microscopic? YES
[2024-11-15 16:52] LABS: UA Slide Review UA Slide Review Perf
[2024-11-15 17:22] LABS: Troponin 5 2HR 62.27 ng/L (0-10); Troponin 5 2HR Delta -1.73 ABS# (0-10)
[2024-11-15 17:29] LABS: ABG PCO2 49.3 mmHg (35-45); ABG PH Result 7.34 (7.35-7.45); Alveolar-Arterial Oxygen Gradi 2.4 mmHg (5-10); Arterial Blood Gas Hematocrit 34.2 % (37-47); Blood Gas Allen Test Pos; Blood Gas LPM 5.0 %; Blood Gas Operator Identificat WALCI; Blood Gas Sample Site Radial, left; Blood Gas Sample Type Arterial; Carboxyhemoglobin 1.7 %THgb (0.4-20.1); Glucose Level-ABG 102.0 mg/dL (70-115); HCO3 ABG 26.6 mmol/L (22-26); Ionized Calcium Level - ABG 0.9 mmol/L (1.1-1.4); Methemoglobin 1.0 % (0.4-1.5); Oxygen Saturation ABG 92.7; PO2 ABG 69.6 mmHg (80.0-100.0); Potassium Level - ABG 4.3 mmol/L (3.5-5.0); Sodium Level - ABG 145.0 mmol/L (131-143)
[2024-11-15 18:04] LABS: Lactic Sepsis W/Reflex 0.6 mmol/L (0.5-2.2)
[2024-11-15] MEDS: cefTRIAXone 1,000 mg SDV 1000 MG IVP (18:05)
[2024-11-15] MEDS: piperacillin-tazobactam 3.375 GM in sodium chloride 0.9% (plus) 50 ML IV (18:15)
[2024-11-15 18:28] LABS: Iron 22 ug/dL (37-145); Total Iron Binding Capacity 185 mcg/dl; Unsaturated Iron Binding 163 ug/dL (112-347)
[2024-11-15 18:34] LABS: Procalcitonin 0.09 ng/mL (0-0.5)
[2024-11-15] MEDS: heparin 5,000 unit/mL INJ 1 mL 5000 UNIT SUBCUT (19:37)
[2024-11-15 19:53] LABS: Estmated Average Glucose 114; Hemoglobin A1C 5.6 % (4.0-6.0)
[2024-11-15 20:14] LABS: ABG PCO2 45.5 mmHg (35-45); ABG PH Result 7.38 (7.35-7.45); Alveolar-Arterial Oxygen Gradi 25.1 mmHg (5-10); Arterial Blood Gas Hematocrit 31.9 % (37-47); Blood Gas LPM 35.0 %; Blood Gas Sample Site Brachial, left; Blood Gas Sample Type Arterial; Carboxyhemoglobin 1.7 %THgb (0.4-20.1); Glucose Level-ABG 94.0 mg/dL (70-115); HCO3 ABG 27.0 mmol/L (22-26); Ionized Calcium Level - ABG 0.9 mmol/L (1.1-1.4); Methemoglobin 0.7 % (0.4-1.5); Oxygen Saturation ABG 93.6; PO2 ABG 68.8 mmHg (80.0-100.0); PO2 FiO2 Ratio Arterial Blood 152; Potassium Level - ABG 4.0 mmol/L (3.5-5.0); Sodium Level - ABG 145.0 mmol/L (131-143)
[2024-11-15 20:17] LABS: Thyroid Stimulating Hormone 1.46 uIU/mL (0.27-4.20)
[2024-11-15 20:48] LABS: Vitamin B12 > 2000 pg/mL (232-1245)
--- NOTE | 2024-11-15 21:17 | PM.HP ---
Providers/Chief Complaint Admitting Physician: Ben Hale MD Primary Care Provider: Cayla Rivas APN Chief Complaint: N/V/D Low O2 History of Present Illness Gabriella Thompson is a 79 year old female nursing-home resident with a history of hypertension, GERD, anxiety, fibromyalgia, hypothyroidism, and hyperlipidemia who presented to the emergency room today with chief complaints of shortness of breath. Patient states she has been feeling increasingly short of breath over the past 4 to 5 days. Also reports symptoms of nausea vomiting and diarrhea up to 4-5 episodes per day. Denies any chest pain. Denies any dysuria. Reports a dry cough without significant mucus. Review of chart shows patient was admitted to the hospital about a month ago for UTI and acute kidney injury which was improving by the time of hospital discharge.Patient was noted to have hypoxia upon admission, requiring 6 L/min supplemental O2 and then due to increased work of breathing was placed on a BiPAP eventually. History is somewhat limited given that patient is currently on BiPAP. Review of Systems General: Reports: ROS unobtainable due to medical condition Medications/Allergies Home Medications ?Medication ?Instructions ?Recorded ?Confirmed ?Last Taken ?Type fluticasone propionate 50 2 spray intranasal DAILY 09/03/23 11/15/24 11/15/24 History mcg/actuation nasal spray,suspension gabapentin 300 mg capsule 300 mg PO TID 09/03/23 11/15/24 11/15/24 History levothyroxine 112 mcg tablet 112 mcg PO QAM 09/03/23 11/15/24 11/15/24 History montelukast 10 mg tablet 10 mg PO DAILY 09/03/23 11/15/24 11/15/24 History pantoprazole 40 mg tablet,delayed 40 mg PO QAM 09/03/23 11/15/24 11/15/24 History release polyethylene glycol 3350 17 See Rx Instructions .Route .COMPLEX 09/03/23 11/15/24 11/15/24 History gram/dose oral powder rosuvastatin 10 mg tablet 10 mg PO QPM 09/03/23 11/15/24 11/14/24 History cyanocobalamin (vitamin B-12) 5,000 mcg PO DAILY #30 caps 09/06/23 11/15/24 11/15/24 Rx 5,000 mcg capsule aspirin 81 mg tablet,delayed 81 mg PO DAILY #90 tabs 09/30/23 11/15/24 11/15/24 Rx release potassium chloride 10 mEq 10 meq PO DAILY #30 tabs 09/30/23 11/15/24 11/15/24 Rx tablet,extended release(part/cryst) escitalopram oxalate 10 mg tablet 10 mg PO QAM 10/18/23 11/15/24 11/15/24 History acetaminophen 500 mg tablet 1,000 mg PO Q6H PRN Pain 09/14/24 11/15/24 11/14/24 History (Tylenol Extra Strength) ondansetron HCl 4 mg tablet 4 mg PO Q6H PRN Nausea And Vomiting 09/14/24 11/15/24 Unknown History tizanidine 2 mg tablet 2 mg PO BEDTIME 09/14/24 11/15/24 11/14/24 History Lactobac no.2-Bifidobac no.1-S. 1 cap PO DAILY #30 caps 09/19/24 11/15/24 11/15/24 Rx thermo 112.5 billion cell capsule (VSL#3) hydralazine 10 mg tablet 10 mg PO BID #60 tabs 09/19/24 11/15/24 11/15/24 Rx amlodipine 5 mg tablet 10 mg PO QAM 11/15/24 11/15/24 11/15/24 History Allergies Allergy/AdvReac Type Severity Reaction Status Date / Time soap Allergy Tung Verified 10/30/24 18:57 r PFSH Acute PFSH: Medical History Hypertension Acute kidney failure, unspecified Other specified abnormal findings of blood chemistry Mixed hyperlipidemia Gastro-esophageal reflux disease without esophagitis Anxiety disorder, unspecified Vitamin D deficiency, unspecified Major depressive disorder, single episode, unspecified Fibromyalgia Insomnia, unspecified Constipation, unspecified B12 deficiency Hypothyroidism Gallstone Social History Smoking and tobacco/nicotine status: former use of tobacco/nicotine Alcohol intake: never Housing: [facility] Vitals/I&O/Wt Last Vital Signs Temp 98.2 F 11/15/24 13:44 Pulse 74 11/16/24 05:45 Resp 14 11/16/24 01:30 BP 104/47 11/16/24 03:00 Pulse Ox 96 11/16/24 05:45 O2 Del Method BiPAP 11/16/24 01:30 O2 Flow Rate 35 11/15/24 20:05 FiO2 45 11/16/24 05:45 11/15/24 11/15/24 11/16/24 14:59 22:59 06:59 Intake Total 50 / 50 Balance 50 / 50 Physical Exam Narrative: General: alert, awake, currently on Bipap HEENT: PERRLA, pupils bilaterally equal and reactive, pallors not present Chest: Normal vesicular breath sounds, no added sounds, equal good air entry bilaterally CVS: S1-S2 regular, no murmurs, no tachycardia, no gallops, no rubs Abdomen: Soft, nontender, no organomegaly, bowel sounds present Neuro: No focal deficits, no facial deformity, AO x3, power 5/5 in all limbs Urinary Catheter Management: Damon: Cath Placed During This Visit: yes Urinary Catheter Date of Insertion: 11/15/24 Urinary Catheter Time of Insertion: 21:00 Data 11/16/24 04:27 11/16/24 04:27 Micro: Microbiology 11/15/24 16:20 Bacterial Antigens - Final Urine Kidney 11/15/24 17:52 Blood Culture - Preliminary Blood SPECIMEN COLLECTED 11/15/24 17:54 Blood Culture - Preliminary Blood SPECIMEN COLLECTED ABG Interpretation 1: 11/15/24 11/15/24 17:18 20:04 ABG pH 7.34 L 7.38 ABG pCO2 49.3 H 45.5 H ABG pO2 69.6 L 68.8 L ABG HCO3 26.6 H 27.0 H ABG O2 Saturation 92.7 93.6 ABG Base Excess 0.3 1.5 Other data: CT/CT angio chest w abd pel w con IMPRESSION: 1. Bilateral upper lobe and right middle lobe pneumonia. COPD 2. Right pleural effusion with right basal atelectasis. 3. Trace pericardial effusion. 4. Evidence of reflux esophagitis. 5. Pulmonary arterial hypertension. 6. Moderate coronary arterial calcification, indicating the presence of coronary artery disease. If the patient has associated symptoms recommend management as per chest pain guidelines. If the patient is asymptomatic consider reviewing modifiable cardiovascular risk factors and managing as per guidelines for primary prevention IMPRESSION: 1. Interval development of inflammatory change in the distal small bowel which may be due to an enteritis, the presence of the calcification in this region could be causing inflammation however, an underlying mass can not be excluded, recommend follow-up in a few weeks and tissue sampling as indicated. 2. Possible cystitis, recommend correlation with urinalysis. 3. Moderate intrahepatic biliary ductal dilatation. A&P Assessment and plan 1. Acute hypoxemic respiratory failure: 79-year-old lady presenting today with acute hypoxemic respiratory failure , initially patient required 6 L/min supplemental O2 and was thereafter placed on BiPAP ventilation due to increasing work of breathing and concern for respiratory fatigue. The cause of her hypoxemic respiratory failure appears to be multifactorial related to combination of pneumonia and pulmonary edema. Start empiric antibiotic coverage with piperacillin/tazobactam and azithromycin Obtain sputum culture, MRSA nasal screen and bacterial antigen panel. Nebulization with DuoNeb every 6 hours and budesonide every 12 hours. CTA negative for PE. Respiratory viral panel negative for COVID influenza and RSV Concern additionally for pulmonary edema based on personal review of images. Start Lasix 40 mg IV every 12 hours Pulmonary edema likely related to a combination of acute on chronic diastolic CHF and pulmonary hypertension. Closely monitor urine output and creatinine with initiation of diuresis. Attempt to wean BiPAP as tolerated. 2. Congestive heart failure: Recent echocardiogram from September 2024 with an ejection fraction of 60%, grade 1 diastolic dysfunction. Baseline troponin today at 64, trending down to 62 over 2 hours. Patient denies any chest pain. EKG showing right bundle branch block with minimal change compared to September 2024. Stress test dating back to September 2023 had shown small area of inconsistent reversible defect in the mid inferior lateral region which was thought to be related to attenuation artifact. 3. Gastroenteritis: Currently empiric piperacillin/tazobactam to provide adequate coverage. Check C. difficile PCR 4. Pneumonia: as above Plan: DVT ppx: heprain 5000 s/c q12h PDMP PDMP Reviewed: Not Reviewed Attestations Medical Necessity Statement*: > 2 midnight stay is anticioated for iv abx, iv diuresis Coding Level of Care Code Acute Code for Chg Fwd High MDM includes number and complexity of problems actively addressed during encounter, amount and/or complexity of data reviewed/ordered and described risk of complication, morbidity or mortality of management as documented Diagnoses Acute hypoxemic respiratory failure J96.01 Congestive heart failure I50.9 Gastroenteritis K52.9 Pneumonia J18.9
[2024-11-16] VITALS (41 sets, daily range): BP systolic 96–170; BP diastolic 39–90; PULSE 53–82; RESP 14–29; TEMP 36.8–36.9; O2SAT 89–100; BMI 35.6
[2024-11-16] MEDS: piperacillin-tazobactam 3.375 GM in sodium chloride 0.9% (plus) 50 ML IV ×3 (02:45→17:37)
[2024-11-16 04:40] LABS: Hematocrit 33.9 % (36-47); Hemoglobin 10.00 g/dL (11.27-16.99); Mean Corpuscular HGB Conc 29.5 g/dL (30-55); Mean Corpuscular Hemoglobin 28.7 pg (27-33); Mean Corpuscular Volume 97.4 fl (85-98); Nucleated Red Blood Cells % 0 %; Platelet Count 244 10^3/cmm (157-399); Red Blood Count 3.48 10^6/uL (3.85-5.65); White Blood Count 6.39 10^3/uL (3.29-11.43)
[2024-11-16 05:01] LABS: Alanine Aminotransferase < 5 U/L (0-33); Albumin Level 3.4 g/dL (3.5-5.2); Alkaline Phosphatase 84 U/L (35-105); Aspartate Amino Transferase 16 U/L (0-32); Blood Urea Nitrogen 25 mg/dL (8-23); Calcium 6.9 mg/dL (8.5-10.5); Carbon Dioxide 26 mmol/L (22-29); Chloride 104 mmol/L (98-107); Globulin 3.7 g/dL (1.3-4.6); Glucose 97 mg/dL (65-115); Osmolality Calculated 302 mOsm/kg (285-295); Sodium 144 mmol/L (136-145); Total Protein 7.1 g/dL (6.6-8.7)
[2024-11-16 05:04] LABS: Cholesterol 113 mg/dL (0-200); HDL Cholesterol 40 mg/dL (60-100); Triglycerides 96 mg/dL (0-150)
[2024-11-16 05:07] LABS: Procalcitonin 0.12 ng/mL (0-0.5)
[2024-11-16 05:11] LABS: Anion Gap 18.2 (5-19); Magnesium 0.8 mg/dL (1.7-2.3); Potassium 4.2 mmol/L (3.5-5.1)
--- NOTE | 2024-11-16 05:27 | PC.NURSE ---
Dr. Alejandra notified of the Mag 0.8 level, provider reported she will place an order for replacement
[2024-11-16] MEDS: magnesium sulfate premix 2 GM/50 ML PIGGYBACK IV (06:45)
[2024-11-16] MEDS: FUROsemide 10 mg/mL SDV 4mL 40 MG IVP ×2 (07:29→18:52)
[2024-11-16] MEDS: heparin 5,000 unit/mL INJ 1 mL 5000 UNIT SUBCUT ×2 (07:30→18:52)
--- NOTE | 2024-11-16 08:38 | PC.NURSE ---
ATTEMPTED TO CALL HOSPITALIST REGARDING MAGNESIUM ORDER. NO ANSWER. MESSAGE LEFT.
[2024-11-16] MEDS: magnesium sulfate premix 1 GM/100 ML PIGGYBACK IV (08:54)
[2024-11-16 11:36] LABS: ABG PCO2 59.7 mmHg (35-45); ABG PH Result 7.27 (7.35-7.45); Alveolar-Arterial Oxygen Gradi 37.8 mmHg (5-10); Arterial Blood Gas Hematocrit 31.0 % (37-47); Blood Gas Allen Test Pos; Blood Gas LPM 40.0 %; Blood Gas Operator Identificat WALCI; Blood Gas Sample Site Radial, left; Blood Gas Sample Type Arterial; Carboxyhemoglobin 1.3 %THgb (0.4-20.1); Glucose Level-ABG 117.0 mg/dL (70-115); HCO3 ABG 27.2 mmol/L (22-26); Ionized Calcium Level - ABG 1.0 mmol/L (1.1-1.4); Methemoglobin 0.8 % (0.4-1.5); Oxygen Saturation ABG 97.3; PO2 ABG 97.9 mmHg (80.0-100.0); PO2 FiO2 Ratio Arterial Blood 150; Potassium Level - ABG 3.4 mmol/L (3.5-5.0); Sodium Level - ABG 146.0 mmol/L (131-143)
--- NOTE | 2024-11-16 11:53 | PC.NURSE ---
PT PLACED IN HOSPITAL BED FOR COMFORT.
--- NOTE | 2024-11-16 13:27 | P.PN_ITS ---
Subjective 2 Subjective: Hospital course, labs appreciated on examination patient was seen in heated high flow. Remained on BiPAP overnight. On examination patient is awake, altered, drowsy and sleep sound during examination not answering orientation questions. Has remained hemodynamically stable. Appreciate urine output. Afebrile. Vitals/I&O/Wt Last Vital Signs Temp 98.2 F 11/15/24 13:44 Pulse 79 11/16/24 13:14 Resp 19 H 11/16/24 13:11 BP 123/82 11/16/24 13:14 Pulse Ox 91 11/16/24 13:14 O2 Del Method BiPAP 11/16/24 13:11 O2 Flow Rate 40 11/16/24 10:36 FiO2 45 11/16/24 13:11 11/15/24 11/16/24 11/16/24 22:59 06:59 14:59 Intake Total 50 / 50 50 / 100 150 / 150 Output Total 925 / 925 Balance 50 / 50 50 / 100 -775 / -775 Physical Exam 2 Narrative: General: alert, awake, currently on Bipap HEENT: PERRLA, pupils bilaterally equal and reactive, pallors not present Chest: Bilateral bronchial breath sounds all over lung funez, occasional rhonchi, coarse reactive left more than right CVS: S1-S2 regular, no murmurs, no tachycardia, no gallops, no rubs Abdomen: Soft, nontender, no organomegaly, bowel sounds present Neuro: No focal deficits, no facial deformity, power 5/5 in all limbs Urinary Catheter Management: Damon: Cath Placed During This Visit: yes Reason for Continuing Indwelling Catheter: Acute Urinary Retention or Obstruction Urinary Catheter Date of Insertion: 11/15/24 Urinary Catheter Time of Insertion: 21:00 Data 11/16/24 04:27 11/16/24 04:27 Micro: Microbiology 11/15/24 16:20 Urine Culture - Preliminary Urine,Clean Catch Gram Negative Rods 11/15/24 16:20 Bacterial Antigens - Final Urine Kidney 11/15/24 17:52 Blood Culture - Preliminary Blood SPECIMEN COLLECTED 11/15/24 17:54 Blood Culture - Preliminary Blood SPECIMEN COLLECTED A&P Assessment and plan 1. Acute hypoxic on chronic hypercapnic respiratory failure: 2. Acute diastolic congestive heart failure: Recent echocardiogram from September 2024 with an ejection fraction of 60%, grade 1 diastolic dysfunction. Baseline troponin today at 64, trending down to 62 over 2 hours. Patient denies any chest pain. EKG showing right bundle branch block with minimal change compared to September 2024. Stress test dating back to September 2023 had shown small area of inconsistent reversible defect in the mid inferior lateral region which was thought to be related to attenuation artifact. 3. Pneumonia of both lungs due to infectious organism, unspecified part of lung: as above 4. RICARDO (acute kidney injury): 5. Metabolic encephalopathy: 6. Gastroenteritis: Currently empiric piperacillin/tazobactam to provide adequate coverage. Check C. difficile PCR 7. Hypomagnesemia: 8. UTI (urinary tract infection): Plan: 79-year-old lady presenting today with acute hypercapnic and hypoxemic respiratory failure , initially patient required 6 L/min supplemental O2 and was thereafter placed on BiPAP ventilation due to increasing work of breathing and concern for respiratory fatigue. Respiratory failure: Hypoxic and hypercapnic. Due to combination of acute decompensated diastolic congestive heart failure, bilateral pneumonia with concerns for aspiration along with COPD exacerbation. Currently on heated high flow. Repeat ABG. If concern for hypercapnia will plan on BiPAP/AVAPS mode. Oxygen supplementation keeping saturation over 88%. IV Lasix 40 mg twice daily. Strict input output charting, daily weights. Fluid restriction to less than 1500 cc. Nebulization with Pulmicort twice daily, DuoNeb every 6 hours. Solu-Medrol 40 mg every 8 hours Check sputum culture, negative urine bacterial antigen, MRSA swab. Empirically continue with IV Zosyn. If MRSA swab positive will add vancomycin. Azithromycin for atypical coverage. Keep NPO. Speech evaluation. UTI: Follow-up blood culture, urine culture. Zosyn will sufficient for UTI for now. Hypertension: Goal blood pressure less than 140/90 mg. Hold off on antihypertensive for now. Metabolic encephalopathy: Acute toxic metabolic encephalopathy. Could be in setting of sepsis versus hypercapnia. Sepsis present on admission. Continue to monitor. N.p.o. for now. Replace magnesium. Monitor BMP daily. Continue other chronic medication regarding aspirin, statin, levothyroxine, tizanidine. CODE STATUS: Limited resuscitation. Okay with intubation. Protonix OPD prophylaxis Heparin for DVT prophylaxis PDMP PDMP Reviewed: Not Reviewed Attestations 2 Medical Necessity Statement*: Requires further hospitalization for management of acute hypoxic hypercapnic respiratory failure, pneumonia, CHF, UTI with metabolic encephalopathy Diagnoses Acute hypoxic on chronic hypercapnic respiratory failure J96.01; J96.12 Acute diastolic congestive heart failure I50.31 Heart failure chronicity: acute Heart failure type: diastolic Pneumonia of both lungs due to infectious organism, unspecified part of lung J18.9 Laterality: bilateral Lung location: unspecified part of lung Pneumonia type: due to unspecified organism RICARDO (acute kidney injury) N17.9 Metabolic encephalopathy G93.41 Gastroenteritis K52.9 Hypomagnesemia E83.42 UTI (urinary tract infection) N39.0
[2024-11-16 14:24] LABS: MRSA PCR OZH (swab) MRSA Detected (Not Detecte)
[2024-11-16] MEDS: methylPREDNISolone sod succ 40 mg/mL INJ IVP ×2 (14:37→21:22)
--- NOTE | 2024-11-16 14:44 | PHA.VACGOAL ---
Vancomycin Goal - Therapy Day of therpy:: Day []of [] . Actual body weight (kg): 208 lb - Data Labs: WBC 6.39 10^3/uL (3.29-11.43) 11/16/24 04:27 RBC 3.48 10^6/uL (3.85-5.65) L 11/16/24 04:27 Hgb 10.00 g/dL (11.27-16.99) L 11/16/24 04:27 Hct 33.9 % (36-47) L 11/16/24 04:27 MCV 97.4 fl (85-98) 11/16/24 04:27 MCH 28.7 pg (27-33) 11/16/24 04:27 MCHC 29.5 g/dL (30-55) L 11/16/24 04:27 RDW 16.0 % (12.1-15.1) H 11/16/24 04:27 Sodium 144 mmol/L (136-145) 11/16/24 04:27 Potassium 4.2 mmol/L (3.5-5.1) 11/16/24 04:27 Chloride 104 mmol/L (98-107) 11/16/24 04:27 Carbon Dioxide 26 mmol/L (22-29) 11/16/24 04:27 Anion Gap 18.2 (5-19) 11/16/24 04:27 BUN 25 mg/dL (8-23) H 11/16/24 04:27 Creatinine 1.8 mg/dL (0.5-0.9) H 11/16/24 04:27 GFR Calculation Not Reportable 11/16/24 04:27 Last dialysis session:: N/A Drug administration history:: Medications Piperacillin Sod/Tazobactam (Sod 3.375 gm/ Sodium Chloride) 50 mls @ 12.5 mls/hr IV Q8H ELISEO; Protocol Last Admin: 11/16/24 13:42 Dose: Infused Azithromycin 500 mg/ Sodium (Chloride) 250 mls @ 250 mls/hr IV Q24H ELISEO; Protocol Treatment plan:: new consult Regimen:: STARTED MAINTENANCE DOSE OF 1250 MG Q12H Follow up:: WILL CONTINUE TO MONITOR DAILY AND OBTAIN TROUGH PRIOR TO 4TH DOSE. Rationale:: Problems (Last Reviewed 11/16/24 @ 06:20 by Steph Alejandra MD) RICARDO (acute kidney injury) (Acute) Pneumonia of both lungs due to infectious organism, unspecified part of lung (Acute) UTI (urinary tract infection) (Acute) PATIENT CURRENTLY EXPERIENCING RICARDO. TREATING PNEUMONIA. PATIENT CREATININE CLEARANCE CURRENTLY 81.2 ML/MIN.
[2024-11-16 15:01] LABS: ABG PCO2 59.2 mmHg (35-45); ABG PH Result 7.29 (7.35-7.45); Alveolar-Arterial Oxygen Gradi 20.4 mmHg (5-10); Arterial Blood Gas Hematocrit 33.1 % (37-47); Blood Gas Operator Identificat GD; Blood Gas Sample Site Brachial, left; Blood Gas Sample Type Arterial; Carboxyhemoglobin 1.1 %THgb (0.4-20.1); Glucose Level-ABG 109.0 mg/dL (70-115); HCO3 ABG 28.4 mmol/L (22-26); Ionized Calcium Level - ABG 0.9 mmol/L (1.1-1.4); Methemoglobin < 0.0 % (0.4-1.5); Oxygen Saturation ABG 96.9; PEEP 10.0 cmH20; PO2 ABG 90.2 mmHg (80.0-100.0); PO2 FiO2 Ratio Arterial Blood 200; Potassium Level - ABG 3.7 mmol/L (3.5-5.0); Sodium Level - ABG 147.0 mmol/L (131-143)
--- NOTE | 2024-11-16 15:34 | XR_ITS ---
WS: [id number] Portable AP upright chest, 11/16/2024 Clinical Data: resp failure Comparison: Portable chest, 11/15/2024 Findings: The right upper lobe shows a minimal patchy opacity. There may be a patchy opacity in the retrocardiac region. No nodules, masses or effusions are seen. The heart is l. The pulmonary vascularity is not increased. No pneumothorax is seen. The aortic arch shows calcification and tortuosity. Mo nitor leads are on the chest wall. XR/XR chest 1V portable [id number] Impression: 1. Patchy right upper lobe and retrocardiac opacity which could represent minim al pneumonia. 2. Atherosclerosis and cardiomegaly.
[2024-11-16] MEDS: morphine 4 mg/mL SDV 1 mL 2 MG IVP (15:40)
[2024-11-16] MEDS: methylPREDNISolone sod succ 125 mg/2 mL INJ IVP (15:54)
--- NOTE | 2024-11-16 16:41 | PM.CCNAC ---
Critical Care Event Note Repeat ABG given being on AVAPS mode of 10 shows persistent hypercapnia with respiratory acidosis of pH of 7.29. Patient continues to be incoherent. Fidgeting with the mask. Hemodynamically stable. Urine output of around 1500 cc since morning. Afebrile. Plan: Chest x-ray. Solu-Medrol 125 one-time. Repeat Lasix twice daily. Further goals of care discussions done with patient's DPOA over the phone. We discussed patient has significant hypercapnia and respiratory acidosis on very high settings of BiPAP and if she does not improve on further changing her BiPAP settings she would eventually need to be on mechanical ventilation for possible improvement. We discussed once being on mechanical ventilation provider is not sure for how long she will remain on ventilator or if she will improve or not. DPOA for now does not want patient to have mechanical ventilation. They understand possible patient if she does not get mechanical ventilated she could worsen and even . CODE STATUS changed to DNR/DNI. Continue with current settings with a different mask on AVAPS. Repeat ABG in 2 hours. Continue with current nebulization, Solu-Medrol and Lasix treatment. If no improvement in next 24 hours will discuss further goals of care with family regarding possible hospice care. The high probability of a clinically significant, sudden or life threatening deterioration of the patient's [pulmonary] system(s) required my full and direct attention, intervention and personal management. The critical care time is as shown. This time is in addition to time spent performing any reported procedures but includes the following: [x] Data and vital sign review and interpretation [x] Patient assessment, examination and intervention [x] Documentation [x] Medication orders and management Critical Care Time Code activated: No Critical Care Time (min): 65 Coding Level of Care Code Critical Care Time Spent (min) 65
--- NOTE | 2024-11-16 16:50 | PC.SLP ---
Nsg advised to wait till AM for eval. Will attempt to see tomorrow AM
[2024-11-16 17:24] LABS: ABG PCO2 57.4 mmHg (35-45); ABG PH Result 7.28 (7.35-7.45); Alveolar-Arterial Oxygen Gradi 22.6 mmHg (5-10); Arterial Blood Gas Hematocrit 32.2 % (37-47); Blood Gas Operator Identificat GD; Blood Gas Sample Site Brachial, right; Blood Gas Sample Type Arterial; Blood Gas Tidal Volume 0.45; Carboxyhemoglobin 1.3 %THgb (0.4-20.1); Glucose Level-ABG 104.0 mg/dL (70-115); HCO3 ABG 26.9 mmol/L (22-26); Ionized Calcium Level - ABG 0.9 mmol/L (1.1-1.4); Methemoglobin 0.5 % (0.4-1.5); Oxygen Saturation ABG 93.5; PEEP 10.0 cmH20; PO2 ABG 74.4 mmHg (80.0-100.0); PO2 FiO2 Ratio Arterial Blood 165; Potassium Level - ABG 3.7 mmol/L (3.5-5.0); Sodium Level - ABG 147.0 mmol/L (131-143)
--- NOTE | 2024-11-16 18:55 | PC.NURSE ---
Patient remains on bipap, 50%. Patient does not tolerate position changes well, oxygen saturation drops and patient becomes agitated with mask, pulling at mask. No wounds found on assessment, Patient does have large reddened area on left hip, possibly from and old wound, but no open areas and redness is bleachable. Family provided with updates via telephone.
[2024-11-17] VITALS (34 sets, daily range): BP systolic 117–155; BP diastolic 40–87; PULSE 66–86; RESP 12–31; TEMP 36.3–37.2; O2SAT 90–100
[2024-11-17] MEDS: piperacillin-tazobactam 3.375 GM in sodium chloride 0.9% (plus) 50 ML IV ×3 (01:37→17:39)
[2024-11-17] MEDS: methylPREDNISolone sod succ 40 mg/mL INJ IVP ×3 (04:45→21:17)
[2024-11-17 05:23] LABS: Hematocrit 32.7 % (36-47); Hemoglobin 9.80 g/dL (11.27-16.99); Mean Corpuscular HGB Conc 30.0 g/dL (30-55); Mean Corpuscular Hemoglobin 29.5 pg (27-33); Mean Corpuscular Volume 98.5 fl (85-98); Nucleated Red Blood Cells % 0 %; Platelet Count 239 10^3/cmm (157-399); Red Blood Count 3.32 10^6/uL (3.85-5.65); White Blood Count 3.37 10^3/uL (3.29-11.43)
[2024-11-17 05:46] LABS: Alanine Aminotransferase 6 U/L (0-33); Albumin Level 3.3 g/dL (3.5-5.2); Alkaline Phosphatase 85 U/L (35-105); Anion Gap 24.8 (5-19); Aspartate Amino Transferase 22 U/L (0-32); Blood Urea Nitrogen 27 mg/dL (8-23); Calcium 6.7 mg/dL (8.5-10.5); Carbon Dioxide 24 mmol/L (22-29); Chloride 103 mmol/L (98-107); Creatinine Clr Calc Pharmacy 25.1253; Globulin 3.8 g/dL (1.3-4.6); Glucose 164 mg/dL (65-115); Magnesium 1.4 mg/dL (1.7-2.3); Osmolality Calculated 315 mOsm/kg (285-295); Potassium 3.8 mmol/L (3.5-5.1); Sodium 148 mmol/L (136-145); Total Protein 7.1 g/dL (6.6-8.7)
[2024-11-17] MEDS: FUROsemide 10 mg/mL SDV 4mL 40 MG IVP (07:35)
[2024-11-17] MEDS: heparin 5,000 unit/mL INJ 1 mL 5000 UNIT SUBCUT ×2 (07:38→20:33)
--- NOTE | 2024-11-17 08:53 | PC.SLP ---
[facility] evaluation attempted but patient currently on biPap and nursing stated to hold ST evaluation at this time.
[2024-11-17 09:05] LABS: ABG PCO2 45.5 mmHg (35-45); ABG PH Result 7.39 (7.35-7.45); Alveolar-Arterial Oxygen Gradi 9.4 mmHg (5-10); Arterial Blood Gas Hematocrit 31.4 % (37-47); Blood Gas Operator Identificat GD; Blood Gas Sample Site Brachial, right; Blood Gas Sample Type Arterial; Blood Gas Tidal Volume 0.45; Carboxyhemoglobin 1.2 %THgb (0.4-20.1); Glucose Level-ABG 160.0 mg/dL (70-115); HCO3 ABG 27.2 mmol/L (22-26); Ionized Calcium Level - ABG 0.9 mmol/L (1.1-1.4); Methemoglobin 0.6 % (0.4-1.5); Oxygen Saturation ABG 96.7; PO2 ABG 84.6 mmHg (80.0-100.0); PO2 FiO2 Ratio Arterial Blood 282; Potassium Level - ABG 3.1 mmol/L (3.5-5.0); Sodium Level - ABG 149.0 mmol/L (131-143)
[2024-11-17] MEDS: magnesium sulfate premix 2 GM/50 ML PIGGYBACK IV (09:54)
[2024-11-17] MEDS: lidocaine 1% 5 ML in potassium chloride premix 100 ML 52.5 ML IV ×2 (10:11→12:21)
--- NOTE | 2024-11-17 13:31 | P.PN_ITS ---
Subjective 2 Subjective: No acute events overnight. Patient has remained on AVAPS setting overnight. Today morning examination more awake and alert. Denies any nausea, vomiting, headache. Able to have conversation. Being weaned down from BiPAP to nasal cannula. States she is hungry. Vitals/I&O/Wt Last Vital Signs Temp 98.0 F 11/17/24 12:00 Pulse 73 11/17/24 13:00 Resp 18 11/17/24 13:00 BP 120/40 11/17/24 13:00 Pulse Ox 94 11/17/24 13:00 O2 Del Method Nasal Cannula 11/17/24 12:00 O2 Flow Rate 4 11/17/24 12:00 FiO2 100 11/17/24 08:00 11/16/24 11/17/24 11/17/24 22:59 06:59 14:59 Intake Total 550 / 750 300 / 1050 1005 / 1005 Output Total 700 / 1625 1200 / 2825 1200 / 1200 Balance -150 / -875 -900 / -1775 -195 / -195 Weight last 48 hrs Weight 89.584 kg Weight 94.347 kg Physical Exam 2 Narrative: General: AO x 3, no acute distress, on BiPAP been transitioned to nasal cannula HEENT: PERRLA, pupils bilaterally equal and reactive, pallors not present Chest: Bilateral bronchial breath sounds all over lung funez, occasional rhonchi, coarse reactive left more than right CVS: S1-S2 regular, no murmurs, no tachycardia, no gallops, no rubs Abdomen: Soft, nontender, no organomegaly, bowel sounds present Neuro: No focal deficits, no facial deformity, power 5/5 in all limbs Urinary Catheter Management: Damon: Cath Placed During This Visit: yes Reason for Continuing Indwelling Catheter: Accurate Measurement of Urinary Output in Critically Ill Patients Urinary Catheter Date of Insertion: 11/15/24 Urinary Catheter Time of Insertion: 21:00 Data 11/17/24 04:39 11/17/24 04:39 Micro: Microbiology 11/15/24 17:52 Blood Culture - Preliminary Blood NEGATIVE TO DATE 11/15/24 17:54 Blood Culture - Preliminary Blood NEGATIVE TO DATE 11/15/24 16:20 Urine Culture - Preliminary Urine,Clean Catch Gram Negative Rods A&P Assessment and plan 1. Acute hypoxic on chronic hypercapnic respiratory failure: 2. Acute diastolic congestive heart failure: Recent echocardiogram from September 2024 with an ejection fraction of 60%, grade 1 diastolic dysfunction. Baseline troponin today at 64, trending down to 62 over 2 hours. Patient denies any chest pain. EKG showing right bundle branch block with minimal change compared to September 2024. Stress test dating back to September 2023 had shown small area of inconsistent reversible defect in the mid inferior lateral region which was thought to be related to attenuation artifact. 3. Pneumonia of both lungs due to infectious organism, unspecified part of lung: as above 4. RICARDO (acute kidney injury): 5. Metabolic encephalopathy: 6. Gastroenteritis: Currently empiric piperacillin/tazobactam to provide adequate coverage. Check C. difficile PCR 7. Hypomagnesemia: 8. UTI (urinary tract infection): Plan: 79-year-old lady presenting today with acute hypercapnic and hypoxemic respiratory failure , initially patient required 6 L/min supplemental O2 and was thereafter placed on BiPAP ventilation due to increasing work of breathing and concern for respiratory fatigue. Respiratory failure: Hypoxic and hypercapnic. Due to combination of acute decompensated diastolic congestive heart failure, bilateral pneumonia with concerns for aspiration along with COPD exacerbation. Wean oxygen supplementation keeping saturation over 88%. Plan for BiPAP/AVAPS mode when resting and nightly. Repeat ABG. Patient developing dehydration. Associated with hypernatremia and worsening of creatinine and BUN. Hold off on further diuresis for now. Monitor fluid status. Strict input output charting, daily weights. Fluid restriction to less than 1500 cc. Nebulization with Pulmicort twice daily, DuoNeb every 4 hours. Solu-Medrol 40 mg every 8 hours Aggressive pulmonary toilet with I-S and Acapella. Check sputum culture, negative urine bacterial antigen, positive MRSA swab. Check LDH, beta D glucan and PCP PCR Empirically continue with IV Zosyn, vancomycin as per creatinine clearance. Azithromycin for atypical coverage. Advance diet as per speech evaluation. UTI: Follow-up blood culture, urine culture. Zosyn will sufficient for UTI for now. Hypernatremia: Sodium worsening to 148. RICARDO versus CKD: Creatinine since September 2024 has been elevated. Maximum 4.8, minimum of 1.9. Worsening to 2 today. Patient did have contrast studies in the ER prior to admission. Continue to monitor renal functions daily. Check urine lites and urine creatinine. Hold off on Lasix as above. Medical reconciliation done for nephrotoxic drugs. CT on pelvis negative for obstructive nephropathy. Hypertension: Goal blood pressure less than 140/90 mg. Hold off on antihypertensive for now. Metabolic encephalopathy: Acute toxic metabolic encephalopathy. Could be in setting of sepsis versus hypercapnia. Improved after resolution of hypercapnia today. Sepsis present on admission. Continue to monitor. Replace magnesium and potassium. Monitor BMP daily. Continue other chronic medication regarding aspirin, statin, levothyroxine, tizanidine. CODE STATUS: Discussed in detail with patient's DPOA over the phone yesterday. DNR/DNI. Protonix OPD prophylaxis Heparin for DVT prophylaxis PDMP PDMP Reviewed: Not Reviewed Attestations 2 Medical Necessity Statement*: Requires further hospitalization for management of acute hypoxic and hypercapnic respiratory failure in setting of COPD exacerbation, aspiration pneumonia, diastolic heart failure Diagnoses Acute hypoxic on chronic hypercapnic respiratory failure J96.01; J96.12 Acute diastolic congestive heart failure I50.31 Heart failure chronicity: acute Heart failure type: diastolic Pneumonia of both lungs due to infectious organism, unspecified part of lung J18.9 Laterality: bilateral Lung location: unspecified part of lung Pneumonia type: due to unspecified organism RICARDO (acute kidney injury) N17.9 Metabolic encephalopathy G93.41 Gastroenteritis K52.9 Hypomagnesemia E83.42 UTI (urinary tract infection) N39.0
[2024-11-17 14:25] LABS: Urine Eosinophil Count 0 (0-0)
[2024-11-17 14:30] LABS: Potassium, Radom Urine 27 mmol/L; Urine Random Chloride 61 mmol/L; Urine Random Sodium 67 mmol/L
[2024-11-17 15:13] LABS: ABG PCO2 42.3 mmHg (35-45); ABG PH Result 7.40 (7.35-7.45); Alveolar-Arterial Oxygen Gradi 13.2 mmHg (5-10); Arterial Blood Gas Hematocrit 30.9 % (37-47); Blood Gas LPM 3.5 %; Blood Gas Operator Identificat GD; Blood Gas Sample Site Brachial, right; Blood Gas Sample Type Arterial; Carboxyhemoglobin 1.1 %THgb (0.4-20.1); Glucose Level-ABG 262.0 mg/dL (70-115); HCO3 ABG 26.4 mmol/L (22-26); Ionized Calcium Level - ABG 0.9 mmol/L (1.1-1.4); Methemoglobin 0.2 % (0.4-1.5); Oxygen Saturation ABG 94.7; PO2 ABG 73.7 mmHg (80.0-100.0); PO2 FiO2 Ratio Arterial Blood 230; Potassium Level - ABG 3.5 mmol/L (3.5-5.0); Sodium Level - ABG 142.0 mmol/L (131-143)
[2024-11-17 15:34] LABS: Anion Gap 24.8 (5-19); Blood Urea Nitrogen 31 mg/dL (8-23); Calcium 6.7 mg/dL (8.5-10.5); Carbon Dioxide 22 mmol/L (22-29); Chloride 99 mmol/L (98-107); Creatinine Clr Calc Pharmacy 27.9170; Glucose 266 mg/dL (65-115); Osmolality Calculated 310 mOsm/kg (285-295); Potassium 3.8 mmol/L (3.5-5.1); Sodium 142 mmol/L (136-145)
[2024-11-18] VITALS (33 sets, daily range): BP systolic 135–173; BP diastolic 47–93; PULSE 67–117; RESP 15–29; TEMP 36.6–37.2; O2SAT 93–100
[2024-11-18] MEDS: piperacillin-tazobactam 3.375 GM in sodium chloride 0.9% (plus) 50 ML IV ×3 (01:52→17:37)
[2024-11-18 04:18] LABS: Hematocrit 31.9 % (36-47); Hemoglobin 9.60 g/dL (11.27-16.99); Mean Corpuscular HGB Conc 30.1 g/dL (30-55); Mean Corpuscular Hemoglobin 29.2 pg (27-33); Mean Corpuscular Volume 97.0 fl (85-98); Nucleated Red Blood Cells % 0 %; Platelet Count 257 10^3/cmm (157-399); Red Blood Count 3.29 10^6/uL (3.85-5.65); White Blood Count 8.72 10^3/uL (3.29-11.43)
[2024-11-18 04:43] LABS: Alanine Aminotransferase < 5 U/L (0-33); Albumin Level 3.4 g/dL (3.5-5.2); Alkaline Phosphatase 74 U/L (35-105); Anion Gap 19.5 (5-19); Aspartate Amino Transferase 18 U/L (0-32); Blood Urea Nitrogen 33 mg/dL (8-23); Calcium 7.2 mg/dL (8.5-10.5); Carbon Dioxide 25 mmol/L (22-29); Chloride 99 mmol/L (98-107); Globulin 3.0 g/dL (1.3-4.6); Glucose 178 mg/dL (65-115); Magnesium 1.7 mg/dL (1.7-2.3); Osmolality Calculated 302 mOsm/kg (285-295); Potassium 3.5 mmol/L (3.5-5.1); Sodium 140 mmol/L (136-145); Total Protein 6.4 g/dL (6.6-8.7)
[2024-11-18 04:47] LABS: Creatinine Clr Calc Pharmacy 31.4066
[2024-11-18] MEDS: methylPREDNISolone sod succ 40 mg/mL INJ IVP ×3 (05:21→21:15)
[2024-11-18] MEDS: heparin 5,000 unit/mL INJ 1 mL 5000 UNIT SUBCUT ×2 (08:46→18:46)
--- NOTE | 2024-11-18 13:26 | P.PN_ITS ---
Subjective 2 Subjective: No acute events overnight. Patient has remained hemodynamically stable and afebrile. Was on BiPAP overnight. Awake and alert. Currently on 3 L of nasal cannula saturating more than 94%. Denies any nausea, vomiting. States she is hungry. Vitals/I&O/Wt Last Vital Signs Temp 98.4 F 11/18/24 05:27 Pulse 91 11/18/24 11:58 Resp 18 11/18/24 11:58 BP 165/56 11/18/24 08:00 Pulse Ox 96 11/18/24 11:58 O2 Del Method Nasal Cannula 11/18/24 11:58 O2 Flow Rate 3 11/18/24 11:58 FiO2 40 11/18/24 03:21 11/17/24 11/18/24 11/18/24 22:59 06:59 14:59 Intake Total 450 / 1860 50 / 1910 200 / 200 Output Total 550 / 1750 800 / 2550 Balance -100 / 110 -750 / -640 200 / 200 Weight last 48 hrs Weight 87.725 kg Weight 89.584 kg Weight 94.347 kg Physical Exam 2 Narrative: General: AO x 3, no acute distress, on BiPAP been transitioned to nasal cannula HEENT: PERRLA, pupils bilaterally equal and reactive, pallors not present Chest: Bilateral bronchial breath sounds all over lung funez, occasional rhonchi, coarse reactive left more than right CVS: S1-S2 regular, no murmurs, no tachycardia, no gallops, no rubs Abdomen: Soft, nontender, no organomegaly, bowel sounds present Neuro: No focal deficits, no facial deformity, power 5/5 in all limbs Urinary Catheter Management: Damon: Cath Placed During This Visit: yes Reason for Continuing Indwelling Catheter: Accurate Measurement of Urinary Output in Critically Ill Patients Urinary Catheter Date of Insertion: 11/15/24 Urinary Catheter Time of Insertion: 21:00 Data 11/18/24 03:19 11/18/24 03:19 Micro: Microbiology 11/15/24 16:20 Urine Culture - Final Urine,Clean Catch Citrobacter murliniae A&P Assessment and plan 1. Acute hypoxic on chronic hypercapnic respiratory failure: 2. Acute diastolic congestive heart failure: Recent echocardiogram from September 2024 with an ejection fraction of 60%, grade 1 diastolic dysfunction. Baseline troponin today at 64, trending down to 62 over 2 hours. Patient denies any chest pain. EKG showing right bundle branch block with minimal change compared to September 2024. Stress test dating back to September 2023 had shown small area of inconsistent reversible defect in the mid inferior lateral region which was thought to be related to attenuation artifact. 3. Pneumonia of both lungs due to infectious organism, unspecified part of lung: as above 4. RICARDO (acute kidney injury): 5. Metabolic encephalopathy: 6. Gastroenteritis: Currently empiric piperacillin/tazobactam to provide adequate coverage. Check C. difficile PCR 7. Hypomagnesemia: 8. UTI (urinary tract infection): Plan: 79-year-old lady presenting today with acute hypercapnic and hypoxemic respiratory failure , initially patient required 6 L/min supplemental O2 and was thereafter placed on BiPAP ventilation due to increasing work of breathing and concern for respiratory fatigue. Respiratory failure: Hypoxic and hypercapnic. Due to combination of acute decompensated diastolic congestive heart failure, bilateral pneumonia with concerns for aspiration along with COPD exacerbation. Wean oxygen supplementation keeping saturation over 88%. Plan for BiPAP/AVAPS mode when resting and nightly. Repeat ABG. Patient developing dehydration. Associated with hypernatremia and worsening of creatinine and BUN. Hold off on further diuresis for now. Monitor fluid status. Strict input output charting, daily weights. Fluid restriction to less than 1500 cc. Nebulization with Pulmicort twice daily, DuoNeb every 4 hours. Solu-Medrol 40 mg every 8 hours Aggressive pulmonary toilet with I-S and Acapella. Check sputum culture, negative urine bacterial antigen, positive MRSA swab. Check LDH, beta D glucan and PCP PCR Empirically continue with IV Zosyn, vancomycin as per creatinine clearance. Azithromycin for atypical coverage. Advance diet as per speech evaluation. UTI: Follow-up blood culture, urine culture. Zosyn will sufficient for UTI for now. Hypernatremia: Sodium worsening to 148. RICARDO versus CKD: Creatinine since September 2024 has been elevated. Maximum 4.8, minimum of 1.9. Worsening to 2 today. Patient did have contrast studies in the ER prior to admission. Continue to monitor renal functions daily. Check urine lites and urine creatinine. Hold off on Lasix as above. Medical reconciliation done for nephrotoxic drugs. CT on pelvis negative for obstructive nephropathy. Hypertension: Goal blood pressure less than 140/90 mg. Hold off on antihypertensive for now. Metabolic encephalopathy: Acute toxic metabolic encephalopathy. Could be in setting of sepsis versus hypercapnia. Improved after resolution of hypercapnia today. Sepsis present on admission. Continue to monitor. Replace magnesium and potassium. Monitor BMP daily. Continue other chronic medication regarding aspirin, statin, levothyroxine, tizanidine. CODE STATUS: Discussed in detail with patient's DPOA over the phone yesterday. DNR/DNI. Protonix OPD prophylaxis Heparin for DVT prophylaxis Plan for the day: Continue with oxygen supplementation keeping saturation over 88%. BiPAP nightly. Nebulization treatment with Pulmicort twice daily, DuoNeb every 4 hours. Continue with Solu-Medrol 40 mg every 8 hour. Plan to wean in next 24 hours. Continue with Zosyn and vancomycin. Sputum culture still not collected. Continue with azithromycin for 3-day course. MRSA positive. RICARDO improving. Creatinine down to 1.6. BUN stable. Oral Lasix 40 mg one-time. Will dose further Lasix depending on volume status. Advance diet as per speech evaluation. Physical therapy. Out of bed to chair. Aggressive pulmonary toilet. Magnesium stable today. Continue to monitor BMP in afternoon. Transfer to [facility] floor. PDMP PDMP Reviewed: Not Reviewed Attestations 2 Medical Necessity Statement*: Requires further hospitalization for management of acute hypoxic hypercapnic respiratory failure in setting of COPD exacerbation, bilateral pneumonia with concerns for aspiration, congestive heart failure, acute kidney injury Diagnoses Acute hypoxic on chronic hypercapnic respiratory failure J96.01; J96.12 Acute diastolic congestive heart failure I50.31 Heart failure chronicity: acute Heart failure type: diastolic Pneumonia of both lungs due to infectious organism, unspecified part of lung J18.9 Laterality: bilateral Lung location: unspecified part of lung Pneumonia type: due to unspecified organism RICARDO (acute kidney injury) N17.9 Metabolic encephalopathy G93.41 Gastroenteritis K52.9 Hypomagnesemia E83.42 UTI (urinary tract infection) N39.0
--- NOTE | 2024-11-18 14:28 | PC.NURSE ---
off bipap since early am on nc at this time no respiratory distress noted , family at bedside antibiotic given
[2024-11-18] MEDS: vancomycin 500 MG in sodium chloride 0.9% (plus) 100 ML 200 MG IV (15:23)
[2024-11-19] VITALS (15 sets, daily range): BP systolic 141–193; BP diastolic 60–101; PULSE 66–85; RESP 15–21; TEMP 36.4–37.1; O2SAT 92–98
[2024-11-19] MEDS: piperacillin-tazobactam 3.375 GM in sodium chloride 0.9% (plus) 50 ML IV ×3 (01:30→17:10)
--- NOTE | 2024-11-19 04:25 | PC.NURSE ---
Report called Denise Cardenas, transferred patient to [facility]SU at [id number].
[2024-11-19 04:32] LABS: Hematocrit 34.7 % (36-47); Hemoglobin 10.40 g/dL (11.27-16.99); Mean Corpuscular HGB Conc 30.0 g/dL (30-55); Mean Corpuscular Hemoglobin 28.7 pg (27-33); Mean Corpuscular Volume 95.6 fl (85-98); Nucleated Red Blood Cells % 0 %; Platelet Count 257 10^3/cmm (157-399); Red Blood Count 3.63 10^6/uL (3.85-5.65); White Blood Count 6.67 10^3/uL (3.29-11.43)
[2024-11-19 05:10] LABS: Alanine Aminotransferase 7 U/L (0-33); Albumin Level 3.7 g/dL (3.5-5.2); Alkaline Phosphatase 75 U/L (35-105); Aspartate Amino Transferase 17 U/L (0-32); Blood Urea Nitrogen 32 mg/dL (8-23); Calcium 8.0 mg/dL (8.5-10.5); Carbon Dioxide 23 mmol/L (22-29); Chloride 101 mmol/L (98-107); Globulin 3.0 g/dL (1.3-4.6); Glucose 162 mg/dL (65-115); Osmolality Calculated 302 mOsm/kg (285-295); Sodium 141 mmol/L (136-145); Total Protein 6.7 g/dL (6.6-8.7)
[2024-11-19 05:15] LABS: Creatinine Clr Calc Pharmacy 41.4220
[2024-11-19 05:16] LABS: Anion Gap 20.7 (5-19); Potassium 3.7 mmol/L (3.5-5.1)
[2024-11-19] MEDS: methylPREDNISolone sod succ 40 mg/mL INJ IVP ×2 (05:33→17:10)
--- NOTE | 2024-11-19 07:53 | PC.NURSE ---
Pt is confused and disoriented Pulling her Telemetry and oxygen off of her. Easily redirected. Bed alarm reset.
[2024-11-19] MEDS: heparin 5,000 unit/mL INJ 1 mL 5000 UNIT SUBCUT ×2 (08:35→20:55)
--- NOTE | 2024-11-19 13:29 | P.PN_ITS ---
Subjective 2 Subjective: No acute events overnight. Seen in CICU. Awake and alert. Lying comfortably in bed. On 3 L of oxygen supplementation. Denies any nausea, vomiting, headache. Vitals/I&O/Wt Last Vital Signs Temp 98.2 F 11/19/24 12:00 Pulse 80 11/19/24 12:00 Resp 18 11/19/24 12:00 BP 184/61 11/19/24 12:00 Pulse Ox 92 11/19/24 12:00 O2 Del Method Nasal Cannula 11/19/24 12:00 O2 Flow Rate 3 11/19/24 12:00 FiO2 40 11/18/24 23:30 11/18/24 11/19/24 11/19/24 22:59 06:59 14:59 Intake Total 450 / 1200 50 / 1250 606 / 606 Output Total 800 / 800 800 / 1600 1200 / 1200 Balance -350 / 400 -750 / -350 -594 / -594 Weight last 48 hrs Weight 87.725 kg Physical Exam 2 Narrative: General: AO x 3, no acute distress, on BiPAP been transitioned to nasal cannula HEENT: PERRLA, pupils bilaterally equal and reactive, pallors not present Chest: Bilateral bronchial breath sounds all over lung funez, occasional rhonchi, coarse reactive left more than right CVS: S1-S2 regular, no murmurs, no tachycardia, no gallops, no rubs Abdomen: Soft, nontender, no organomegaly, bowel sounds present Neuro: No focal deficits, no facial deformity, power 5/5 in all limbs Urinary Catheter Management: Damon: Cath Placed During This Visit: yes Reason for Continuing Indwelling Catheter: Accurate Measurement of Urinary Output in Critically Ill Patients Urinary Catheter Date of Insertion: 11/15/24 Urinary Catheter Time of Insertion: 21:00 Data 11/19/24 02:45 11/19/24 02:45 Micro: Microbiology 11/15/24 16:20 Urine Culture - Final Urine,Clean Catch Citrobacter murliniae A&P Assessment and plan 1. Acute hypoxic on chronic hypercapnic respiratory failure: 2. Acute diastolic congestive heart failure: Recent echocardiogram from September 2024 with an ejection fraction of 60%, grade 1 diastolic dysfunction. Baseline troponin today at 64, trending down to 62 over 2 hours. Patient denies any chest pain. EKG showing right bundle branch block with minimal change compared to September 2024. Stress test dating back to September 2023 had shown small area of inconsistent reversible defect in the mid inferior lateral region which was thought to be related to attenuation artifact. 3. Pneumonia of both lungs due to infectious organism, unspecified part of lung: as above 4. RICARDO (acute kidney injury): 5. Metabolic encephalopathy: 6. Gastroenteritis: Currently empiric piperacillin/tazobactam to provide adequate coverage. Check C. difficile PCR 7. Hypomagnesemia: 8. UTI (urinary tract infection): Plan: 79-year-old lady presenting today with acute hypercapnic and hypoxemic respiratory failure , initially patient required 6 L/min supplemental O2 and was thereafter placed on BiPAP ventilation due to increasing work of breathing and concern for respiratory fatigue. Respiratory failure: Hypoxic and hypercapnic. Due to combination of acute decompensated diastolic congestive heart failure, bilateral pneumonia with concerns for aspiration along with COPD exacerbation. Wean oxygen supplementation keeping saturation over 88%. Plan for BiPAP/AVAPS mode when resting and nightly. Repeat ABG. Patient developing dehydration. Associated with hypernatremia and worsening of creatinine and BUN. Hold off on further diuresis for now. Monitor fluid status. Strict input output charting, daily weights. Fluid restriction to less than 1500 cc. Nebulization with Pulmicort twice daily, DuoNeb every 4 hours. Solu-Medrol 40 mg every 8 hours Aggressive pulmonary toilet with I-S and Acapella. Check sputum culture, negative urine bacterial antigen, positive MRSA swab. Check LDH, beta D glucan and PCP PCR Empirically continue with IV Zosyn, vancomycin as per creatinine clearance. Azithromycin for atypical coverage. Advance diet as per speech evaluation. UTI: Follow-up blood culture, urine culture. Zosyn will sufficient for UTI for now. Hypernatremia: Sodium worsening to 148. RICARDO versus CKD: Creatinine since September 2024 has been elevated. Maximum 4.8, minimum of 1.9. Worsening to 2 today. Patient did have contrast studies in the ER prior to admission. Continue to monitor renal functions daily. Check urine lites and urine creatinine. Hold off on Lasix as above. Medical reconciliation done for nephrotoxic drugs. CT on pelvis negative for obstructive nephropathy. Hypertension: Goal blood pressure less than 140/90 mg. Hold off on antihypertensive for now. Metabolic encephalopathy: Acute toxic metabolic encephalopathy. Could be in setting of sepsis versus hypercapnia. Improved after resolution of hypercapnia today. Sepsis present on admission. Continue to monitor. Replace magnesium and potassium. Monitor BMP daily. Continue other chronic medication regarding aspirin, statin, levothyroxine, tizanidine. CODE STATUS: Discussed in detail with patient's DPOA over the phone yesterday. DNR/DNI. Protonix OPD prophylaxis Heparin for DVT prophylaxis Plan for the day: Continue with pulmonary toilet. Oxygen supplementation keeping saturation over 88%. Wean accordingly. BiPAP nightly. Continue with nebulization treatment. Wean Solu-Medrol 40 mg twice daily. Lasix 40 mg daily. Monitor BMP daily. Continues to improve. Creatinine down to 1.2. Continue with IV Zosyn to finish a 5-day course. Continue with vancomycin to finish a 5-day course. Dose as per creatinine clearance. Monitor Vanco trough levels. Blood pressure is elevated. Goal blood pressure less than 140/90 mmhg. Restart home dose of amlodipine 5 mg daily, hydralazine 10 mg twice daily. Continue dysphagia level 6 diet. Advance per speech evaluation. Out of bed to chair. PDMP PDMP Reviewed: Not Reviewed Attestations 2 Medical Necessity Statement*: Requested hospitalization for acute on chronic hypoxic hypercapnic respiratory failure in setting of COPD exacerbation, aspiration pneumonia Diagnoses Acute hypoxic on chronic hypercapnic respiratory failure J96.01; J96.12 Acute diastolic congestive heart failure I50.31 Heart failure chronicity: acute Heart failure type: diastolic Pneumonia of both lungs due to infectious organism, unspecified part of lung J18.9 Laterality: bilateral Lung location: unspecified part of lung Pneumonia type: due to unspecified organism RICARDO (acute kidney injury) N17.9 Metabolic encephalopathy G93.41 Gastroenteritis K52.9 Hypomagnesemia E83.42 UTI (urinary tract infection) N39.0
[2024-11-19] MEDS: hyDRALAzine 20 mg/mL INJ 1 mL 10 MG IVP (20:03)
[2024-11-20] VITALS (17 sets, daily range): BP systolic 136–164; BP diastolic 50–86; PULSE 61–76; RESP 13–24; TEMP 36.5–36.7; O2SAT 92–97
[2024-11-20] MEDS: piperacillin-tazobactam 3.375 GM in sodium chloride 0.9% (plus) 50 ML IV ×3 (02:46→17:53)
[2024-11-20 05:27] LABS: Hematocrit 37.2 % (36-47); Hemoglobin 11.30 g/dL (11.27-16.99); Mean Corpuscular HGB Conc 30.4 g/dL (30-55); Mean Corpuscular Hemoglobin 28.6 pg (27-33); Mean Corpuscular Volume 94.2 fl (85-98); Nucleated Red Blood Cells % 0 %; Platelet Count 256 10^3/cmm (157-399); Red Blood Count 3.95 10^6/uL (3.85-5.65); White Blood Count 6.02 10^3/uL (3.29-11.43)
[2024-11-20 05:47] LABS: Alanine Aminotransferase 7 U/L (0-33); Albumin Level 3.6 g/dL (3.5-5.2); Alkaline Phosphatase 67 U/L (35-105); Anion Gap 16.1 (5-19); Aspartate Amino Transferase 16 U/L (0-32); Blood Urea Nitrogen 31 mg/dL (8-23); Calcium 8.0 mg/dL (8.5-10.5); Carbon Dioxide 29 mmol/L (22-29); Chloride 98 mmol/L (98-107); Globulin 3.7 g/dL (1.3-4.6); Glucose 139 mg/dL (65-115); Osmolality Calculated 299 mOsm/kg (285-295); Potassium 3.1 mmol/L (3.5-5.1); Sodium 140 mmol/L (136-145); Total Protein 7.3 g/dL (6.6-8.7)
[2024-11-20 06:09] LABS: Creatinine Clr Calc Pharmacy 40.7356
[2024-11-20] MEDS: methylPREDNISolone sod succ 40 mg/mL INJ IVP ×2 (08:47→17:53)
[2024-11-20] MEDS: heparin 5,000 unit/mL INJ 1 mL 5000 UNIT SUBCUT ×2 (08:48→20:03)
--- NOTE | 2024-11-20 11:41 | PM.PN ---
Subjective Subjective: Patient sleepy and difficult to arouse on BiPAP which was placed this morning. Did not answer my questions Vitals/I&O/Wt Last Vital Signs Temp 98.0 F 11/20/24 08:00 Pulse 67 11/20/24 11:06 Resp 21 H 11/20/24 11:05 BP 160/56 11/20/24 09:19 Pulse Ox 96 11/20/24 11:06 O2 Del Method BiPAP 11/20/24 11:05 O2 Flow Rate 2 11/20/24 04:13 FiO2 30 11/20/24 11:06 11/19/24 11/20/24 11/20/24 22:59 06:59 14:59 Intake Total 340 / 946 300 / 300 Output Total 850 / 2900 Balance 340 / -1104 -850 / -1954 300 / 300 Weight last 48 hrs Weight 84.912 kg Weight 84.912 kg Physical Exam Narrative: Lethargic. Did not answer my questions Heart distant soft systolic murmur heard best left lower sternal border Lungs clear to auscultation anteriorly Abdomen soft nontender nondistended positive bowel sounds Extremities no edema Urinary Catheter Management: Damon: Cath Placed During This Visit: yes Reason for Continuing Indwelling Catheter: Accurate Measurement of Urinary Output in Critically Ill Patients Urinary Catheter Date of Insertion: 11/15/24 Urinary Catheter Time of Insertion: 21:00 Data 11/20/24 04:49 11/20/24 04:49 A&P Assessment and plan 1. Acute hypoxic on chronic hypercapnic respiratory failure: 2. Acute diastolic congestive heart failure: *Receiving oral Lasix which is a new med for patient. *Added potassium dosage along with Lasix daily recent echocardiogram from September 2024 with an ejection fraction of 60%, grade 1 diastolic dysfunction. Stress test dating back to September 2023 had shown small area of inconsistent reversible defect in the mid inferior lateral region which was thought to be related to attenuation artifact. 3. Pneumonia of both lungs due to infectious organism, unspecified part of lun. RICARDO (acute kidney injury): 5. Metabolic encephalopathy: 6. Gastroenteritis: Currently empiric piperacillin/tazobactam to provide adequate coverage. Check C. difficile PCR 7. Hypomagnesemia: 8. UTI (urinary tract infection): Plan: 79-year-old lady presenting today with acute hypercapnic and hypoxemic respiratory failure , initially patient required 6 L/min supplemental O2 and was thereafter placed on BiPAP ventilation due to increasing work of breathing and concern for respiratory fatigue. Respiratory failure: Hypoxic and hypercapnic. Due to combination of acute decompensated diastolic congestive heart failure, bilateral pneumonia with concerns for aspiration along with COPD exacerbation. - Continue nebs, Pulmicort. Wean Solu-Medrol - Continue aggressive pulmonary toilet - BiPAP as needed - Empirically continue with IV Zosyn, vancomycin as per creatinine clearance. Azithromycin for atypical coverage. UTI: urine culture positive for C. murli sensitive to Zosyn which the patient is on. Hypernatremia: Resolved and stable at 140-141 in the last 3 days Hypokalemia: Ordered daily potassium 40 mill equivalents. RICARDO: Serum creatinine max at 11/17/2024 at 2.0. Today is at 1.2 patient has had elevations up to 4.8 in just September of this year. However her September of last year she was 0.8 creatinine since September 2024 has been elevated. Maximum 4.8, minimum of 1.9. Hypertension: home medication was amlodipine 10 mg daily and hydralazine 10 mg p.o. twice daily. Medications were restarted Metabolic encephalopathy: Could be in setting of sepsis versus hypercapnia. Reportedly improved however today she appears lethargic Sepsis present on admission. Continue to monitor. Continue other chronic medication regarding aspirin, statin, levothyroxine, tizanidine. CODE STATUS: Discussed in detail with patient's DPOA over the phone yesterday. DNR/DNI. Protonix OPD prophylaxis Heparin for DVT prophylaxis DC planning patient will return to residential likely at skilled level of care PDMP PDMP Reviewed: Not Reviewed Attestations Medical Necessity Statement*: Requested hospitalization for acute on chronic hypoxic hypercapnic respiratory failure in setting of COPD exacerbation, aspiration pneumonia Coding Level of Care Code Acute Code for [facility] Fwd Diagnoses Acute hypoxic on chronic hypercapnic respiratory failure J96.01; J96.12 Acute diastolic congestive heart failure I50.31 Heart failure chronicity: acute Heart failure type: diastolic Pneumonia of both lungs due to infectious organism, unspecified part of lung J18.9 Laterality: bilateral Lung location: unspecified part of lung Pneumonia type: due to unspecified organism RICARDO (acute kidney injury) N17.9 Metabolic encephalopathy G93.41 Gastroenteritis K52.9 Hypomagnesemia E83.42 UTI (urinary tract infection) N39.0
[2024-11-20 21:05] LABS: Fungitell 1-3-B Glucan Assay <31 pg/mL (<60); Interpretation Negative (Negative)
[2024-11-21] VITALS (15 sets, daily range): BP systolic 135–182; BP diastolic 45–89; PULSE 56–95; RESP 14–24; TEMP 36.4–37; O2SAT 89–97
[2024-11-21] MEDS: piperacillin-tazobactam 3.375 GM in sodium chloride 0.9% (plus) 50 ML IV ×2 (01:55→10:21)
[2024-11-21 08:51] LABS: Anion Gap 19.6 (5-19); Blood Urea Nitrogen 33 mg/dL (8-23); Calcium 8.0 mg/dL (8.5-10.5); Carbon Dioxide 27 mmol/L (22-29); Chloride 99 mmol/L (98-107); Creatinine Clr Calc Pharmacy 37.7249; Glucose 125 mg/dL (65-115); Magnesium 1.3 mg/dL (1.7-2.3); Osmolality Calculated 303 mOsm/kg (285-295); Potassium 3.6 mmol/L (3.5-5.1); Sodium 142 mmol/L (136-145)
[2024-11-21] MEDS: methylPREDNISolone sod succ 40 mg/mL INJ IVP (09:23)
[2024-11-21] MEDS: heparin 5,000 unit/mL INJ 1 mL 5000 UNIT SUBCUT ×2 (09:25→20:25)
[2024-11-21] MEDS: magnesium sulfate premix 4 GM/100 ML PREMIX IV (11:07)
--- NOTE | 2024-11-21 13:03 | PM.PN ---
Subjective Subjective: Patient seen in bed resting comfortably easy to awaken. Was talkative answered my questions seemed appropriate. No complaints no shortness of breath no chest pain or pressure Vitals/I&O/Wt Last Vital Signs Temp 97.6 F 11/21/24 12:00 Pulse 65 11/21/24 12:00 Resp 14 11/21/24 12:00 BP 154/47 11/21/24 12:00 Pulse Ox 97 11/21/24 12:00 O2 Del Method Nasal Cannula 11/21/24 11:11 O2 Flow Rate 3 11/21/24 11:11 FiO2 30 11/21/24 03:35 11/20/24 11/21/24 11/21/24 22:59 06:59 14:59 Intake Total 420 / 1200 290 / 1490 780 / 780 Output Total 850 / 1350 350 / 1700 Balance -430 / -150 -60 / -210 780 / 780 Weight last 48 hrs Weight 85.457 kg Weight 84.912 kg Weight 84.912 kg Physical Exam Narrative: Alert oriented to place and mostly situation Heart distant soft systolic murmur heard best left lower sternal border Lungs clear to auscultation anteriorly Abdomen soft nontender nondistended positive bowel sounds Extremities no edema Urinary Catheter Management: Damon: Cath Placed During This Visit: yes Reason for Continuing Indwelling Catheter: Other Urinary Catheter Date of Insertion: 11/15/24 Urinary Catheter Time of Insertion: 21:00 Data 11/20/24 04:49 11/21/24 07:22 Other Labs: Magnesium 1.3 Micro: Microbiology 11/15/24 17:52 Blood Culture - Final Blood NO GROWTH AFTER 5 DAYS 11/15/24 17:54 Blood Culture - Final Blood NO GROWTH AFTER 5 DAYS A&P Assessment and plan 1. Acute hypoxic on chronic hypercapnic respiratory failure: Resolving. Off BiPAP on 3 L oxygen currently 2. Acute diastolic congestive heart failure: Continue Lasix orally which is a new medication for the patient. Potassium was added yesterday and the dose was doubled today due to still being low at 3.6 Noted magnesium of 1.3 this could be associated with Lasix but also Protonix recent echocardiogram from September 2024 with an ejection fraction of 60%, grade 1 diastolic dysfunction. Stress test dating back to September 2023 had shown small area of inconsistent reversible defect in the mid inferior lateral region which was thought to be related to attenuation artifact. 3. Pneumonia of both lungs due to infectious organism, unspecified part of lun. RICARDO (acute kidney injury): 5. Metabolic encephalopathy: 6. Gastroenteritis: Currently empiric piperacillin/tazobactam to provide adequate coverage. Check C. difficile PCR 7. Hypomagnesemia: Low again today on 11/21/2024 given 4 g. I reviewed magnesium dosing with pharmacist. She has received total of 5 g during this hospitalization. Her magnesium on presentation was 0.8 it katie to 1.4, then 1.7, and today it is at 1.3. Again after review with pharmacist we concluded that Protonix is unfortunately the likely culprit. And despite the patient having esophagitis seen on CAT scan we will change to Pepcid 20 mg twice daily and consider increase to 40 mg twice daily 8. UTI (urinary tract infection): Plan: 79-year-old lady presenting today with acute hypercapnic and hypoxemic respiratory failure , initially patient required 6 L/min supplemental O2 and was thereafter placed on BiPAP ventilation due to increasing work of breathing and concern for respiratory fatigue. Respiratory failure: Hypoxic and hypercapnic. Due to combination of acute decompensated diastolic congestive heart failure, bilateral pneumonia with concerns for aspiration along with COPD exacerbation. - Continue nebs, Pulmicort. - Changed to oral steroids with taper planned - Continue aggressive pulmonary toilet - Discussed with RT and if patient appears to require BiPAP first obtain ABG. - Keeping in mind pneumonia and UTI will treat with oral Augmentin UTI: urine culture positive for C. murli sensitive Augmentin as above Hypernatremia: Resolved and stable at 140-141 in the last 3 days Hypokalemia: Increase daily dosing to twice daily RICARDO: RICARDO on CKD. I think her new baseline is approximately 1.2-1.4.. Hypertension: home medication was amlodipine 10 mg daily and hydralazine 10 mg p.o. twice daily. Medications were restarted Metabolic encephalopathy: Resolved CODE STATUS: Discussed in detail with patient's DPOA over the phone yesterday. DNR/DNI. PUD prophylaxis not indicated and an on mechanical ventilator patient. Heparin for DVT prophylaxis DC planning patient will return to correction likely at skilled level of care. Discussed with case management to plan for today or tomorrow discharge PDMP PDMP Reviewed: Not Reviewed Attestations Medical Necessity Statement*: Requested hospitalization for acute on chronic hypoxic hypercapnic respiratory failure in setting of COPD exacerbation, aspiration pneumonia and UTI Coding Level of Care Code Acute Code for Chg Fwd Diagnoses Acute hypoxic on chronic hypercapnic respiratory failure J96.01; J96.12 Acute diastolic congestive heart failure I50.31 Heart failure chronicity: acute Heart failure type: diastolic Pneumonia of both lungs due to infectious organism, unspecified part of lung J18.9 Laterality: bilateral Lung location: unspecified part of lung Pneumonia type: due to unspecified organism RICARDO (acute kidney injury) N17.9 Metabolic encephalopathy G93.41 Gastroenteritis K52.9 Hypomagnesemia E83.42 UTI (urinary tract infection) N39.0
[2024-11-22] VITALS (7 sets, daily range): BP systolic 118–175; BP diastolic 48–84; PULSE 54–77; RESP 13–20; TEMP 36.1–37.1; O2SAT 92–98
[2024-11-22 04:05] LABS: Blood Urea Nitrogen 37 mg/dL (8-23); Calcium 8.1 mg/dL (8.5-10.5); Carbon Dioxide 27 mmol/L (22-29); Chloride 100 mmol/L (98-107); Creatinine Clr Calc Pharmacy 35.0302; Glucose 194 mg/dL (65-115); Magnesium 2.1 mg/dL (1.7-2.3); Osmolality Calculated 300 mOsm/kg (285-295); Sodium 138 mmol/L (136-145)
[2024-11-22 04:07] LABS: Anion Gap 15.4 (5-19); Potassium 4.4 mmol/L (3.5-5.1)
[2024-11-22] MEDS: heparin 5,000 unit/mL INJ 1 mL 5000 UNIT SUBCUT (09:41)
--- NOTE | 2024-11-22 11:54 | PM.DCS ---
Discharge Providers Date of Admission: 11/15/24 17:46 Date of Discharge: November 22, 2024 Attending Provider at Admission: Ben Hale MD Attending Provider at Discharge: Bo Nickerson DO Primary Care Provider: Cayla Rivas APN Diagnoses at Discharge Discharge Diagnosis 1. Acute hypoxic on chronic hypercapnic respiratory failure: 2. Acute diastolic congestive heart failure: 3. Pneumonia of both lungs due to infectious organism, unspecified part of lun. RICARDO (acute kidney injury): 5. Metabolic encephalopathy: 6. Hypomagnesemia: 7. UTI (urinary tract infection): Reason for Visit Reason for Visit: N/V/D Low O2 Brief History: Gabriella Thompson is a 79 year old female nursing-home resident with a history of hypertension, GERD, anxiety, fibromyalgia, hypothyroidism, and hyperlipidemia who presented to the emergency room today with chief complaints of shortness of breath. Patient states she has been feeling increasingly short of breath over the past 4 to 5 days. Also reports symptoms of nausea vomiting and diarrhea up to 4-5 episodes per day. Denies any chest pain. Denies any dysuria. Reports a dry cough without significant mucus. Review of chart shows patient was admitted to the hospital about a month ago for UTI and acute kidney injury which was improving by the time of hospital discharge.Patient was noted to have hypoxia upon admission, requiring 6 L/min supplemental O2 and then due to increased work of breathing was placed on a BiPAP eventually. History is somewhat limited given that patient is currently on BiPAP. Hospital Course Hospital Course 79-year-old lady presenting today with acute hypoxemic respiratory failure , initially patient required 6 L/min supplemental O2 and was thereafter placed on BiPAP ventilation due to increasing work of breathing and concern for respiratory fatigue. The cause of her hypoxemic respiratory failure appears to be multifactorial related to combination of pneumonia and pulmonary edema. Patient was started on empiric antibiotic coverage with piperacillin/tazobactam and azithromycin And ordered usual respiratory therapies. There was concern for pulmonary edema by the admitting hospitalist and patient was started on Lasix IV. Attempt to wean BiPAP as tolerated. Patient was also found to have a urinary tract infection; Citrobacter murliniae. Blood cultures were found to be negative. Unfortunately the patient remained with persistent hypercapnia requiring high settings of BiPAP. Discussion with DPOA ensued and CODE STATUS was changed to DNR/DNI. The subsequent day patient showed signs of improvement. Patient continued to BiPAP at night which was new for the patient and requiring oxygen during the day again this was new for the patient. Patient was started on further pulmonary toilet as well as inhalers and nebulizers per usual care. The patient was on a dysphagia level 6 diet with speech therapy following Despite no further hypoxia the patient was placed back on BiPAP on the 8. And the patient's senior living would not be able to provide this BiPAP thus it was discontinued and patient was allowed to 24 hours without BiPAP in order to to ascertain clinical status. Patient did well patient woke up vital signs have been stable and the patient is tolerating 2 to 3 L nasal cannula which could be continued at senior living. Patient was discharged in stable improved condition on oral antibiotics, finished a course of 5 days of steroids and will be maintained on the pulmonary toilet initiated in the hospital. She is also continued on Lasix with senior living physician to follow need for longer continuation Physical Exam Narrative: Alert oriented, smiling interactive and even joking today. Heart distant soft systolic murmur heard best left lower sternal border Lungs clear to auscultation anteriorly Abdomen soft nontender nondistended positive bowel sounds Extremities no edema Urinary Catheter Management: Damon: Cath Placed During This Visit: yes Reason for Continuing Indwelling Catheter: Other Urinary Catheter Date of Insertion: 11/15/24 Urinary Catheter Time of Insertion: 21:00 Discharge Data Studies Completed and Pending Completed Studies During Hospitalization Category Date Time Status CTA PE [CT Angio Chest + Abdomen Pelvis w/ contrast; Cat Scan 11/15/24 15:44 Completed [id number] + [id number]] Stat XR chest 1V portable [id number] Stat Exams 11/15/24 14:23 Completed XR chest 1V portable [id number] Stat Exams 11/16/24 15:34 Completed Pending at discharge Category Date Time Status Pneumocystis jiroveci Qual PCR Routine Lab 11/17/24 08:15 Ordered Radiology Impressions Chest/Abdomen/Pelvis CT 11/15/24 15:44 IMPRESSION: 1. Bilateral upper lobe and right middle lobe pneumonia. COPD 2. Right pleural effusion with right basal atelectasis. 3. Trace pericardial effusion. 4. Evidence of reflux esophagitis. 5. Pulmonary arterial hypertension. 6. Moderate coronary arterial calcification, indicating the presence of coronary artery disease. If the patient has associated symptoms recommend management as per chest pain guidelines. If the patient is asymptomatic consider reviewing modifiable cardiovascular risk factors and managing as per guidelines for primary prevention IMPRESSION: 1. Interval development of inflammatory change in the distal small bowel which may be due to an enteritis, the presence of the calcification in this region could be causing inflammation however, an underlying mass can not be excluded, recommend follow-up in a few weeks and tissue sampling as indicated. 2. Possible cystitis, recommend correlation with urinalysis. 3. Moderate intrahepatic biliary ductal dilatation. COMMENTS: Consistent with the [employer]'s Incidental Findings Committee white paper (J Am Jagdish Radiol 2018): Any incidental renal lesion less than 1 cm or classified as too small to characterize, or any incidental cystic renal lesion characterized as simple-appearing, is likely benign. No follow-up imaging is recommended for these lesions per consensus recommendations based on imaging criteria. Chest X-Ray 11/16/24 15:34 Impression: 1. Patchy right upper lobe and retrocardiac opacity which could represent minimal pneumonia. 2. Atherosclerosis and cardiomegaly. Laboratory Results WBC 6.02 10^3/uL (3.29-11.43) 11/20/24 04:49 RBC 3.95 10^6/uL (3.85-5.65) 11/20/24 04:49 Hgb 11.30 g/dL (11.27-16.99) 11/20/24 04:49 Hct 37.2 % (36-47) 11/20/24 04:49 MCV 94.2 fl (85-98) 11/20/24 04:49 MCH 28.6 pg (27-33) 11/20/24 04:49 MCHC 30.4 g/dL (30-55) 11/20/24 04:49 RDW 15.8 % (12.1-15.1) H 11/20/24 04:49 Plt Count 256 10^3/cmm (157-399) 11/20/24 04:49 MPV 8.9 fL (7.4-10.4) 11/20/24 04:49 Neut % (Auto) 84.6 % 11/20/24 04:49 Lymph % (Auto) 8.6 % 11/20/24 04:49 [place] % (Auto) 6.0 % 11/20/24 04:49 Eos % (Auto) 0.0 % 11/20/24 04:49 Baso % (Auto) 0.0 % 11/20/24 04:49 Neut # (Auto) 5.09 10^3/uL (1.8-7.7) 11/20/24 04:49 Lymph # (Auto) 0.5 10^3/uL (0.8-4.8) L 11/20/24 04:49 [place] # (Auto) 0.4 10^3/uL (0.2-0.9) 11/20/24 04:49 Eos # (Auto) 0.0 10^3/uL (0.0-0.8) 11/20/24 04:49 Baso # (Auto) 0.0 10^3/uL (0.0-0.1) 11/20/24 04:49 Nucleated RBC % (auto) 0 % 11/20/24 04:49 Nucleated RBCs # 0.0 /100WBC 11/20/24 04:49 Specimen Type Arterial 11/17/24 14:57 Sample Site Brachial, right 11/17/24 14:57 ABG pH 7.40 (7.35-7.45) 11/17/24 14:57 ABG pCO2 42.3 mmHg (35-45) 11/17/24 14:57 ABG pO2 73.7 mmHg (80.0-100.0) L 11/17/24 14:57 ABG PO2/FiO2 Ratio 230 11/17/24 14:57 ABG HCO3 26.4 mmol/L (22-26) H 11/17/24 14:57 ABG O2 Saturation 94.7 11/17/24 14:57 ABG Base Excess 1.4 mmol/L (-2.0-2.0) 11/17/24 14:57 Juan Carlos Test N/a 11/17/24 14:57 A-a O2 Gradient 13.2 mmHg (5-10) H 11/17/24 14:57 Hematocrit 30.9 % (37-47) L 11/17/24 14:57 Hgb O2 Saturation 93.4 % (95-100) L 11/17/24 14:57 Carboxyhemoglobin 1.1 %THgb (0.4-20.1) 11/17/24 14:57 Methemoglobin 0.2 % (0.4-1.5) L 11/17/24 14:57 Total Hemoglobin 10.1 g/dL (12-16) L 11/17/24 14:57 Sodium 142.0 mmol/L (131-143) 11/17/24 14:57 Potassium 3.5 mmol/L (3.5-5.0) 11/17/24 14:57 Glucose 262.0 mg/dL (70-115) H 11/17/24 14:57 Ionized Calcium 0.9 mmol/L (1.1-1.4) L 11/17/24 14:57 O2 Delivery Device Nc 11/17/24 14:57 O2 Liters/Min 3.5 % 11/17/24 14:57 FiO2 32.0 % 11/17/24 14:57 Tidal Volume 0.45 11/17/24 08:48 PEEP 10.0 cmH20 11/16/24 17:09 Jewel Staker ID Gd 11/17/24 14:57 Sodium 138 mmol/L (136-145) 11/22/24 03:19 Potassium 4.4 mmol/L (3.5-5.1) 11/22/24 03:19 Chloride 100 mmol/L (98-107) 11/22/24 03:19 Carbon Dioxide 27 mmol/L (22-29) 11/22/24 03:19 Anion Gap 15.4 (5-19) 11/22/24 03:19 BUN 37 mg/dL (8-23) H 11/22/24 03:19 Creatinine 1.4 mg/dL (0.5-0.9) H 11/22/24 03:19 GFR Calculation Not Reportable 11/22/24 03:19 Glucose 194 mg/dL (65-115) H 11/22/24 03:19 Estimat Average Glucose 114 11/15/24 14:35 Hemoglobin A1c 5.6 % (4.0-6.0) 11/15/24 14:35 Calculated Osmolality 300 mOsm/kg (285-295) H 11/22/24 03:19 Lactic Acid 0.6 mmol/L (0.5-2.2) 11/15/24 17:38 Calcium 8.1 mg/dL (8.5-10.5) L 11/22/24 03:19 Phosphorus 3.8 mg/dL (2.5-4.5) 11/18/24 03:19 Magnesium 2.1 mg/dL (1.7-2.3) 11/22/24 03:19 Iron 22 ug/dL (37-145) L 11/15/24 17:54 TIBC 185 mcg/dl 11/15/24 17:54 % Saturation 11.8 % (20-50) L 11/15/24 17:54 Unsat Iron Binding 163 ug/dL (112-347) 11/15/24 17:54 Total Bilirubin 0.4 mg/dL (0.15-1.2) 11/20/24 04:49 AST 16 U/L (0-32) 11/20/24 04:49 ALT 7 U/L (0-33) 11/20/24 04:49 Alkaline Phosphatase 67 U/L (35-105) 11/20/24 04:49 Lactate Dehydrogenase 243 U/L (135-214) H 11/17/24 04:39 Troponin T Baseline 64 ng/L (0-10) H 11/15/24 14:35 Troponin T 120 Minute 62.27 ng/L (0-10) H 11/15/24 16:33 Delta Troponin T -1.73 ABS# (0-10) L 11/15/24 16:33 NT-Pro-B Natriuret Pep 6599 pg/mL (0-450) H 11/15/24 14:35 Total Protein 7.3 g/dL (6.6-8.7) 11/20/24 04:49 Albumin 3.6 g/dL (3.5-5.2) 11/20/24 04:49 Globulin 3.7 g/dL (1.3-4.6) 11/20/24 04:49 Triglycerides 96 mg/dL (0-150) 11/16/24 04:27 Cholesterol 113 mg/dL (0-200) 11/16/24 04:27 LDL Cholesterol, Calc 54 mg/dL (50-129) 11/16/24 04:27 HDL Cholesterol 40 mg/dL (60-100) L 11/16/24 04:27 LDL/HDL Ratio 1.35 RATIO (0.00-3.22) 11/16/24 04:27 Cholesterol/HDL Ratio 2.83 mg/dL (0.0-4.40) 11/16/24 04:27 Vitamin B12 > 2000 pg/mL (232-1245) H 11/15/24 14:35 Folate 11.5 ng/mL (4.8-37.3) 11/16/24 04:27 Procalcitonin 0.12 ng/mL (0-0.5) 11/16/24 04:27 TSH 1.46 uIU/mL (0.27-4.20) 11/15/24 14:35 Urine Color Yellow (Yellow) 11/15/24 16:20 Urine Appearance Turbid (CLEAR) A 11/15/24 16:20 Urine pH 7.5 (5-7) 11/15/24 16:20 Ur Specific [place] 1.029 (1.005-1.030) 11/15/24 16:20 Urine Protein 2+ (Negative) A 11/15/24 16:20 Urine Glucose (UA) Negative (Normal) 11/15/24 16:20 Urine Ketones Trace (Negative) 11/15/24 16:20 Urine Blood Negative (Negative) 11/15/24 16:20 Urine Nitrate Negative (Negative) 11/15/24 16:20 Urine Bilirubin Negative (Negative) 11/15/24 16:20 Urine Urobilinogen 1.0 mg/dL (Negative) 11/15/24 16:20 Ur Leukocyte Esterase 2+ (Negative) A 11/15/24 16:20 Urine RBC 11-20 /hpf (0-2) H 11/15/24 16:20 Urine WBC >100 /hpf (0-5) H 11/15/24 16:20 Ur Eosinophil Smear 0 (0-0) 11/17/24 13:55 Ur Squamous Epith Cells 0-5 /hpf (0-5) 11/15/24 16:20 Amorphous Sediment Not Reportable 11/15/24 16:20 Urine Bacteria 4+ /hpf (NONE) H 11/15/24 16:20 Hyaline Casts 33.08 /lpf 11/15/24 16:20 Urine Eosinophils No eosinophils seen 11/17/24 13:55 Ur Random Sodium 67 mmol/L 11/17/24 13:55 Ur Random Potassium 27 mmol/L 11/17/24 13:55 Ur Random Chloride 61 mmol/L 11/17/24 13:55 Urine Creatinine 45 mg/dL (28-217) 11/17/24 13:55 Nasal MRSA (PCR) Mrsa detected (Not Detecte) A 11/16/24 12:39 Vancomycin Trough 20.0 ug/mL (10-15) H 11/21/24 07:22 Random Vancomycin 17.1 ug/mL (20.0-40.0) L 11/19/24 02:45 Influenza A (PCR) Negative (Negative) 11/15/24 14:57 Influenza Type B (PCR) Negative (Negative) 11/15/24 14:57 RSV (PCR) Negative (Negative) 11/15/24 14:57 SARS-CoV-2 (PCR) Negative (Negative) 11/15/24 14:57 Beta-(1,3)-D-Glucan <31 pg/mL (<60) 11/17/24 09:20 B-(1,3)-D-Glucan Intrp Negative (Negative) 11/17/24 09:20 Vitals Last Vital Signs Temp 96.9 F L 11/22/24 09:59 Pulse 72 11/22/24 09:59 Resp 17 11/22/24 09:59 BP 118/84 11/22/24 09:59 Pulse Ox 92 11/22/24 09:59 O2 Del Method Nasal Cannula 11/22/24 08:00 O2 Flow Rate 2 11/22/24 08:00 FiO2 30 11/21/24 03:35 Discharge Plan Discharge Patient Disposition: Xfer SNF Condition: Stable Prescriptions: New prednisone 20 mg Tablet 20 mg PO BID Qty: 3 0RF furosemide 40 mg Tablet 40 mg PO DAILY@0800 Qty: 30 0RF ipratropium-albuterol 0.5 mg-3 mg(2.5 mg base)/3 mL Solution For Nebulization 3 ml inhalation Q4H.RESPIRATORY Qty: 30 0RF carvedilol 3.125 mg Tablet 3.125 mg PO BID Qty: 60 0RF famotidine 20 mg Tablet 20 mg PO BID Qty: 60 0RF budesonide 0.5 mg/2 mL Suspension For Nebulization 0.5 mg inhalation BID.RESPIRATORY Qty: 1 0RF hydralazine 50 mg Tablet 50 mg PO TID Qty: 90 0RF amoxicillin-pot clavulanate 875-125 mg Tablet 1 tab PO BID Qty: 7 0RF Continued escitalopram oxalate 10 mg tablet 10 mg PO QAM gabapentin 300 mg capsule 300 mg PO TID montelukast 10 mg tablet 10 mg PO DAILY polyethylene glycol 3350 17 gram/dose powder See Rx Instructions .ROUTE .COMPLEX Rx Instructions: FILL CAP TO LINE (17 GRAMS), MIX IN 8 OUNCES OF LIQUID AND DRINK BY MOUTH ONCE DAILY. fluticasone propionate 50 mcg/actuation spray,suspension 2 spray INTRANASAL DAILY levothyroxine 112 mcg tablet 112 mcg PO QAM rosuvastatin 10 mg tablet 10 mg PO QPM cyanocobalamin (vitamin B-12) 5,000 mcg capsule 5,000 mcg PO DAILY Qty: 30 0RF aspirin 81 mg Tablet,Delayed Release (Dr/Ec) 81 mg PO DAILY Qty: 90 0RF potassium chloride 10 mEq tablet,ER particles/crystals 10 meq PO DAILY Qty: 30 0RF ondansetron HCl 4 mg Tablet 4 mg PO Q6H PRN (Reason: Nausea And Vomiting) acetaminophen [Tylenol Extra Strength] 500 mg Tablet 1,000 mg PO Q6H PRN (Reason: Pain) tizanidine 2 mg tablet 2 mg PO BEDTIME VSL#3 112.5 billion cell capsule 1 cap PO DAILY Qty: 30 0RF amlodipine 5 mg tablet 10 mg PO QAM Discontinued pantoprazole 40 mg tablet,delayed release (DR/EC) 40 mg PO QAM hydralazine 10 mg tablet 10 mg PO BID Qty: 60 0RF Lubricating Specialist OK for DC: Hospitalist Discharge Order = DC NOW: Discharge Order (Routine); Ordered 11/22/24 Ordered By: Bo Nickerson Referrals: [facility] [Outside] Cayla Rivas APN [Primary Care Provider, Family Practice] - 11/29/24 11:20 am Discharge Diet: Cardiac Discharge Activity: Increase activity as tolerated Patient Instructions: Famotidine (By mouth), Furosemide (By mouth), Ipratropium (By breathing), Prednisone (By mouth), Amoxicillin/Clavulanate Potassium (By mouth) (Augmentin, Augmentin..., Hydroxyzine (By mouth), Carvedilol (By mouth), Budesonide (By breathing), Patient Portal & Nilsa Instructions Activity Restrictions/Additional Instructions: Patient is treated for an exacerbation of COPD as well as diastolic congestive heart failure. Patient has new medications including Lasix and potassium dose. Please monitor BMP. Patient may require a smaller dose in the future. Increased treatment for COPD with inhalers. Serum creatinine is slightly raised from her baseline. Stop Protonix as not indicated and age over 75 as well as side effect of renal failure. Changed to Pepcid. Finish course of antibiotics for pneumonia and UTI. Discharge Attestations Time Spent in Discharge Care*: greater than 30 min Quality Metrics Clinical Quality Measures [ No reported AMI, CVA or VTE this stay] Coding Level of Care Code Acute Code for Chg Fwd Diagnoses Acute hypoxic on chronic hypercapnic respiratory failure J96.01; J96.12 Acute diastolic congestive heart failure I50.31 Heart failure chronicity: acute Heart failure type: diastolic Pneumonia of both lungs due to infectious organism, unspecified part of lung J18.9 Laterality: bilateral Lung location: unspecified part of lung Pneumonia type: due to unspecified organism RICARDO (acute kidney injury) N17.9 Metabolic encephalopathy G93.41 Gastroenteritis K52.9 Hypomagnesemia E83.42 UTI (urinary tract infection) N39.0
== END 2024-11-22 12:25 | disposition skilled nursing facility (03) | DRG 177 ==
LOC: ER 17:31 → ER IP 17:46 → ICU 11-16 12:59 → CSU 11-19 04:08
PROVIDERS: Admitting Provider Student in an Organized Health Care Education/Training Program; Emergency Provider Emergency Medicine; PCP Nurse Practitioner Family; Visit Provider Internal Medicine
DX: J69.0 Pneumonitis due to inhalation of food and vomit (principal); G93.41 Metabolic encephalopathy; I50.33 Acute on chronic diastolic (congestive) heart failure; J96.22 Acute and chronic respiratory failure with hypercapnia; J96.21 Acute and chronic respiratory failure with hypoxia; N17.9 Acute kidney failure, unspecified; N39.0 Urinary tract infection, site not specified; E87.0 Hyperosmolality and hypernatremia; J44.1 Chronic obstructive pulmonary disease with (acute) exacerbation; I11.0 Hypertensive heart disease with heart failure; E83.42 Hypomagnesemia; B96.89 Other specified bacterial agents as the cause of diseases classified elsewhere; K21.9 Gastro-esophageal reflux disease without esophagitis; F41.9 Anxiety disorder, unspecified; M79.7 Fibromyalgia; E03.9 Hypothyroidism, unspecified; E78.2 Mixed hyperlipidemia; Z66 Do not resuscitate; E87.6 Hypokalemia; I45.10 Unspecified right bundle-branch block; E53.8 Deficiency of other specified B group vitamins; G47.00 Insomnia, unspecified; K52.9 Noninfective gastroenteritis and colitis, unspecified; R13.10 Dysphagia, unspecified; Z79.82 Long term (current) use of aspirin; Z87.440 Personal history of urinary (tract) infections; Z87.891 Personal history of nicotine dependence
CPT/HCPCS: 36415; 36600; 51702; 71045; 71275; 74177; 80048; 80051; 80053; 80061; 80202; 81001; 82330; 82436; 82570; 82607; 82746; 82805; 83036; 83540; 83550; 83605; 83615; 83735; 83880; 84100; 84133; 84145; 84300; 84443; 84484; 85025; 85999; 86403; 87040; 87077; 87086; 87186; 87449; 87637; 92507; 92523; 92526; 92610; 93005; 94640; 94660; 96372; 96374; 96375; 97161; 97530; 99291; J0360; J0456; J0696; J1644; J1938; J2270; J2543; J2919; J3373; J3475; J3480; J7050; J7512; J7626; J9999; Q0144